=== PATIENT | male | born 1935 | race Caucasian/White ===

== ENCOUNTER → 2016-10-24 | Outpatient (CLI) | payer MEDICARE ==
--- NOTE | 2016-10-26 07:49 | REP ---
Supine abdomen two views: The bowel gas pattern is normal. There are multiple tiny abdominal wall mesh retainers superimposed over the pelvis. There are no calcifications. The skeletal structures and soft tissues are otherwise unremarkable. Impression: Normal bowel gas pattern. Peroneal wall mesh retainers. Signed by Elijah Chowdary MD 10/26/2016 07:41 A
== END ==
LOC: M ADAMS 15:22
PROVIDERS: ATTEND Physician Assistant Medical
DX: R19.5 Other fecal abnormalities (principal)
CPT/HCPCS: 74000; G0463

== ENCOUNTER → 2017-07-15 | Outpatient (CLI) | payer MEDICARE | LOC: M ADAMS 11:34 | DX: R07.89 Other chest pain (principal); I51.7 Cardiomegaly; J98.4 Other disorders of lung; Z23 Encounter for immunization | CPT/HCPCS: 71046 ==

== ENCOUNTER 2017-08-22 09:31 | Emergency (ER) | payer MEDICARE ==
[2017-08-22 10:15] LABS: VENOUS BASE EXCESS -1.6 (-2.0-2.0); VENOUS HCO3 25.3 MEQ/L (23.0-27.0); VENOUS O2 SATURATION 57.1 % (60.0-80.0); VENOUS PARTIAL PRESSURE CO2 50.3 mmHg (38.0-50.0); VENOUS PARTIAL PRESSURE O2 30.9 mmHg (30.0-50.0); VENOUS TOTAL CO2 26.9 MEQ/L (24.0-28.0)
[2017-08-22 10:21] LABS: BASO % 0.1 % (0.0-1.0); EOS % 0.1 % (0.0-3.0); HEMATOCRIT 48.2 % (42.0-52.0); HEMOGLOBIN 16.6 g/dl (14.0-18.0); IMMATURE GRANULOCYTE % 0.4 % (0-3.0); LYMPH # 0.8 10^3/uL (1.5-4.5); MEAN CORPUSCULAR HEMOGLOBIN 32.5 pg (27.0-33.0); MEAN CORPUSCULAR HGB CONC 34.4 g/dl (32.0-36.5); MEAN CORPUSCULAR VOLUME 94.5 fl (80.0-96.0); MONO # 1.2 10^3/uL (0.0-0.8); MONO % 7.1 % (0.0-5.0); NEUTROPHILS # 14.5 10^3/uL (1.8-7.7); NEUTROPHILS % 87.3 % (36.0-66.0); PLATELET COUNT, AUTOMATED 213 10^3/uL (150-450); RED CELL DISTRIBUTION WIDTH 12.8 % (11.5-14.5); WHITE BLOOD COUNT 16.7 10^3/uL (4.0-10.0)
[2017-08-22 10:33] LABS: AMMONIA < 10 uMOL/L (<32)
[2017-08-22 10:35] LABS: OSMOLALITY SERUM 302 MOSM/KG (280-301)
[2017-08-22 10:37] LABS: BEDSIDE GLUCOSE 140 MG/DL (83-110)
[2017-08-22 10:40] LABS: LACTIC ACID SEPSIS PROTOCOL 4.7 MMOL/L (0.4-2.0)
[2017-08-22 10:41] LABS: ALBUMIN 3.4 GM/DL (3.2-5.2); ALBUMIN/GLOBULIN RATIO 0.87 (1.00-1.93); ALKALINE PHOSPHATASE 114 U/L (45-117); ALT/SGPT 16 U/L (12-78); ANION GAP 10 MEQ/L (8-16); AST/SGOT 14 U/L (7-37); BILIRUBIN,DIRECT 0.2 MG/DL (0.0-0.2); BILIRUBIN,TOTAL 0.7 MG/DL (0.2-1.0); BLOOD UREA NITROGEN 20 MG/DL (7-18); CALCIUM LEVEL 8.6 MG/DL (8.8-10.2); CARBON DIOXIDE LEVEL 29 MEQ/L (21-32); CHLORIDE LEVEL 103 MEQ/L (98-107); CPK CREATINE PHOSPHOKINASE 140 U/L (39-308); CREATININE FOR GFR 1.61 MG/DL (0.70-1.30); GLOMERULAR FILTRATION RATE 44.1 (>35); GLUCOSE, FASTING 158 MG/DL (70-100); POTASSIUM SERUM 4.1 MEQ/L (3.5-5.1); SALICYLATE LEVEL < 1.7 MG/DL (5.0-30.0); SODIUM LEVEL 142 MEQ/L (136-145); TOTAL PROTEIN 7.3 GM/DL (6.4-8.2); TROPONIN I < 0.02 NG/ML (< 0.10)
[2017-08-22 10:47] LABS: CK-MB VALUE MASS 1.1 NG/ML (0.0-3.6); MB/CK RELATIVE INDEX 0.78 (< OR =4)
[2017-08-22 10:50] LABS: ACETAMINOPHEN LEVEL < 2.0 UG/ML (10.0-30.0); ETHYL ALCOHOL (ETHANOL) < 0.003 % (0.000-0.010)
[2017-08-22 11:01] LABS: KETONE, URINE AUTO RFX TRACE mg/dL (NEGATIVE); LEUKOCYTE ESTERASE UR AUTO RFX NEGATIVE (NEGATIVE); MUCUS, URINE RFX SMALL (NEGATIVE); NITRITE, URINE AUTO RFX NEGATIVE (NEGATIVE); RBC, URINE AUTO RFX 2 /HPF (0-3); SPECIFIC GRAVITY UR AUTO RFX 1.014 (1.002-1.035); SQUAM EPITHELIAL CELL UR AURFX 0 /HPF (0-6); WBC, URINE AUTO RFX 0 /HPF (0-3)
[2017-08-22 11:23] LABS: AMPHETAMINES LEVEL URINE NEGATIVE (NEGATIVE); BARBITURATES URINE NEGATIVE (NEGATIVE); BENZODIAZEPINES URINE NEGATIVE (NEGATIVE); CANNABINOIDS URINE NEGATIVE (NEGATIVE); COCAINE METABOLITE URINE NEGATIVE (NEGATIVE); METHADONE URINE NEGATIVE (NEGATIVE); OPIATES URINE NEGATIVE (NEGATIVE); PHENCYCLIDINE URINE NEGATIVE (NEGATIVE)
[2017-08-22] MEDS: CEFTRIAXONE SOD 2 GM in APPROPRIATE DILUENT 1 EA IV (12:00)
[2017-08-22] MEDS: NS 1,000 ML IV ×2 (12:00→12:53)
[2017-08-22 12:03] LABS: INR 0.94; PROTHROMBIN TIME 12.7 SECONDS (12.4-14.5)
[2017-08-22 12:04] LABS: ABG BASE EXCESS -1.4 (-2.0-2.0); ABG HCO3 22.9 MEQ/L (22.0-26.0); ABG O2 SATURATION 90.3 % (95.0-99.0); ABG PARTIAL PRESSURE CO2 37.6 mmHg (35.0-45.0); ABG PARTIAL PRESSURE O2 55.1 mmHg (75.0-100.0); ABG STANDARD HCO3 23.1 MEQ/L (22.0-26.0); ABG pH (ARTERIAL) 7.402 UNITS (7.350-7.450)
[2017-08-22] MEDS: NS 500 ML IV (13:53)
== END 2017-08-22 14:17 | disposition short-term general hospital (02) ==
LOC: M ED 09:31
DX: S06.5X0A Traumatic subdural hemorrhage without loss of consciousness, initial encounter (principal); R41.82 Altered mental status, unspecified; G20 Parkinson's disease; F02.80 Dementia in other diseases classified elsewhere, unspecified severity, without behavioral disturbance, psychotic disturbance, mood disturbance, and anxiety; W19.XXXA Unspecified fall, initial encounter; Y92.9 Unspecified place or not applicable; Y93.9 Activity, unspecified; I44.60 Unspecified fascicular block; Z79.899 Other long term (current) drug therapy
CPT/HCPCS: 71045

== ENCOUNTER → 2017-09-09 | Outpatient (REF) ==
[2017-09-09 13:23] LABS: BASO # 0.1 10^3/uL (0.0-0.2); BASO % 0.7 % (0.0-1.0); EOS # 0.1 10^3/uL (0.0-0.50); EOS % 0.7 % (0.0-3.0); HEMATOCRIT 41.3 % (42.0-52.0); HEMOGLOBIN 14.1 g/dl (14.0-18.0); LYMPH # 1.7 10^3/uL (1.5-4.5); LYMPH % 16.2 % (24.0-44.0); MEAN CORPUSCULAR HEMOGLOBIN 32.3 pg (27.0-33.0); MEAN CORPUSCULAR HGB CONC 34.1 g/dl (32.0-36.5); MEAN CORPUSCULAR VOLUME 94.7 fl (80.0-96.0); MONO # 1.3 10^3/uL (0.0-0.8); MONO % 12.5 % (0.0-5.0); NEUTROPHILS # 7.4 10^3/uL (1.8-7.7); NEUTROPHILS % 68.9 % (36.0-66.0); PLATELET COUNT, AUTOMATED 399 10^3/uL (150-450); RED BLOOD COUNT 4.36 10^6/uL (4.30-6.10); RED CELL DISTRIBUTION WIDTH 12.7 % (11.5-14.5); WHITE BLOOD COUNT 10.7 10^3/uL (4.0-10.0)
[2017-09-09 13:42] LABS: ANION GAP 10 MEQ/L (8-16); BLOOD UREA NITROGEN 24 MG/DL (7-18); CALCIUM LEVEL 8.6 MG/DL (8.8-10.2); CARBON DIOXIDE LEVEL 27 MEQ/L (21-32); CHLORIDE LEVEL 96 MEQ/L (98-107); CREATININE FOR GFR 1.09 MG/DL (0.70-1.30); GLOMERULAR FILTRATION RATE > 60.0 (>35); GLUCOSE, FASTING 76 MG/DL (70-100); SODIUM LEVEL 133 MEQ/L (136-145)
== END ==
DX: I10 Essential (primary) hypertension (principal)

== ENCOUNTER → 2017-09-12 | Outpatient (REF) ==
[2017-09-05 17:47] LABS: ANION GAP 8 MEQ/L (8-16); BLOOD UREA NITROGEN 44 MG/DL (7-18); CARBON DIOXIDE LEVEL 28 MEQ/L (21-32); CHLORIDE LEVEL 102 MEQ/L (98-107); CREATININE FOR GFR 1.23 MG/DL (0.70-1.30); GLOMERULAR FILTRATION RATE > 60.0 (>35); GLUCOSE, FASTING 126 MG/DL (70-100); POTASSIUM SERUM 4.7 MEQ/L (3.5-5.1); SODIUM LEVEL 138 MEQ/L (136-145)
== END ==
DX: I10 Essential (primary) hypertension (principal)

== ENCOUNTER → 2017-09-12 | Outpatient (REF) ==
[2017-09-12 13:42] LABS: ANION GAP 9 MEQ/L (8-16); BLOOD UREA NITROGEN 23 MG/DL (7-18); CALCIUM LEVEL 8.8 MG/DL (8.8-10.2); CARBON DIOXIDE LEVEL 28 MEQ/L (21-32); CHLORIDE LEVEL 99 MEQ/L (98-107); CREATININE FOR GFR 1.19 MG/DL (0.70-1.30); GLOMERULAR FILTRATION RATE > 60.0 (>35); GLUCOSE, FASTING 83 MG/DL (70-100); SODIUM LEVEL 136 MEQ/L (136-145)
[2017-09-12 13:57] LABS: POTASSIUM SERUM 5.4 MEQ/L (3.5-5.1)
== END ==
DX: I10 Essential (primary) hypertension (principal)

== ENCOUNTER → 2017-09-16 | Outpatient (REF) ==
[2017-09-16 12:04] LABS: BASO # 0.1 10^3/uL (0.0-0.2); BASO % 0.7 % (0.0-1.0); EOS # 0.1 10^3/uL (0.0-0.50); EOS % 1.2 % (0.0-3.0); HEMATOCRIT 42.4 % (42.0-52.0); HEMOGLOBIN 14.4 g/dl (14.0-18.0); IMMATURE GRANULOCYTE % 0.8 % (0-3.0); LYMPH % 22.4 % (24.0-44.0); MEAN CORPUSCULAR HEMOGLOBIN 32.2 pg (27.0-33.0); MEAN CORPUSCULAR VOLUME 94.9 fl (80.0-96.0); MONO % 10.8 % (0.0-5.0); NEUTROPHILS # 5.8 10^3/uL (1.8-7.7); NEUTROPHILS % 64.1 % (36.0-66.0); PLATELET COUNT, AUTOMATED 328 10^3/uL (150-450); RED BLOOD COUNT 4.47 10^6/uL (4.30-6.10); RED CELL DISTRIBUTION WIDTH 12.7 % (11.5-14.5); WHITE BLOOD COUNT 9.1 10^3/uL (4.0-10.0)
[2017-09-16 12:42] LABS: ANION GAP 9 MEQ/L (8-16); BLOOD UREA NITROGEN 28 MG/DL (7-18); CALCIUM LEVEL 8.4 MG/DL (8.8-10.2); CARBON DIOXIDE LEVEL 27 MEQ/L (21-32); CHLORIDE LEVEL 100 MEQ/L (98-107); CREATININE FOR GFR 1.36 MG/DL (0.70-1.30); GLOMERULAR FILTRATION RATE 53.5 (>35); GLUCOSE, FASTING 94 MG/DL (70-100); POTASSIUM SERUM 4.7 MEQ/L (3.5-5.1); SODIUM LEVEL 136 MEQ/L (136-145)
== END ==
DX: I10 Essential (primary) hypertension (principal)

== ENCOUNTER → 2017-09-19 | Outpatient (REF) ==
[2017-09-19 13:50] LABS: ANION GAP 8 MEQ/L (8-16); BLOOD UREA NITROGEN 25 MG/DL (7-18); CALCIUM LEVEL 8.3 MG/DL (8.8-10.2); CARBON DIOXIDE LEVEL 26 MEQ/L (21-32); CHLORIDE LEVEL 101 MEQ/L (98-107); CREATININE FOR GFR 1.14 MG/DL (0.70-1.30); GLOMERULAR FILTRATION RATE > 60.0 (>35); GLUCOSE, FASTING 115 MG/DL (70-100); POTASSIUM SERUM 4.8 MEQ/L (3.5-5.1); SODIUM LEVEL 135 MEQ/L (136-145)
== END ==
DX: I10 Essential (primary) hypertension (principal)

== ENCOUNTER → 2017-09-23 | Outpatient (REF) ==
[2017-09-23 18:49] LABS: ANION GAP 10 MEQ/L (8-16); BLOOD UREA NITROGEN 38 MG/DL (7-18); CALCIUM LEVEL 7.8 MG/DL (8.8-10.2); CARBON DIOXIDE LEVEL 25 MEQ/L (21-32); CHLORIDE LEVEL 103 MEQ/L (98-107); GLOMERULAR FILTRATION RATE 51.8 (>35); GLUCOSE, FASTING 120 MG/DL (70-100); NT-PRO BNP 96 PG/ML (<450); POTASSIUM SERUM 4.4 MEQ/L (3.5-5.1); SODIUM LEVEL 138 MEQ/L (136-145)
== END ==
DX: I10 Essential (primary) hypertension (principal)

== ENCOUNTER → 2017-09-26 | Outpatient (REF) ==
[2017-09-26 12:47] LABS: ANION GAP 6 MEQ/L (8-16); BLOOD UREA NITROGEN 19 MG/DL (7-18); CALCIUM LEVEL 8.4 MG/DL (8.8-10.2); CARBON DIOXIDE LEVEL 29 MEQ/L (21-32); CHLORIDE LEVEL 102 MEQ/L (98-107); CREATININE FOR GFR 1.16 MG/DL (0.70-1.30); GLOMERULAR FILTRATION RATE > 60.0 (>35); GLUCOSE, FASTING 89 MG/DL (70-100); POTASSIUM SERUM 4.5 MEQ/L (3.5-5.1); SODIUM LEVEL 137 MEQ/L (136-145)
== END ==
DX: I10 Essential (primary) hypertension (principal)

== ENCOUNTER → 2017-09-26 | Outpatient (CLI) | payer MEDICARE | LOC: M RAD 10:59 | DX: Z86.73 Personal history of transient ischemic attack (TIA), and cerebral infarction without residual deficits (principal); I67.82 Cerebral ischemia; I62.02 Nontraumatic subacute subdural hemorrhage | CPT/HCPCS: 70450 ==

== ENCOUNTER → 2017-09-30 | Outpatient (REF) ==
[2017-09-30 12:59] LABS: BASO # 0.1 10^3/uL (0.0-0.2); BASO % 0.6 % (0.0-1.0); EOS # 0.1 10^3/uL (0.0-0.50); EOS % 1.6 % (0.0-3.0); HEMATOCRIT 36.2 % (42.0-52.0); HEMOGLOBIN 12.1 g/dl (14.0-18.0); IMMATURE GRANULOCYTE % 0.4 % (0-3.0); LYMPH # 1.9 10^3/uL (1.5-4.5); MEAN CORPUSCULAR HEMOGLOBIN 32.1 pg (27.0-33.0); MEAN CORPUSCULAR HGB CONC 33.4 g/dl (32.0-36.5); MONO # 0.9 10^3/uL (0.0-0.8); MONO % 11.2 % (0.0-5.0); NEUTROPHILS % 62.2 % (36.0-66.0); PLATELET COUNT, AUTOMATED 224 10^3/uL (150-450); RED BLOOD COUNT 3.77 10^6/uL (4.30-6.10); WHITE BLOOD COUNT 8.1 10^3/uL (4.0-10.0)
[2017-09-30 13:33] LABS: ANION GAP 6 MEQ/L (8-16); BLOOD UREA NITROGEN 19 MG/DL (7-18); CALCIUM LEVEL 7.9 MG/DL (8.8-10.2); CARBON DIOXIDE LEVEL 30 MEQ/L (21-32); CHLORIDE LEVEL 104 MEQ/L (98-107); CREATININE FOR GFR 1.14 MG/DL (0.70-1.30); GLOMERULAR FILTRATION RATE > 60.0 (>35); GLUCOSE, FASTING 86 MG/DL (70-100); POTASSIUM SERUM 4.5 MEQ/L (3.5-5.1); SODIUM LEVEL 140 MEQ/L (136-145)
== END ==
DX: I10 Essential (primary) hypertension (principal)

== ENCOUNTER → 2017-10-03 | Outpatient (REF) ==
[2017-10-03 12:51] LABS: ANION GAP 8 MEQ/L (8-16); BLOOD UREA NITROGEN 17 MG/DL (7-18); CALCIUM LEVEL 8.4 MG/DL (8.8-10.2); CARBON DIOXIDE LEVEL 27 MEQ/L (21-32); CHLORIDE LEVEL 105 MEQ/L (98-107); CREATININE FOR GFR 1.29 MG/DL (0.70-1.30); GLOMERULAR FILTRATION RATE 56.9 (>35); GLUCOSE, FASTING 137 MG/DL (70-100); POTASSIUM SERUM 4.3 MEQ/L (3.5-5.1); SODIUM LEVEL 140 MEQ/L (136-145)
== END ==
DX: E03.9 Hypothyroidism, unspecified (principal)

== ENCOUNTER → 2017-10-07 | Outpatient (REF) | payer MEDICARE ==
[2017-10-07 12:28] LABS: BASO % 0.6 % (0.0-1.0); EOS # 0.1 10^3/uL (0.0-0.50); EOS % 1.7 % (0.0-3.0); HEMATOCRIT 36.6 % (42.0-52.0); HEMOGLOBIN 12.2 g/dl (13.5-17.5); IMMATURE GRANULOCYTE % 0.4 % (0-3.0); LYMPH # 1.9 10^3/uL (1.5-4.5); LYMPH % 26.7 % (24.0-44.0); MEAN CORPUSCULAR HEMOGLOBIN 32.3 pg (27.0-33.0); MEAN CORPUSCULAR HGB CONC 33.3 g/dl (32.0-36.5); MEAN CORPUSCULAR VOLUME 96.8 fl (80.0-96.0); MONO # 0.8 10^3/uL (0.0-0.8); MONO % 11.3 % (0.0-5.0); NEUTROPHILS # 4.3 10^3/uL (1.8-7.7); NEUTROPHILS % 59.3 % (36.0-66.0); PLATELET COUNT, AUTOMATED 261 10^3/uL (150-450); RED BLOOD COUNT 3.78 10^6/uL (4.30-6.10); RED CELL DISTRIBUTION WIDTH 13.7 % (11.5-14.5); WHITE BLOOD COUNT 7.2 10^3/uL (4.0-10.0)
[2017-10-07 13:05] LABS: ANION GAP 9 MEQ/L (8-16); BLOOD UREA NITROGEN 16 MG/DL (7-18); CALCIUM LEVEL 8.1 MG/DL (8.8-10.2); CARBON DIOXIDE LEVEL 25 MEQ/L (21-32); CHLORIDE LEVEL 106 MEQ/L (98-107); CREATININE FOR GFR 1.19 MG/DL (0.70-1.30); GLOMERULAR FILTRATION RATE > 60.0 (>35); GLUCOSE, FASTING 152 MG/DL (70-100); POTASSIUM SERUM 4.1 MEQ/L (3.5-5.1); SODIUM LEVEL 140 MEQ/L (136-145)
== END ==
DX: E03.9 Hypothyroidism, unspecified (principal)
CPT/HCPCS: 80048

== ENCOUNTER → 2017-10-17 | Outpatient (REF) | payer MEDICARE ==
[2017-10-17 10:18] LABS: BASO # 0.1 10^3/uL (0.0-0.2); BASO % 0.6 % (0.0-1.0); EOS # 0.2 10^3/uL (0.0-0.50); EOS % 1.9 % (0.0-3.0); HEMATOCRIT 37.2 % (42.0-52.0); HEMOGLOBIN 12.7 g/dl (13.5-17.5); IMMATURE GRANULOCYTE % 0.4 % (0-3.0); LYMPH # 2.2 10^3/uL (1.5-4.5); LYMPH % 25.2 % (24.0-44.0); MEAN CORPUSCULAR HEMOGLOBIN 33.2 pg (27.0-33.0); MEAN CORPUSCULAR HGB CONC 34.1 g/dl (32.0-36.5); MEAN CORPUSCULAR VOLUME 97.4 fl (80.0-96.0); MONO # 0.8 10^3/uL (0.0-0.8); MONO % 9.2 % (0.0-5.0); NEUTROPHILS # 5.6 10^3/uL (1.8-7.7); NEUTROPHILS % 62.7 % (36.0-66.0); PLATELET COUNT, AUTOMATED 253 10^3/uL (150-450); RED BLOOD COUNT 3.82 10^6/uL (4.30-6.10); RED CELL DISTRIBUTION WIDTH 14.5 % (11.5-14.5); WHITE BLOOD COUNT 8.9 10^3/uL (4.0-10.0)
[2017-10-17 10:42] LABS: ANION GAP 9 MEQ/L (8-16); BLOOD UREA NITROGEN 20 MG/DL (7-18); CARBON DIOXIDE LEVEL 25 MEQ/L (21-32); CHLORIDE LEVEL 109 MEQ/L (98-107); GLOMERULAR FILTRATION RATE > 60.0 (>35); GLUCOSE, FASTING 141 MG/DL (70-100); POTASSIUM SERUM 3.9 MEQ/L (3.5-5.1); SODIUM LEVEL 143 MEQ/L (136-145)
== END ==
DX: E05.90 Thyrotoxicosis, unspecified without thyrotoxic crisis or storm (principal)
CPT/HCPCS: 80048

== ENCOUNTER → 2018-02-10 | Outpatient (REF) | payer MEDICARE ==
[2018-02-10 19:55] LABS: BASO # 0.1 10^3/uL (0.0-0.2); BASO % 0.7 % (0.0-1.0); EOS # 0.1 10^3/uL (0.0-0.50); EOS % 1.6 % (0.0-3.0); HEMATOCRIT 51.3 % (42.0-52.0); HEMOGLOBIN 16.9 g/dl (13.5-17.5); IMMATURE GRANULOCYTE % 0.5 % (0-3.0); LYMPH # 3.6 10^3/uL (1.5-4.5); LYMPH % 43.2 % (24.0-44.0); MEAN CORPUSCULAR HEMOGLOBIN 32.1 pg (27.0-33.0); MEAN CORPUSCULAR HGB CONC 32.9 g/dl (32.0-36.5); MEAN CORPUSCULAR VOLUME 97.5 fl (80.0-96.0); MONO # 1.1 10^3/uL (0.0-0.8); MONO % 12.9 % (0.0-5.0); NEUTROPHILS # 3.4 10^3/uL (1.8-7.7); NEUTROPHILS % 41.1 % (36.0-66.0); PLATELET COUNT, AUTOMATED 223 10^3/uL (150-450); RED BLOOD COUNT 5.26 10^6/uL (4.30-6.10); RED CELL DISTRIBUTION WIDTH 12.7 % (11.5-14.5); WHITE BLOOD COUNT 8.2 10^3/uL (4.0-10.0)
[2018-02-10 20:05] LABS: ALBUMIN 3.1 GM/DL (3.2-5.2); ALBUMIN/GLOBULIN RATIO 0.76 (1.00-1.93); ALKALINE PHOSPHATASE 102 U/L (45-117); ALT/SGPT 21 U/L (12-78); ANION GAP 7 MEQ/L (8-16); AST/SGOT 15 U/L (7-37); BILIRUBIN,TOTAL 0.3 MG/DL (0.2-1.0); BLOOD UREA NITROGEN 23 MG/DL (7-18); CALCIUM LEVEL 8.6 MG/DL (8.8-10.2); CARBON DIOXIDE LEVEL 29 MEQ/L (21-32); CHLORIDE LEVEL 109 MEQ/L (98-107); CREATININE FOR GFR 1.42 MG/DL (0.70-1.30); GLOMERULAR FILTRATION RATE 50.9 (>35); GLUCOSE, FASTING 81 MG/DL (70-100); POTASSIUM SERUM 4.8 MEQ/L (3.5-5.1); SODIUM LEVEL 145 MEQ/L (136-145); TOTAL PROTEIN 7.2 GM/DL (6.4-8.2)
== END ==
LOC: M SFHCPLAZ 16:19
DX: R41.0 Disorientation, unspecified (principal)
CPT/HCPCS: 80053

== ENCOUNTER → 2018-02-11 | Outpatient (REF) | payer MEDICARE ==
[2018-02-11 20:33] LABS: APPEARANCE, URINE MANUAL CLOUDY (CLEAR); COLOR, URINE MANUAL YELLOW (YELLOW)
[2018-02-11 20:34] LABS: BILIRUBIN, URINE MANUAL NEGATIVE (NEGATIVE); BLOOD URINE MANUAL NEGATIVE (NEGATIVE); GLUCOSE, URINE (UA) MANUAL NEGATIVE (NEGATIVE); KETONE, URINE MANUAL NEGATIVE (NEGATIVE); LEUKOCYTE ESTERASE, URINE MAN POSITIVE (NEGATIVE); MICROSCOPIC INDICATED? MAN YES (NO); NITRITE, URINE MANUAL NEGATIVE (NEGATIVE); PROTEIN, URINE MANUAL NEGATIVE (NEGATIVE); UROBILINOGEN, URINE MANUAL NORMAL (NORMAL)
[2018-02-11 20:43] LABS: AMORPHOUS SEDIMENT, URINE LARGE AMOUNT (NEGATIVE); BACTERIA, URINE NONE SEEN; HYALINE CAST, URINE NONE SEEN /lpf (0-1); RBC, URINE NONE SEEN /hpf (0-3); SQUAMOUS EPITHELIAL CELL URINE SMALL AMOUNT /hpf (SMALL AMT); WBC, URINE 0-1 /hpf (0-3)
[2018-02-11 20:44] LABS: MICROSCOPIC EXAM PERFORMED
== END ==
LOC: M SFHCPLAZ 09:19
DX: R41.0 Disorientation, unspecified (principal)
CPT/HCPCS: 81000

== ENCOUNTER 2018-02-24 14:34 | Inpatient (IN) | payer MEDICARE ==
[2018-02-24] MEDS: NS 1,000 ML IV ×2 (14:52→16:00)
[2018-02-24 15:11] LABS: BASO # 0.1 10^3/uL (0.0-0.2); BASO % 0.3 % (0.0-1.0); EOS % 0.3 % (0.0-3.0); HEMATOCRIT 53.3 % (42.0-52.0); HEMOGLOBIN 17.9 g/dl (13.5-17.5); IMMATURE GRANULOCYTE % 0.4 % (0-3.0); LYMPH # 2.4 10^3/uL (1.5-4.5); LYMPH % 16.3 % (24.0-44.0); MEAN CORPUSCULAR HEMOGLOBIN 32.4 pg (27.0-33.0); MEAN CORPUSCULAR HGB CONC 33.6 g/dl (32.0-36.5); MEAN CORPUSCULAR VOLUME 96.4 fl (80.0-96.0); MONO # 1.1 10^3/uL (0.0-0.8); MONO % 7.4 % (0.0-5.0); NEUTROPHILS # 10.9 10^3/uL (1.8-7.7); NEUTROPHILS % 75.3 % (36.0-66.0); PLATELET COUNT, AUTOMATED 211 10^3/uL (150-450); RED BLOOD COUNT 5.53 10^6/uL (4.30-6.10); RED CELL DISTRIBUTION WIDTH 13.2 % (11.5-14.5); WHITE BLOOD COUNT 14.5 10^3/uL (4.0-10.0)
[2018-02-24 15:24] LABS: BEDSIDE GLUCOSE 143 MG/DL (83-110)
[2018-02-24 15:36] LABS: ALBUMIN 3.4 GM/DL (3.2-5.2); ALBUMIN/GLOBULIN RATIO 0.79 (1.00-1.93); ALKALINE PHOSPHATASE 102 U/L (45-117); ALT/SGPT 23 U/L (12-78); ANION GAP 13 MEQ/L (8-16); AST/SGOT 15 U/L (7-37); BILIRUBIN,DIRECT 0.2 MG/DL (0.0-0.2); BILIRUBIN,TOTAL 0.8 MG/DL (0.2-1.0); BLOOD UREA NITROGEN 28 MG/DL (7-18); CALCIUM LEVEL 8.8 MG/DL (8.8-10.2); CARBON DIOXIDE LEVEL 23 MEQ/L (21-32); CHLORIDE LEVEL 107 MEQ/L (98-107); CPK CREATINE PHOSPHOKINASE 45 U/L (39-308); CREATININE FOR GFR 1.62 MG/DL (0.70-1.30); GLOMERULAR FILTRATION RATE 43.8 (>35); GLUCOSE, FASTING 144 MG/DL (70-100); POTASSIUM SERUM 3.9 MEQ/L (3.5-5.1); SALICYLATE LEVEL < 1.7 MG/DL (5.0-30.0); SODIUM LEVEL 143 MEQ/L (136-145); TOTAL PROTEIN 7.7 GM/DL (6.4-8.2); TROPONIN I < 0.02 NG/ML (< 0.10)
[2018-02-24 15:38] LABS: ACETAMINOPHEN LEVEL < 2.0 UG/ML (10.0-30.0)
[2018-02-24 15:40] LABS: LACTIC ACID SEPSIS PROTOCOL 4.2 MMOL/L (0.4-2.0)
[2018-02-24 15:41] LABS: CK-MB VALUE MASS < 1.0 NG/ML (<3.6); MB/CK RELATIVE INDEX 2.22 (< OR =4)
[2018-02-24 16:00] LABS: KETONE, URINE AUTO RFX NEGATIVE (NEGATIVE); LEUKOCYTE ESTERASE UR AUTO RFX NEGATIVE (NEGATIVE); NITRITE, URINE AUTO RFX NEGATIVE (NEGATIVE); RBC, URINE AUTO RFX 1 /HPF (0-3); SPECIFIC GRAVITY UR AUTO RFX 1.025 (1.002-1.035); SQUAM EPITHELIAL CELL UR AURFX 0 /HPF (0-6); WBC, URINE AUTO RFX 0 /HPF (0-3)
[2018-02-24] MEDS: KCL 20MEQ in NS 1000ML 1,000 ML IV (19:06)
[2018-02-24 20:23] LABS: VITAMIN B12 LEVEL 307 PG/ML (247-911)
[2018-02-24 20:24] LABS: FOLATE 16.3 NG/ML (>5.4)
[2018-02-24] MEDS: CitaloPRAM (CeleXA) 10 MG TABLET PO (21:57)
[2018-02-24] MEDS: SIMVASTATIN 20 MG TAB PO (21:57)
[2018-02-25 00:16] LABS: LACTIC ACID SEPSIS PROTOCOL 1.1 MMOL/L (0.4-2.0)
[2018-02-25] MEDS: KCL 20MEQ in NS 1000ML 1,000 ML IV ×2 (04:46→14:53)
[2018-02-25] MEDS: LEVOTHYROXINE 88MCG TABLET (0.088 MG) PO ×2 (06:05)
[2018-02-25 06:38] LABS: HEMATOCRIT 44.3 % (42.0-52.0); MEAN CORPUSCULAR HEMOGLOBIN 32.2 pg (27.0-33.0); MEAN CORPUSCULAR HGB CONC 33.9 g/dl (32.0-36.5); MEAN CORPUSCULAR VOLUME 95.1 fl (80.0-96.0); PLATELET COUNT, AUTOMATED 182 10^3/uL (150-450); RED BLOOD COUNT 4.66 10^6/uL (4.30-6.10); RED CELL DISTRIBUTION WIDTH 13.3 % (11.5-14.5)
[2018-02-25 06:44] LABS: ANION GAP 7 MEQ/L (8-16); BLOOD UREA NITROGEN 23 MG/DL (7-18); CALCIUM LEVEL 8.1 MG/DL (8.8-10.2); CARBON DIOXIDE LEVEL 26 MEQ/L (21-32); CHLORIDE LEVEL 111 MEQ/L (98-107); CREATININE FOR GFR 1.21 MG/DL (0.70-1.30); GLOMERULAR FILTRATION RATE > 60.0 (>35); GLUCOSE, FASTING 100 MG/DL (70-100); SODIUM LEVEL 144 MEQ/L (136-145)
[2018-02-25] MEDS: ENOXAPARIN 30 MG/0.3 ML SYR (J1650) SC ×2 (08:29→08:45)
[2018-02-25] MEDS: DOCUSATE SODIUM 100 MG CAP PO (11:13)
[2018-02-25] MEDS: ACETAMINOPHEN TAB 650MG DOSE (2X325MG) PO (14:53)
[2018-02-25] MEDS: CitaloPRAM (CeleXA) 10 MG TABLET PO (21:17)
[2018-02-25] MEDS: SIMVASTATIN 20 MG TAB PO (21:17)
[2018-02-26] MEDS: KCL 20MEQ in NS 1000ML 1,000 ML IV (00:32)
[2018-02-26] MEDS: LEVOTHYROXINE 88MCG TABLET (0.088 MG) PO (05:39)
[2018-02-26 05:58] LABS: HEMATOCRIT 45.3 % (42.0-52.0); HEMOGLOBIN 15.3 g/dl (13.5-17.5); MEAN CORPUSCULAR HEMOGLOBIN 32.3 pg (27.0-33.0); MEAN CORPUSCULAR HGB CONC 33.8 g/dl (32.0-36.5); MEAN CORPUSCULAR VOLUME 95.6 fl (80.0-96.0); PLATELET COUNT, AUTOMATED 205 10^3/uL (150-450); RED BLOOD COUNT 4.74 10^6/uL (4.30-6.10); RED CELL DISTRIBUTION WIDTH 12.9 % (11.5-14.5); WHITE BLOOD COUNT 9.4 10^3/uL (4.0-10.0)
[2018-02-26 06:17] LABS: ANION GAP 9 MEQ/L (8-16); BLOOD UREA NITROGEN 18 MG/DL (7-18); CARBON DIOXIDE LEVEL 26 MEQ/L (21-32); CHLORIDE LEVEL 109 MEQ/L (98-107); CREATININE FOR GFR 1.18 MG/DL (0.70-1.30); GLOMERULAR FILTRATION RATE > 60.0 (>35); GLUCOSE, FASTING 92 MG/DL (70-100); POTASSIUM SERUM 4.5 MEQ/L (3.5-5.1); SODIUM LEVEL 144 MEQ/L (136-145)
[2018-02-26 06:25] LABS: LACTIC ACID SEPSIS PROTOCOL 2.2 MMOL/L (0.4-2.0)
[2018-02-26] MEDS: NS 1,000 ML IV ×2 (10:05→20:01)
[2018-02-26] MEDS: ENOXAPARIN 30 MG/0.3 ML SYR (J1650) SC (10:05)
[2018-02-26] MEDS: ACETAMINOPHEN TAB 650MG DOSE (2X325MG) PO (14:34)
[2018-02-26] MEDS: SIMVASTATIN 20 MG TAB PO (20:01)
[2018-02-26] MEDS: CitaloPRAM (CeleXA) 10 MG TABLET PO (20:01)
[2018-02-27] MEDS: LEVOTHYROXINE 88MCG TABLET (0.088 MG) PO (05:33)
[2018-02-27 05:59] LABS: HEMATOCRIT 44.8 % (42.0-52.0); HEMOGLOBIN 15.3 g/dl (13.5-17.5); MEAN CORPUSCULAR HEMOGLOBIN 32.2 pg (27.0-33.0); MEAN CORPUSCULAR HGB CONC 34.2 g/dl (32.0-36.5); MEAN CORPUSCULAR VOLUME 94.3 fl (80.0-96.0); PLATELET COUNT, AUTOMATED 194 10^3/uL (150-450); RED BLOOD COUNT 4.75 10^6/uL (4.30-6.10); RED CELL DISTRIBUTION WIDTH 12.8 % (11.5-14.5); WHITE BLOOD COUNT 8.1 10^3/uL (4.0-10.0)
[2018-02-27 06:18] LABS: ANION GAP 8 MEQ/L (8-16); BLOOD UREA NITROGEN 16 MG/DL (7-18); CALCIUM LEVEL 7.9 MG/DL (8.8-10.2); CARBON DIOXIDE LEVEL 25 MEQ/L (21-32); CHLORIDE LEVEL 108 MEQ/L (98-107); CREATININE FOR GFR 1.09 MG/DL (0.70-1.30); GLOMERULAR FILTRATION RATE > 60.0 (>35); GLUCOSE, FASTING 82 MG/DL (70-100); POTASSIUM SERUM 3.8 MEQ/L (3.5-5.1); SODIUM LEVEL 141 MEQ/L (136-145)
[2018-02-27] MEDS ORDERED: LISINOPRIL 10 MG TAB PO (09:00)
[2018-02-27] MEDS: ENOXAPARIN 30 MG/0.3 ML SYR (J1650) SC (10:12)
[2018-02-27] MEDS: amLODIPine 10 MG TAB PO (10:12)
[2018-02-27] MEDS: QUEtiapine FUMARATE 25 MG TAB PO (21:25)
[2018-02-27] MEDS: CitaloPRAM (CeleXA) 10 MG TABLET PO (21:26)
[2018-02-27] MEDS: SIMVASTATIN 20 MG TAB PO (21:26)
[2018-02-27] MEDS: LISINOPRIL 10 MG TAB PO (21:27)
[2018-02-28] MEDS: LEVOTHYROXINE 88MCG TABLET (0.088 MG) PO (05:42)
[2018-02-28 06:21] LABS: HEMATOCRIT 46.9 % (42.0-52.0); HEMOGLOBIN 15.9 g/dl (13.5-17.5); MEAN CORPUSCULAR HEMOGLOBIN 31.7 pg (27.0-33.0); MEAN CORPUSCULAR HGB CONC 33.9 g/dl (32.0-36.5); MEAN CORPUSCULAR VOLUME 93.6 fl (80.0-96.0); PLATELET COUNT, AUTOMATED 230 10^3/uL (150-450); RED BLOOD COUNT 5.01 10^6/uL (4.30-6.10); RED CELL DISTRIBUTION WIDTH 12.9 % (11.5-14.5); WHITE BLOOD COUNT 9.3 10^3/uL (4.0-10.0)
[2018-02-28 06:34] LABS: ANION GAP 8 MEQ/L (8-16); BLOOD UREA NITROGEN 19 MG/DL (7-18); CALCIUM LEVEL 8.5 MG/DL (8.8-10.2); CARBON DIOXIDE LEVEL 28 MEQ/L (21-32); CHLORIDE LEVEL 106 MEQ/L (98-107); CREATININE FOR GFR 1.22 MG/DL (0.70-1.30); GLOMERULAR FILTRATION RATE > 60.0 (>35); GLUCOSE, FASTING 93 MG/DL (70-100); SODIUM LEVEL 142 MEQ/L (136-145)
[2018-02-28] MEDS: ENOXAPARIN 30 MG/0.3 ML SYR (J1650) SC (09:00)
[2018-02-28] MEDS: amLODIPine 10 MG TAB PO (09:55)
[2018-02-28] MEDS: CYANOCOBALAMIN 1,000 MCG/ML VIAL (J3420) IM (15:02)
[2018-02-28] MEDS: LISINOPRIL 10 MG TAB PO (21:08)
[2018-02-28] MEDS: SIMVASTATIN 20 MG TAB PO (21:09)
[2018-02-28] MEDS: CitaloPRAM (CeleXA) 10 MG TABLET PO (21:09)
[2018-02-28] MEDS: QUEtiapine FUMARATE 25 MG TAB PO (21:09)
[2018-03-01] MEDS: LEVOTHYROXINE 88MCG TABLET (0.088 MG) PO (05:37)
[2018-03-01] MEDS: CYANOCOBALAMIN 500 MCG TAB PO (09:14)
[2018-03-01] MEDS: ENOXAPARIN 30 MG/0.3 ML SYR (J1650) SC (09:14)
[2018-03-01] MEDS: amLODIPine 10 MG TAB PO (09:16)
[2018-03-01] MEDS: QUEtiapine FUMARATE 25 MG TAB PO (20:48)
[2018-03-01] MEDS: CitaloPRAM (CeleXA) 10 MG TABLET PO (20:48)
[2018-03-01] MEDS: SIMVASTATIN 20 MG TAB PO (20:48)
[2018-03-01] MEDS: LISINOPRIL 10 MG TAB PO (20:49)
[2018-03-02] MEDS: LEVOTHYROXINE 88MCG TABLET (0.088 MG) PO (05:28)
[2018-03-02] MEDS: CYANOCOBALAMIN 500 MCG TAB PO (08:17)
[2018-03-02] MEDS: ENOXAPARIN 30 MG/0.3 ML SYR (J1650) SC (08:17)
[2018-03-02] MEDS: amLODIPine 10 MG TAB PO (08:20)
[2018-03-02] MEDS: QUEtiapine FUMARATE 25 MG TAB PO (20:46)
[2018-03-02] MEDS: SIMVASTATIN 20 MG TAB PO (20:46)
[2018-03-02] MEDS: LISINOPRIL 10 MG TAB PO (20:47)
[2018-03-02] MEDS: CitaloPRAM (CeleXA) 10 MG TABLET PO (20:47)
[2018-03-02] MEDS ORDERED: CLOTRIMAZOLE 1% TOPICAL CREAM 30GM TOP (23:45)
[2018-03-03] MEDS: TRIAMCINOLONE ACETONIDE 0.025 % 80 GM CREAM TOP ×3 (00:10→22:41)
[2018-03-03] MEDS: CLOTRIMAZOLE 1% TOPICAL CREAM 30GM TOP ×5 (00:11→22:42)
[2018-03-03] MEDS: LEVOTHYROXINE 88MCG TABLET (0.088 MG) PO (05:48)
[2018-03-03] MEDS: amLODIPine 10 MG TAB PO (09:00)
[2018-03-03] MEDS: CYANOCOBALAMIN 500 MCG TAB PO (11:00)
[2018-03-03] MEDS: ENOXAPARIN 30 MG/0.3 ML SYR (J1650) SC (11:00)
[2018-03-03] MEDS: SIMVASTATIN 20 MG TAB PO (22:40)
[2018-03-03] MEDS: LISINOPRIL 10 MG TAB PO (22:40)
[2018-03-03] MEDS: CitaloPRAM (CeleXA) 10 MG TABLET PO (22:40)
[2018-03-03] MEDS: QUEtiapine FUMARATE 25 MG TAB PO (22:40)
[2018-03-04] MEDS: LEVOTHYROXINE 88MCG TABLET (0.088 MG) PO (06:34)
[2018-03-04] MEDS: ENOXAPARIN 30 MG/0.3 ML SYR (J1650) SC (08:56)
[2018-03-04] MEDS: TRIAMCINOLONE ACETONIDE 0.025 % 80 GM CREAM TOP ×2 (08:57→20:22)
[2018-03-04] MEDS: CYANOCOBALAMIN 500 MCG TAB PO ×2 (08:57→09:00)
[2018-03-04] MEDS: amLODIPine 10 MG TAB PO ×2 (08:57→09:00)
[2018-03-04] MEDS: CLOTRIMAZOLE 1% TOPICAL CREAM 30GM TOP ×4 (08:57→20:22)
[2018-03-04] MEDS ORDERED: MOM 30ML SUSPENSION UDC PO (11:00)
[2018-03-04] MEDS: SENNA 8.6 MG TAB (SENOKOT) PO ×2 (11:00→20:21)
[2018-03-04] MEDS: HALOPERIDOL 5 MG/ML VIAL (J1630) IM (15:12)
[2018-03-04] MEDS: CitaloPRAM (CeleXA) 10 MG TABLET PO (20:20)
[2018-03-04] MEDS: LISINOPRIL 10 MG TAB PO (20:20)
[2018-03-04] MEDS: SIMVASTATIN 20 MG TAB PO (20:21)
[2018-03-04] MEDS: QUEtiapine FUMARATE 25 MG TAB PO (20:21)
[2018-03-04] MEDS: DOCUSATE SODIUM 100 MG CAP PO (20:22)
[2018-03-04] MEDS: LORazepam 0.5 MG TAB PO (20:22)
[2018-03-05] MEDS: LEVOTHYROXINE 88MCG TABLET (0.088 MG) PO ×2 (06:17)
[2018-03-05] MEDS: amLODIPine 10 MG TAB PO (09:00)
[2018-03-05 10:45] LABS: HEMATOCRIT 46.9 % (42.0-52.0); HEMOGLOBIN 15.9 g/dl (13.5-17.5); MEAN CORPUSCULAR HEMOGLOBIN 32.3 pg (27.0-33.0); MEAN CORPUSCULAR HGB CONC 33.9 g/dl (32.0-36.5); MEAN CORPUSCULAR VOLUME 95.3 fl (80.0-96.0); PLATELET COUNT, AUTOMATED 268 10^3/uL (150-450); RED BLOOD COUNT 4.92 10^6/uL (4.30-6.10); WHITE BLOOD COUNT 9.9 10^3/uL (4.0-10.0)
[2018-03-05] MEDS: SENNA 8.6 MG TAB (SENOKOT) PO ×2 (11:06→21:26)
[2018-03-05] MEDS: CYANOCOBALAMIN 500 MCG TAB PO (11:06)
[2018-03-05] MEDS: ENOXAPARIN 30 MG/0.3 ML SYR (J1650) SC ×2 (11:06→11:18)
[2018-03-05 11:10] LABS: ALBUMIN 2.8 GM/DL (3.2-5.2); ALBUMIN/GLOBULIN RATIO 0.76 (1.00-1.93); ALKALINE PHOSPHATASE 78 U/L (45-117); ALT/SGPT 15 U/L (12-78); ANION GAP 7 MEQ/L (8-16); AST/SGOT 13 U/L (7-37); BILIRUBIN,TOTAL 0.6 MG/DL (0.2-1.0); BLOOD UREA NITROGEN 32 MG/DL (7-18); CALCIUM LEVEL 8.6 MG/DL (8.8-10.2); CARBON DIOXIDE LEVEL 31 MEQ/L (21-32); CHLORIDE LEVEL 104 MEQ/L (98-107); CREATININE FOR GFR 1.56 MG/DL (0.70-1.30); GLOMERULAR FILTRATION RATE 45.7 (>35); GLUCOSE, FASTING 110 MG/DL (70-100); POTASSIUM SERUM 3.9 MEQ/L (3.5-5.1); SODIUM LEVEL 142 MEQ/L (136-145); TOTAL PROTEIN 6.5 GM/DL (6.4-8.2)
[2018-03-05] MEDS: CLOTRIMAZOLE 1% TOPICAL CREAM 30GM TOP ×4 (11:16→21:27)
[2018-03-05] MEDS: TRIAMCINOLONE ACETONIDE 0.025 % 80 GM CREAM TOP ×2 (11:16→21:27)
[2018-03-05] MEDS: CitaloPRAM (CeleXA) 10 MG TABLET PO (21:26)
[2018-03-05] MEDS: SIMVASTATIN 20 MG TAB PO (21:26)
[2018-03-05] MEDS: QUEtiapine FUMARATE 25 MG TAB PO (21:26)
[2018-03-05] MEDS: LISINOPRIL 10 MG TAB PO (21:26)
[2018-03-06] MEDS: LEVOTHYROXINE 88MCG TABLET (0.088 MG) PO (05:47)
[2018-03-06] MEDS: SENNA 8.6 MG TAB (SENOKOT) PO ×2 (09:05→20:57)
[2018-03-06] MEDS: ENOXAPARIN 30 MG/0.3 ML SYR (J1650) SC (09:05)
[2018-03-06] MEDS: amLODIPine 10 MG TAB PO (09:06)
[2018-03-06] MEDS: CLOTRIMAZOLE 1% TOPICAL CREAM 30GM TOP ×4 (09:07→20:59)
[2018-03-06] MEDS: CYANOCOBALAMIN 500 MCG TAB PO (09:07)
[2018-03-06] MEDS: TRIAMCINOLONE ACETONIDE 0.025 % 80 GM CREAM TOP ×2 (09:07→20:58)
[2018-03-06] MEDS: NS 0.45% 1,000 ML IV (12:44)
[2018-03-06] MEDS: CitaloPRAM (CeleXA) 10 MG TABLET PO (20:57)
[2018-03-06] MEDS: SIMVASTATIN 20 MG TAB PO (20:57)
[2018-03-06] MEDS: LORazepam 0.5 MG TAB PO (20:57)
[2018-03-06] MEDS: QUEtiapine FUMARATE 25 MG TAB PO (20:57)
[2018-03-07 00:06] LABS: ANTI-PARIETAL CELL ANTIBODY 14.5 Units (0.0-20.0)
[2018-03-07] MEDS: NS 0.45% 1,000 ML IV ×2 (00:06→12:27)
[2018-03-07 06:03] LABS: ANION GAP 7 MEQ/L (8-16); BLOOD UREA NITROGEN 31 MG/DL (7-18); CALCIUM LEVEL 8.2 MG/DL (8.8-10.2); CARBON DIOXIDE LEVEL 29 MEQ/L (21-32); CHLORIDE LEVEL 106 MEQ/L (98-107); CREATININE FOR GFR 1.34 MG/DL (0.70-1.30); GLOMERULAR FILTRATION RATE 54.5 (>35); GLUCOSE, FASTING 91 MG/DL (70-100); POTASSIUM SERUM 4.2 MEQ/L (3.5-5.1); SODIUM LEVEL 142 MEQ/L (136-145)
[2018-03-07] MEDS: LEVOTHYROXINE 88MCG TABLET (0.088 MG) PO (06:49)
[2018-03-07] MEDS: amLODIPine 10 MG TAB PO (09:01)
[2018-03-07] MEDS: SENNA 8.6 MG TAB (SENOKOT) PO ×2 (09:01→20:34)
[2018-03-07] MEDS: CYANOCOBALAMIN 500 MCG TAB PO (09:01)
[2018-03-07] MEDS: ENOXAPARIN 30 MG/0.3 ML SYR (J1650) SC (09:05)
[2018-03-07] MEDS: CLOTRIMAZOLE 1% TOPICAL CREAM 30GM TOP ×4 (09:06→21:42)
[2018-03-07] MEDS: TRIAMCINOLONE ACETONIDE 0.025 % 80 GM CREAM TOP ×2 (09:06→21:41)
[2018-03-07] MEDS: CitaloPRAM (CeleXA) 10 MG TABLET PO (20:34)
[2018-03-07] MEDS: SIMVASTATIN 20 MG TAB PO (20:34)
[2018-03-07] MEDS: QUEtiapine FUMARATE 25 MG TAB PO (20:35)
[2018-03-08] MEDS: NS 0.45% 1,000 ML IV ×2 (00:13→12:49)
[2018-03-08] MEDS: LEVOTHYROXINE 88MCG TABLET (0.088 MG) PO (06:36)
[2018-03-08] MEDS: amLODIPine 10 MG TAB PO (08:16)
[2018-03-08] MEDS: ENOXAPARIN 30 MG/0.3 ML SYR (J1650) SC (08:16)
[2018-03-08] MEDS: CYANOCOBALAMIN 500 MCG TAB PO (08:16)
[2018-03-08] MEDS: SENNA 8.6 MG TAB (SENOKOT) PO ×2 (08:16→22:16)
[2018-03-08] MEDS: CLOTRIMAZOLE 1% TOPICAL CREAM 30GM TOP ×4 (08:17→22:17)
[2018-03-08] MEDS: TRIAMCINOLONE ACETONIDE 0.025 % 80 GM CREAM TOP ×2 (08:17→22:17)
[2018-03-08] MEDS: QUEtiapine FUMARATE 50 MG TAB PO (22:16)
[2018-03-08] MEDS: SIMVASTATIN 20 MG TAB PO (22:16)
[2018-03-08] MEDS: CitaloPRAM (CeleXA) 10 MG TABLET PO (22:16)
[2018-03-09] MEDS: NS 0.45% 1,000 ML IV ×2 (00:14→12:16)
[2018-03-09] MEDS: LEVOTHYROXINE 88MCG TABLET (0.088 MG) PO (05:45)
[2018-03-09] MEDS: TRIAMCINOLONE ACETONIDE 0.025 % 80 GM CREAM TOP ×2 (08:08→22:17)
[2018-03-09] MEDS: CLOTRIMAZOLE 1% TOPICAL CREAM 30GM TOP ×4 (08:09→22:18)
[2018-03-09] MEDS: amLODIPine 10 MG TAB PO (08:13)
[2018-03-09] MEDS: ENOXAPARIN 30 MG/0.3 ML SYR (J1650) SC (08:13)
[2018-03-09] MEDS: CYANOCOBALAMIN 500 MCG TAB PO (08:13)
[2018-03-09] MEDS: SENNA 8.6 MG TAB (SENOKOT) PO ×2 (08:13→22:17)
[2018-03-09] MEDS: SIMVASTATIN 20 MG TAB PO (22:17)
[2018-03-09] MEDS: QUEtiapine FUMARATE 50 MG TAB PO (22:17)
[2018-03-09] MEDS: CitaloPRAM (CeleXA) 10 MG TABLET PO (22:17)
[2018-03-10] MEDS: NS 0.45% 1,000 ML IV ×2 (00:31→13:18)
[2018-03-10] MEDS: LEVOTHYROXINE 88MCG TABLET (0.088 MG) PO (06:03)
[2018-03-10] MEDS: SENNA 8.6 MG TAB (SENOKOT) PO ×2 (10:18→20:22)
[2018-03-10] MEDS: amLODIPine 10 MG TAB PO (10:18)
[2018-03-10] MEDS: CYANOCOBALAMIN 500 MCG TAB PO (10:19)
[2018-03-10] MEDS: ENOXAPARIN 30 MG/0.3 ML SYR (J1650) SC (10:19)
[2018-03-10] MEDS: CLOTRIMAZOLE 1% TOPICAL CREAM 30GM TOP ×4 (10:20→20:23)
[2018-03-10] MEDS: TRIAMCINOLONE ACETONIDE 0.025 % 80 GM CREAM TOP ×2 (10:20→20:24)
[2018-03-10] MEDS: CitaloPRAM (CeleXA) 10 MG TABLET PO (20:22)
[2018-03-10] MEDS: SIMVASTATIN 20 MG TAB PO (20:23)
[2018-03-10] MEDS: QUEtiapine FUMARATE 50 MG TAB PO (20:23)
[2018-03-11] MEDS: NS 0.45% 1,000 ML IV (02:06)
[2018-03-11] MEDS: LEVOTHYROXINE 88MCG TABLET (0.088 MG) PO (05:45)
[2018-03-11] MEDS: CYANOCOBALAMIN 500 MCG TAB PO (10:39)
[2018-03-11] MEDS: amLODIPine 10 MG TAB PO (10:40)
[2018-03-11] MEDS: SENNA 8.6 MG TAB (SENOKOT) PO ×2 (10:40→21:13)
[2018-03-11] MEDS: ENOXAPARIN 30 MG/0.3 ML SYR (J1650) SC (10:40)
[2018-03-11] MEDS: CLOTRIMAZOLE 1% TOPICAL CREAM 30GM TOP ×4 (10:41→21:13)
[2018-03-11] MEDS: TRIAMCINOLONE ACETONIDE 0.025 % 80 GM CREAM TOP ×2 (10:41→21:14)
[2018-03-11 12:42] LABS: ANION GAP 6 MEQ/L (8-16); BLOOD UREA NITROGEN 17 MG/DL (7-18); CALCIUM LEVEL 8.2 MG/DL (8.8-10.2); CARBON DIOXIDE LEVEL 30 MEQ/L (21-32); CHLORIDE LEVEL 106 MEQ/L (98-107); CREATININE FOR GFR 1.17 MG/DL (0.70-1.30); GLOMERULAR FILTRATION RATE > 60.0 (>35); GLUCOSE, FASTING 94 MG/DL (70-100); POTASSIUM SERUM 4.1 MEQ/L (3.5-5.1); SODIUM LEVEL 142 MEQ/L (136-145)
[2018-03-11] MEDS: SIMVASTATIN 20 MG TAB PO (21:13)
[2018-03-11] MEDS: QUEtiapine FUMARATE 50 MG TAB PO (21:13)
[2018-03-11] MEDS: CitaloPRAM (CeleXA) 10 MG TABLET PO (21:13)
[2018-03-12] MEDS: LEVOTHYROXINE 88MCG TABLET (0.088 MG) PO (05:50)
[2018-03-12 09:25] LABS: ALBUMIN 2.9 GM/DL (3.2-5.2); ALBUMIN/GLOBULIN RATIO 0.78 (1.00-1.93); ALKALINE PHOSPHATASE 79 U/L (45-117); ALT/SGPT 20 U/L (12-78); ANION GAP 10 MEQ/L (8-16); AST/SGOT 15 U/L (7-37); BILIRUBIN,TOTAL 0.4 MG/DL (0.2-1.0); BLOOD UREA NITROGEN 17 MG/DL (7-18); CALCIUM LEVEL 8.7 MG/DL (8.8-10.2); CARBON DIOXIDE LEVEL 26 MEQ/L (21-32); CHLORIDE LEVEL 106 MEQ/L (98-107); CREATININE FOR GFR 1.37 MG/DL (0.70-1.30); GLOMERULAR FILTRATION RATE 53.1 (>35); GLUCOSE, FASTING 150 MG/DL (70-100); POTASSIUM SERUM 4.1 MEQ/L (3.5-5.1); SODIUM LEVEL 142 MEQ/L (136-145); TOTAL PROTEIN 6.6 GM/DL (6.4-8.2)
[2018-03-12] MEDS: ENOXAPARIN 30 MG/0.3 ML SYR (J1650) SC (09:54)
[2018-03-12] MEDS: CYANOCOBALAMIN 500 MCG TAB PO (09:55)
[2018-03-12] MEDS: amLODIPine 10 MG TAB PO (09:55)
[2018-03-12] MEDS: SENNA 8.6 MG TAB (SENOKOT) PO ×2 (09:55→21:03)
[2018-03-12] MEDS: CLOTRIMAZOLE 1% TOPICAL CREAM 30GM TOP ×4 (09:56→21:04)
[2018-03-12] MEDS: TRIAMCINOLONE ACETONIDE 0.025 % 80 GM CREAM TOP ×2 (09:56→21:04)
[2018-03-12] MEDS: SIMVASTATIN 20 MG TAB PO (21:03)
[2018-03-12] MEDS: QUEtiapine FUMARATE 50 MG TAB PO (21:03)
[2018-03-12] MEDS: CitaloPRAM (CeleXA) 10 MG TABLET PO (21:03)
[2018-03-13] MEDS: LEVOTHYROXINE 88MCG TABLET (0.088 MG) PO (06:02)
[2018-03-13] MEDS: amLODIPine 10 MG TAB PO (08:58)
[2018-03-13] MEDS: SENNA 8.6 MG TAB (SENOKOT) PO (08:59)
[2018-03-13] MEDS: ENOXAPARIN 30 MG/0.3 ML SYR (J1650) SC (08:59)
[2018-03-13] MEDS: CYANOCOBALAMIN 500 MCG TAB PO (08:59)
[2018-03-13] MEDS: TRIAMCINOLONE ACETONIDE 0.025 % 80 GM CREAM TOP (09:00)
[2018-03-13] MEDS: CLOTRIMAZOLE 1% TOPICAL CREAM 30GM TOP (09:00)
== END 2018-03-13 10:42 | DRG 640 ==
LOC: M ED 14:34 → M ED INP 18:37 → M MSPAV 20:13
DX: E86.0 Dehydration (principal); G93.41 Metabolic encephalopathy; F02.81 Dementia in other diseases classified elsewhere, unspecified severity, with behavioral disturbance; E03.9 Hypothyroidism, unspecified; B37.42 Candidal balanitis; L25.9 Unspecified contact dermatitis, unspecified cause; E53.8 Deficiency of other specified B group vitamins; I65.29 Occlusion and stenosis of unspecified carotid artery; I71.4 Abdominal aortic aneurysm, without rupture; G31.83 Neurocognitive disorder with Lewy bodies; E78.5 Hyperlipidemia, unspecified; I11.9 Hypertensive heart disease without heart failure; Z87.891 Personal history of nicotine dependence; Z79.899 Other long term (current) drug therapy; Z87.820 Personal history of traumatic brain injury

== ENCOUNTER → 2018-04-17 | Outpatient (REF) ==
[2018-04-17 13:53] LABS: BASO # 0.1 10^3/uL (0.0-0.2); BASO % 0.9 % (0.0-1.0); EOS # 0.2 10^3/uL (0.0-0.50); HEMOGLOBIN 14.4 g/dl (13.5-17.5); IMMATURE GRANULOCYTE % 0.5 % (0-3.0); LYMPH # 2.8 10^3/uL (1.5-4.5); LYMPH % 30.1 % (24.0-44.0); MEAN CORPUSCULAR HEMOGLOBIN 31.7 pg (27.0-33.0); MEAN CORPUSCULAR HGB CONC 33.5 g/dl (32.0-36.5); MEAN CORPUSCULAR VOLUME 94.7 fl (80.0-96.0); MONO % 10.3 % (0.0-5.0); NEUTROPHILS # 5.2 10^3/uL (1.8-7.7); NEUTROPHILS % 56.2 % (36.0-66.0); PLATELET COUNT, AUTOMATED 192 10^3/uL (150-450); RED BLOOD COUNT 4.54 10^6/uL (4.30-6.10); RED CELL DISTRIBUTION WIDTH 13.5 % (11.5-14.5); WHITE BLOOD COUNT 9.2 10^3/uL (4.0-10.0)
[2018-04-17 14:16] LABS: ALBUMIN/GLOBULIN RATIO 0.94 (1.00-1.93); ALKALINE PHOSPHATASE 78 U/L (45-117); ALT/SGPT 19 U/L (12-78); ANION GAP 8 MEQ/L (8-16); AST/SGOT 14 U/L (7-37); BILIRUBIN,TOTAL 0.3 MG/DL (0.2-1.0); BLOOD UREA NITROGEN 23 MG/DL (7-18); CALCIUM LEVEL 8.4 MG/DL (8.8-10.2); CARBON DIOXIDE LEVEL 27 MEQ/L (21-32); CHLORIDE LEVEL 106 MEQ/L (98-107); CREATININE FOR GFR 1.46 MG/DL (0.70-1.30); GLOMERULAR FILTRATION RATE 49.3 (>35); GLUCOSE, FASTING 102 MG/DL (70-100); POTASSIUM SERUM 4.6 MEQ/L (3.5-5.1); SODIUM LEVEL 141 MEQ/L (136-145); TOTAL PROTEIN 6.2 GM/DL (6.4-8.2)
== END ==
LOC: SKLAB5 10:38
DX: D64.9 Anemia, unspecified (principal)

== ENCOUNTER 2018-05-27 18:43 | Emergency (ER) | payer MEDICARE ==
[2018-05-27] MEDS: NS 500 ML IV (19:45)
[2018-05-27 20:32] LABS: BASO # 0.1 10^3/uL (0.0-0.2); BASO % 0.7 % (0.0-1.0); EOS # 0.2 10^3/uL (0.0-0.50); EOS % 2.2 % (0.0-3.0); HEMATOCRIT 44.5 % (42.0-52.0); HEMOGLOBIN 15.1 g/dl (13.5-17.5); IMMATURE GRANULOCYTE % 0.5 % (0-3.0); LYMPH # 2.8 10^3/uL (1.5-4.5); LYMPH % 28.4 % (24.0-44.0); MEAN CORPUSCULAR HEMOGLOBIN 32.1 pg (27.0-33.0); MEAN CORPUSCULAR HGB CONC 33.9 g/dl (32.0-36.5); MEAN CORPUSCULAR VOLUME 94.7 fl (80.0-96.0); MONO # 1.2 10^3/uL (0.0-0.8); MONO % 12.4 % (0.0-5.0); NEUTROPHILS # 5.5 10^3/uL (1.8-7.7); NEUTROPHILS % 55.8 % (36.0-66.0); PLATELET COUNT, AUTOMATED 211 10^3/uL (150-450); RED CELL DISTRIBUTION WIDTH 13.4 % (11.5-14.5); WHITE BLOOD COUNT 9.9 10^3/uL (4.0-10.0)
[2018-05-27 20:42] LABS: INR 0.96; PROTHROMBIN TIME 12.9 SECONDS (12.1-14.4)
[2018-05-27 20:43] LABS: PARTIAL THROMBOPLASTIN TIME 30.1 SECONDS (25.4-37.6)
[2018-05-27 20:53] LABS: KETONE, URINE AUTO RFX NEGATIVE (NEGATIVE); LEUKOCYTE ESTERASE UR AUTO RFX NEGATIVE (NEGATIVE); MUCUS, URINE RFX SMALL (NEGATIVE); NITRITE, URINE AUTO RFX NEGATIVE (NEGATIVE); RBC, URINE AUTO RFX 1 /HPF (0-3); SPECIFIC GRAVITY UR AUTO RFX 1.019 (1.002-1.035); SQUAM EPITHELIAL CELL UR AURFX 0 /HPF (0-6); WBC, URINE AUTO RFX 0 /HPF (0-3)
[2018-05-27 21:05] LABS: ALBUMIN 2.9 GM/DL (3.2-5.2); ALBUMIN/GLOBULIN RATIO 0.78 (1.00-1.93); ALKALINE PHOSPHATASE 105 U/L (45-117); ALT/SGPT 19 U/L (12-78); ANION GAP 6 MEQ/L (8-16); AST/SGOT 17 U/L (7-37); BILIRUBIN,DIRECT < 0.1 MG/DL (0.0-0.2); BILIRUBIN,TOTAL 0.2 MG/DL (0.2-1.0); BLOOD UREA NITROGEN 35 MG/DL (7-18); CALCIUM LEVEL 7.8 MG/DL (8.8-10.2); CARBON DIOXIDE LEVEL 27 MEQ/L (21-32); CHLORIDE LEVEL 107 MEQ/L (98-107); CPK CREATINE PHOSPHOKINASE 57 U/L (39-308); CREATININE FOR GFR 1.56 MG/DL (0.70-1.30); GLOMERULAR FILTRATION RATE 45.6 (>35); GLUCOSE, FASTING 104 MG/DL (70-100); LIPASE 328 U/L (73-393); MB/CK RELATIVE INDEX 1.75 (< OR =4); POTASSIUM SERUM 5.2 MEQ/L (3.5-5.1); SODIUM LEVEL 140 MEQ/L (136-145); TOTAL PROTEIN 6.6 GM/DL (6.4-8.2); TROPONIN I < 0.02 NG/ML (< 0.10)
[2018-05-27] MEDS: NS 1,000 ML IV (21:30)
[2018-05-27 21:34] LABS: MAGNESIUM LEVEL 1.8 MG/DL (1.8-2.4)
== END 2018-05-27 23:33 | disposition home or self-care (01) ==
LOC: M ED 18:43
DX: E86.0 Dehydration (principal); N17.9 Acute kidney failure, unspecified; E83.52 Hypercalcemia; I49.3 Ventricular premature depolarization; G20 Parkinson's disease; E03.9 Hypothyroidism, unspecified; I10 Essential (primary) hypertension; E78.5 Hyperlipidemia, unspecified; F03.90 Unspecified dementia, unspecified severity, without behavioral disturbance, psychotic disturbance, mood disturbance, and anxiety; Z79.899 Other long term (current) drug therapy
CPT/HCPCS: 71045

== ENCOUNTER → 2018-05-30 | Outpatient (CLI) | payer MEDICARE ==
[2018-05-30 19:23] LABS: ANION GAP 8 MEQ/L (8-16); BLOOD UREA NITROGEN 26 MG/DL (7-18); CALCIUM LEVEL 8.1 MG/DL (8.8-10.2); CARBON DIOXIDE LEVEL 27 MEQ/L (21-32); CHLORIDE LEVEL 109 MEQ/L (98-107); CREATININE FOR GFR 1.57 MG/DL (0.70-1.30); GLOMERULAR FILTRATION RATE 45.3 (>35); GLUCOSE, FASTING 129 MG/DL (70-100); POTASSIUM SERUM 4.1 MEQ/L (3.5-5.1); SODIUM LEVEL 144 MEQ/L (136-145)
== END ==
LOC: M ADAMS 14:50
DX: N17.9 Acute kidney failure, unspecified (principal)
CPT/HCPCS: 80048

== ENCOUNTER → 2018-06-02 | Outpatient (REF) | payer MEDICARE ==
[2018-06-02 16:14] LABS: ANION GAP 7 MEQ/L (8-16); BLOOD UREA NITROGEN 30 MG/DL (7-18); CALCIUM LEVEL 8.2 MG/DL (8.8-10.2); CARBON DIOXIDE LEVEL 27 MEQ/L (21-32); CHLORIDE LEVEL 109 MEQ/L (98-107); CREATININE FOR GFR 1.47 MG/DL (0.70-1.30); GLOMERULAR FILTRATION RATE 48.8 (>35); GLUCOSE, FASTING 116 MG/DL (70-100); POTASSIUM SERUM 4.3 MEQ/L (3.5-5.1); SODIUM LEVEL 143 MEQ/L (136-145)
== END ==
LOC: M SFHCADAM 14:18
DX: N17.9 Acute kidney failure, unspecified (principal)
CPT/HCPCS: 80048

== ENCOUNTER 2018-06-24 16:29 | Inpatient (IN) | payer MEDICARE ==
[~2018-06-24] VITALS: Ht 175.3 cm; Wt 76.5 kg
[~2018-06-24 16:29] MED LIST: AMLO10TA5 PO; AMOX875T2 PO; ATIV1TAB10 PO; CELE10TA PO; CITA10TA5 PO; CLOTR1CR TOP; COLA100C5 PO; DULC10SU2 PR; ENEM1ENE4 PR; HYOS0.1248 PO; LEVO75TA4 PO; LEVO88TA24 PO; LISI-538 PO; LISI10TA4 PO; MILK120011 PO; MOM30SS PO; QUET5TAB PO; SCOP1DIS TOP; SENN18TA PO; SENN8.6T7 PO; SERO50TA PO; SIMV20TA2 PO; SYNT88TA2 PO; TRIA25CR TOP; TYLE325T5 PO; VITA10002 PO; VITA500T53 PO
[2018-06-24] MEDS ORDERED: ACETAMINOPHEN 650 MG SUPP PR ONE (17:00)
[2018-06-24] MEDS: IPRATROPIUM 0.5MG/ALBUTEROL 2.5MG INH SOL UD 3ML (DUONEB)(J7620) NEB PRN ×3 (17:01→17:24)
[2018-06-24 17:04] LABS: ABG BASE EXCESS -5.6 (-2.0-2.0); ABG HCO3 20.5 MEQ/L (22.0-26.0); ABG O2 SATURATION 93.3 % (95.0-99.0); ABG PARTIAL PRESSURE CO2 41.9 mmHg (35.0-45.0); ABG PARTIAL PRESSURE O2 69.9 mmHg (75.0-100.0); ABG STANDARD HCO3 19.9 MEQ/L (22.0-26.0); ABG TOTAL CO2 21.8 MEQ/L (23.0-31.0); ABG pH (ARTERIAL) 7.307 UNITS (7.350-7.450)
[2018-06-24] MEDS ORDERED: IBUPROFEN 600 MG TAB As Ordered ONE (17:04)
--- NOTE | 2018-06-24 17:07 | REP ---
Chest one-view HISTORY: Cough Comparison: 05/27/2018 Patchy density is present in the left lower lobe consistent with atelectasis or infiltrate. The right lung is clear. The heart is normal in size. The pulmonary vasculature is normal in appearance. Impression: Left lower lobe atelectasis or infiltrate. Electronically Signed by Jose Alejandro Choe MD 06/24/2018 04:58 P
[2018-06-24 17:08] LABS: BASO # 0.1 10^3/uL (0.0-0.2); BASO % 0.3 % (0.0-1.0); EOS # 0.1 10^3/uL (0.0-0.50); EOS % 0.4 % (0.0-3.0); HEMATOCRIT 50.2 % (42.0-52.0); HEMOGLOBIN 16.5 g/dl (13.5-17.5); LYMPH # 3.3 10^3/uL (1.5-4.5); LYMPH % 14.5 % (24.0-44.0); MEAN CORPUSCULAR HEMOGLOBIN 32.2 pg (27.0-33.0); MEAN CORPUSCULAR HGB CONC 32.9 g/dl (32.0-36.5); MONO # 1.5 10^3/uL (0.0-0.8); MONO % 6.6 % (0.0-5.0); NEUTROPHILS # 17.9 10^3/uL (1.8-7.7); NEUTROPHILS % 77.7 % (36.0-66.0); PLATELET COUNT, AUTOMATED 208 10^3/uL (150-450); RED BLOOD COUNT 5.12 10^6/uL (4.30-6.10)
[2018-06-24] MEDS ORDERED: IBUPROFEN 600 MG TAB PO ONE ×2 (17:15→18:30)
[2018-06-24] MEDS ORDERED: APAP500T10 PO (17:19)
[2018-06-24 17:44] LABS: INFLUENZA A AMPLIFICATION NEGATIVE (NEGATIVE); INFLUENZA B AMPLIFICATION NEGATIVE (NEGATIVE)
[2018-06-24] MEDS ORDERED: cefTRIAXone SOD 2 GM in D5W MINI-BAG PLUS 50 ML IV ONE (17:45)
[2018-06-24] MEDS ORDERED: NS IV ONE (17:45)
[2018-06-24] MEDS ORDERED: DILUENT IV ONE (17:45)
[2018-06-24 17:51] LABS: BLOOD UREA NITROGEN 24 MG/DL (7-18); CALCIUM LEVEL 8.1 MG/DL (8.8-10.2); CARBON DIOXIDE LEVEL 20 MEQ/L (21-32); CHLORIDE LEVEL 106 MEQ/L (98-107); CPK CREATINE PHOSPHOKINASE 63 U/L (39-308); CREATININE FOR GFR 1.64 MG/DL (0.70-1.30); GLUCOSE, FASTING 148 MG/DL (70-100); MB/CK RELATIVE INDEX 1.59 (< OR =4); NT-PRO BNP 140 PG/ML (<450); POTASSIUM SERUM 4.3 MEQ/L (3.5-5.1); SODIUM LEVEL 141 MEQ/L (136-145); TROPONIN I < 0.02 NG/ML (< 0.10)
[2018-06-24 18:08] LABS: INR 0.98; PROTHROMBIN TIME 13.1 SECONDS (12.1-14.4)
[2018-06-24 18:09] LABS: PARTIAL THROMBOPLASTIN TIME 25.6 SECONDS (25.4-37.6)
[2018-06-24 18:40] LABS: APPEARANCE, URINE HAZY (CLEAR); BACTERIA, URINE AUTO NEGATIVE (NEGATIVE); BILIRUBIN, URINE AUTO NEGATIVE (NEGATIVE); BLOOD, URINE BLOOD NEGATIVE (NEGATIVE); COLOR, URINE YELLOW (YELLOW); GLUCOSE, URINE (UA) AUTO NEGATIVE (NEGATIVE); KETONE, URINE AUTO NEGATIVE (NEGATIVE); LEUKOCYTE ESTERASE, URINE AUTO NEGATIVE (NEGATIVE); MUCUS, URINE SMALL (NEGATIVE); NITRITE, URINE AUTO NEGATIVE (NEGATIVE); PROTEIN, URINE AUTO 1+ mg/dL (NEGATIVE); RBC, URINE AUTO 0 /HPF (0-3); SQUAMOUS EPITHELIAL CELL UR AU 0 /HPF (0-6); UROBILINOGEN, URINE AUTO 0.2 mg/dL (0.0-2.0); WBC, URINE AUTO 0 /HPF (0-3)
--- NOTE | 2018-06-24 18:54 | REP ---
CT chest without contrast: History: Dyspnea. Question left lower lobe infiltrate. Comparison chest CT study: March 14, 2018. Comparison is made with today's chest x-ray. CT findings: There is some motion artifact. This is most pronounced at the bases. There is some pulmonary parenchymal opacification at the left base suggesting a focal infiltrate in the lower lobe and in the lingula. No pleural effusion is seen. The thoracic aorta is quite tortuous and diffusely ectatic. The ascending aorta root measures 4.4 cm in AP dimension. No pleural or pericardial effusion is seen. No mediastinal mass or adenopathy is observed. There is a cyst in the upper pole right kidney which measures 5.4 cm in greatest diameter. No adrenal lesion is seen. Impression: Increased markings in the left base consistent with early infiltrate. There is some respiratory motion artifact on the scan images. There are bilateral lower lobe dependent subsegmental atelectatic changes. Cardiomegaly and diffuse ectasia and tortuosity of the thoracic aorta. Electronically Signed by Mauricio Judge MD 06/24/2018 07:56 P
[2018-06-24] MEDS ORDERED: NYST1POW9 TOP (19:08)
[2018-06-24] MEDS ORDERED: IPRATROPIUM 0.5MG/ALBUTEROL 2.5MG INH SOL UD 3ML (DUONEB)(J7620) NEB ONE (19:15)
[2018-06-24 19:30] LABS: ALBUMIN 3.4 GM/DL (3.2-5.2); ALT/SGPT 19 U/L (12-78); AMYLASE 138 U/L (25-115); BILIRUBIN,DIRECT < 0.1 MG/DL (0.0-0.2); BILIRUBIN,TOTAL 0.4 MG/DL (0.2-1.0); C REACTIVE PROTEIN QUANTITATIV 0.84 MG/DL (0.00-0.30); TOTAL PROTEIN 7.3 GM/DL (6.4-8.2)
[2018-06-24] MEDS ORDERED: BISACODYL 10 MG SUPP PR PRN (19:30)
[2018-06-24] MEDS ORDERED: DOCUSATE SODIUM 100 MG CAP PO PRN (19:30)
[2018-06-24] MEDS ORDERED: ONDANSETRON 4MG/2ML VIAL (J2405) IV PRN (19:30)
[2018-06-24] MEDS ORDERED: IPRATROPIUM 0.02% SOLN 0.5MG/2.5 ML NEB INH PRN (19:30)
[2018-06-24] MEDS ORDERED: AZITHROMYCIN INJ 500 MG, VIAL MATE ADAPTER 1 EACH in D5W 250 ML IV ONE (19:30)
[2018-06-24] MEDS: LEVALBUTEROL 1.25 MG/0.5 ML CONCENTRATE NEB INH SCH (20:54)
[2018-06-24] MEDS: LISINOPRIL 20 MG TAB PO SCH (20:55)
--- NOTE | 2018-06-24 21:01 | HPEPDOC ---
[facility] Medical History & Physical Date of Admission Jun 24, 2018 Attending Physician: STEPHIE HUNTLEY MD History and Physical CHIEF COMPLAINT: Shortness of breath 2 days HISTORY OF PRESENT ILLNESS: Patient is an 83-year-old man. He has medical history is significant for hypothyroidism, hyperlipidemia, hypertension, carotid artery disease, Parkinson's disease with dementia and recent history and of for with subdural hematoma, which was managed conservatively in August 2017. Patient's is hard of hearing and with dementia, hence, not a good historian. Patient lives with his and both are all in the care of her daughter. He attends day rehabilitation at a [facility] home and was noted to have been progressively short of breath for the past 2 days. He was also said to be a lot more short of breath today, hence this visit to the hospital for evaluation of his shortness of breath. Patient was accompanied by his daughter who would also want her father transitioned to a longterm as she's no longer carpal of ensuring adequate care. There is mention of subjective fevers and chills. Occasional coughing which has been on for the past 4 days. However, no mention of chest pain, palpitations. Unclear if patient has cough productive of sputum. There is no change in his bowel or urinary habits. No complaints of lower extremity swellings or pains. No recent long distance travel. Patient was evaluated in the emergency room with severe dyspnea was started on 100% FiO2 Ventimask weekly time proved to 50% Ventimask and patient saturating 97, 98%. Hospitalist was called for further evaluation and with possibility of admission. Chest x-ray and CT chest done were consistent with a pneumonia left lower lobe infiltrate seen. PAST MEDICAL HISTORY: Per [facility] PAST SURGICAL HISTORY: None SOCIAL HISTORY: He is with dementia and he is ADL dependent. No mention of smoking. Daughter gives information that he stops smoking about 15 years ago. No mention of alcohol intake. No mention of recreational drug use. He lives with his . FAMILY HISTORY: His father from lung cancer. 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 No history of diabetes nor significant heart disease in the family. ALLERGIES: Please see below. REVIEW OF SYSTEMS: I point review of system negative other than that described in the body of HPI, review of system incomplete as patient is hard of hearing with dementia and occasionally noncooperative. HOME MEDICATIONS: Please see below. PHYSICAL EXAMINATION: VITAL SIGNS: Temperature 102.2 (rectal), pulse 93, respiratory rate 22, blood pressure 116/64, pulse oximetry 97% on 50% Venti mask. GENERAL APPEARANCE: Elderly man, lying in bed, not in mild to moderate respiratory distress. He is not pale, anicteric and afebrile HEENT: Atraumatic. Neck: Supple. LUNGS: Mild wheezing. CARDIOVASCULAR: S1 and 2 heard, no murmurs, rubs or gallops. ABDOMEN: Obese, soft, not tender, not distended. Bowel sounds normoactive. MUSCULOSKELETAL: Apparently within normal limits EXTREMITIES: No pedal edema, 2+ bilateral pedal pulses noted. NEUROLOGICAL: Awake, alert, oriented 3. PSYCHIATRIC: Normal affect LABORATORY DATA: See below. IMAGING: Chest x-ray: Left lower lobe atelectasis or infiltrate CT chest: Increased markings in the left base consistent with early infiltrate. There is some respiratory motion artifact on the scan images. There are bilateral lower lobe dependent subsegmental atelectatic changes. Cardiomegaly and diffuse ectasia and tortuosity of the thoracic aorta. MICROBIOLOGY: Please see below. ASSESSMENT: 83-year-old man comes in with some progressively worsening shortness of breath, subjective fever and chills at home. Exam is significant for a temperature of 102.2. Patient with mild to moderate respiratory distress, tolerating 50% FiO2 Ventimask. Auscultation reveals bilateral mild wheeze. Chest x-ray and CT scan consistent with pneumonia. Labs with elevated white count and lactic acid 6.0. Patient is DNR/DNI. . DIAGNOSES: 1. Sepsis. 2. Pneumonia. 3. Acute hypoxic respiratory failure. 4. MAULIK PLAN: 1. We'll admit patient to PCU under care of Dr Huntley 2. Continue with oxygen supplementation, respiratory breathing treatments with levalbuterol and ipratropium. We'll hold steroids for now. 3. Pneumonia. Continue with ceftriaxone and azithromycin. Follow blood cultures. Follow temperature trends. Follow white count. 4. MAULIK: Continue sepsis protocol with IV fluids. Anticipate response with volume expansion. However, baseline creatinine is 1.4-1.5.. 5. Sepsis. Continue IV fluids. Continue antibiotics, follow blood cultures as above. Follow temperature trends. Repeat lactate in 3-4 hours time. 6. Patient is DNR/DNI. 7. Hypothyroidism. We will continue with by mouth medications. 8. Hyperlipidemia. Continue by mouth medications. 9. Hypertension. We'll resume BP medications. However, the attention to blood pressure and hold when indicated. 10. DVT prophylaxis subcutaneous heparin. 11. GI prophylaxis not indicated at this time. 12. Further management will be per patient's clinical course. Vital Signs Vital Signs Date Time Temp Pulse Resp B/P (MAP) Pulse Ox O2 Delivery O2 Flow Rate FiO2 06/24/18 19:45 100.5 90 117/60 (79) 95 Venturi Mask 50 06/24/18 19:29 24 06/24/18 16:33 15.0 Laboratory Data Labs 24H Laboratory Tests 2 06/24/18 16:38: Blood Gas Bicarbonate Standard 19.9L, Arterial Blood pH 7.307L, Arterial Blood Partial Pressure CO2 41.9, Arterial Blood Partial Pressure O2 69.9L, Arterial Blood Total CO2 21.8L, Arterial Blood HCO3 20.5L, Arterial Blood Base Excess - 5.6L, Arterial Blood Oxygen Saturation 93.3L 06/24/18 16:48: Immature Granulocyte % (Auto) 0.5, White Blood Count 23.0H, Red Blood Count 5.12, Hemoglobin 16.5, Hematocrit 50.2, Mean Corpuscular Volume 98.0H, Mean Corpuscular Hemoglobin 32.2, Mean Corpuscular Hemoglobin Concent 32.9, Red Cell Distribution Width 13.2, Platelet Count 208, Neutrophils (%) (Auto) 77.7H, Lymphocytes (%) (Auto) 14.5L, Monocytes (%) (Auto) 6.6H, Eosinophils (%) (Auto) 0.4, Basophils (%) (Auto) 0.3, Neutrophils # (Auto) 17.9H, Lymphocytes # (Auto) 3.3, Monocytes # (Auto) 1.5H, Eosinophils # (Auto) 0.1, Basophils # (Auto) 0.1, Nucleated Red Blood Cells % (auto) 0.0, Anion Gap 15, Glomerular Filtration Rate 43.0, Lactic Acid Level 6.8*H, Calcium Level 8.1L, Aspartate Amino Transf (AST/SGOT) 15, Alanine Aminotransferase (ALT/SGPT) 19, Alkaline Phosphatase 106, Total Bilirubin 0.4, Direct Bilirubin < 0.1, Total Creatine Kinase 63, Creatine Kinase MB 1.0, Creatine Kinase MB Relative Index 1.59, Troponin I < 0.02, C- Reactive Protein, Quantitative 0.84H, IF-Pok-A-Type Natriuretic Peptide 140, Total Protein 7.3, Albumin 3.4, Albumin/Globulin Ratio 0.87L, Amylase Level 138H 06/24/18 16:55: Influenza Type A (RT-PCR) NEGATIVE, Influenza Type B (RT-PCR) NEGATIVE 06/24/18 17:44: Prothrombin Time 13.1, Prothromb Time International Ratio 0.98, Activated Partial Thromboplast Time 25.6, Urine Appearance HAZY, Urine Color YELLOW, Urine pH 5.0, Urine Specific [place] 1.000L, Urine Protein 1+H, Urine Glucose (UA) NEGATIVE, Urine Ketones NEGATIVE, Urine Urobilinogen 0.2, Urine Bilirubin NEGATIVE, Urine Leukocyte Esterase NEGATIVE, Urine Blood NEGATIVE, Urine Nitrite NEGATIVE, Urine WBC (Auto) 0, Urine RBC (Auto) 0, Urine Hyaline Casts (Auto) 4, Urine Bacteria (Auto) NEGATIVE, Urine Squamous Epithelial Cells 0, Urine Mucus (Auto) SMALL, Urine Sperm (Auto) CBC/BMP Laboratory Tests 06/24/18 16:48 Red Blood Count 5.12, Mean Corpuscular Volume 98.0 H, Mean Corpuscular Hemoglobin 32.2, Mean Corpuscular Hemoglobin Concent 32.9, Red Cell Distribution Width 13.2, Neutrophils (%) (Auto) 77.7 H, Lymphocytes (%) (Auto) 14.5 L, Monocytes (%) (Auto) 6.6 H, Eosinophils (%) (Auto) 0.4, Basophils (%) (Auto) 0.3, Neutrophils # (Auto) 17.9 H, Lymphocytes # (Auto) 3.3, Monocytes # (Auto) 1.5 H, Eosinophils # (Auto) 0.1, Basophils # (Auto) 0.1 Microbiology Microbiology 06/24/18 Blood Culture, Received Pending 06/24/18 Blood Culture, Received Pending 06/24/18 Urine Culture, Received Pending Home Medications Scheduled Amlodipine Besylate (Amlodipine Besylate) 10 Mg Tab, 10 MG PO DAILY Citalopram Hydrobromide (Celexa) 10 Mg Tab, 10 MG PO DAILY Levothyroxine Sodium (Levoxyl) 88 Mcg Tab, 88 MCG PO DAILY Lisinopril (Lisinopril) 20 Mg Tab, 20 MG PO BID Nystatin (Nystatin Powder) 100,000 Unit/Gm Pow, 1 APLCT TOP BID APPLY TO GROIN AREA Quetiapine Fumerate (Seroquel) 50 Mg Tab, 25 MG PO QHS Simvastatin (Simvastatin) 20 Mg Tab, 20 MG PO QHS Scheduled PRN (Enema) 1 Marni Marni, 1 MARNI CA DAILY PRN for CONSTIPATION Acetaminophen (APAP Extra Strength) 500 Mg Tab, 500 MG PO Q6H PRN for PAIN / FEVER Bisacodyl (Dulcolax) 10 Mg Sup, 10 MG CA DAILY PRN for CONSTIPATION Docusate Sodium (Colace) 100 Mg Cap, 100 MG PO BID PRN for CONSTIPATION Hyoscyamine Sulfate (Hyoscyamine Sulfate) 0.125 Mg Tab, 0.125 MG PO BID PRN for ITCHING Milk Of Magnesia (Milk of Magnesia Concentr) 30 Ml Conc, 30 ML PO DAILY PRN for CONSTIPATION Allergies Coded Allergies: No Known Allergies (Verified , 08/22/17) SHIRLEY HOROWITZ MD Jun 24, 2018 21:01
[2018-06-24] MEDS: QUEtiapine FUMARATE 25 MG TAB PO SCH (21:10)
[2018-06-24] MEDS: SIMVASTATIN 20 MG TAB PO SCH (21:10)
[2018-06-24] MEDS: HEPARIN SOD (PORCINE) 5000 UNITS/ML VIAL SC SCH (21:15)
[2018-06-24 21:40] VITALS: BP 137/65
[2018-06-24 23:59] VITALS: BP 107/55
[2018-06-25] VITALS (9 sets, daily range): BP systolic 102–117; BP diastolic 53–61; O2SAT 92–94
[2018-06-25] MEDS: LEVALBUTEROL 1.25 MG/0.5 ML CONCENTRATE NEB INH SCH ×7 (01:04→23:48)
[2018-06-25] MEDS: LEVOTHYROXINE 88MCG TABLET (0.088 MG) PO SCH (05:45)
[2018-06-25] MEDS: HEPARIN SOD (PORCINE) 5000 UNITS/ML VIAL SC SCH (05:45)
[2018-06-25 06:16] LABS: ALBUMIN 2.5 GM/DL (3.2-5.2); BILIRUBIN,TOTAL 0.3 MG/DL (0.2-1.0); CALCIUM LEVEL 7.7 MG/DL (8.8-10.2); CREATININE FOR GFR 1.93 MG/DL (0.70-1.30); GLOMERULAR FILTRATION RATE 35.7 (>35); POTASSIUM SERUM 4.6 MEQ/L (3.5-5.1)
[2018-06-25] MEDS: NS 1,000 ML IV SCH ×2 (07:24→17:55)
[2018-06-25 07:33] LABS: MAGNESIUM LEVEL 1.7 MG/DL (1.8-2.4)
[2018-06-25] MEDS: LISINOPRIL 20 MG TAB PO SCH ×2 (07:55→21:07)
[2018-06-25] MEDS: amLODIPine 10 MG TAB PO SCH (07:55)
[2018-06-25 08:02] LABS: BASO % 0.1 % (0.0-1.0); HEMATOCRIT 38.9 % (42.0-52.0); LYMPH # 1.3 10^3/uL (1.5-4.5); LYMPH % 4.6 % (24.0-44.0); MEAN CORPUSCULAR HEMOGLOBIN 32.4 pg (27.0-33.0); MEAN CORPUSCULAR HGB CONC 33.9 g/dl (32.0-36.5); MEAN CORPUSCULAR VOLUME 95.3 fl (80.0-96.0); MONO # 1.3 10^3/uL (0.0-0.8); MONO % 4.8 % (0.0-5.0); NEUTROPHILS % 89.9 % (36.0-66.0); PLATELET COUNT, AUTOMATED 183 10^3/uL (150-450); RED BLOOD COUNT 4.08 10^6/uL (4.30-6.10); WHITE BLOOD COUNT 27.8 10^3/uL (4.0-10.0)
[2018-06-25 08:05] LABS: HEMOGLOBIN 13.2 g/dl (13.5-17.5)
[2018-06-25] MEDS: CitaloPRAM (CeleXA) 10 MG TABLET PO SCH ×2 (09:00→09:03)
[2018-06-25] MEDS ORDERED: AZITHROMYCIN 250 MG TAB PO SCH (09:00)
[2018-06-25] MEDS ORDERED: cefTRIAXone SOD 1 GM in D5W MINI-BAG PLUS 50 ML IV SCH (10:00)
[2018-06-25] MEDS ORDERED: AZITHROMYCIN INJ 250 MG, VIAL MATE ADAPTER 1 EACH in D5W 250 ML IV SCH (10:15)
--- NOTE | 2018-06-25 10:24 | ECGEPIP ---
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
[2018-06-25 10:46] LABS: C REACTIVE PROTEIN QUANTITATIV 6.72 MG/DL (0.00-0.30)
[2018-06-25] MEDS: MEROPENEM INJ 1 GM in APPROPRIATE DILUENT 1 EA IV SCH ×2 (11:30→23:35)
--- NOTE | 2018-06-25 12:47 | IPNPDOC ---
Text Note Date of Service The patient was seen on 06/25/18. NOTE Subjective: Patient is an 83-year-old male with a PMHx of HTN, CAD, DLP, Hypothyroidism, Parkinson's with Dementia, Recent Hx of Subdural Hematoma who p resented to the ER after he was noted to be progressively SOB over last 4 days associated with productive cough. In the ER patient was found to be hypoxic and required Ventimask for supplemental oxygen. Patient was admitted to the hospitalist service for further evaluation and treatment. Patient was seen and examined at the bedside. Currently, patient is arousable, however, is unable to provide any details to his history. , Not appear to be in any distress Objective: Vitals (See below) General: Lying in bed, no acute distress, comfortable, Alert HEENT: NC, AT CVS: RRR, +S1S2 Lungs: Poor inspiratory effort bilaterally, no appreciable rhonchi, rales or wheezing Abdomen: Soft, ND, NT Extremities: - Edema, - Calf tenderness Assessment and plan: Sepsis - 2/2 CAP, possibly HCAP - Patient has been known to frequent day rehabilitation - Currently is not able to answer any questions to any degree of detail - Physical does not reveal any adventitious lung sounds - Remains hemodynamically stable and afebrile - Leukocytosis has been noted to worsen this morning - Lactic acidosis improving - CT chest 06/24: Increased markings in the left base consistent with early infiltrate. There is some respiratory motion artifact on the scan images. There are bilateral lower lobe dependent subsegmental atelectatic changes. Cardiomegaly and diffuse ectasia and tortuosity of the thoracic aorta. - Will trend CRP - Will DC Ceftriaxone / Azithromycin; Will start Meropenem / Vancomycin - IV fluids resumed this morning Acute hypoxic respiratory failure - likely 2/2 above - c/w Supplemental oxygen Lactic acidosis - Improving - c/w IV fluid hydration HTN - BP well controlled - c/w Lisinopril / Amlodipine with holding parameters CAD / DLP - c/w Simvastatin Hypothyroidism - c/w Levothyroxine Parkinson's with Dementia Depression - c/w Quetiapine Recent Hx of Subdural Hematoma - CT Head 03/24/18: Diffuse atrophy, vascular calcification and small vessel changes. Old bilateral basal ganglia lacunar infarcts. No acute intracranial abnormality. DVT prophylaxis - Will DC Heparin - Will start SCDs VS,Fishbone, I+O VS, Fishbone, I+O Laboratory Tests 06/24/18 16:48 Red Blood Count 5.12, Mean Corpuscular Volume 98.0 H, Mean Corpuscular Hemoglobin 32.2, Mean Corpuscular Hemoglobin Concent 32.9, Red Cell Distribution Width 13.2, Neutrophils (%) (Auto) 77.7 H, Lymphocytes (%) (Auto) 14.5 L, Monocytes (%) (Auto) 6.6 H, Eosinophils (%) (Auto) 0.4, Basophils (%) (Auto) 0.3, Neutrophils # (Auto) 17.9 H, Lymphocytes # (Auto) 3.3, Monocytes # (Auto) 1.5 H, Eosinophils # (Auto) 0.1, Basophils # (Auto) 0.1 06/25/18 05:38 Calcium Level 7.7 L, Aspartate Amino Transf (AST/SGOT) 14, Alanine Aminotransferase (ALT/SGPT) 13, Alkaline Phosphatase 60, Total Bilirubin 0.3, Total Protein 6.0 L, Albumin 2.5 #L 06/25/18 07:37 Red Blood Count 4.08 L, Mean Corpuscular Volume 95.3, Mean Corpuscular Hemoglobin 32.4, Mean Corpuscular Hemoglobin Concent 33.9, Red Cell Distribution Width 13.6, Neutrophils (%) (Auto) 89.9 H, Lymphocytes (%) (Auto) 4.6 L, Monocytes (%) (Auto) 4.8, Eosinophils (%) (Auto) 0.0, Basophils (%) (Auto) 0.1, Neutrophils # (Auto) 25.0 H, Lymphocytes # (Auto) 1.3 L, Monocytes # (Auto) 1.3 H, Eosinophils # (Auto) 0.0, Basophils # (Auto) 0.0 Vital Signs Date Time Temp Pulse Resp B/P (MAP) Pulse Ox O2 Delivery O2 Flow Rate FiO2 06/25/18 12:18 92 BIPAP/CPAP 30 06/25/18 12:18 16 06/25/18 08:23 6.0 06/25/18 07:45 97.7 68 117/55 (75) I&O- Last 24 Hours up to 6 AM 06/25/18 06:00 Intake Total 0 ml Output Total 175 ml Balance -175 ml STEPHIE HUNTLEY MD Jun 25, 2018 12:47
[2018-06-25] MEDS ORDERED: VANCOMYCIN HCL 750 MG, VIAL MATE ADAPTER 1 EACH in D5W 250 ML IV ONE (14:00)
[2018-06-25] MEDS: VANCOMYCIN HCL 1,000 MG, VIAL MATE ADAPTER 1 EACH in D5W 250 ML IV SCH (14:05)
--- NOTE | 2018-06-25 14:33 | PHACANCOPD ---
PHARMACY VANCOMYCIN DOSING Pt Demographics Demographics Patient Age:83 , Weight:84.300 , Gender: male Adjusted Body Weight Date: 06/25/18, Adjusted Body Weight: Kg Events Past 24 Hours Events Past 24 Hours: NO: Dialysis, Diuretic Therapy, Change in CrCl, Fever, Elevation in WBC, Pending Diagnostics, Pending Procedures, Other Vancomycin Vancomycin Target Ranges: 15-20 mcg/ml Vancomycin Load Y/N: Yes Load Dose Date Time Vancomycin Load Dose: 1750 Date: 06/25 Time: 1300 Vancomycin Dose Date: 06/25/18. Current Vancomycin Dose: Intermittent Dosing?: No Labs Labs Vital Signs Label Value Date Time Patient Temperature 97.7 degrees F 06/25/18 0745 Temperature Source Temporal 06/25/18 0745 Patient Temperature 97.7 degrees F 06/25/18 0400 Temperature Source Temporal 06/25/18 0400 Item Value Date Time White Blood Count 27.8 10^3/uL H 06/25/18 0737 White Blood Count 23.0 10^3/uL H 06/24/18 1648 Creatinine 1.93 MG/DL H 06/25/18 0538 Creatinine 1.64 MG/DL H 06/24/18 1648 Micro Microbiology 06/24/18 Blood Culture, Received Pending 06/24/18 Blood Culture, Received Pending 06/25/18 MRSA Screen, Received Pending 06/24/18 Urine Culture, Received Pending Creatinine Clearance Date:06/25/18. Creatinine Clearance: . Assessment and Plan Maintaining Current Dose?: Yes Reason for dose change: No Dose Change Pharmacist Note Pharmacist Note Date: 06/25/18. Pharmacist note: Pt. has been started on Vanco and Merrem for potential hospital acquired pneumonia. I have loaded the pt with 1750mg Vanco today at 1300 followed by 1G IV Q24H. We will continue to monitor and adjust dose as needed. ROSELINE JUAN PHARMACY Jun 25, 2018 14:33
[2018-06-25] MEDS ORDERED: AZITHROMYCIN INJ 500 MG, VIAL MATE ADAPTER 1 EACH in D5W 250 ML IV SCH (20:00)
[2018-06-25] MEDS: QUEtiapine FUMARATE 25 MG TAB PO SCH (21:07)
[2018-06-25] MEDS: SIMVASTATIN 20 MG TAB PO SCH (21:08)
[2018-06-26 04:00] VITALS: BP 113/64
[2018-06-26] MEDS: LEVALBUTEROL 1.25 MG/0.5 ML CONCENTRATE NEB INH SCH ×7 (04:00→20:23)
[2018-06-26 05:56] LABS: BASO % 0.1 % (0.0-1.0); HEMOGLOBIN 12.2 g/dl (13.5-17.5); LYMPH % 9.9 % (24.0-44.0); MEAN CORPUSCULAR HEMOGLOBIN 31.7 pg (27.0-33.0); MEAN CORPUSCULAR VOLUME 96.1 fl (80.0-96.0); MONO # 1.4 10^3/uL (0.0-0.8); NEUTROPHILS # 16.9 10^3/uL (1.8-7.7); NEUTROPHILS % 82.1 % (36.0-66.0); PLATELET COUNT, AUTOMATED 181 10^3/uL (150-450); RED BLOOD COUNT 3.85 10^6/uL (4.30-6.10); WHITE BLOOD COUNT 20.6 10^3/uL (4.0-10.0)
[2018-06-26] MEDS: NS 1,000 ML IV SCH ×2 (06:08→18:19)
[2018-06-26] MEDS: LEVOTHYROXINE 88MCG TABLET (0.088 MG) PO SCH (06:08)
[2018-06-26 06:23] LABS: ALBUMIN 2.5 GM/DL (3.2-5.2); BILIRUBIN,TOTAL 0.4 MG/DL (0.2-1.0); C REACTIVE PROTEIN QUANTITATIV 8.04 MG/DL (0.00-0.30); CALCIUM LEVEL 7.6 MG/DL (8.8-10.2); CREATININE FOR GFR 1.5 MG/DL (0.70-1.30); GLOMERULAR FILTRATION RATE 47.7 (>35); MAGNESIUM LEVEL 1.8 MG/DL (1.8-2.4); TOTAL PROTEIN 6.3 GM/DL (6.4-8.2)
[2018-06-26 08:00] VITALS: BP 119/57
[2018-06-26] MEDS: CitaloPRAM (CeleXA) 10 MG TABLET PO SCH (08:38)
[2018-06-26] MEDS: LISINOPRIL 20 MG TAB PO SCH ×2 (08:39→20:38)
[2018-06-26] MEDS: amLODIPine 10 MG TAB PO SCH (08:39)
[2018-06-26] MEDS: MEROPENEM INJ 1 GM in APPROPRIATE DILUENT 1 EA IV SCH ×2 (11:09→23:07)
[2018-06-26 12:00] VITALS: BP 116/55
[2018-06-26] MEDS: VANCOMYCIN HCL 1,000 MG, VIAL MATE ADAPTER 1 EACH in D5W 250 ML IV SCH (13:47)
[2018-06-26] MEDS ORDERED: LEVALBUTEROL 1.25 MG/0.5 ML CONCENTRATE NEB INH PRN (14:30)
[2018-06-26 16:00] VITALS: BP 139/68
[2018-06-26 20:00] VITALS: BP 153/73
[2018-06-26] MEDS: SIMVASTATIN 20 MG TAB PO SCH (20:37)
[2018-06-26] MEDS: QUEtiapine FUMARATE 25 MG TAB PO SCH (20:37)
[2018-06-27] VITALS (7 sets, daily range): BP systolic 109–162; BP diastolic 51–84
[2018-06-27] MEDS: LEVALBUTEROL 1.25 MG/0.5 ML CONCENTRATE NEB INH SCH ×5 (00:38→21:22)
[2018-06-27] MEDS ORDERED: HALOPERIDOL 2 MG TAB PO ONE (00:45)
[2018-06-27] MEDS ORDERED: HALOPERIDOL 0.5 MG TAB PO ONE (00:45)
[2018-06-27] MEDS: NS 1,000 ML IV SCH ×2 (05:38→17:47)
[2018-06-27] MEDS: LEVOTHYROXINE 88MCG TABLET (0.088 MG) PO SCH (05:46)
[2018-06-27 06:13] LABS: BASO % 0.3 % (0.0-1.0); EOS # 0.1 10^3/uL (0.0-0.50); EOS % 0.6 % (0.0-3.0); HEMATOCRIT 35.5 % (42.0-52.0); LYMPH # 2.3 10^3/uL (1.5-4.5); LYMPH % 17.4 % (24.0-44.0); MEAN CORPUSCULAR HEMOGLOBIN 32.1 pg (27.0-33.0); MEAN CORPUSCULAR HGB CONC 33.8 g/dl (32.0-36.5); MEAN CORPUSCULAR VOLUME 94.9 fl (80.0-96.0); MONO # 1.4 10^3/uL (0.0-0.8); MONO % 10.6 % (0.0-5.0); NEUTROPHILS # 9.2 10^3/uL (1.8-7.7); NEUTROPHILS % 70.7 % (36.0-66.0); PLATELET COUNT, AUTOMATED 180 10^3/uL (150-450); RED BLOOD COUNT 3.74 10^6/uL (4.30-6.10); WHITE BLOOD COUNT 13.1 10^3/uL (4.0-10.0)
[2018-06-27 06:39] LABS: ALBUMIN 2.5 GM/DL (3.2-5.2); BILIRUBIN,TOTAL 0.7 MG/DL (0.2-1.0); C REACTIVE PROTEIN QUANTITATIV 4.62 MG/DL (0.00-0.30); CALCIUM LEVEL 7.8 MG/DL (8.8-10.2); CREATININE FOR GFR 1.36 MG/DL (0.70-1.30); GLOMERULAR FILTRATION RATE 53.4 (>35); MAGNESIUM LEVEL 1.8 MG/DL (1.8-2.4); POTASSIUM SERUM 3.7 MEQ/L (3.5-5.1)
--- NOTE | 2018-06-27 07:16 | IPNPDOC ---
Subjective Date Seen The patient was seen on 06/26/18. Subjective Chief Complaint/HPI Patient was initially unarousable this AM and I had to continue doing sternal rub to get him to awaken and answer any questions. His answers were not very comprehensible or accurate either. However, I have learned he has Parkinson's Dementia. Patient did deny any pain however. ROS was otherwise unobtainable. General: Reports: ROS Unobtainable Objective Physical Examination General Exam: Positive: No Acute Distress, Other (Very drowsy and lethargic appearing) Eye Exam: Positive: Conjunctiva & lids normal; Negative: Sclera icteric ENT Exam: Positive: Atraumatic Neck Exam: Positive: Supple Chest Exam: Positive: Rhonchi (at bases bilaterally), Diminished (at bases bilaterally) Heart Exam: Positive: Rate Normal, Regular Rhythm, Normal S1, Normal S2; Negative: Murmurs Telemetry: Positive: No significant arrhythmia, Sinus Abdomen Exam: Positive: Normal bowel sounds, Soft; Negative: Tenderness Extremity Exam: Negative: Clubbing, Cyanosis, Edema Skin Exam: Positive: Nl turgor and temperature; Negative: Rash Psych Exam: Negative: Mental status NL (was able to awaken after sternal rubs only and verbal stimuli), Memory Intact, Oriented x 3 Assessment /Plan Problems (1) Sepsis Status: Resolved Response to Treatment: Stable, Improving Problem Text: 06/26: Likely secondary to CAP vs. HCAP of LLL. Patient goes frequently to day rehab. This AM, patient was not able to answer questions comprehensibly. However, later on during the afternoon, he seemed to be better and was able to answer questions more logically, which was definite improvement. Remains hemodynamically stable and afebrile. Leukocytosis and lactic acidosis is improving. And will continue IVF NS @ 80 mLs/hr. Continue empiric antibiotic therapy with vancomycin and meropenem. Patient was reported by nursing staff to be trying to pull out his hernandez and his IV line. A sitter was ordered. Blood cx and urine cx remain negative. (2) Left lower lobe pneumonia Status: Acute Response to Treatment: Improving Problem Text: 06/26: Lungs still diminished and rhonchorous at bilateral bases. Will continue IV antibiotics with vanco and meropenem. Leukocytosis improving. Afebrile. CRP however went up from 6.72 to 8.04. Will continue to trend. Blood cx show NGTD x 24 hours. (3) Lactic acidosis Status: Acute Response to Treatment: Improving Problem Text: 06/26: Improving and lactic acid level is 1.5 down from 3.5 yesterday. (4) Leukocytosis Status: Acute Problem Text: 06/26: WBC trending down and is 20.6 from 27.8 yesterday. Continue to monitor CBC. (5) Acute kidney injury Status: Resolved Problem Text: 06/26: Kidney fx improving and Cr has trended down to 1.50. (6) Acute respiratory failure with hypoxia Status: Acute Response to Treatment: Improving Problem Text: 06/26: Improving. Oxygen requirement is decreasing and patient has gone from needing 6 liters NC to 4 liters hi flow NC. Can start with PT now and will order PT to start working with patient. (7) Hypertension Status: Chronic Problem Text: 06/26: BP stable today and was WNL at 113/64. Continue lisinopril and amlodipine with hold parameters. (8) Coronary artery disease Status: Chronic Problem Text: 06/26: Continue simvastatin. (9) Dyslipidemia Status: Chronic Problem Text: 06/26: Continue simvastatin. (10) Hypothyroid Status: Chronic Problem Text: 06/26: Continue levothyroxine. (11) Parkinson's disease dementia Status: Chronic (12) Depression Status: Chronic Problem Text: 06/26: Continue citalopram and seroquel. (13) Hx of subdural hematoma Status: Chronic Problem Text: 06/26: CT Head on 03/24/18 showed diffuse atrophy, vascular ca lcification, and small vessel changes. Old bilateral basal ganglia lacunar infarcts. No acute intracranial abnormality. Plan/VTE VTE Prophylaxis Ordered?: Yes (SCDs only; probably hold off on heparin due to recent hx of subdural hematoma) Disposition Daughter who is nurse in [place] used to take care of patient but is finding it difficult to move forward to take care of patient. Patient in need of placement and Dr. Saxena suggests a alf facility in [place] so patient can be close to family (i.e. daughter). Carisa from [facility] is working on this I am told. VS, I&O, 24H, Fishbone Vital Signs/I&O Vital Signs Date Time Temp Pulse Resp B/P (MAP) Pulse Ox O2 Delivery O2 Flow Rate FiO2 06/27/18 04:00 98.1 56 18 109/51 (70) 91 High Flow Cannula 4.0 06/25/18 12:18 30 I&O- Last 24 Hours up to 6 AM 06/27/18 05:59 Intake Total 640 ml Output Total 1950 ml Balance -1310 ml Laboratory Data 24H LABS Laboratory Tests 2 06/26/18 11:59: Vancomycin Level Trough 9.3L 06/27/18 05:46: Immature Granulocyte % (Auto) 0.4, White Blood Count 13.1H, Red Blood Count 3.74L, Hemoglobin 12.0L, Hematocrit 35.5L, Mean Corpuscular Volume 94.9, Mean Corpuscular Hemoglobin 32.1, Mean Corpuscular Hemoglobin Concent 33.8, Red Cell Distribution Width 14.3, Platelet Count 180, Neutrophils (%) (Auto) 70.7H, Lymphocytes (%) (Auto) 17.4L, Monocytes (%) (Auto) 10.6H, Eosinophils (%) (Auto) 0.6, Basophils (%) (Auto) 0.3, Neutrophils # (Auto) 9.2H, Lymphocytes # (Auto) 2.3, Monocytes # (Auto) 1.4H, Eosinophils # (Auto) 0.1, Basophils # (Auto) 0.0, Nucleated Red Blood Cells % (auto) 0.0 CBC/BMP Laboratory Tests 06/27/18 05:46 Red Blood Count 3.74 L, Mean Corpuscular Volume 94.9, Mean Corpuscular Hemoglobin 32.1, Mean Corpuscular Hemoglobin Concent 33.8, Red Cell Distribution Width 14.3, Neutrophils (%) (Auto) 70.7 H, Lymphocytes (%) (Auto) 17.4 L, Monocytes (%) (Auto) 10.6 H, Eosinophils (%) (Auto) 0.6, Basophils (%) (Auto) 0.3, Neutrophils # (Auto) 9.2 H, Lymphocytes # (Auto) 2.3, Monocytes # (Auto) 1.4 H, Eosinophils # (Auto) 0.1, Basophils # (Auto) 0.0 Microbiology Microbiology 06/24/18 Blood Culture - Preliminary, Resulted No Growth after 48 hours. All Specime... 06/24/18 Blood Culture - Preliminary, Resulted No Growth after 48 hours. All Specime... 06/25/18 MRSA Screen - Final, Complete 06/24/18 Urine Culture - Final, Complete GME ATTESTATION ATTENDING NOTE Family Medicine Attending Note: I was present on site to supervise Fior Arias D.O. (OGME-3). We discussed the history and exam. I confirmed the west elements during my [id number] encounter with the patient. We conferred on the assessment and plan; I agree with the note as documented. (manager editorial) SHANT ARIAS DO Jun 27, 2018 6:29 am Phu Saxena MD Jun 29, 2018 12:06 am
[2018-06-27] MEDS: amLODIPine 10 MG TAB PO SCH (09:08)
[2018-06-27] MEDS: LISINOPRIL 20 MG TAB PO SCH ×2 (09:09→20:05)
[2018-06-27] MEDS: CitaloPRAM (CeleXA) 10 MG TABLET PO SCH (09:09)
--- NOTE | 2018-06-27 10:45 | IPNPDOC ---
Subjective Date Seen The patient was seen on 06/27/18. Subjective Chief Complaint/HPI Patient seen and examined at bedside. He is awake and alert. Answering questions more comprehensively today. Much more alert than yesterday. States he is doing good. Denies any acute complaints. However, accurate ROS unobtainable as patient has Parkinson's Dementia and is likely unable to articulate his symptoms. Sitter at bedside states patient did not complain of anything thus far. However, nurse reports that patient was reporting that patient was acting like he was in a lot of pain and c/o he had to go to the bathroom overnight and felt like he had to go even though he had hernandez catheter in. Also screaming out due to confusion. General: Reports: ROS Unobtainable Objective Physical Examination General Exam: Positive: Alert, No Acute Distress Eye Exam: Positive: Conjunctiva & lids normal; Negative: Sclera icteric ENT Exam: Positive: Atraumatic Neck Exam: Positive: Supple Chest Exam: Positive: Wheezing (End Expiratory Wheezes scattered in all lung goldstein bilaterally), Diminished (at bases bilaterally) Heart Exam: Positive: Rate Normal, Regular Rhythm, Normal S1, Normal S2; Negative: Murmurs Telemetry: Positive: Sinus, PVCs, PACs (Had Trigeminy with a lot of PVCs), Other Telemetry: (Trigeminy with a lot of PVCs and rate at 76-80s.) Abdomen Exam: Positive: Normal bowel sounds, Soft; Negative: Tenderness Extremity Exam: Negative: Clubbing, Cyanosis, Edema Skin Exam: Positive: Nl turgor and temperature; Negative: Rash Psych Exam: Negative: Mental status NL (was able to awaken after sternal rubs only and verbal stimuli), Memory Intact, Oriented x 3 Assessment /Plan Problems (1) Sepsis Status: Resolved Response to Treatment: Stable, Improving Problem Text: 06/27: Improving clinically and starting to mentate more appropriately. Continue current antibiotic regimen with vancomycin and meropenem. Leukocytosis and CRP trending down. Continue NS IVF. Blood cx and urine cx still negative. 06/26: Likely secondary to CAP vs. HCAP of LLL. Patient goes frequently to day rehab. This AM, patient was not able to answer questions comprehensibly. However, later on during the afternoon, he seemed to be better and was able to answer questions more logically, which was definite improvement. Remains hemodynamically stable and afebrile. Leukocytosis and lactic acidosis is improving. And will continue IVF NS @ 80 mLs/hr. Continue empiric antibiotic therapy with vancomycin and meropenem. Patient was reported by nursing staff to be trying to pull out his hernandez and his IV line. A sitter was ordered. Blood cx and urine cx remain negative. (2) Left lower lobe pneumonia Status: Acute Response to Treatment: Improving Problem Text: 06/27: (+)End expiratory wheezes in all lung goldstein bilaterally with diminished breath sounds at bases. Continue vancomycin and meropenem. WBC has gone down to 13.1. Blood cx show NGTD x 48 hours. Has remained afebrile. 06/26: Lungs still diminished and rhonchorous at bilateral bases. Will continue IV antibiotics with vanco and meropenem. Leukocytosis improving. Afebrile. CRP however went up from 6.72 to 8.04. Will continue to trend. Blood cx show NGTD x 24 hours. (3) Leukocytosis Status: Acute Problem Text: 06/27: WBC trending down and is 13.1 from 20.6 yesterday. 06/26: WBC trending down and is 20.6 from 27.8 yesterday. Continue to monitor CBC. (4) Acute kidney injury Status: Acute Response to Treatment: Improving Problem Text: 06/27: Kidney fx improving and Cr trending down and was 1.36 today from 1.50 yesterday. 06/26: Kidney fx improving and Cr has trended down to 1.50. (5) Acute respiratory failure with hypoxia Status: Acute Response to Treatment: Improving Problem Text: 06/27: Stable. Oxygen requirement still at 4 L hi flow nasal cannula. Have ordered PT and spoken to PT at [facility] to start therapy with patient. 06/26: Improving. Oxygen requirement is decreasing and patient has gone from needing 6 liters NC to 4 liters hi flow NC. Can start with PT now and will order PT to start working with patient. (6) Hypertension Status: Chronic Problem Text: 06/27: BP stable and was 153/84 today. Continue lisinopril and amlodipine with hold parameters. 06/26: BP stable today and was WNL at 113/64. Continue lisinopril and amlodipine with hold parameters. (7) Parkinson's disease dementia Status: Chronic Response to Treatment: Worse Problem Text: This has been a more active issue today, but it may be a sign that he is "coming out of the fog" and getting better. (8) Coronary artery disease Status: Chronic Problem Text: 06/26: Continue simvastatin. (9) Dyslipidemia Status: Chronic Problem Text: 06/26: Continue simvastatin. (10) Hypothyroid Status: Chronic Problem Text: 06/26: Continue levothyroxine. (11) Depression Status: Chronic Problem Text: 06/26: Continue citalopram and seroquel. (12) Hx of subdural hematoma Status: Chronic Problem Text: 06/26: CT Head on 03/24/18 showed diffuse atrophy, vascular calcification, and small vessel changes. Old bilateral basal ganglia lacunar infarcts. No acute intracranial abnormality. (13) Lactic acidosis Status: Resolved Response to Treatment: Improving Problem Text: 06/26: Improving and lactic acid level is 1.5 down from 3.5 yesterday. Plan/VTE VTE Prophylaxis Ordered?: Yes (SCDs only; probably hold off on heparin due to recent hx of subdural hematoma) VS, I&O, 24H, Fishbone Vital Signs/I&O Vital Signs Date Time Temp Pulse Resp B/P (MAP) Pulse Ox O2 Delivery O2 Flow Rate FiO2 06/27/18 09:09 153/84 06/27/18 08:00 98.4 61 18 93 High Flow Cannula 4.0 06/25/18 12:18 30 I&O- Last 24 Hours up to 6 AM 06/27/18 06:00 Intake Total 480 ml Output Total 1950 ml Balance -1470 ml Laboratory Data 24H LABS Laboratory Tests 2 06/26/18 11:59: Vancomycin Level Trough 9.3L 06/27/18 05:46: Immature Granulocyte % (Auto) 0.4, White Blood Count 13.1H, Red Blood Count 3.74L, Hemoglobin 12.0L, Hematocrit 35.5L, Mean Corpuscular Volume 94.9, Mean Corpuscular Hemoglobin 32.1, Mean Corpuscular Hemoglobin Concent 33.8, Red Cell Distribution Width 14.3, Platelet Count 180, Neutrophils (%) (Auto) 70.7H, Lymphocytes (%) (Auto) 17.4L, Monocytes (%) (Auto) 10.6H, Eosinophils (%) (Auto) 0.6, Basophils (%) (Auto) 0.3, Neutrophils # (Auto) 9.2H, Lymphocytes # (Auto) 2.3, Monocytes # (Auto) 1.4H, Eosinophils # (Auto) 0.1, Basophils # (Auto) 0.0, Nucleated Red Blood Cells % (auto) 0.0, Anion Gap 7L, Glomerular Filtration Rate 53.4, Blood Urea Nitrogen 27H, Creatinine 1.36H, Sodium Level 143, Potassium Level 3.7, Chloride Level 112H, Carbon Dioxide Level 24, Calcium Level 7.8L, Aspartate Amino Transf (AST/SGOT) 14, Alanine Aminotransferase (ALT/SGPT) 17, Alkaline Phosphatase 61, Total Bilirubin 0.7#, Total Protein 6.0L, Albumin 2.5L, Magnesium Level 1.8, C-Reactive Protein, Quantitative 4.62H, Albumin/Globulin Ratio 0.71L CBC/BMP Laboratory Tests 06/27/18 05:46 Red Blood Count 3.74 L, Mean Corpuscular Volume 94.9, Mean Corpuscular Hemoglobin 32.1, Mean Corpuscular Hemoglobin Concent 33.8, Red Cell Distribution Width 14.3, Neutrophils (%) (Auto) 70.7 H, Lymphocytes (%) (Auto) 17.4 L, Monocytes (%) (Auto) 10.6 H, Eosinophils (%) (Auto) 0.6, Basophils (%) (Auto) 0.3, Neutrophils # (Auto) 9.2 H, Lymphocytes # (Auto) 2.3, Monocytes # (Auto) 1.4 H, Eosinophils # (Auto) 0.1, Basophils # (Auto) 0.0, Calcium Level 7.8 L, Aspartate Amino Transf (AST/SGOT) 14, Alanine Aminotransferase (ALT/SGPT) 17, Alkaline Phosphatase 61, Total Bilirubin 0.7 #, Total Protein 6.0 L, Albumin 2.5 L Microbiology Microbiology 06/24/18 Blood Culture - Preliminary, Resulted No Growth after 48 hours. All Specime... 06/24/18 Blood Culture - Preliminary, Resulted No Growth after 48 hours. All Specime... 06/25/18 MRSA Screen - Final, Complete 06/24/18 Urine Culture - Final, Complete GME ATTESTATION ATTENDING NOTE Family Medicine Attending Note: I was present on site to supervise Fior Arias D.O. ([facility]-3). We discussed the history and exam. I confirmed the west elements during my [id number] encounter with the patient. We conferred on the assessment and plan; I agree with the note as documented. Mr. Gaona seems to be making good improvement on all fronts. Continue current regimen, monitor. (automotive lot attendant) SHANT ARIAS DO Jun 27, 2018 10:45 am Phu Saxena MD Jun 29, 2018 12:12 am
[2018-06-27] MEDS: MEROPENEM INJ 1 GM in APPROPRIATE DILUENT 1 EA IV SCH ×2 (11:16→22:15)
[2018-06-27] MEDS: VANCOMYCIN HCL 1,000 MG, VIAL MATE ADAPTER 1 EACH in D5W 250 ML IV SCH (13:07)
[2018-06-27] MEDS: QUEtiapine FUMARATE 25 MG TAB PO SCH (20:04)
[2018-06-27] MEDS: SIMVASTATIN 20 MG TAB PO SCH (20:05)
[2018-06-28] MEDS: LEVALBUTEROL 1.25 MG/0.5 ML CONCENTRATE NEB INH SCH ×7 (04:00→23:51)
[2018-06-28 04:45] VITALS: BP 129/59
[2018-06-28 05:02] LABS: BASO % 0.4 % (0.0-1.0); EOS # 0.2 10^3/uL (0.0-0.50); EOS % 2.4 % (0.0-3.0); HEMATOCRIT 37.6 % (42.0-52.0); HEMOGLOBIN 12.5 g/dl (13.5-17.5); LYMPH # 1.9 10^3/uL (1.5-4.5); LYMPH % 19.7 % (24.0-44.0); MEAN CORPUSCULAR HEMOGLOBIN 31.9 pg (27.0-33.0); MEAN CORPUSCULAR HGB CONC 33.2 g/dl (32.0-36.5); MEAN CORPUSCULAR VOLUME 95.9 fl (80.0-96.0); MONO # 1.2 10^3/uL (0.0-0.8); MONO % 11.9 % (0.0-5.0); NEUTROPHILS # 6.4 10^3/uL (1.8-7.7); NEUTROPHILS % 65.1 % (36.0-66.0); PLATELET COUNT, AUTOMATED 174 10^3/uL (150-450); RED BLOOD COUNT 3.92 10^6/uL (4.30-6.10); WHITE BLOOD COUNT 9.9 10^3/uL (4.0-10.0)
[2018-06-28 05:25] LABS: ALBUMIN 2.4 GM/DL (3.2-5.2); ALT/SGPT 16 U/L (12-78); BILIRUBIN,TOTAL 0.9 MG/DL (0.2-1.0); BLOOD UREA NITROGEN 18 MG/DL (7-18); C REACTIVE PROTEIN QUANTITATIV 5.74 MG/DL (0.00-0.30); CALCIUM LEVEL 7.7 MG/DL (8.8-10.2); CARBON DIOXIDE LEVEL 25 MEQ/L (21-32); CHLORIDE LEVEL 110 MEQ/L (98-107); CREATININE FOR GFR 1.09 MG/DL (0.70-1.30); GLOMERULAR FILTRATION RATE > 60.0 (>35); GLUCOSE, FASTING 87 MG/DL (70-100); MAGNESIUM LEVEL 1.8 MG/DL (1.8-2.4); POTASSIUM SERUM 3.9 MEQ/L (3.5-5.1); SODIUM LEVEL 143 MEQ/L (136-145); TOTAL PROTEIN 5.5 GM/DL (6.4-8.2)
[2018-06-28] MEDS: LEVOTHYROXINE 88MCG TABLET (0.088 MG) PO SCH (06:00)
[2018-06-28 07:54] VITALS: BP 174/77
[2018-06-28] MEDS: CitaloPRAM (CeleXA) 10 MG TABLET PO SCH (09:47)
[2018-06-28] MEDS: amLODIPine 10 MG TAB PO SCH (09:47)
[2018-06-28] MEDS: LISINOPRIL 20 MG TAB PO SCH ×2 (09:47→20:04)
[2018-06-28] MEDS: NS 1,000 ML IV SCH ×2 (09:49→20:04)
[2018-06-28] MEDS: MEROPENEM INJ 1 GM in APPROPRIATE DILUENT 1 EA IV SCH ×2 (11:09→22:39)
[2018-06-28 12:00] VITALS: BP 148/72
[2018-06-28] MEDS: VANCOMYCIN HCL 1,000 MG, VIAL MATE ADAPTER 1 EACH in D5W 250 ML IV SCH (12:43)
--- NOTE | 2018-06-28 15:34 | IPNPDOC ---
Subjective Date Seen The patient was seen on 06/28/18. Subjective Chief Complaint/HPI Patient seen and examined at bedside. States he feels fine today. Otherwise, ROS unobtainable due to hx of Parkinson's Dementia. Nursing reports no overnight events and state patient has been very pleasant, following commands. However, he did have a rather large loose watery foul smelling BM at ~9 AM this morning. General: Reports: ROS Unobtainable Objective Physical Examination General Exam: Positive: Alert, No Acute Distress Eye Exam: Positive: Conjunctiva & lids normal; Negative: Sclera icteric ENT Exam: Positive: Atraumatic Neck Exam: Positive: Supple Chest Exam: Positive: Wheezing (End Expiratory Wheezes scattered in all lung goldstein bilaterally) Heart Exam: Positive: Rate Normal, Regular Rhythm, Normal S1, Normal S2; Negative: Murmurs Telemetry: Positive: Sinus, PVCs, PACs, Other Telemetry: (PVCs at 18:02 last night; PVCs and PACs at 5:19 this AM; HR 50s-70s.) Abdomen Exam: Positive: Normal bowel sounds, Soft; Negative: Tenderness Extremity Exam: Negative: Clubbing, Cyanosis, Edema Skin Exam: Positive: Nl turgor and temperature; Negative: Rash Psych Exam: Negative: Mental status NL (was able to awaken after sternal rubs only and verbal stimuli), Memory Intact, Oriented x 3 Assessment /Plan Problems (1) Left lower lobe pneumonia Status: Acute Response to Treatment: Improving Problem Text: 06/28: Lungs still with end expiratory wheezes in all goldstein. Clinically seems to be improving as WBC is now down to WNL at 9.9 today. Blood cx show NGTD x72 hours. Continue vancomycin and meropenem. Has remained afebril e. 06/27: (+)End expiratory wheezes in all lung goldstein bilaterally with diminished breath sounds at bases. Continue vancomycin and meropenem. WBC has gone down to 13.1. Blood cx show NGTD x 48 hours. Has remained afebrile. 06/26: Lungs still diminished and rhonchorous at bilateral bases. Will continue IV antibiotics with vanco and meropenem. Leukocytosis improving. Afebrile. CRP however went up from 6.72 to 8.04. Will continue to trend. Blood cx show NGTD x 24 hours. (2) Leukocytosis Status: Acute Problem Text: 06/28: WBC WNL at 9.9 today. 06/27: WBC trending down and is 13.1 from 20.6 yesterday. 06/26: WBC trending down and is 20.6 from 27.8 yesterday. Continue to monitor CBC. (3) Loose bowel movement Status: Acute Problem Text: 06/28: Nurse reports a large watery foul smelling BM this AM. Concern is for C. diff from antibiotics. Have ordered C. diff PCR test. Will follow up results when available. (4) Acute kidney injury Status: Resolved Problem Text: 06/28: MAULIK resolved with normal BUN and Cr today. BUN 18 and Cr 1.09 today. Continue to monitor BMP however. 06/27: Kidney fx improving and Cr trending down and was 1.36 today from 1.50 yesterday. 06/26: Kidney fx improving and Cr has trended down to 1.50. (5) Acute respiratory failure with hypoxia Status: Acute Response to Treatment: Improving Problem Text: 06/28: Stable. Oxygen requirement is still at 4L high flow nasal cannula as O2 saturations are still running in low 90s with this. PT not able to work with patient this AM. Hopefully, they will start working with him tomorrow. 06/27: Stable. Oxygen requirement still at 4 L high flow nasal cannula. Have ordered PT and spoken to PT at [facility] to start therapy with patient. 06/26: Improving. Oxygen requirement is decreasing and patient has gone from ne eding 6 liters NC to 4 liters hi flow NC. Can start with PT now and will order PT to start working with patient. (6) Hypertension Status: Chronic Problem Text: 06/28: BP stable. A little high today, but nurse had told me that she had administered BP medications after the reading of 174/77 this AM. This will likely go down later this AM. Continue lisinopril and amlodipine as prior. Continue to monitor BPs. Adjust therapy if necessary. 06/27: BP stable and was 153/84 today. Continue lisinopril and amlodipine with hold parameters. 06/26: BP stable today and was WNL at 113/64. Continue lisinopril and amlodipine with hold parameters. (7) Parkinson's disease dementia Status: Chronic Response to Treatment: Stable Problem Text: Seems to be better controlled and perhaps at his baseline again now. (8) Coronary artery disease Status: Chronic Problem Text: 06/26: Continue simvastatin. (9) Dyslipidemia Status: Chronic Problem Text: 06/26: Continue simvastatin. (10) Hypothyroid Status: Chronic Problem Text: 06/26: Continue levothyroxine. (11) Depression Status: Chronic Problem Text: 06/26: Continue citalopram and seroquel. (12) Hx of subdural hematoma Status: Chronic Problem Text: 06/26: CT Head on 03/24/18 showed diffuse atrophy, vascular calcification, and small vessel changes. Old bilateral basal ganglia lacunar infarcts. No acute intracranial abnormality. (13) Sepsis Status: Resolved Problem Text: 06/27: Improving clinically and starting to mentate more appropriately. Continue current antibiotic regimen with vancomycin and meropenem. Leukocytosis and CRP trending down. Continue NS IVF. Blood cx and urine cx still negative. 06/26: Likely secondary to CAP vs. HCAP of LLL. Patient goes frequently to day rehab. This AM, patient was not able to answer questions comprehensibly. However, later on during the afternoon, he seemed to be better and was able to answer questions more logically, which was definite improvement. Remains hemodynamically stable and afebrile. Leukocytosis and lactic acidosis is improv ing. And will continue IVF NS @ 80 mLs/hr. Continue empiric antibiotic therapy with vancomycin and meropenem. Patient was reported by nursing staff to be trying to pull out his hernandez and his IV line. A sitter was ordered. Blood cx and urine cx remain negative. (14) Lactic acidosis Status: Resolved Response to Treatment: Improving Problem Text: 06/26: Improving and lactic acid level is 1.5 down from 3.5 yes terday. Plan/VTE VTE Prophylaxis Ordered?: Yes (SCDs only; probably hold off on heparin due to recent hx of subdural hematoma) VS, I&O, 24H, Fishbone Vital Signs/I&O Vital Signs Date Time Temp Pulse Resp B/P (MAP) Pulse Ox O2 Delivery O2 Flow Rate FiO2 06/28/18 12:00 4.0 06/28/18 12:00 99.9 60 20 148/72 (97) 93 High Flow Cannula 06/25/18 12:18 30 I&O- Last 24 Hours up to 6 AM 06/28/18 06:00 Intake Total 980 ml Output Total 1775 ml Balance -795 ml Laboratory Data 24H LABS Laboratory Tests 2 06/28/18 04:35: Immature Granulocyte % (Auto) 0.5, White Blood Count 9.9, Red Blood Count 3.92L, Hemoglobin 12.5L, Hematocrit 37.6L, Mean Corpuscular Volume 95.9, Mean Corpuscular Hemoglobin 31.9, Mean Corpuscular Hemoglobin Concent 33.2, Red Cell Distribution Width 13.8, Platelet Count 174, Neutrophils (%) (Auto) 65.1, Lymphocytes (%) (Auto) 19.7L, Monocytes (%) (Auto) 11.9H, Eosinophils (%) (Auto) 2.4, Basophils (%) (Auto) 0.4, Neutrophils # (Auto) 6.4, Lymphocytes # (Auto) 1.9, Monocytes # (Auto) 1.2H, Eosinophils # (Auto) 0.2, Basophils # (Auto) 0.0, Nucleated Red Blood Cells % (auto) 0.0, Anion Gap 8, Glomerular Filtration Rate > 60.0, Blood Urea Nitrogen 18, Creatinine 1.09, Sodium Level 143, Potassium Level 3.9, Chloride Level 110H, Carbon Dioxide Level 25, Calcium Level 7.7L, Aspartate Amino Transf (AST/SGOT) 13, Alanine Aminotransferase (ALT/SGPT) 16, Alkaline Phosphatase 65, Total Bilirubin 0.9, Total Protein 5.5L, Albumin 2.4L, Magnesium Level 1.8, C-Reactive Protein, Quantitative 5.74H, Albumin/Globulin Ratio 0.77L 06/28/18 11:50: Vancomycin Level Trough 8.3L CBC/BMP Laboratory Tests 06/28/18 04:35 Red Blood Count 3.92 L, Mean Corpuscular Volume 95.9, Mean Corpuscular Hemoglobin 31.9, Mean Corpuscular Hemoglobin Concent 33.2, Red Cell Distribution Width 13.8, Neutrophils (%) (Auto) 65.1, Lymphocytes (%) (Auto) 19.7 L, Monocytes (%) (Auto) 11.9 H, Eosinophils (%) (Auto) 2.4, Basophils (%) (Auto) 0.4, Neutrophils # (Auto) 6.4, Lymphocytes # (Auto) 1.9, Monocytes # (Auto) 1.2 H, Eosinophils # (Auto) 0.2, Basophils # (Auto) 0.0, Calcium Level 7.7 L, Aspartate Amino Transf (AST/SGOT) 13, Alanine Aminotransferase (ALT/SGPT) 16, Alkaline Phosphatase 65, Total Bilirubin 0.9, Total Protein 5.5 L, Albumin 2.4 L Microbiology Microbiology 06/24/18 Blood Culture - Preliminary, Resulted No Growth after 72 hours. All specime... 06/24/18 Blood Culture - Preliminary, Resulted No Growth after 72 hours. All specime... 06/25/18 MRSA Screen - Final, Complete 06/24/18 Urine Culture - Final, Complete GME ATTESTATION ATTENDING NOTE Family Medicine Attending Note: I was present on site to supervise Fior Arias D.O. ([facility]-3). We discussed the history and exam. I confirmed the west elements during my [id number] encounter with the patient. We conferred on the assessment and plan; I agree with the note as documented. Mr. Gaona is making good progress with his respiratory status. He did have a large loose bowel movement, but I doubt that it C. difficile because he is only had one today. It may be antibiotic associated diarrhea and we have started a probiotic. (religious education coordinator) SHANT ARIAS DO Jun 28, 2018 3:33 pm Phu Saxena MD Jun 29, 2018 12:15 am
[2018-06-28 18:35] VITALS: BP 162/80
[2018-06-28] MEDS: LACTOBACILLUS ACIDOPHILUS CAP (BACID) PO SCH ×2 (18:46→20:03)
[2018-06-28] MEDS: QUEtiapine FUMARATE 25 MG TAB PO SCH (20:02)
[2018-06-28] MEDS: SIMVASTATIN 20 MG TAB PO SCH (20:03)
[2018-06-28] MEDS: ACETAMINOPHEN 500 MG TAB PO PRN (20:03)
[2018-06-28 22:00] VITALS: BP 136/67
[2018-06-29] MEDS ORDERED: VANCOMYCIN HCL 1,000 MG, VIAL MATE ADAPTER 1 EACH in D5W 250 ML IV SCH ×3
[2018-06-29] MEDS: LEVALBUTEROL 1.25 MG/0.5 ML CONCENTRATE NEB INH SCH ×6 (04:00→23:41)
[2018-06-29 06:00] VITALS: BP 153/72
[2018-06-29] MEDS: LEVOTHYROXINE 88MCG TABLET (0.088 MG) PO SCH (06:04)
[2018-06-29] MEDS: NS 1,000 ML IV SCH (06:21)
[2018-06-29 07:15] LABS: BASO # 0.1 10^3/uL (0.0-0.2); BASO % 0.5 % (0.0-1.0); EOS # 0.4 10^3/uL (0.0-0.50); EOS % 3.9 % (0.0-3.0); HEMATOCRIT 38.6 % (42.0-52.0); HEMOGLOBIN 12.9 g/dl (13.5-17.5); LYMPH # 1.9 10^3/uL (1.5-4.5); LYMPH % 21.1 % (24.0-44.0); MEAN CORPUSCULAR HEMOGLOBIN 31.8 pg (27.0-33.0); MEAN CORPUSCULAR HGB CONC 33.4 g/dl (32.0-36.5); MEAN CORPUSCULAR VOLUME 95.1 fl (80.0-96.0); MONO # 1.2 10^3/uL (0.0-0.8); MONO % 13.6 % (0.0-5.0); NEUTROPHILS # 5.5 10^3/uL (1.8-7.7); NEUTROPHILS % 60.4 % (36.0-66.0); PLATELET COUNT, AUTOMATED 187 10^3/uL (150-450); RED BLOOD COUNT 4.06 10^6/uL (4.30-6.10); WHITE BLOOD COUNT 9.1 10^3/uL (4.0-10.0)
[2018-06-29 07:40] LABS: ALBUMIN 2.3 GM/DL (3.2-5.2); ALT/SGPT 15 U/L (12-78); BILIRUBIN,TOTAL 0.7 MG/DL (0.2-1.0); BLOOD UREA NITROGEN 15 MG/DL (7-18); C REACTIVE PROTEIN QUANTITATIV 5.81 MG/DL (0.00-0.30); CALCIUM LEVEL 7.9 MG/DL (8.8-10.2); CARBON DIOXIDE LEVEL 24 MEQ/L (21-32); CHLORIDE LEVEL 108 MEQ/L (98-107); CREATININE FOR GFR 1.07 MG/DL (0.70-1.30); GLOMERULAR FILTRATION RATE > 60.0 (>35); GLUCOSE, FASTING 85 MG/DL (70-100); MAGNESIUM LEVEL 1.6 MG/DL (1.8-2.4); SODIUM LEVEL 139 MEQ/L (136-145); TOTAL PROTEIN 5.9 GM/DL (6.4-8.2)
[2018-06-29] MEDS: CitaloPRAM (CeleXA) 10 MG TABLET PO SCH (08:19)
[2018-06-29] MEDS: LACTOBACILLUS ACIDOPHILUS CAP (BACID) PO SCH ×3 (08:19→20:16)
[2018-06-29] MEDS: amLODIPine 10 MG TAB PO SCH (08:19)
[2018-06-29] MEDS: LISINOPRIL 20 MG TAB PO SCH ×2 (08:19→20:17)
[2018-06-29] MEDS: MEROPENEM INJ 1 GM in APPROPRIATE DILUENT 1 EA IV SCH ×2 (10:56→22:37)
[2018-06-29] MEDS ORDERED: HALOPERIDOL 2 MG TAB PO PRN (13:00)
--- NOTE | 2018-06-29 13:51 | IPNPDOC ---
Subjective Date Seen The patient was seen on 06/29/18. Subjective Chief Complaint/HPI Mr. Gaona was giving the nurses a hard time today, but I think this is more baseline from his Parkinson's dementia. They were working to reorient and deescalate him, but eventually I had to order a lower dose of haloperidol to help get him calmed down. His diarrhea hasn't been a major issue today. General: Reports: ROS Unobtainable Objective Physical Examination General Exam: Positive: Alert, No Acute Distress (He was resting in bed when I saw him. Easily arousable, but drifted off back to sleep as soon as I was not stimulating him (this was post the Haldol)); Negative: Cooperative Eye Exam: Positive: Conjunctiva & lids normal; Negative: Sclera icteric ENT Exam: Positive: Atraumatic Neck Exam: Positive: Supple; Negative: Lymphadenopathy Chest Exam: Positive: Wheezing (there remain a few end expiratory wheezes ), Diminished Heart Exam: Positive: Rate Normal, Regular Rhythm, Normal S1, Normal S2; Negative: Murmurs Abdomen Exam: Positive: Normal bowel sounds, Soft; Negative: Tenderness Extremity Exam: Negative: Edema Skin Exam: Positive: Nl turgor and temperature Neuro Exam: Negative: Normal Speech Psych Exam: Negative: Mental status NL, Memory Intact, Oriented x 3 Assessment /Plan Problems (1) Left lower lobe pneumonia Status: Acute Response to Treatment: Improving Problem Text: 06/29: Expiratory wheezes still present, mostly on the L. BCx are finalized negative. His MRSA screen was negative and he is making reasonable (but slow) clinical improvement, so his vancomycin was stopped today. Continue on meropenem D #5. 06/28: Lungs still with end expiratory wheezes in all goldstein. Clinically seems to be improving as WBC is now down to WNL at 9.9 today. Blood cx show NGTD x72 hours. Continue vancomycin and meropenem. Has remained afebrile. 06/27: (+)End expiratory wheezes in all lung goldstein bilaterally with diminished breath sounds at bases. Continue vancomycin and meropenem. WBC has gone down to 13.1. Blood cx show NGTD x 48 hours. Has remained afebrile. 06/26: Lungs still diminished and rhonchorous at bilateral bases. Will continue IV antibiotics with vanco and meropenem. Leukocytosis improving. Afebrile. CRP however went up from 6.72 to 8.04. Will continue to trend. Blood cx show NGTD x 24 hours. (2) Acute respiratory failure with hypoxia Status: Acute Response to Treatment: Improving Problem Text: 06/29: I asked nursing to work hard to titrate him down. Sats >90% are ok. Will monitor. 06/28: Stable. Oxygen requirement is still at 4L high flow nasal cannula as O2 saturations are still running in low 90s with this. PT not able to work with patient this AM. Hopefully, they will start working with him tomorrow. 06/27: Stable. Oxygen requirement still at 4 L high flow nasal cannula. Have ordered PT and spoken to PT at [facility] to start therapy with patient. 06/26: Improving. Oxygen requirement is decreasing and patient has gone from needing 6 liters NC to 4 liters hi flow NC. Can start with PT now and will order PT to start working with patient. (3) Parkinson's disease dementia Status: Chronic Response to Treatment: Worse Problem Text: He had a bad day today. I had to add the prn Haldol back to the mix. I believe that it is days like this that are tiring his family out and why placement is being looked into for after this admission. (4) Hypertension Status: Chronic Problem Text: 06/29: Again BPs are running a little over goal, but he has been agitated by most things today including having his vital taken. I don't feel that these reflect true resting BPs and therefore will not change his regimen at this time. 06/28: BP stable. A little high today, but nurse had told me that she had administered BP medications after the reading of 174/77 this AM. This will likely go down later this AM. Continue lisinopril and amlodipine as prior. Continue to monitor BPs. Adjust therapy if necessary. 06/27: BP stable and was 153/84 today. Continue lisinopril and amlodipine with hold parameters. 06/26: BP stable today and was WNL at 113/64. Continue lisinopril and amlodipine with hold parameters. (5) Loose bowel movement Status: Acute Response to Treatment: Controlled Problem Text: 06/29: This doesn't seem to be a continue issue of significance. 06/28: Nurse reports a large watery foul smelling BM this AM. Concern is for C. diff from antibiotics. Have ordered C. diff PCR test. Will follow up results when available. (6) Coronary artery disease Status: Chronic Problem Text: 06/26: Continue simvastatin. (7) Dyslipidemia Status: Chronic Problem Text: 06/26: Continue simvastatin. (8) Hypothyroid Status: Chronic Problem Text: 06/26: Continue levothyroxine. (9) Depression Status: Chronic Problem Text: 06/26: Continue citalopram and seroquel. (10) Hx of subdural hematoma Status: Chronic Problem Text: 06/26: CT Head on 03/24/18 showed diffuse atrophy, vascular calcification, and small vessel changes. Old bilateral basal ganglia lacunar infarcts. No acute intracranial abnormality. (11) Sepsis Status: Resolved Problem Text: 06/27: Improving clinically and starting to mentate more appropriately. Continue current antibiotic regimen with vancomycin and meropenem. Leukocytosis and CRP trending down. Continue NS IVF. Blood cx and urine cx still negative. 06/26: Likely secondary to CAP vs. HCAP of LLL. Patient goes frequently to day rehab. This AM, patient was not able to answer questions comprehensibly. However, later on during the afternoon, he seemed to be better and was able to answer questions more logically, which was definite improvement. Remains hemodynamically stable and afebrile. Leukocytosis and lactic acidosis is improving. And will continue IVF NS @ 80 mLs/hr. Continue empiric antibiotic therapy with vancomycin and meropenem. Patient was reported by nursing staff to be trying to pull out his hernandez and his IV line. A sitter was ordered. Blood cx and urine cx remain negative. (12) Lactic acidosis Status: Resolved Response to Treatment: Improving Problem Text: 06/26: Improving and lactic acid level is 1.5 down from 3.5 yesterday. (13) Leukocytosis Status: Resolved Problem Text: 06/28: WBC WNL at 9.9 today. 06/27: WBC trending down and is 13.1 from 20.6 yesterday. 06/26: WBC trending down and is 20.6 from 27.8 yesterday. Continue to monitor CBC. (14) Acute kidney injury Status: Resolved Problem Text: 06/28: MAULIK resolved with normal BUN and Cr today. BUN 18 and Cr 1.09 today. Continue to monitor BMP however. 06/27: Kidney fx improving and Cr trending down and was 1.36 today from 1.50 yesterday. 06/26: Kidney fx improving and Cr has trended down to 1.50. Plan/VTE VTE Prophylaxis Ordered?: Yes (SCDs only; probably hold off on heparin due to recent hx of subdural hematoma) Plan Anticipated Discharge: Intermediate VS, I&O, 24H, Fishbone Vital Signs/I&O Vital Signs Date Time Temp Pulse Resp B/P (MAP) Pulse Ox O2 Delivery O2 Flow Rate FiO2 06/29/18 09:07 4.0 06/29/18 08:19 91 158/66 06/29/18 06:00 98.3 20 95 High Flow Cannula 06/25/18 12:18 30 I&O- Last 24 Hours up to 6 AM 06/29/18 06:00 Intake Total 1180 ml Output Total 1850 ml Balance -670 ml Laboratory Data 24H LABS Laboratory Tests 2 06/29/18 06:17: Anion Gap 7L, Glomerular Filtration Rate > 60.0, Blood Urea Nitrogen 15, Creatinine 1.07, Sodium Level 139, Potassium Level 4.0, Chloride Level 108H, Carbon Dioxide Level 24, Calcium Level 7.9L, Aspartate Amino Transf (AST/SGOT) 20, Alanine Aminotransferase (ALT/SGPT) 15, Alkaline Phosphatase 58, Total Bilirubin 0.7, Total Protein 5.9L, Albumin 2.3L, Magnesium Level 1.6L, C- Reactive Protein, Quantitative 5.81H, Albumin/Globulin Ratio 0.64L 06/29/18 06:25: Immature Granulocyte % (Auto) 0.5, White Blood Count 9.1, Red Blood Count 4.06L, Hemoglobin 12.9L, Hematocrit 38.6L, Mean Corpuscular Volume 95.1, Mean Corpuscular Hemoglobin 31.8, Mean Corpuscular Hemoglobin Concent 33.4, Red Cell Distribution Width 13.2, Platelet Count 187, Neutrophils (%) (Auto) 60.4, Lymphocytes (%) (Auto) 21.1L, Monocytes (%) (Auto) 13.6H, Eosinophils (%) (Auto) 3.9H, Basophils (%) (Auto) 0.5, Neutrophils # (Auto) 5.5, Lymphocytes # (Auto) 1.9, Monocytes # (Auto) 1.2H, Eosinophils # (Auto) 0.4, Basophils # (Auto) 0.1, Nucleated Red Blood Cells % (auto) 0.0 CBC/BMP Laboratory Tests 06/29/18 06:17 Calcium Level 7.9 L, Aspartate Amino Transf (AST/SGOT) 20, Alanine Aminotransferase (ALT/SGPT) 15, Alkaline Phosphatase 58, Total Bilirubin 0.7, Total Protein 5.9 L, Albumin 2.3 L 06/29/18 06:25 Red Blood Count 4.06 L, Mean Corpuscular Volume 95.1, Mean Corpuscular Hemoglobin 31.8, Mean Corpuscular Hemoglobin Concent 33.4, Red Cell Distribution Width 13.2, Neutrophils (%) (Auto) 60.4, Lymphocytes (%) (Auto) 21.1 L, Monocytes (%) (Auto) 13.6 H, Eosinophils (%) (Auto) 3.9 H, Basophils (%) (Auto) 0.5, Neutrophils # (Auto) 5.5, Lymphocytes # (Auto) 1.9, Monocytes # (Auto) 1.2 H, Eosinophils # (Auto) 0.4, Basophils # (Auto) 0.1 Microbiology Microbiology 06/24/18 Blood Culture - Preliminary, Resulted No Growth after 72 hours. All specime... 06/24/18 Blood Culture - Preliminary, Resulted No Growth after 72 hours. All specime... 06/25/18 MRSA Screen - Final, Complete 06/24/18 Urine Culture - Final, Complete Phu Saxena MD Jun 29, 2018 13:51
[2018-06-29] MEDS: MAGNESIUM OXIDE 400 MG TAB (MAG-OX) PO SCH ×2 (14:57→20:17)
[2018-06-29] MEDS: QUEtiapine FUMARATE 25 MG TAB PO SCH (20:17)
[2018-06-29] MEDS: SIMVASTATIN 20 MG TAB PO SCH (20:17)
[2018-06-29 22:00] VITALS: BP 162/71
[2018-06-30] MEDS: ACETAMINOPHEN 500 MG TAB PO PRN ×2 (00:50→21:24)
[2018-06-30] MEDS: LEVALBUTEROL 1.25 MG/0.5 ML CONCENTRATE NEB INH SCH ×5 (03:33→20:00)
[2018-06-30] MEDS: NS 1,000 ML IV SCH ×2 (04:15→08:17)
[2018-06-30] MEDS: LEVOTHYROXINE 88MCG TABLET (0.088 MG) PO SCH (05:48)
[2018-06-30 06:00] VITALS: BP 137/63
[2018-06-30 06:34] LABS: VENOUS BASE EXCESS -4.1 (-2.0-2.0); VENOUS HCO3 20.7 MEQ/L (23.0-27.0); VENOUS PARTIAL PRESSURE CO2 37.3 mmHg (38.0-50.0); VENOUS PARTIAL PRESSURE O2 92.2 mmHg (30.0-50.0); VENOUS PH 7.363 UNITS (7.330-7.430); VENOUS STANDARD HCO3 21.1 MEQ/L; VENOUS TOTAL CO2 21.9 MEQ/L (24.0-28.0)
[2018-06-30 06:41] LABS: BASO # 0.1 10^3/uL (0.0-0.2); BASO % 0.5 % (0.0-1.0); EOS # 0.4 10^3/uL (0.0-0.50); EOS % 3.7 % (0.0-3.0); HEMATOCRIT 38.9 % (42.0-52.0); HEMOGLOBIN 13.2 g/dl (13.5-17.5); LYMPH # 1.9 10^3/uL (1.5-4.5); LYMPH % 20.1 % (24.0-44.0); MEAN CORPUSCULAR HGB CONC 33.9 g/dl (32.0-36.5); MEAN CORPUSCULAR VOLUME 94.4 fl (80.0-96.0); MONO # 1.3 10^3/uL (0.0-0.8); MONO % 13.3 % (0.0-5.0); NEUTROPHILS # 5.8 10^3/uL (1.8-7.7); NEUTROPHILS % 61.7 % (36.0-66.0); PLATELET COUNT, AUTOMATED 193 10^3/uL (150-450); RED BLOOD COUNT 4.12 10^6/uL (4.30-6.10); WHITE BLOOD COUNT 9.4 10^3/uL (4.0-10.0)
[2018-06-30 06:54] LABS: ALBUMIN 2.4 GM/DL (3.2-5.2); BLOOD UREA NITROGEN 15 MG/DL (7-18); C REACTIVE PROTEIN QUANTITATIV 7.57 MG/DL (0.00-0.30); CALCIUM LEVEL 7.6 MG/DL (8.8-10.2); CARBON DIOXIDE LEVEL 26 MEQ/L (21-32); CHLORIDE LEVEL 106 MEQ/L (98-107); CREATININE FOR GFR 1.01 MG/DL (0.70-1.30); GLOMERULAR FILTRATION RATE > 60.0 (>35); GLUCOSE, FASTING 75 MG/DL (70-100); MAGNESIUM LEVEL 1.8 MG/DL (1.8-2.4); POTASSIUM SERUM 3.9 MEQ/L (3.5-5.1); SODIUM LEVEL 140 MEQ/L (136-145)
[2018-06-30] MEDS: LISINOPRIL 20 MG TAB PO SCH ×2 (08:31→21:00)
[2018-06-30] MEDS: LACTOBACILLUS ACIDOPHILUS CAP (BACID) PO SCH ×3 (08:31→21:00)
[2018-06-30] MEDS: MAGNESIUM OXIDE 400 MG TAB (MAG-OX) PO SCH ×2 (08:31→21:00)
[2018-06-30] MEDS: CitaloPRAM (CeleXA) 10 MG TABLET PO SCH (08:32)
[2018-06-30] MEDS: amLODIPine 10 MG TAB PO SCH (08:32)
--- NOTE | 2018-06-30 10:28 | IPNPDOC ---
Subjective Date Seen The patient was seen on 06/30/18. Subjective Chief Complaint/HPI Pt without new concerns. Nursing reports no new concerns. Attempting to wean O2. ROS limited d/t dementia General: Denies: Fatigue Pulmonary: Denies: Dyspnea, Cough Cardiovascular: Denies: Chest Pain, Palpitations Objective Physical Examination General Exam: Positive: Alert, No Acute Distress (awake, alert, ); Negative: Cooperative Eye Exam: Negative: Sclera icteric ENT Exam: Positive: Atraumatic Neck Exam: Positive: Supple; Negative: Lymphadenopathy Chest Exam: Positive: Diminished; Negative: Normal air movement, Rales, Rhonchi, Wheezing Heart Exam: Positive: Rate Normal, Regular Rhythm, Normal S1, Normal S2; Negative: Murmurs Abdomen Exam: Positive: Normal bowel sounds, Soft; Negative: Tenderness Extremity Exam: Negative: Edema Skin Exam: Positive: Nl turgor and temperature Neuro Exam: Negative: Normal Speech Psych Exam: Negative: Mental status NL, Memory Intact, Oriented x 3 Assessment /Plan Problems (1) Left lower lobe pneumonia Status: Acute Response to Treatment: Improving Problem Text: 06/30 Meropenem D6, Vanco stoppped 06/29. CRP steadily rising x 4d, low grade temp overnight, monitor, if he remains stable, plan for SNF in AM. 06/29: Expiratory wheezes still present, mostly on the L. BCx are finalized negative. His MRSA screen was negative and he is making reasonable (but slow) clinical improvement, so his vancomycin was stopped today. Continue on meropenem D #5. 06/28: Lungs still with end expiratory wheezes in all goldstein. Clinically seems to be improving as WBC is now down to WNL at 9.9 today. Blood cx show NGTD x72 hours. Continue vancomycin and meropenem. Has remained afebrile. 06/27: (+)End expiratory wheezes in all lung goldstein bilaterally with diminished breath sounds at bases. Continue vancomycin and meropenem. WBC has gone down to 13.1. Blood cx show NGTD x 48 hours. Has remained afebrile. 06/26: Lungs still diminished and rhonchorous at bilateral bases. Will continue IV antibiotics with vanco and meropenem. Leukocytosis improving. Afebrile. CRP however went up from 6.72 to 8.04. Will continue to trend. Blood cx show NGTD x 24 hours. (2) Acute respiratory failure with hypoxia Status: Acute Response to Treatment: Improving Problem Text: 06/29: I asked nursing to work hard to titrate him down. Sats >90% are ok. Will monitor. 06/28: Stable. Oxygen requirement is still at 4L high flow nasal cannula as O2 saturations are still running in low 90s with this. PT not able to work with patient this AM. Hopefully, they will start working with him tomorrow. 06/27: Stable. Oxygen requirement still at 4 L high flow nasal cannula. Have ordered PT and spoken to PT at [facility] to start therapy with patient. 06/26: Improving. Oxygen requirement is decreasing and patient has gone from needing 6 liters NC to 4 liters hi flow NC. Can start with PT now and will order PT to start working with patient. (3) Parkinson's disease dementia Status: Chronic Response to Treatment: Worse Problem Text: He had a bad day today. I had to add the prn Haldol back to the mix. I believe that it is days like this that are tiring his family out and why placement is being looked into for after this admission. (4) Hypertension Status: Chronic Problem Text: 06/29: Again BPs are running a little over goal, but he has been agitated by most things today including having his vital taken. I don't feel that these reflect true resting BPs and therefore will not change his regimen at this time. 06/28: BP stable. A little high today, but nurse had told me that she had administered BP medications after the reading of 174/77 this AM. This will likely go down later this AM. Continue lisinopril and amlodipine as prior. Continue to monitor BPs. Adjust therapy if necessary. 06/27: BP stable and was 153/84 today. Continue lisinopril and amlodipine with hold parameters. 06/26: BP stable today and was WNL at 113/64. Continue lisinopril and amlodipine with hold parameters. (5) Loose bowel movement Status: Acute Response to Treatment: Controlled Problem Text: 06/29: This doesn't seem to be a continue issue of significance. 06/28: Nurse reports a large watery foul smelling BM this AM. Concern is for C. diff from antibiotics. Have ordered C. diff PCR test. Will follow up results when available. (6) Coronary artery disease Status: Chronic Problem Text: 06/26: Continue simvastatin. (7) Dyslipidemia Status: Chronic Problem Text: 06/26: Continue simvastatin. (8) Hypothyroid Status: Chronic Problem Text: 06/26: Continue levothyroxine. (9) Depression Status: Chronic Problem Text: 06/26: Continue citalopram and seroquel. (10) Hx of subdural hematoma Status: Chronic Problem Text: 06/26: CT Head on 03/24/18 showed diffuse atrophy, vascular calcification, and small vessel changes. Old bilateral basal ganglia lacunar infarcts. No acute intracranial abnormality. (11) Sepsis Status: Resolved Problem Text: 06/27: Improving clinically and starting to mentate more appropriately. Continue current antibiotic regimen with vancomycin and meropenem. Leukocytosis and CRP trending down. Continue NS IVF. Blood cx and urine cx still negative. 06/26: Likely secondary to CAP vs. HCAP of LLL. Patient goes frequently to day rehab. This AM, patient was not able to answer questions comprehensibly. However, later on during the afternoon, he seemed to be better and was able to answer questions more logically, which was definite improvement. Remains hemodynamically stable and afebrile. Leukocytosis and lactic acidosis is improving. And will continue IVF NS @ 80 mLs/hr. Continue empiric antibiotic therapy with vancomycin and meropenem. Patient was reported by nursing staff to be trying to pull out his hernandez and his IV line. A sitter was ordered. Blood cx and urine cx remain negative. (12) Lactic acidosis Status: Resolved Response to Treatment: Improving Problem Text: 06/26: Improving and lactic acid level is 1.5 down from 3.5 yesterday. (13) Leukocytosis Status: Resolved Problem Text: 06/28: WBC WNL at 9.9 today. 06/27: WBC trending down and is 13.1 from 20.6 yesterday. 06/26: WBC trending down and is 20.6 from 27.8 yesterday. Continue to monitor CBC. (14) Acute kidney injury Status: Resolved Problem Text: 06/28: MAULIK resolved with normal BUN and Cr today. BUN 18 and Cr 1.09 today. Continue to monitor BMP however. 06/27: Kidney fx improving and Cr trending down and was 1.36 today from 1.50 yesterday. 06/26: Kidney fx improving and Cr has trended down to 1.50. Plan/VTE VTE Prophylaxis Ordered?: Yes (SCDs only; probably hold off on heparin due to recent hx of subdural hematoma) Plan Anticipated Discharge: Assisted VS, I&O, 24H, Fishbone Vital Signs/I&O Vital Signs Date Time Temp Pulse Resp B/P (MAP) Pulse Ox O2 Delivery O2 Flow Rate FiO2 06/30/18 08:31 137/63 06/30/18 08:00 2.0 06/30/18 06:00 99.1 53 20 91 High Flow Cannula 06/25/18 12:18 30 I&O- Last 24 Hours up to 6 AM 06/30/18 06:00 Intake Total 1340 ml Output Total 1925 ml Balance -585 ml Laboratory Data 24H LABS Laboratory Tests 2 06/30/18 06:15: Immature Granulocyte % (Auto) 0.7, White Blood Count 9.4, Red Blood Count 4.12L, Hemoglobin 13.2L, Hematocrit 38.9L, Mean Corpuscular Volume 94.4, Mean Corpuscular Hemoglobin 32.0, Mean Corpuscular Hemoglobin Concent 33.9, Red Cell Distribution Width 12.9, Platelet Count 193, Neutrophils (%) (Auto) 61.7, Lymphocytes (%) (Auto) 20.1L, Monocytes (%) (Auto) 13.3H, Eosinophils (%) (Auto) 3.7H, Basophils (%) (Auto) 0.5, Neutrophils # (Auto) 5.8, Lymphocytes # (Auto) 1.9, Monocytes # (Auto) 1.3H, Eosinophils # (Auto) 0.4, Basophils # (Auto) 0.1, Nucleated Red Blood Cells % (auto) 0.0, Blood Gas Bicarbonate Standard 21.1, Venous Blood pH 7.363, Venous Blood Partial Pressure CO2 37.3L, Venous Blood Partial Pressure O2 92.2H, Venous Blood Total Carbon Dioxide 21.9L, Venous Blood HCO3 20.7L, Venous Blood Oxygen Saturation 97.0H, Venous Blood Base Excess - 4.1L, Blood Urea Nitrogen 15, Creatinine 1.01, Sodium Level 140, Potassium Level 3.9, Chloride Level 106, Carbon Dioxide Level 26, Anion Gap 8, Glomerular Filtration Rate > 60.0, Calcium Level 7.6L, Phosphorus Level 3.0, Magnesium Level 1.8, C-Reactive Protein, Quantitative 7.57H, Albumin 2.4L CBC/BMP Laboratory Tests 06/30/18 06:15 Red Blood Count 4.12 L, Mean Corpuscular Volume 94.4, Mean Corpuscular Hemoglobin 32.0, Mean Corpuscular Hemoglobin Concent 33.9, Red Cell Distribution Width 12.9, Neutrophils (%) (Auto) 61.7, Lymphocytes (%) (Auto) 20.1 L, Monocytes (%) (Auto) 13.3 H, Eosinophils (%) (Auto) 3.7 H, Basophils (%) (Auto) 0.5, Neutrophils # (Auto) 5.8, Lymphocytes # (Auto) 1.9, Monocytes # (Auto) 1.3 H, Eosinophils # (Auto) 0.4, Basophils # (Auto) 0.1, Anion Gap 8 Microbiology Microbiology 06/24/18 Blood Culture - Final, Complete NO GROWTH AFTER 5 DAYS 06/24/18 Blood Culture - Final, Complete NO GROWTH AFTER 5 DAYS 06/25/18 MRSA Screen - Final, Complete 06/24/18 Urine Culture - Final, Complete LUZ LOMBARDI PA-C Jun 30, 2018 10:28
[2018-06-30] MEDS: MEROPENEM INJ 1 GM in APPROPRIATE DILUENT 1 EA IV SCH ×2 (10:51→22:13)
[2018-06-30 11:17] LABS: BLOOD UREA NITROGEN 18 MG/DL (7-18); CALCIUM LEVEL 7.8 MG/DL (8.8-10.2); CARBON DIOXIDE LEVEL 25 MEQ/L (21-32); CHLORIDE LEVEL 106 MEQ/L (98-107); CREATININE FOR GFR 1.13 MG/DL (0.70-1.30); GLOMERULAR FILTRATION RATE > 60.0 (>35); GLUCOSE, FASTING 142 MG/DL (70-100); POTASSIUM SERUM 3.7 MEQ/L (3.5-5.1); SODIUM LEVEL 140 MEQ/L (136-145)
[2018-06-30 14:00] VITALS: BP 130/87
[2018-06-30] MEDS: QUEtiapine FUMARATE 25 MG TAB PO SCH (21:00)
[2018-06-30] MEDS: SIMVASTATIN 20 MG TAB PO SCH (21:00)
[2018-06-30 22:00] VITALS: BP 134/75
[2018-07-01] MEDS: LEVALBUTEROL 1.25 MG/0.5 ML CONCENTRATE NEB INH SCH ×4 (04:00→11:53)
[2018-07-01] MEDS: LEVOTHYROXINE 88MCG TABLET (0.088 MG) PO SCH (05:28)
[2018-07-01 05:48] LABS: BASO % 0.4 % (0.0-1.0); EOS # 0.3 10^3/uL (0.0-0.50); EOS % 3.4 % (0.0-3.0); HEMATOCRIT 37.4 % (42.0-52.0); HEMOGLOBIN 12.9 g/dl (13.5-17.5); LYMPH # 2.2 10^3/uL (1.5-4.5); LYMPH % 22.4 % (24.0-44.0); MEAN CORPUSCULAR HEMOGLOBIN 31.9 pg (27.0-33.0); MEAN CORPUSCULAR HGB CONC 34.5 g/dl (32.0-36.5); MEAN CORPUSCULAR VOLUME 92.3 fl (80.0-96.0); MONO # 1.3 10^3/uL (0.0-0.8); MONO % 13.3 % (0.0-5.0); NEUTROPHILS # 5.8 10^3/uL (1.8-7.7); NEUTROPHILS % 59.8 % (36.0-66.0); PLATELET COUNT, AUTOMATED 226 10^3/uL (150-450); RED BLOOD COUNT 4.05 10^6/uL (4.30-6.10); WHITE BLOOD COUNT 9.6 10^3/uL (4.0-10.0)
[2018-07-01 06:00] VITALS: BP 155/79
[2018-07-01] MEDS: MEROPENEM INJ 1 GM in APPROPRIATE DILUENT 1 EA IV SCH (10:16)
[2018-07-01] MEDS: LISINOPRIL 20 MG TAB PO SCH ×2 (10:17→20:39)
[2018-07-01] MEDS: MAGNESIUM OXIDE 400 MG TAB (MAG-OX) PO SCH ×2 (10:17→20:38)
[2018-07-01] MEDS: CitaloPRAM (CeleXA) 10 MG TABLET PO SCH (10:17)
[2018-07-01] MEDS: amLODIPine 10 MG TAB PO SCH (10:17)
[2018-07-01] MEDS: LACTOBACILLUS ACIDOPHILUS CAP (BACID) PO SCH ×3 (10:17→20:38)
[2018-07-01 14:00] VITALS: BP 132/74
[2018-07-01 15:21] LABS: HEMATOCRIT 40.6 % (42.0-52.0); HEMOGLOBIN 13.8 g/dl (13.5-17.5); MEAN CORPUSCULAR HEMOGLOBIN 31.8 pg (27.0-33.0); MEAN CORPUSCULAR VOLUME 93.5 fl (80.0-96.0); PLATELET COUNT, AUTOMATED 226 10^3/uL (150-450); RED BLOOD COUNT 4.34 10^6/uL (4.30-6.10); WHITE BLOOD COUNT 11.2 10^3/uL (4.0-10.0)
[2018-07-01 15:51] LABS: ALBUMIN 2.4 GM/DL (3.2-5.2); ALT/SGPT 14 U/L (12-78); BILIRUBIN,TOTAL 0.4 MG/DL (0.2-1.0); BLOOD UREA NITROGEN 20 MG/DL (7-18); C REACTIVE PROTEIN QUANTITATIV 7.91 MG/DL (0.00-0.30); CALCIUM LEVEL 7.9 MG/DL (8.8-10.2); CARBON DIOXIDE LEVEL 29 MEQ/L (21-32); CHLORIDE LEVEL 106 MEQ/L (98-107); CREATININE FOR GFR 1.22 MG/DL (0.70-1.30); GLOMERULAR FILTRATION RATE > 60.0 (>35); GLUCOSE, FASTING 127 MG/DL (70-100); POTASSIUM SERUM 3.8 MEQ/L (3.5-5.1); SODIUM LEVEL 139 MEQ/L (136-145); TOTAL PROTEIN 6.4 GM/DL (6.4-8.2)
[2018-07-01] MEDS: AUGMENTIN 875 MG TAB PO SCH (20:38)
[2018-07-01] MEDS: SIMVASTATIN 20 MG TAB PO SCH (20:38)
[2018-07-01] MEDS: QUEtiapine FUMARATE 25 MG TAB PO SCH (20:38)
[2018-07-01] MEDS: ACETAMINOPHEN 500 MG TAB PO PRN (20:39)
[2018-07-01 22:00] VITALS: BP 118/56
[2018-07-02] MEDS: LEVOTHYROXINE 88MCG TABLET (0.088 MG) PO SCH (05:19)
[2018-07-02 05:44] LABS: BASO # 0.1 10^3/uL (0.0-0.2); BASO % 0.8 % (0.0-1.0); EOS # 0.4 10^3/uL (0.0-0.50); EOS % 3.8 % (0.0-3.0); HEMOGLOBIN 13.3 g/dl (13.5-17.5); MEAN CORPUSCULAR HGB CONC 34.1 g/dl (32.0-36.5); MONO # 1.3 10^3/uL (0.0-0.8); MONO % 13.8 % (0.0-5.0); NEUTROPHILS # 5.4 10^3/uL (1.8-7.7); NEUTROPHILS % 58.8 % (36.0-66.0); PLATELET COUNT, AUTOMATED 227 10^3/uL (150-450); RED BLOOD COUNT 4.15 10^6/uL (4.30-6.10); WHITE BLOOD COUNT 9.2 10^3/uL (4.0-10.0)
[2018-07-02 06:00] VITALS: BP 147/70
--- NOTE | 2018-07-02 07:05 | IPNPDOC ---
Subjective Date Seen The patient was seen on 07/01/18. Subjective Chief Complaint/HPI No new issues or concerns per nursing staff Constitutional: Denies: Chills, Fever Pulmonary: Denies: Dyspnea, Cough Gastrointestinal: Denies: Nausea, Vomiting, Abdominal Pain, Diarrhea, Constipation Objective Physical Examination General Exam: Positive: Alert, No Acute Distress (awake, alert, ); Negative: Cooperative Eye Exam: Negative: Sclera icteric ENT Exam: Positive: Atraumatic Neck Exam: Positive: Supple; Negative: Lymphadenopathy Chest Exam: Positive: Clear to auscultation; Negative: Rales, Rhonchi, Wheezing Heart Exam: Positive: Rate Normal, Regular Rhythm, Normal S1, Normal S2; Negative: Murmurs Abdomen Exam: Positive: Normal bowel sounds, Soft; Negative: Tenderness Extremity Exam: Negative: Edema Skin Exam: Positive: Nl turgor and temperature Neuro Exam: Negative: Normal Speech Psych Exam: Negative: Mental status NL, Memory Intact, Oriented x 3 Assessment /Plan Problems (1) Left lower lobe pneumonia Status: Acute Response to Treatment: Improving Problem Text: 07/01 - Change to Augmentin - repeat CRP in am 06/30 Meropenem D6, Vanco stoppped 06/29. CRP steadily rising x 4d, low grade temp overnight, monitor, if he remains stable, plan for SNF in AM. 06/29: Expiratory wheezes still present, mostly on the L. BCx are finalized negative. His MRSA screen was negative and he is making reasonable (but slow) clinical improvement, so his vancomycin was stopped today. Continue on meropenem D #5. 06/28: Lungs still with end expiratory wheezes in all goldstein. Clinically seems to be improving as WBC is now down to WNL at 9.9 today. Blood cx show NGTD x72 hours. Continue vancomycin and meropenem. Has remained afebrile. 06/27: (+)End expiratory wheezes in all lung goldstein bilaterally with diminished breath sounds at bases. Continue vancomycin and meropenem. WBC has gone down to 13.1. Blood cx show NGTD x 48 hours. Has remained afebrile. 06/26: Lungs still diminished and rhonchorous at bilateral bases. Will continue IV antibiotics with vanco and meropenem. Leukocytosis improving. Afebrile. CRP however went up from 6.72 to 8.04. Will continue to trend. Blood cx show NGTD x 24 hours. (2) Acute respiratory failure with hypoxia Status: Acute Response to Treatment: Improving Problem Text: 07/01 - Continue to wean oxygen 06/29: I asked nursing to work hard to titrate him down. Sats >90% are ok. Will monitor. 06/28: Stable. Oxygen requirement is still at 4L high flow nasal cannula as O2 saturations are still running in low 90s with this. PT not able to work with patient this AM. Hopefully, they will start working with him tomorrow. 06/27: Stable. Oxygen requirement still at 4 L high flow nasal cannula. Have ordered PT and spoken to PT at [facility] to start therapy with patient. 06/26: Improving. Oxygen requirement is decreasing and patient has gone from needing 6 liters NC to 4 liters hi flow NC. Can start with PT now and will order PT to start working with patient. (3) Parkinson's disease dementia Status: Chronic Response to Treatment: Worse Problem Text: He had a bad day today. I had to add the prn Haldol back to the mix. I believe that it is days like this that are tiring his family out and why placement is being looked into for after this admission. (4) Hypertension Status: Chronic Problem Text: 06/29: Again BPs are running a little over goal, but he has been agitated by most things today including having his vital taken. I don't feel that these reflect true resting BPs and therefore will not change his regimen at this time. 06/28: BP stable. A little high today, but nurse had told me that she had administered BP medications after the reading of 174/77 this AM. This will likely go down later this AM. Continue lisinopril and amlodipine as prior. Continue to monitor BPs. Adjust therapy if necessary. 06/27: BP stable and was 153/84 today. Continue lisinopril and amlodipine with hold parameters. 06/26: BP stable today and was WNL at 113/64. Continue lisinopril and amlodipine with hold parameters. (5) Loose bowel movement Status: Acute Response to Treatment: Controlled Problem Text: 07/01 - per nursing the BMs reported were only smears. No overt diarrhea to suggest C. Diff 06/29: This doesn't seem to be a continue issue of significance. 06/28: Nurse reports a large watery foul smelling BM this AM. Concern is for C. diff from antibiotics. Have ordered C. diff PCR test. Will follow up results when available. (6) Coronary artery disease Status: Chronic Problem Text: 06/26: Continue simvastatin. (7) Dyslipidemia Status: Chronic Problem Text: 06/26: Continue simvastatin. (8) Hypothyroid Status: Chronic Problem Text: 06/26: Continue levothyroxine. (9) Depression Status: Chronic Problem Text: 06/26: Continue citalopram and seroquel. (10) Hx of subdural hematoma Status: Chronic Problem Text: 06/26: CT Head on 03/24/18 showed diffuse atrophy, vascular calcification, and small vessel changes. Old bilateral basal ganglia lacunar infarcts. No acute intracranial abnormality. (11) Sepsis Status: Resolved Problem Text: 06/27: Improving clinically and starting to mentate more appropriately. Continue current antibiotic regimen with vancomycin and macy openem. Leukocytosis and CRP trending down. Continue NS IVF. Blood cx and urine cx still negative. 06/26: Likely secondary to CAP vs. HCAP of LLL. Patient goes frequently to day rehab. This AM, patient was not able to answer questions comprehensibly. However, later on during the afternoon, he seemed to be better and was able to answer questions more logically, which was definite improvement. Remains hemodynamically stable and afebrile. Leukocytosis and lactic acidosis is improving. And will continue IVF NS @ 80 mLs/hr. Continue empiric antibiotic therapy with vancomycin and meropenem. Patient was reported by nursing staff to be trying to pull out his hernandez and his IV line. A sitter was ordered. Blood cx and urine cx remain negative. (12) Lactic acidosis Status: Resolved Response to Treatment: Improving Problem Text: 06/26: Improving and lactic acid level is 1.5 down from 3.5 yesterday. (13) Leukocytosis Status: Resolved Problem Text: 06/28: WBC WNL at 9.9 today. 06/27: WBC trending down and is 13.1 from 20.6 yesterday. 06/26: WBC trending down and is 20.6 from 27.8 yesterday. Continue to monitor CBC. (14) Acute kidney injury Status: Resolved Problem Text: 06/28: MAULIK resolved with normal BUN and Cr today. BUN 18 and Cr 1.09 today. Continue to monitor BMP however. 06/27: Kidney fx improving and Cr trending down and was 1.36 today from 1.50 yes terday. 06/26: Kidney fx improving and Cr has trended down to 1.50. Plan/VTE VTE Prophylaxis Ordered?: Yes (SCDs only; probably hold off on heparin due to recent hx of subdural hematoma) Plan Anticipated Discharge: Intermediate Disposition SNF in am if remains stable with switch to po abx VS, I&O, 24H, Fishbone Vital Signs/I&O Vital Signs Date Time Temp Pulse Resp B/P (MAP) Pulse Ox O2 Delivery O2 Flow Rate FiO2 07/02/18 06:00 98.1 60 16 147/70 (95) 90 Room Air 07/01/18 22:00 1.0 I&O- Last 24 Hours up to 6 AM 07/02/18 05:59 Intake Total 850 ml Output Total 0 ml Balance 850 ml Laboratory Data 24H LABS Laboratory Tests 2 07/01/18 15:12: Nucleated Red Blood Cells % (auto) 0.0, Anion Gap 4L, Glomerular Filtration Rate > 60.0, Blood Urea Nitrogen 20H, Creatinine 1.22, Sodium Level 139, Potassium Level 3.8, Chloride Level 106, Carbon Dioxide Level 29, Calcium Level 7.9L, Aspartate Amino Transf (AST/SGOT) 16, Alanine Aminotransferase (ALT/SGPT) 14, Alkaline Phosphatase 65, Total Bilirubin 0.4, Total Protein 6.4, Albumin 2.4L, C-Reactive Protein, Quantitative 7.91H, Albumin/Globulin Ratio 0.60L 07/02/18 05:29: Nucleated Red Blood Cells % (auto) 0.0, Immature Granulocyte % (Auto) 0.8, White Blood Count 9.2, Red Blood Count 4.15L, Hemoglobin 13.3L, Hematocrit 39.0L, Mean Corpuscular Volume 94.0, Mean Corpuscular Hemoglobin 32.0, Mean Corpuscular Hemoglobin Concent 34.1, Red Cell Distribution Width 12.9, Platelet Count 227, Neutrophils (%) (Auto) 58.8, Lymphocytes (%) (Auto) 22.0L, Monocytes (%) (Auto) 13.8H, Eosinophils (%) (Auto) 3.8H, Basophils (%) (Auto) 0.8, Neutrophils # (Auto) 5.4, Lymphocytes # (Auto) 2.0, Monocytes # (Auto) 1.3H, Eosinophils # (Auto) 0.4, Basophils # (Auto) 0.1 CBC/BMP Laboratory Tests 07/01/18 15:12 Red Blood Count 4.34, Mean Corpuscular Volume 93.5, Mean Corpuscular Hemoglobin 31.8, Mean Corpuscular Hemoglobin Concent 34.0, Red Cell Distribution Width 12.9, Calcium Level 7.9 L, Aspartate Amino Transf (AST/SGOT) 16, Alanine Ami notransferase (ALT/SGPT) 14, Alkaline Phosphatase 65, Total Bilirubin 0.4, Total Protein 6.4, Albumin 2.4 L 07/02/18 05:29 Red Blood Count 4.15 L, Mean Corpuscular Volume 94.0, Mean Corpuscular Hemoglobin 32.0, Mean Corpuscular Hemoglobin Concent 34.1, Red Cell Distribution Width 12.9, Neutrophils (%) (Auto) 58.8, Lymphocytes (%) (Auto) 22.0 L, Monocytes (%) (Auto) 13.8 H, Eosinophils (%) (Auto) 3.8 H, Basophils (%) (Auto) 0.8, Neutrophils # (Auto) 5.4, Lymphocytes # (Auto) 2.0, Monocytes # (Auto) 1.3 H, Eosinophils # (Auto) 0.4, Basophils # (Auto) 0.1 Microbiology Microbiology 06/24/18 Blood Culture - Final, Complete NO GROWTH AFTER 5 DAYS 06/24/18 Blood Culture - Final, Complete NO GROWTH AFTER 5 DAYS 06/25/18 MRSA Screen - Final, Complete 06/24/18 Urine Culture - Final, Complete AARON LIANG PA-C Jul 02, 2018 07:05
[2018-07-02 07:23] LABS: BLOOD UREA NITROGEN 25 MG/DL (7-18); C REACTIVE PROTEIN QUANTITATIV 7.49 MG/DL (0.00-0.30); CALCIUM LEVEL 7.9 MG/DL (8.8-10.2); CARBON DIOXIDE LEVEL 29 MEQ/L (21-32); CHLORIDE LEVEL 108 MEQ/L (98-107); CREATININE FOR GFR 1.13 MG/DL (0.70-1.30); GLOMERULAR FILTRATION RATE > 60.0 (>35); GLUCOSE, FASTING 96 MG/DL (70-100); POTASSIUM SERUM 3.9 MEQ/L (3.5-5.1); SODIUM LEVEL 142 MEQ/L (136-145)
[2018-07-02] MEDS: LACTOBACILLUS ACIDOPHILUS CAP (BACID) PO SCH ×3 (08:16→20:35)
[2018-07-02] MEDS: MAGNESIUM OXIDE 400 MG TAB (MAG-OX) PO SCH ×2 (08:16→20:35)
[2018-07-02] MEDS: AUGMENTIN 875 MG TAB PO SCH ×2 (08:16→20:35)
[2018-07-02] MEDS: amLODIPine 10 MG TAB PO SCH (08:17)
[2018-07-02] MEDS: CitaloPRAM (CeleXA) 10 MG TABLET PO SCH (08:17)
[2018-07-02] MEDS: LISINOPRIL 20 MG TAB PO SCH ×2 (08:17→20:35)
[2018-07-02 14:00] VITALS: BP 147/66
[2018-07-02] MEDS: SIMVASTATIN 20 MG TAB PO SCH (20:35)
[2018-07-02] MEDS: QUEtiapine FUMARATE 25 MG TAB PO SCH (20:36)
[2018-07-02 22:00] VITALS: BP 132/63
[2018-07-03] MEDS: LEVOTHYROXINE 88MCG TABLET (0.088 MG) PO SCH (05:29)
[2018-07-03 06:00] VITALS: BP 135/66
[2018-07-03] MEDS: LACTOBACILLUS ACIDOPHILUS CAP (BACID) PO SCH ×3 (09:43→22:02)
[2018-07-03] MEDS: CitaloPRAM (CeleXA) 10 MG TABLET PO SCH (09:43)
[2018-07-03] MEDS: amLODIPine 10 MG TAB PO SCH (09:43)
[2018-07-03] MEDS: MAGNESIUM OXIDE 400 MG TAB (MAG-OX) PO SCH ×2 (09:43→22:02)
[2018-07-03] MEDS: AUGMENTIN 875 MG TAB PO SCH ×2 (09:43→22:02)
[2018-07-03] MEDS: LISINOPRIL 20 MG TAB PO SCH ×2 (09:43→22:01)
--- NOTE | 2018-07-03 21:58 | DSES ---
DATE OF ADMISSION: 06/24/2018 DATE OF DISCHARGE: BRIEF HISTORY AND PHYSICAL: Patient is an 83-year-old man with a history of Parkinson's disease and dementia, recent history of subdural hematoma which was managed conservatively in August. Lives with his . They are both in the care of their daughter. He attends day rehabilitation. He has been noted to have more progressive shortness of breath over the past couple of days. Mention of objective fevers and chills, occasional cough. PAST MEDICAL HISTORY: Is significant for: 1. Hypothyroidism. 2. Hyperlipidemia. 3. Hypertension and carotid artery disease. 4. Parkinson's disease with dementia. 5. Recent subdural hematoma. 6. [id number]. PERTINENT LABS ON ADMISSION: White count 23, hemoglobin 16.5, platelets 206,000. Sodium 141, potassium 4.3, BUN 24, creatinine 1.6, glucose 148. Chest x-ray showed left lower lobe atelectasis or infiltrate. CT of the chest showed increased markings left base consistent with early infiltrate. There is some respiratory motion artifact bilateral lower lobe, dependent segmental atelectasis, cardiomegaly and diffuse ectasia and tortuosity of the thoracic aorta. HOSPITAL COURSE: The patient was admitted for sepsis secondary to left lower lobe pneumonia and acute respiratory failure with hypoxemia. He was maintained on high-flow nasal cannula initially and treated with intravenous (IV) meropenem and vancomycin. White count normalized. Respiratory status improved. He has been weaned to room air, maintaining his saturations in the low 90s. Antibiotics have been switched to Augmentin. His C-reactive protein (CRP), which was fairly high, is trending down to some extent today, is clinically stable for nursing home facility (SNF) status and his status will be changed today. 1. Parkinson's disease with dementia. He will require placement as he is requiring more care and the family is not able to manage him at home. 2. Hypertension. Blood pressures are fairly well controlled on his usual regimen. 3. History of coronary disease. This remains stable. 4. Hypothyroidism, stable on levothyroxine. 5. History of subdural hematoma. CT of the head on 03/24/2018 showed diffuse atrophy, vascular calcification and small vessel changes, old bilateral basal ganglia, lacunar infarctions. No intracranial abnormality. 6. Acute kidney injury. His BUN and creatinine was elevated on admission and trended down with IV fluids and have remained stable. DISPOSITION He is stable for SNF. His medications will be dictated at the time of his transfer to the detention. DISCHARGE DIAGNOSES: 1. Sepsis secondary to left lower lobe pneumonia. 2. Acute respiratory failure with hypoxemia. 3. Acute kidney injury. 4. Parkinson's disease with dementia. 5. Hypertension. 6. Coronary artery disease. 7. Hypothyroidism. 8. History of subdural hematoma.
[2018-07-03] MEDS: QUEtiapine FUMARATE 25 MG TAB PO SCH (22:02)
[2018-07-03] MEDS: SIMVASTATIN 20 MG TAB PO SCH (22:02)
[2018-07-04 06:00] VITALS: BP 129/68
[2018-07-04] MEDS: LEVOTHYROXINE 88MCG TABLET (0.088 MG) PO SCH (06:17)
[2018-07-04] MEDS: AUGMENTIN 875 MG TAB PO SCH ×2 (09:10→21:19)
[2018-07-04] MEDS: CitaloPRAM (CeleXA) 10 MG TABLET PO SCH (09:10)
[2018-07-04] MEDS: LACTOBACILLUS ACIDOPHILUS CAP (BACID) PO SCH ×3 (09:10→21:19)
[2018-07-04] MEDS: LISINOPRIL 20 MG TAB PO SCH ×2 (09:10→21:20)
[2018-07-04] MEDS: amLODIPine 10 MG TAB PO SCH (09:10)
[2018-07-04] MEDS: MAGNESIUM OXIDE 400 MG TAB (MAG-OX) PO SCH ×2 (09:10→21:19)
[2018-07-04] MEDS: QUEtiapine FUMARATE 25 MG TAB PO SCH (21:19)
[2018-07-04] MEDS: SIMVASTATIN 20 MG TAB PO SCH (21:19)
[2018-07-05] MEDS: LEVOTHYROXINE 88MCG TABLET (0.088 MG) PO SCH (05:50)
[2018-07-05 06:00] VITALS: BP 119/61
[2018-07-05] MEDS: LACTOBACILLUS ACIDOPHILUS CAP (BACID) PO SCH ×3 (08:49→20:39)
[2018-07-05] MEDS: MAGNESIUM OXIDE 400 MG TAB (MAG-OX) PO SCH ×2 (08:49→20:39)
[2018-07-05] MEDS: LISINOPRIL 20 MG TAB PO SCH ×2 (08:49→20:39)
[2018-07-05] MEDS: amLODIPine 10 MG TAB PO SCH (08:49)
[2018-07-05] MEDS: AUGMENTIN 875 MG TAB PO SCH ×2 (08:49→20:38)
[2018-07-05] MEDS: CitaloPRAM (CeleXA) 10 MG TABLET PO SCH (08:49)
[2018-07-05] MEDS: SIMVASTATIN 20 MG TAB PO SCH (20:38)
[2018-07-05] MEDS: QUEtiapine FUMARATE 25 MG TAB PO SCH (20:38)
[2018-07-06] MEDS: LEVOTHYROXINE 88MCG TABLET (0.088 MG) PO SCH (05:30)
[2018-07-06 06:00] VITALS: BP 120/62
[2018-07-06] MEDS: LACTOBACILLUS ACIDOPHILUS CAP (BACID) PO SCH ×3 (08:34→20:18)
[2018-07-06] MEDS: amLODIPine 10 MG TAB PO SCH (08:35)
[2018-07-06] MEDS: MAGNESIUM OXIDE 400 MG TAB (MAG-OX) PO SCH ×2 (08:35→20:17)
[2018-07-06] MEDS: CitaloPRAM (CeleXA) 10 MG TABLET PO SCH (08:35)
[2018-07-06] MEDS: LISINOPRIL 20 MG TAB PO SCH ×2 (08:35→20:18)
[2018-07-06] MEDS: AUGMENTIN 875 MG TAB PO SCH ×2 (08:35→20:18)
[2018-07-06] MEDS: QUEtiapine FUMARATE 25 MG TAB PO SCH (20:17)
[2018-07-06] MEDS: SIMVASTATIN 20 MG TAB PO SCH (20:17)
[2018-07-07] MEDS: LEVOTHYROXINE 88MCG TABLET (0.088 MG) PO SCH (05:32)
[2018-07-07 06:00] VITALS: BP 109/55
[2018-07-07] MEDS: CitaloPRAM (CeleXA) 10 MG TABLET PO SCH (08:51)
[2018-07-07] MEDS: AUGMENTIN 875 MG TAB PO SCH ×2 (08:51→22:05)
[2018-07-07] MEDS: LACTOBACILLUS ACIDOPHILUS CAP (BACID) PO SCH ×3 (08:51→22:05)
[2018-07-07] MEDS: MAGNESIUM OXIDE 400 MG TAB (MAG-OX) PO SCH ×2 (08:51→22:05)
[2018-07-07] MEDS: amLODIPine 10 MG TAB PO SCH (09:05)
[2018-07-07] MEDS: LISINOPRIL 20 MG TAB PO SCH ×2 (09:05→22:06)
[2018-07-07] MEDS: SIMVASTATIN 20 MG TAB PO SCH (22:05)
[2018-07-07] MEDS: QUEtiapine FUMARATE 25 MG TAB PO SCH (22:05)
[2018-07-08] MEDS: LEVOTHYROXINE 88MCG TABLET (0.088 MG) PO SCH (05:52)
[2018-07-08 06:00] VITALS: BP 101/59
[2018-07-08] MEDS: CitaloPRAM (CeleXA) 10 MG TABLET PO SCH (08:51)
[2018-07-08] MEDS: MAGNESIUM OXIDE 400 MG TAB (MAG-OX) PO SCH ×2 (08:51→20:52)
[2018-07-08] MEDS: LISINOPRIL 20 MG TAB PO SCH ×2 (08:51→20:51)
[2018-07-08] MEDS: LACTOBACILLUS ACIDOPHILUS CAP (BACID) PO SCH ×3 (08:51→20:52)
[2018-07-08] MEDS: amLODIPine 10 MG TAB PO SCH (08:52)
[2018-07-08] MEDS: AUGMENTIN 875 MG TAB PO SCH (08:52)
--- NOTE | 2018-07-08 13:18 | IPNPDOC ---
Subjective Date Seen The patient was seen on 07/08/18. Subjective Chief Complaint/HPI Patient seen and examined sitting up in chair. Is very hard of hearing. I was unable to ask him questions that he was appropriately responding to. When I asked him how he was feeling, he said: "fine." Nursing staff reports no acute events overnight. Nurse stated that patient is able to do everything if he can hear including getting up and out of bed, going to the bathroom, eating by himself, etc. Day sitter also states there were no concerns in report when switching with the night sitter. Patient was eating breakfast with utensils appropriately right in front of me. General: Reports: ROS Unobtainable Objective Physical Examination General Exam: Positive: Alert, No Acute Distress (awake, alert, ); Negative: Cooperative Eye Exam: Positive: Conjunctiva & lids normal ENT Exam: Positive: Atraumatic, Other ENT (grossly decreased hearing bilaterally) Neck Exam: Positive: Supple Chest Exam: Positive: Clear to auscultation; Negative: Rales, Rhonchi, Wheezing Heart Exam: Positive: Rate Normal, Regular Rhythm, Normal S1, Normal S2; Negative: Murmurs Abdomen Exam: Positive: Normal bowel sounds, Soft; Negative: Tenderness Extremity Exam: Negative: Clubbing, Cyanosis, Edema Skin Exam: Positive: Nl turgor and temperature Neuro Exam: Negative: Normal Speech Psych Exam: Negative: Mental status NL, Memory Intact, Oriented x 3 Assessment /Plan Problems (1) Left lower lobe pneumonia Status: Acute Response to Treatment: Improving Problem Text: 07/08/18: Has been on augmentin since 07/01 and has completed 7 days of this antibiotic. Lungs sound clear. I am optimistic patient has likely cleared his pneumonia by now. Will speak to attending physician regarding discontinuing the augmentin later today. 07/01 - Change to Augmentin - repeat CRP in am 06/30 Meropenem D6, Vanco stoppped 06/29. CRP steadily rising x 4d, low grade temp overnight, monitor, if he remains stable, plan for SNF in AM. 06/29: Expiratory wheezes still present, mostly on the L. BCx are finalized negative. His MRSA screen was negative and he is making reasonable (but slow) clinical improvement, so his vancomycin was stopped today. Continue on meropenem D #5. 06/28: Lungs still with end expiratory wheezes in all goldstein. Clinically seems to be improving as WBC is now down to WNL at 9.9 today. Blood cx show NGTD x72 hours. Continue vancomycin and meropenem. Has remained afebrile. 06/27: (+)End expiratory wheezes in all lung goldstein bilaterally with diminished breath sounds at bases. Continue vancomycin and meropenem. WBC has gone down to 13.1. Blood cx show NGTD x 48 hours. Has remained afebrile. 06/26: Lungs still diminished and rhonchorous at bilateral bases. Will continue IV antibiotics with vanco and meropenem. Leukocytosis improving. Afebrile. CRP however went up from 6.72 to 8.04. Will continue to trend. Blood cx show NGTD x 24 hours. (2) Hypertension Status: Chronic Problem Text: 07/08/18: Patient's BPs have been running very soft. Yesterday, BP was 97/53 and Brii Greene had held patient's amlodipine and lisinopril. In addition, BP today was still soft at 111/53. Patient is even becoming bradycardic. Thus, amlodipine has been discontinued. A TSH and Free T4 have been ordered for evaluation of bradycardia. 06/29: Again BPs are running a little over goal, but he has been agitated by most things today including having his vital taken. I don't feel that these reflect true resting BPs and therefore will not change his regimen at this time. 06/28: BP stable. A little high today, but nurse had told me that she had administered BP medications after the reading of 174/77 this AM. This will likely go down later this AM. Continue lisinopril and amlodipine as prior. Continue to monitor BPs. Adjust therapy if necessary. 06/27: BP stable and was 153/84 today. Continue lisinopril and amlodipine with hold parameters. 06/26: BP stable today and was WNL at 113/64. Continue lisinopril and amlodipine with hold parameters. (3) Bradycardia Status: Acute Problem Text: 07/08/18: Heart rate running in the 50s. A TSH and Free T4 have been ordered for evaluation of bradycardia. Amlodipine discontinued. (4) Acute respiratory failure with hypoxia Status: Resolved Response to Treatment: Improving Problem Text: 07/08/18: Is satting in the 90s on room air now. 07/01 - Continue to wean oxygen 06/29: I asked nursing to work hard to titrate him down. Sats >90% are ok. Will monitor. 06/28: Stable. Oxygen requirement is still at 4L high flow nasal cannula as O2 saturations are still running in low 90s with this. PT not able to work with patient this AM. Hopefully, they will start working with him tomorrow. 06/27: Stable. Oxygen requirement still at 4 L high flow nasal cannula. Have ordered PT and spoken to PT at [facility] to start therapy with patient. 06/26: Improving. Oxygen requirement is decreasing and patient has gone from needing 6 liters NC to 4 liters hi flow NC. Can start with PT now and will order PT to start working with patient. (5) Parkinson's disease dementia Status: Chronic Response to Treatment: Worse Problem Text: 07/08/18: This is chronic. He had a bad day today. I had to add the prn Haldol back to the mix. I believe that it is days like this that are tiring his family out and why placement is being looked into for after this admission. (6) Loose bowel movement Status: Resolved Response to Treatment: Controlled Problem Text: 07/01 - per nursing the BMs reported were only smears. No overt diarrhea to suggest C. Diff 06/29: This doesn't seem to be a continue issue of significance. 06/28: Nurse reports a large watery foul smelling BM this AM. Concern is for C. diff from antibiotics. Have ordered C. diff PCR test. Will follow up results when available. (7) Coronary artery disease Status: Chronic Problem Text: 06/26: Continue simvastatin. (8) Dyslipidemia Status: Chronic Problem Text: 06/26: Continue simvastatin. (9) Hypothyroid Status: Chronic Problem Text: 06/26: Continue levothyroxine. (10) Depression Status: Chronic Problem Text: 06/26: Continue citalopram and seroquel. (11) Hx of subdural hematoma Status: Chronic Problem Text: 06/26: CT Head on 03/24/18 showed diffuse atrophy, vascular calcification, and small vessel changes. Old bilateral basal ganglia lacunar in farcts. No acute intracranial abnormality. (12) Sepsis Status: Resolved Problem Text: 06/27: Improving clinically and starting to mentate more appropriately. Continue current antibiotic regimen with vancomycin and meropenem. Leukocytosis and CRP trending down. Continue NS IVF. Blood cx and urine cx still negative. 06/26: Likely secondary to CAP vs. HCAP of LLL. Patient goes frequently to day rehab. This AM, patient was not able to answer questions comprehensibly. However, later on during the afternoon, he seemed to be better and was able to answer questions more logically, which was definite improvement. Remains hemodynamically stable and afebrile. Leukocytosis and lactic acidosis is impr oving. And will continue IVF NS @ 80 mLs/hr. Continue empiric antibiotic therapy with vancomycin and meropenem. Patient was reported by nursing staff to be trying to pull out his hernandez and his IV line. A sitter was ordered. Blood cx and urine cx remain negative. (13) Lactic acidosis Status: Resolved Response to Treatment: Improving Problem Text: 06/26: Improving and lactic acid level is 1.5 down from 3.5 yesterday. (14) Leukocytosis Status: Resolved Problem Text: 06/28: WBC WNL at 9.9 today. 06/27: WBC trending down and is 13.1 from 20.6 yesterday. 06/26: WBC trending down and is 20.6 from 27.8 yesterday. Continue to monitor CBC. (15) Acute kidney injury Status: Resolved Problem Text: 06/28: MAULIK resolved with normal BUN and Cr today. BUN 18 and Cr 1.09 today. Continue to monitor BMP however. 06/27: Kidney fx improving and Cr trending down and was 1.36 today from 1.50 yesterday. 06/26: Kidney fx improving and Cr has trended down to 1.50. Plan/VTE VTE Prophylaxis Ordered?: Yes (SCDs only; probably hold off on heparin due to recent hx of subdural hematoma) Plan Anticipated Discharge: [facility] VS, I&O, 24H, Fishbone Vital Signs/I&O Vital Signs Date Time Temp Pulse Resp B/P (MAP) Pulse Ox O2 Delivery O2 Flow Rate FiO2 07/08/18 08:52 57 07/08/18 08:51 173/96 07/08/18 06:00 97.8 16 94 Room Air I&O- Last 24 Hours up to 6 AM 07/08/18 06:00 Intake Total 1230 ml Output Total 150 ml Balance 1080 ml GME ATTESTATION GME ATTESTATION My faculty preceptor for this patient encounter was Dr. Lakshmi Jones, and was physically present during the encounter and was fully available. All aspects of the patient interview, examination, medical decision making process, and medical care plan development were reviewed and approved by the faculty preceptor. The faculty preceptor is aware and concurs with the plan as stated in the body of this note and will attest to such by his/her cosignature. SHANT MCLAIN DO Jul 08, 2018 13:18
[2018-07-08] MEDS: SIMVASTATIN 20 MG TAB PO SCH (20:52)
[2018-07-08] MEDS: QUEtiapine FUMARATE 25 MG TAB PO SCH (20:52)
[2018-07-09 06:00] VITALS: BP 111/57
[2018-07-09] MEDS: LEVOTHYROXINE 88MCG TABLET (0.088 MG) PO SCH (06:03)
[2018-07-09 06:30] LABS: FREE T4 1.07 NG/DL (0.76-1.46); THYROID STIMULATING HORMONE 2.66 uIU/ML (0.358-3.740)
[2018-07-09] MEDS: LISINOPRIL 20 MG TAB PO SCH ×2 (08:53→21:12)
[2018-07-09] MEDS: CitaloPRAM (CeleXA) 10 MG TABLET PO SCH (08:53)
[2018-07-09] MEDS: MAGNESIUM OXIDE 400 MG TAB (MAG-OX) PO SCH ×2 (08:53→21:12)
[2018-07-09] MEDS: LACTOBACILLUS ACIDOPHILUS CAP (BACID) PO SCH ×3 (08:53→21:12)
[2018-07-09] MEDS: SIMVASTATIN 20 MG TAB PO SCH (21:12)
[2018-07-09] MEDS: QUEtiapine FUMARATE 25 MG TAB PO SCH (21:12)
[2018-07-09 22:00] VITALS: BP 112/55
[2018-07-10] MEDS: LEVOTHYROXINE 88MCG TABLET (0.088 MG) PO SCH (05:49)
[2018-07-10 06:00] VITALS: BP 113/62
[2018-07-10] MEDS: CitaloPRAM (CeleXA) 10 MG TABLET PO SCH (10:25)
[2018-07-10] MEDS: MAGNESIUM OXIDE 400 MG TAB (MAG-OX) PO SCH ×2 (10:25→20:20)
[2018-07-10] MEDS: LACTOBACILLUS ACIDOPHILUS CAP (BACID) PO SCH ×3 (10:25→20:20)
[2018-07-10] MEDS: LISINOPRIL 20 MG TAB PO SCH ×2 (10:26→20:25)
[2018-07-10] MEDS: QUEtiapine FUMARATE 25 MG TAB PO SCH (20:20)
[2018-07-10] MEDS: SIMVASTATIN 20 MG TAB PO SCH (20:20)
[2018-07-10 21:00] VITALS: BP 118/57
[2018-07-11] MEDS: LEVOTHYROXINE 88MCG TABLET (0.088 MG) PO SCH (05:15)
[2018-07-11 06:00] VITALS: BP 134/67
[2018-07-11] MEDS: MAGNESIUM OXIDE 400 MG TAB (MAG-OX) PO SCH ×2 (08:25→20:44)
[2018-07-11] MEDS: LISINOPRIL 20 MG TAB PO SCH ×2 (08:25→20:44)
[2018-07-11] MEDS: LACTOBACILLUS ACIDOPHILUS CAP (BACID) PO SCH ×3 (08:25→20:44)
[2018-07-11] MEDS: CitaloPRAM (CeleXA) 10 MG TABLET PO SCH (08:25)
[2018-07-11] MEDS: SIMVASTATIN 20 MG TAB PO SCH (20:44)
[2018-07-11] MEDS: QUEtiapine FUMARATE 25 MG TAB PO SCH (20:44)
[2018-07-11 22:00] VITALS: BP 126/60
[2018-07-12 06:00] VITALS: BP 120/60
[2018-07-12] MEDS: LEVOTHYROXINE 88MCG TABLET (0.088 MG) PO SCH (06:24)
[2018-07-12] MEDS: MAGNESIUM OXIDE 400 MG TAB (MAG-OX) PO SCH ×2 (09:41→21:32)
[2018-07-12] MEDS: LACTOBACILLUS ACIDOPHILUS CAP (BACID) PO SCH ×3 (09:41→21:32)
[2018-07-12] MEDS: LISINOPRIL 20 MG TAB PO SCH ×2 (09:41→21:42)
[2018-07-12] MEDS: CitaloPRAM (CeleXA) 10 MG TABLET PO SCH (09:41)
[2018-07-12] MEDS: QUEtiapine FUMARATE 25 MG TAB PO SCH (21:32)
[2018-07-12] MEDS: SIMVASTATIN 20 MG TAB PO SCH (21:42)
[2018-07-12] MEDS: ACETAMINOPHEN 500 MG TAB PO PRN (21:43)
[2018-07-12 22:00] VITALS: BP 135/73
[2018-07-13] MEDS: LEVOTHYROXINE 88MCG TABLET (0.088 MG) PO SCH (05:50)
[2018-07-13 06:00] VITALS: BP 157/60
[2018-07-13] MEDS: CitaloPRAM (CeleXA) 10 MG TABLET PO SCH (08:32)
[2018-07-13] MEDS: MAGNESIUM OXIDE 400 MG TAB (MAG-OX) PO SCH ×2 (08:32→20:23)
[2018-07-13] MEDS: LACTOBACILLUS ACIDOPHILUS CAP (BACID) PO SCH ×3 (08:32→20:24)
[2018-07-13] MEDS: LISINOPRIL 20 MG TAB PO SCH ×2 (08:32→20:24)
[2018-07-13] MEDS: QUEtiapine FUMARATE 25 MG TAB PO SCH (20:23)
[2018-07-13] MEDS: SIMVASTATIN 20 MG TAB PO SCH (20:23)
[2018-07-13] MEDS: ACETAMINOPHEN 500 MG TAB PO PRN (20:23)
[2018-07-14 06:00] VITALS: BP 92/53
[2018-07-14] MEDS: LEVOTHYROXINE 88MCG TABLET (0.088 MG) PO SCH (06:28)
[2018-07-14] MEDS: LACTOBACILLUS ACIDOPHILUS CAP (BACID) PO SCH ×3 (08:04→20:12)
[2018-07-14] MEDS: MAGNESIUM OXIDE 400 MG TAB (MAG-OX) PO SCH ×2 (08:04→20:12)
[2018-07-14] MEDS: CitaloPRAM (CeleXA) 10 MG TABLET PO SCH (08:04)
[2018-07-14] MEDS: LISINOPRIL 20 MG TAB PO SCH ×2 (08:06→20:14)
[2018-07-14] MEDS: SIMVASTATIN 20 MG TAB PO SCH (20:12)
[2018-07-14] MEDS: QUEtiapine FUMARATE 25 MG TAB PO SCH (20:12)
[2018-07-14 21:30] VITALS: BP 126/70
[2018-07-15 06:00] VITALS: BP 129/81
[2018-07-15] MEDS: LEVOTHYROXINE 88MCG TABLET (0.088 MG) PO SCH (06:10)
[2018-07-15 08:47] VITALS: BP 129/81
[2018-07-15] MEDS: LACTOBACILLUS ACIDOPHILUS CAP (BACID) PO SCH (08:47)
[2018-07-15] MEDS: LISINOPRIL 20 MG TAB PO SCH (08:47)
[2018-07-15] MEDS: CitaloPRAM (CeleXA) 10 MG TABLET PO SCH (08:47)
[2018-07-15] MEDS: MAGNESIUM OXIDE 400 MG TAB (MAG-OX) PO SCH (08:47)
[2018-07-15] MEDS ORDERED: MAG400TA PO (09:32)
--- NOTE | 2018-07-15 09:42 | DSES ---
DATE OF ADMISSION: 06/24/2018 DATE OF DISCHARGE: He is being discharged to [facility], where care will be assumed by Dr. Azul. His history and physical, past medical history remains unchanged, as well as his hospital course. His discharge diagnoses also remain unchanged. His discharge medications are as follows: - magnesium oxide 400 mg by mouth twice a day - acetaminophen 500 mg every 6 hours as needed for pain or fever - amlodipine 10 mg daily - Dulcolax 10 mg daily as needed for constipation - Citalopram 10 mg daily - Colace 100 mg by mouth twice a day as needed for constipation - enema daily as needed for constipation - hyoscyamine sulfate 0.125 mg twice a day as needed for itching - Levoxyl 88 mcg by mouth daily - Lisinopril 20 mg by mouth twice a day - milk of magnesia 30 mL by mouth daily as needed for constipation - nystatin powder topically twice a day as needed for erythema to skin folds - Seroquel 25 mg before bed - simvastatin 20 mg by mouth at night Discharge plan will be to followup with Dr. Azul. His activities should be as tolerated. His diet is regular.
== END 2018-07-15 11:35 | DRG 871 ==
LOC: M ED 16:29 → EDBD 16:29 → M ED INP 19:55 → M PCU 21:28 → M MSPAV 06-28 18:34
PROVIDERS: ADMIT Hospitalist; ATTEND Family Medicine
DX: A41.9 Sepsis, unspecified organism (principal); J18.9 Pneumonia, unspecified organism; J96.01 Acute respiratory failure with hypoxia; N17.9 Acute kidney failure, unspecified; E87.2 Acidosis; G20 Parkinson's disease; F02.80 Dementia in other diseases classified elsewhere, unspecified severity, without behavioral disturbance, psychotic disturbance, mood disturbance, and anxiety; Z86.79 Personal history of other diseases of the circulatory system; E03.9 Hypothyroidism, unspecified; E78.5 Hyperlipidemia, unspecified; Z86.73 Personal history of transient ischemic attack (TIA), and cerebral infarction without residual deficits; I10 Essential (primary) hypertension; I25.10 Atherosclerotic heart disease of native coronary artery without angina pectoris; Z79.899 Other long term (current) drug therapy; F32.9 Major depressive disorder, single episode, unspecified; R19.7 Diarrhea, unspecified

== ENCOUNTER → 2018-07-29 | Outpatient (REF) ==
[~2018-07-29] MED LIST changes: +APAP500T10 PO; +MAG400TA PO; +NYST1POW9 TOP
[2018-07-29 07:55] LABS: BILIRUBIN,TOTAL 0.3 MG/DL (0.2-1.0); CALCIUM LEVEL 8.2 MG/DL (8.8-10.2); CREATININE FOR GFR 1.58 MG/DL (0.70-1.30); GLOMERULAR FILTRATION RATE 44.9 (>35); MAGNESIUM LEVEL 2.1 MG/DL (1.8-2.4); POTASSIUM SERUM 5.1 MEQ/L (3.5-5.1); TOTAL PROTEIN 6.7 GM/DL (6.4-8.2)
== END ==
LOC: SKLAB5 07:27
PROVIDERS: ATTEND Family Medicine
DX: E83.42 Hypomagnesemia (principal); I10 Essential (primary) hypertension

== ENCOUNTER → 2018-08-01 | Outpatient (REF) | payer MEDICARE, MEDICAID ==
[2018-08-01 17:09] LABS: INFLUENZA A AMPLIFICATION NEGATIVE (NEGATIVE); INFLUENZA B AMPLIFICATION NEGATIVE (NEGATIVE)
[2018-08-01 17:48] LABS: BASO # 0.1 10^3/uL (0.0-0.2); BASO % 0.7 % (0.0-1.0); EOS # 0.3 10^3/uL (0.0-0.50); EOS % 3.2 % (0.0-3.0); HEMATOCRIT 41.3 % (42.0-52.0); HEMOGLOBIN 13.9 g/dl (13.5-17.5); LYMPH # 2.3 10^3/uL (1.5-4.5); MEAN CORPUSCULAR HEMOGLOBIN 31.7 pg (27.0-33.0); MEAN CORPUSCULAR HGB CONC 33.7 g/dl (32.0-36.5); MEAN CORPUSCULAR VOLUME 94.1 fl (80.0-96.0); MONO # 1.9 10^3/uL (0.0-0.8); MONO % 18.2 % (0.0-5.0); NEUTROPHILS # 5.7 10^3/uL (1.8-7.7); NEUTROPHILS % 55.6 % (36.0-66.0); PLATELET COUNT, AUTOMATED 201 10^3/uL (150-450); RED BLOOD COUNT 4.39 10^6/uL (4.30-6.10); WHITE BLOOD COUNT 10.3 10^3/uL (4.0-10.0)
== END ==
LOC: SKLAB5 16:22
PROVIDERS: ATTEND Family Medicine
DX: I10 Essential (primary) hypertension (principal)

== ENCOUNTER → 2018-08-11 | Outpatient (REF) ==
[2018-08-11 09:14] LABS: CHOLESTEROL RISK RATIO 4.294 (<5); THYROID STIMULATING HORMONE 1.92 uIU/ML (0.358-3.740)
== END ==
LOC: SKLAB5 08:06
PROVIDERS: ATTEND Family Medicine
DX: E03.9 Hypothyroidism, unspecified (principal); E78.5 Hyperlipidemia, unspecified

== ENCOUNTER → 2018-08-26 | Outpatient (REF) | payer MEDICAID, MEDICARE ==
[~2018-08-26] MED LIST changes: +CLOT1CRE27 TOP; -CLOTR1CR TOP; +SENN1TAB41 PO; -SENN8.6T7 PO; +VITA500T17 PO; -VITA500T53 PO
[2018-08-26 08:07] LABS: ALBUMIN 2.7 GM/DL (3.2-5.2); BILIRUBIN,TOTAL 0.3 MG/DL (0.2-1.0); CALCIUM LEVEL 8.1 MG/DL (8.8-10.2); CREATININE FOR GFR 1.54 MG/DL (0.70-1.30); GLOMERULAR FILTRATION RATE 46.3 (>35); MAGNESIUM LEVEL 2.1 MG/DL (1.8-2.4); POTASSIUM SERUM 4.5 MEQ/L (3.5-5.1); TOTAL PROTEIN 6.2 GM/DL (6.4-8.2)
== END ==
LOC: SKLAB5 07:39
PROVIDERS: ATTEND Family Medicine
DX: F03.90 Unspecified dementia, unspecified severity, without behavioral disturbance, psychotic disturbance, mood disturbance, and anxiety (principal); G20 Parkinson's disease; I25.10 Atherosclerotic heart disease of native coronary artery without angina pectoris

== ENCOUNTER → 2018-09-24 | Outpatient (REF) | payer MEDICARE, MEDICAID ==
[~2018-09-24] MED LIST changes: -CLOT1CRE27 TOP; +CLOTR1CR TOP; -SENN1TAB41 PO; +SENN8.6T7 PO; -VITA500T17 PO; +VITA500T53 PO
--- NOTE | 2018-09-25 08:59 | REP ---
CHEST, SINGLE VIEW: Single view of the chest was performed and compared to prior studies 06/24/2018 and 05/27/2018. There is mild cardiomegaly. There is calcified ectatic and torturous aorta. Mediastinal silhouette is unchanged. No new infiltrates are seen. IMPRESSION: Mild cardiomegaly with no evidence of acute infiltrate. Electronically Signed by Elijah Fu MD 09/25/2018 03:54 P
== END ==
LOC: SKLAB5 13:35
PROVIDERS: ATTEND Family Medicine
DX: R05 Cough (principal); I51.7 Cardiomegaly

== ENCOUNTER → 2018-09-27 | Outpatient (REF) | payer MEDICARE, MEDICAID ==
[2018-09-27 13:05] LABS: HEMATOCRIT 41.4 % (42.0-52.0); MEAN CORPUSCULAR HEMOGLOBIN 31.6 pg (27.0-33.0); MEAN CORPUSCULAR HGB CONC 33.8 g/dl (32.0-36.5); MEAN CORPUSCULAR VOLUME 93.5 fl (80.0-96.0); PLATELET COUNT, AUTOMATED 183 10^3/uL (150-450); RED BLOOD COUNT 4.43 10^6/uL (4.30-6.10); WHITE BLOOD COUNT 11.5 10^3/uL (4.0-10.0)
[2018-09-27 13:42] LABS: CALCIUM LEVEL 8.1 MG/DL (8.8-10.2); CREATININE FOR GFR 2.02 MG/DL (0.70-1.30); GLOMERULAR FILTRATION RATE 33.8 (>35)
[2018-09-27 14:59] LABS: APPEARANCE, URINE CLEAR (CLEAR); BACTERIA, URINE AUTO NEGATIVE (NEGATIVE); BILIRUBIN, URINE AUTO NEGATIVE (NEGATIVE); BLOOD, URINE BLOOD NEGATIVE (NEGATIVE); COLOR, URINE YELLOW (YELLOW); GLUCOSE, URINE (UA) AUTO NEGATIVE (NEGATIVE); KETONE, URINE AUTO NEGATIVE (NEGATIVE); LEUKOCYTE ESTERASE, URINE AUTO NEGATIVE (NEGATIVE); MUCUS, URINE SMALL (NEGATIVE); NITRITE, URINE AUTO NEGATIVE (NEGATIVE); PROTEIN, URINE AUTO NEGATIVE (NEGATIVE); RBC, URINE AUTO 2 /HPF (0-3); SPECIFIC GRAVITY URINE AUTO 1.019 (1.002-1.035); SQUAMOUS EPITHELIAL CELL UR AU 0 /HPF (0-6); UROBILINOGEN, URINE AUTO 0.2 mg/dL (0.0-2.0); WBC, URINE AUTO 1 /HPF (0-3)
== END ==
LOC: SKLAB5 11:50
PROVIDERS: ATTEND Family Medicine
DX: R41.82 Altered mental status, unspecified (principal); R29.6 Repeated falls; Z79.899 Other long term (current) drug therapy

== ENCOUNTER → 2018-09-29 | Outpatient (REF) | payer MEDICARE, MEDICAID ==
[2018-09-29 07:38] LABS: HEMATOCRIT 48.2 % (42.0-52.0); HEMOGLOBIN 15.9 g/dl (13.5-17.5); MEAN CORPUSCULAR HEMOGLOBIN 31.1 pg (27.0-33.0); MEAN CORPUSCULAR VOLUME 94.1 fl (80.0-96.0); PLATELET COUNT, AUTOMATED 206 10^3/uL (150-450); RED BLOOD COUNT 5.12 10^6/uL (4.30-6.10); WHITE BLOOD COUNT 9.2 10^3/uL (4.0-10.0)
[2018-09-29 08:06] LABS: CALCIUM LEVEL 8.5 MG/DL (8.8-10.2); CREATININE FOR GFR 1.69 MG/DL (0.70-1.30); GLOMERULAR FILTRATION RATE 41.6 (>35); POTASSIUM SERUM 4.8 MEQ/L (3.5-5.1)
== END ==
LOC: SKLAB5 07:08
PROVIDERS: ATTEND Family Medicine
DX: R41.0 Disorientation, unspecified (principal)

== ENCOUNTER → 2018-11-01 | Outpatient (REF) | payer MEDICARE, MEDICAID ==
[~2018-11-01] MED LIST changes: +CLOT1CRE27 TOP; -CLOTR1CR TOP; +SENN1TAB41 PO; -SENN8.6T7 PO; +VITA500T17 PO; -VITA500T53 PO
--- NOTE | 2018-11-01 15:07 | REP ---
Chest one-view HISTORY: Wheezing Comparison: 09/24/2018 The lungs are clear. The cardiac silhouette is enlarged. The pulmonary vasculature is normal in appearance. Impression: Cardiomegaly. Electronically Signed by Jose Alejandro Choe MD 11/01/2018 02:58 P
== END ==
LOC: M RAD 12:36
PROVIDERS: ATTEND Family Medicine
DX: R06.09 Other forms of dyspnea (principal)

== ENCOUNTER → 2018-11-06 | Outpatient (REF) | payer MEDICARE, MEDICAID ==
[2018-11-06 08:13] LABS: ALBUMIN 3.2 GM/DL (3.2-5.2); BILIRUBIN,TOTAL 0.6 MG/DL (0.2-1.0); CALCIUM LEVEL 8.6 MG/DL (8.8-10.2); CREATININE FOR GFR 1.49 MG/DL (0.70-1.30); GLOMERULAR FILTRATION RATE 48.1 (>35); MAGNESIUM LEVEL 2.2 MG/DL (1.8-2.4); POTASSIUM SERUM 4.8 MEQ/L (3.5-5.1); TOTAL PROTEIN 7.3 GM/DL (6.4-8.2)
== END ==
LOC: SKLAB5 08:18
PROVIDERS: ATTEND Family Medicine
DX: N17.9 Acute kidney failure, unspecified (principal)

== ENCOUNTER → 2018-12-04 | Outpatient (CLI) | payer MEDICARE, MEDICAID ==
[~2018-12-04] MED LIST changes: +ACET-907 PO; +ACET650S3 PR; +ALBU83IN INH; +CELE20TA PO; +ENEMENE PR; +LEVS0.123 PO; +MAGN400T2 PO; +QUET1TAB7 PO; +SCOP1DIS TD; +VITMTA PO
--- NOTE | 2018-12-04 15:08 | REP ---
Examination Requested: Cookie Swallow Reason For Exam: Dysphasia The procedure was performed by KATELYN Negrete, under the direct supervision of Dr. Fu. The procedure was performed with Sagrario Dumas from speech pathology present. 5 ml aliquots of thin, pudding, honey, soft food, and hard food consistency barium was administered. Flash penetration was noted with both nectar and thin barium consistencies. The detailed report of this examination will be provided by speech pathology. 3.3 minutes of fluoroscopy time was utilized for this procedure. Reviewed by KATELYN Barrientos 12/04/2018 12:38 P Electronically Signed by Elijah Fu MD 12/04/2018 03:00 P
--- NOTE | 2018-12-04 15:49 | NUR ---
Pt seen for MBSS d/t inconsistent tolerance of diet consistency as reported by staff at [facility]. Pt trialed with honey, nectar and thin liquids. All consistencies in all modalities presented with flash/trace penetration. Oral prep and oral phase slow and required some verbal cues to initiate swallow. Solids of puree, soft and crunchy cookie presented adequate with premature spillage into the valleculae of saliva/barium from the cookie. Recommend: Continue current diet of puree solid and nectar thick liquid. Meds crushed in puree assist. Staff training to assist in size of bolus and rate of intake prior to upgrade. Provide cues throughout meal. Addendum: 12/04/18 at 1550 by SELAM RDZ [facility] SP Amended: Links added.
== END ==
LOC: M ST 10:28
PROVIDERS: ATTEND Family Medicine
DX: R13.12 Dysphagia, oropharyngeal phase (principal)

== ENCOUNTER 2018-12-09 03:49 | Inpatient (IN) | payer MEDICARE, MEDICAID ==
[~2018-12-09] VITALS: Ht 170.2 cm; Wt 74.0 kg
[~2018-12-09 03:49] MED LIST changes: -ACET-907 PO; -ACET650S3 PR; -ALBU83IN INH; -CELE20TA PO; -ENEMENE PR; -LEVS0.123 PO; -MAGN400T2 PO; -QUET1TAB7 PO; -SCOP1DIS TD; -VITMTA PO
[2018-12-09 04:30] LABS: BASO % 0.1 % (0.0-1.0); HEMATOCRIT 47.5 % (42.0-52.0); LYMPH # 0.8 10^3/uL (1.5-4.5); MEAN CORPUSCULAR HEMOGLOBIN 31.7 pg (27.0-33.0); MEAN CORPUSCULAR HGB CONC 33.7 g/dl (32.0-36.5); MEAN CORPUSCULAR VOLUME 94.2 fl (80.0-96.0); MONO # 0.7 10^3/uL (0.0-0.8); MONO % 3.3 % (0.0-5.0); NEUTROPHILS # 17.9 10^3/uL (1.8-7.7); NEUTROPHILS % 92.1 % (36.0-66.0); PLATELET COUNT, AUTOMATED 218 10^3/uL (150-450); RED BLOOD COUNT 5.04 10^6/uL (4.30-6.10); WHITE BLOOD COUNT 19.5 10^3/uL (4.0-10.0)
[2018-12-09 04:37] LABS: BLOOD UREA NITROGEN 42 MG/DL (7-18); CALCIUM LEVEL 8.6 MG/DL (8.8-10.2); CARBON DIOXIDE LEVEL 30 MEQ/L (21-32); CHLORIDE LEVEL 106 MEQ/L (98-107); GLOMERULAR FILTRATION RATE 34.2 (>35); GLUCOSE, FASTING 160 MG/DL (70-100); POTASSIUM SERUM 4.6 MEQ/L (3.5-5.1); SODIUM LEVEL 144 MEQ/L (136-145)
[2018-12-09 04:49] LABS: ABG BASE EXCESS -0.9 (-2.0-2.0); ABG HCO3 22.6 MEQ/L (22.0-26.0); ABG O2 SATURATION 95.3 % (95.0-99.0); ABG PARTIAL PRESSURE CO2 34.2 mmHg (35.0-45.0); ABG PARTIAL PRESSURE O2 71.8 mmHg (75.0-100.0); ABG STANDARD HCO3 23.7 MEQ/L (22.0-26.0); ABG TOTAL CO2 23.6 MEQ/L (23.0-31.0); ABG pH (ARTERIAL) 7.437 UNITS (7.350-7.450)
[2018-12-09] MEDS: IPRATROPIUM 0.5MG/ALBUTEROL 2.5MG INH SOL UD 3ML (DUONEB)(J7620) NEB SCH ×3 (04:50→05:23)
[2018-12-09] MEDS ORDERED: PIPERACILLIN/TAZOBACTAM SOD 3.375 GM in D5W MINI-BAG PLUS 50 ML IV ONE (05:00)
[2018-12-09] MEDS ORDERED: MAGN400T2 PO (05:30)
[2018-12-09] MEDS ORDERED: SCOP1DIS TD (05:30)
[2018-12-09] MEDS ORDERED: VITMTA PO (05:30)
[2018-12-09] MEDS ORDERED: LEVS0.123 PO (05:30)
[2018-12-09] MEDS ORDERED: ACET-907 PO ×2 (05:30)
[2018-12-09] MEDS ORDERED: MOM30SS PO (05:30)
[2018-12-09] MEDS ORDERED: ACET650S3 PR (05:30)
[2018-12-09] MEDS ORDERED: ENEMENE PR (05:30)
[2018-12-09] MEDS ORDERED: CELE20TA PO (05:30)
[2018-12-09] MEDS ORDERED: ALBU83IN INH ×2 (05:30)
[2018-12-09] MEDS ORDERED: QUET1TAB7 PO (05:30)
[2018-12-09 06:11] LABS: CPK CREATINE PHOSPHOKINASE 42 U/L (39-308); MB/CK RELATIVE INDEX 2.86 (< OR =4); NT-PRO BNP 156 PG/ML (<450); TROPONIN I < 0.02 NG/ML (< 0.10)
[2018-12-09] MEDS: D5W/0.9% SODIUM CHLORIDE 1,000 ML IV SCH ×2 (06:11→22:01)
--- NOTE | 2018-12-09 06:17 | HPEPDOC ---
General Date of Admission Date of Service: Dec 09, 2018 Chief Complaint The patient is a 83-year-old male admitted with a reason for visit of SOB. Source: RN/, Old records Associated Symptoms: Unobtainable History of Present Illness Mr. Gaona is an 83 years old non-verbal, dementia patient who [facility] He was reportedly coughing last night, and developed respiratory distress and hypoxia of 80% in RA. He was brought to ER where he had to be placed on NRM. WBC 19.5K. CXR shows bilateral multiple foci of infiltrates. Pt was treated with Nebs and IV Zosyn. By the time, I went down to see pt in the ER, he had improved significantly. He was breathing on 35% Venti mask with O2 sat 90-92%. He was breathing comfortably with no distress. Vitals were good; afebrile. Pt has hx/o dysphagia and aspirations. He is DNR. Home Medications Scheduled Acetaminophen (Tylenol) 325 Mg Tablet, 650 MG PO DAILY, (Reported) Albuterol Sulf (Albuterol Sulfate) 2.5 Mg/3 Ml Vial.neb, 2.5 MG INH TID, (Reported) 0600, 1100, 2000 Amlodipine Besylate (Amlodipine Besylate) 10 Mg Tab, 10 MG PO DAILY, (Reported) Citalopram Hydrobromide (Celexa) 20 Mg Tablet, 20 MG PO DAILY, (Reported) Docusate Sodium (Colace) 100 Mg Cap, 100 MG PO BID, (Reported) Levothyroxine Sodium (Levoxyl) 88 Mcg Tab, 88 MCG PO DAILY, (Reported) Lisinopril (Lisinopril) 20 Mg Tab, 20 MG PO BID, (Reported) Magnesium Oxide (Magnesium Oxide) 400 Mg Tablet, 400 MG PO BID, (Reported) Multivitamins (Thera M Plus Tablet) 1 Each Tablet, 1 TAB PO DAILY, (Reported) Nystatin (Nystatin Powder) 100,000 Unit/Gm Pow, 1 DOSE TOP BID, (Reported) APPLY TO GROIN AREA Quetiapine Fumarate (Quetiapine Fumarate) 25 Mg Tablet, 12.5 MG PO QHS, (Reported) FOR 14 DAYS: LAST DOSE TO BE GIVEN ON 12/16/18 Scopolamine (Scopolamine) 1 Mg/3 Days Patch.td.3, 1 MG TD Q3RD, (Reported) PATCH PLACED BEHIND OTHER EAR EVERY 3 DAYS Simvastatin (Simvastatin) 20 Mg Tab, 20 MG PO QHS, (Reported) Scheduled PRN Acetaminophen (Tylenol) 325 Mg Tablet, 650 MG PO Q4H PRN for PAIN / FEVER, (Reported) Acetaminophen (Acetaminophen) 650 Mg Supp.rect, 650 MG SC Q4H PRN for DISCOMFORT/FEVER, (Reported) Albuterol Sulf (Albuterol Sulfate) 2.5 Mg/3 Ml Vial.neb, 2.5 MG INH Q4H PRN for COUGH/CONGESTION, (Reported) Bisacodyl (Dulcolax) 10 Mg Sup, 10 MG SC DAILY PRN for CONSTIPATION, (Reported) Hyoscyamine Sulfate (Levsin) 0.125 Mg Tablet, 0.125 MG PO BID PRN for EXCESSIVE SECRETIONS, (Reported) Milk Of Magnesia (Milk of Magnesia) 2,400 Mg/10 Ml Oral.susp, 10 ML PO DAILY PRN for CONSTIPATION, (Reported) Sodium Phosphate,[place]-Dibasic (Enema) 133 Ml Enema, 1 MARNI SC DAILY PRN for CONSTIPATION, (Reported) Allergies Coded Allergies: No Known Allergies (Verified , 12/09/18) Past Medical History Medical History Dementia, Non-verbal subdural hematoma, hypothyroidism, hyperlipidemia, hypertension, carotid artery disease, parkinsonism, dysphagia, Recurrent aspirations Surgical History none reported Family History Significant Family History: Other (unable to obtain) Social History * Smoker: other (unable to obtain) A-FIB/CHADSVASC A-FIB History Current/History of A-Fib/PAF?: No Review of Systems Other systems Unable to complete review of system due to dementia Physical Examination General Exam: Positive: Alert, Cooperative, No Acute Distress Eye Exam: Positive: PERRLA ENT Exam: Positive: Atraumatic Neck Exam: Positive: Supple; Negative: JVD Chest Exam: Positive: Clear to auscultation, Normal air movement; Negative: Rales, Rhonchi, Wheezing Heart Exam: Positive: Rate Normal, Regular Rhythm Abdomen Exam: Positive: Normal bowel sounds, Soft, Tenderness Extremity Exam: Positive: Normal pulses; Negative: Edema Skin Exam: Positive: Nl turgor and temperature; Negative: Rash Neuro Exam: Positive: Normal Tone Psych Exam: Positive: Mood NL; Negative: Anxiety Vital Signs Vital Signs Date Time Temp Pulse Resp B/P (MAP) Pulse Ox O2 Delivery O2 Flow Rate FiO2 12/09/18 05:46 80 22 134/69 (90) 92 Venturi Mask 12.0 35 12/09/18 04:00 97.0 Laboratory Data Labs 24H Laboratory Tests 2 12/09/18 04:15: Immature Granulocyte % (Auto) 0.5, White Blood Count 19.5H, Red Blood Count 5.04, Hemoglobin 16.0, Hematocrit 47.5, Mean Corpuscular Volume 94.2, Mean Corpuscular Hemoglobin 31.7, Mean Corpuscular Hemoglobin Concent 33.7, Red Cell Distribution Width 13.4, Platelet Count 218, Neutrophils (%) (Auto) 92.1H, Lymphocytes (%) (Auto) 4.0L, Monocytes (%) (Auto) 3.3, Eosinophils (%) (Auto) 0.0, Basophils (%) (Auto) 0.1, Neutrophils # (Auto) 17.9H, Lymphocytes # (Auto) 0.8L, Monocytes # (Auto) 0.7, Eosinophils # (Auto) 0.0, Basophils # (Auto) 0.0, Nucleated Red Blood Cells % (auto) 0.0, Anion Gap 8, Glomerular Filtration Rate 34.2L, Lactic Acid Level 2.3*H, Blood Urea Nitrogen 42H, Creatinine 2.00H, Sodium Level 144, Potassium Level 4.6, Chloride Level 106, Carbon Dioxide Level 30, Calcium Level 8.6L 12/09/18 04:37: Blood Gas Bicarbonate Standard 23.7, Arterial Blood pH 7.437, Arterial Blood Partial Pressure CO2 34.2L, Arterial Blood Partial Pressure O2 71.8L, Arterial Blood Total CO2 23.6, Arterial Blood HCO3 22.6, Arterial Blood Base Excess -0.9, Arterial Blood Oxygen Saturation 95.3 CBC/BMP Laboratory Tests 12/09/18 04:15 Red Blood Count 5.04, Mean Corpuscular Volume 94.2, Mean Corpuscular Hemoglobin 31.7, Mean Corpuscular Hemoglobin Concent 33.7, Red Cell Distribution Width 13.4, Neutrophils (%) (Auto) 92.1 H, Lymphocytes (%) (Auto) 4.0 L, Monocytes (%) (Auto) 3.3, Eosinophils (%) (Auto) 0.0, Basophils (%) (Auto) 0.1, Neutrophils # (Auto) 17.9 H, Lymphocytes # (Auto) 0.8 L, Monocytes # (Auto) 0.7, Eosinophils # (Auto) 0.0, Basophils # (Auto) 0.0, Calcium Level 8.6 L Microbiology Microbiology 12/09/18 Blood Culture, Received Pending 12/09/18 Blood Culture, Received Pending Assessment/Plan Acute Hypoxic Respiratory Failure, Recurrent Aspiration Pneumonia, hx/o Dys phagia and Advanced Dementia - Admit to inpatient - IV Zosyn, O2 supplement as needed - f/u on c/s - NPO until swallow eval - IV fluid Continue home meds for other chronic illness. Plan / VTE VTE Prophylaxis Ordered?: Yes GARRY WAGGONER MD Dec 09, 2018 06:17
[2018-12-09] MEDS: CitaloPRAM (CeleXA) 20 MG TAB PO SCH (07:24)
[2018-12-09] MEDS: LEVOTHYROXINE 88MCG TABLET (0.088 MG) PO SCH (07:24)
[2018-12-09] MEDS: LISINOPRIL 20 MG TAB PO SCH ×2 (07:25→21:00)
[2018-12-09] MEDS: DOCUSATE SODIUM 100 MG CAP PO SCH ×2 (07:25→21:00)
[2018-12-09] MEDS: amLODIPine 10 MG TAB PO SCH (07:25)
[2018-12-09] MEDS: MAGNESIUM OXIDE 400 MG TAB (MAG-OX) PO SCH ×2 (07:25→21:00)
[2018-12-09 08:00] VITALS: BP 126/63
--- NOTE | 2018-12-09 08:41 | REP ---
Chest one-view HISTORY: Cough Comparison: 11/01/2018 The lungs are clear. The cardiac silhouette is enlarged. The pulmonary vasculature is normal in appearance. Impression: Cardiomegaly. Electronically Signed by Jose Alejandro Choe MD 12/09/2018 08:33 A
[2018-12-09] MEDS: HEPARIN SOD (PORCINE) 5000 UNITS/ML VIAL SC SCH ×2 (09:23→22:01)
[2018-12-09] MEDS: SCOPOLAMINE 1MG TRANSDERMAL PATCH TD SCH (10:19)
[2018-12-09] MEDS: PIPERACILLIN/TAZOBACTAM SOD 2.25 GM in D5W MINI-BAG PLUS 50 ML IV SCH ×3 (10:19→22:01)
--- NOTE | 2018-12-09 12:11 | IPNPDOC ---
Subjective Date Seen The patient was seen on 12/09/18. Subjective Chief Complaint/HPI Daughter at bedside. Patient resides at [facility]. Per daughter patient with a hx of aspiration pneumonia General: Reports: ROS Unobtainable Objective Physical Examination General Exam: Positive: Alert, Cooperative, No Acute Distress Eye Exam: Positive: PERRLA ENT Exam: Positive: Atraumatic Neck Exam: Positive: Supple; Negative: JVD Chest Exam: Positive: Clear to auscultation, Normal air movement; Negative: Rales, Rhonchi, Wheezing Heart Exam: Positive: Rate Normal, Regular Rhythm Abdomen Exam: Positive: Normal bowel sounds, Soft, Tenderness Extremity Exam: Positive: Normal pulses; Negative: Edema Skin Exam: Positive: Nl turgor and temperature; Negative: Rash Neuro Exam: Positive: Normal Tone Psych Exam: Positive: Mood NL; Negative: Anxiety Assessment /Plan Problems (1) Aspiration pneumonia Status: Acute Response to Treatment: Stable Problem Text: 12/09/18: IVF Dextrose with NS at 75 ml/hr. Currently on Zoysn IV. WBC 19.5. Patient is afebrile. BC pending. Lactic Acid 3.6 Chest x-ray: The lungs are clear. The cardiac silhouette is enlarged. The pulmonary vasculature is normal in appearance. Impression: Cardiomegaly. (2) Parkinson's disease dementia Status: Chronic Response to Treatment: Stable Problem Text: 12/09/18: Patient unable to follow commands. Per daughter he is at his baseline mentation (3) Hypertension Status: Chronic Response to Treatment: Stable Problem Text: 12/09/18: Pressures are stable. He was continued on his Lisinopril 20mg i po bid Plan/VTE VTE Prophylaxis Ordered?: Yes (Heparin ) Plan Family Medicine Attending Note: I saw and examined Mr. Gaona, discussed with Mj Nick DNP. Agree with her note as documented. He has been in several times in the last year for aspiration pneumonia or pneumonitis. It appears that this is likely the case again, although he is not very clinically ill or symptomatic. We'll continue to treat with antibiotics for now, but if he improves rapidly we may consider stopping the antibiotics. 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) VS, I&O, 24H, Fishbone Vital Signs/I&O Vital Signs Date Time Temp Pulse Resp B/P (MAP) Pulse Ox O2 Delivery O2 Flow Rate FiO2 12/09/18 10:00 92 4.0 12/09/18 08:00 98.4 71 18 126/63 (84) 35 12/09/18 06:30 Venturi Mask I&O- Last 24 Hours up to 6 AM 12/09/18 06:00 Intake Total 50 ml Balance 50 ml Laboratory Data 24H LABS Laboratory Tests 2 12/09/18 04:15: Immature Granulocyte % (Auto) 0.5, White Blood Count 19.5H, Red Blood Count 5.04, Hemoglobin 16.0, Hematocrit 47.5, Mean Corpuscular Volume 94.2, Mean Corpuscular Hemoglobin 31.7, Mean Corpuscular Hemoglobin Concent 33.7, Red Cell Distribution Width 13.4, Platelet Count 218, Neutrophils (%) (Auto) 92.1H, Lymphocytes (%) (Auto) 4.0L, Monocytes (%) (Auto) 3.3, Eosinophils (%) (Auto) 0.0, Basophils (%) (Auto) 0.1, Neutrophils # (Auto) 17.9H, Lymphocytes # (Auto) 0.8L, Monocytes # (Auto) 0.7, Eosinophils # (Auto) 0.0, Basophils # (Auto) 0.0, Nucleated Red Blood Cells % (auto) 0.0, Anion Gap 8, Glomerular Filtration Rate 34.2L, Lactic Acid Level 2.3*H, Blood Urea Nitrogen 42H, Creatinine 2.00H, Sodium Level 144, Potassium Level 4.6, Chloride Level 106, Carbon Dioxide Level 30, Calcium Level 8.6L, Total Creatine Kinase 42, Creatine Kinase MB 1.0, Creatine Kinase MB Relative Index 2.86, Troponin I < 0.02, VV-Qwr-R-Type Natriuretic Peptide 156 12/09/18 04:37: Blood Gas Bicarbonate Standard 23.7, Arterial Blood pH 7.437, Arterial Blood Partial Pressure CO2 34.2L, Arterial Blood Partial Pressure O2 71.8L, Arterial Blood Total CO2 23.6, Arterial Blood HCO3 22.6, Arterial Blood Base Excess -0.9, Arterial Blood Oxygen Saturation 95.3 12/09/18 04:39: POC Glucose (Misc Panel) 163H, POC Sodium (Misc Panel) 142, POC Potassium (Misc Panel) 4.4, POC Chloride (Misc Panel) 103, POC Total CO2 (Misc Panel) 26.0, POC Blood Urea Nitrogen (Misc Panel 39H, POC Ionized Calcium (Misc Panel) 4.3L, POC Creatinine (Misc Panel) 1.9H, POC Hematocrit (Misc Panel) 49.0 12/09/18 08:52: Lactic Acid Followup at 4 Hours 3.6*H CBC/BMP Laboratory Tests 12/09/18 04:15 Red Blood Count 5.04, Mean Corpuscular Volume 94.2, Mean Corpuscular Hemoglobin 31.7, Mean Corpuscular Hemoglobin Concent 33.7, Red Cell Distribution Width 13.4, Neutrophils (%) (Auto) 92.1 H, Lymphocytes (%) (Auto) 4.0 L, Monocytes (%) (Auto) 3.3, Eosinophils (%) (Auto) 0.0, Basophils (%) (Auto) 0.1, Neutrophils # (Auto) 17.9 H, Lymphocytes # (Auto) 0.8 L, Monocytes # (Auto) 0.7, Eosinophils # (Auto) 0.0, Basophils # (Auto) 0.0, Calcium Level 8.6 L, Total Creatine Kinase 42 Microbiology Microbiology 12/09/18 Blood Culture, Received Pending 12/09/18 Blood Culture, Received Pending MJ NICK Dec 09, 2018 12:11 Phu Saxena MD Dec 10, 2018 21:07
[2018-12-09 12:50] VITALS: BP 109/55
[2018-12-09] MEDS: IPRATROPIUM 0.5MG/ALBUTEROL 2.5MG INH SOL UD 3ML (DUONEB)(J7620) NEB PRN (13:20)
[2018-12-09 14:00] VITALS: BP 108/52
[2018-12-09] MEDS ORDERED: HALOPERIDOL 5 MG/ML VIAL (J1630) IV PRN (21:00)
[2018-12-09] MEDS: SIMVASTATIN 20 MG TAB PO SCH (21:00)
[2018-12-09] MEDS: QUEtiapine FUMARATE 12.5 MG HALF-TAB PO SCH (21:00)
[2018-12-09 22:00] VITALS: BP 125/67
[2018-12-10] MEDS: LEVOTHYROXINE 88MCG TABLET (0.088 MG) PO SCH (05:11)
[2018-12-10] MEDS: PIPERACILLIN/TAZOBACTAM SOD 2.25 GM in D5W MINI-BAG PLUS 50 ML IV SCH ×4 (05:20→22:33)
[2018-12-10 06:00] VITALS: BP 110/60
[2018-12-10 06:12] LABS: HEMATOCRIT 39.9 % (42.0-52.0); HEMOGLOBIN 13.3 g/dl (13.5-17.5); MEAN CORPUSCULAR HEMOGLOBIN 32.1 pg (27.0-33.0); MEAN CORPUSCULAR HGB CONC 33.3 g/dl (32.0-36.5); MEAN CORPUSCULAR VOLUME 96.4 fl (80.0-96.0); PLATELET COUNT, AUTOMATED 164 10^3/uL (150-450); RED BLOOD COUNT 4.14 10^6/uL (4.30-6.10); WHITE BLOOD COUNT 13.5 10^3/uL (4.0-10.0)
[2018-12-10 06:29] LABS: CALCIUM LEVEL 8.2 MG/DL (8.8-10.2); CREATININE FOR GFR 1.75 MG/DL (0.70-1.30); GLOMERULAR FILTRATION RATE 39.9 (>35); POTASSIUM SERUM 3.9 MEQ/L (3.5-5.1)
--- NOTE | 2018-12-10 07:41 | ECGEPIP ---
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
[2018-12-10] MEDS: CitaloPRAM (CeleXA) 20 MG TAB PO SCH (09:00)
[2018-12-10] MEDS: LISINOPRIL 20 MG TAB PO SCH ×2 (09:00→21:00)
[2018-12-10] MEDS: DOCUSATE SODIUM 100 MG CAP PO SCH ×2 (09:00→21:44)
[2018-12-10] MEDS: amLODIPine 10 MG TAB PO SCH (09:00)
[2018-12-10] MEDS: MAGNESIUM OXIDE 400 MG TAB (MAG-OX) PO SCH ×2 (09:00→21:44)
[2018-12-10] MEDS: HEPARIN SOD (PORCINE) 5000 UNITS/ML VIAL SC SCH ×2 (09:41→21:44)
[2018-12-10] MEDS: D5W/0.9% SODIUM CHLORIDE 1,000 ML IV SCH ×2 (09:41→21:45)
--- NOTE | 2018-12-10 10:25 | IPNPDOC ---
Subjective Date Seen The patient was seen on 12/10/18. Subjective Chief Complaint/HPI Mr. Gaona seems to be in his usual state of health. He is asking the nurses for a couple of water. Unfortunately he can't have this right now because he is nothing by mouth until he seen by speech pathology. He does have IV fluids running. General: Reports: ROS Unobtainable Objective Physical Examination General Exam: Positive: Alert, Cooperative, No Acute Distress Eye Exam: Positive: PERRLA ENT Exam: Negative: Mucous membr. moist/pink (mucous membranes are moderately dry and his tongue is starting to wrinkle) Neck Exam: Negative: JVD, Lymphadenopathy Chest Exam: Positive: Clear to auscultation, Normal air movement Heart Exam: Positive: Rate Normal, Regular Rhythm Abdomen Exam: Positive: Normal bowel sounds, Soft, Tenderness Extremity Exam: Negative: Edema Psych Exam: Negative: Anxiety, Memory Intact Assessment /Plan Problems (1) Aspiration pneumonia Status: Acute Response to Treatment: Stable Problem Text: He looks like he is rapidly improving or at his baseline. He currently has IVF Dextrose with NS at 75 ml/hr. Interestingly his renal function has improved a little even though he is nothing by mouth. This makes me doubt that he is getting much at all while at the skilled nursing. We're waiting for a speech pathology evaluation to see whether her diet is appropriate for him. Currently on Zoysn IV. WBC 13.5. Patient is afebrile. BC pending. Lactic acid was repeated and now is 1.0. We'll check a procalcitonin with tomorrow's labs. 12/09: Chest x-ray: The lungs are clear. The cardiac silhouette is enlarged. The pulmonary vasculature is normal in appearance. Impression: Cardiomegaly. (2) Parkinson's disease dementia Status: Chronic Response to Treatment: Stable Problem Text: 12/09/18: Patient unable to follow commands. Per daughter he is at his baseline mentation (3) Hypertension Status: Chronic Response to Treatment: Stable Problem Text: 12/09/18: Pressures are stable; if anything they're little soft. He was continued on his Lisinopril 20mg i po bid, however if he is not able to take by mouth I will hold his antihypertensives. Plan/VTE VTE Prophylaxis Ordered?: Yes (Heparin ) VS, I&O, 24H, Fishbone Vital Signs/I&O Vital Signs Date Time Temp Pulse Resp B/P (MAP) Pulse Ox O2 Delivery O2 Flow Rate FiO2 12/10/18 06:00 97.7 52 16 110/60 (77) 93 4.0 12/09/18 08:00 35 12/09/18 06:30 Venturi Mask I&O- Last 24 Hours up to 6 AM 12/10/18 06:00 Intake Total 950 ml Output Total 0 ml Balance 950 ml Laboratory Data 24H LABS Laboratory Tests 2 12/09/18 12:12: Bedside Glucose (Misc Panel) 173H 12/09/18 17:44: Bedside Glucose (Misc Panel) 136H 12/10/18 05:45: Nucleated Red Blood Cells % (auto) 0.0, Anion Gap 5L, Glomerular Filtration Rate 39.9, Blood Urea Nitrogen 39H, Creatinine 1.75H, Sodium Level 146H, Potassium Level 3.9, Chloride Level 111H, Carbon Dioxide Level 30, Calcium Level 8.2L CBC/BMP Laboratory Tests 12/10/18 05:45 Red Blood Count 4.14 L, Mean Corpuscular Volume 96.4 H, Mean Corpuscular Hemoglobin 32.1, Mean Corpuscular Hemoglobin Concent 33.3, Red Cell Distribution Width 13.8, Calcium Level 8.2 L Microbiology Microbiology 12/09/18 Blood Culture - Preliminary, Resulted No growth after 24 hours . All specim... 12/09/18 Blood Culture - Preliminary, Resulted No growth after 24 hours . All specim... Phu Saxena MD Dec 10, 2018 10:25
[2018-12-10 14:00] VITALS: BP 108/62
--- NOTE | 2018-12-10 16:07 | NUR ---
Recommend pureed solids, nectar thick liquids, medications crushed in puree, staff assist for PO intake, upright position & OOB as tolerated all meals, elevate HOB >30 degrees at all times, oral care 3x/day and after meals w/ staff assistance. Addendum: 12/10/[address] [facility] Amended: Links added.
[2018-12-10] MEDS: QUEtiapine FUMARATE 12.5 MG HALF-TAB PO SCH (21:44)
[2018-12-10] MEDS: SIMVASTATIN 20 MG TAB PO SCH (21:44)
[2018-12-10 22:00] VITALS: BP 105/53
[2018-12-11] MEDS: PIPERACILLIN/TAZOBACTAM SOD 2.25 GM in D5W MINI-BAG PLUS 50 ML IV SCH ×4 (05:00→22:49)
[2018-12-11] MEDS: LEVOTHYROXINE 88MCG TABLET (0.088 MG) PO SCH (05:25)
[2018-12-11 06:00] VITALS: BP 123/58
[2018-12-11 06:30] LABS: HEMATOCRIT 38.6 % (42.0-52.0); HEMOGLOBIN 12.5 g/dl (13.5-17.5); MEAN CORPUSCULAR HEMOGLOBIN 31.3 pg (27.0-33.0); MEAN CORPUSCULAR HGB CONC 32.4 g/dl (32.0-36.5); MEAN CORPUSCULAR VOLUME 96.5 fl (80.0-96.0); PLATELET COUNT, AUTOMATED 167 10^3/uL (150-450); WHITE BLOOD COUNT 10.2 10^3/uL (4.0-10.0)
[2018-12-11 06:52] LABS: ALBUMIN 2.5 GM/DL (3.2-5.2); CALCIUM LEVEL 8.1 MG/DL (8.8-10.2); CREATININE FOR GFR 1.41 MG/DL (0.70-1.30); GLOMERULAR FILTRATION RATE 51.2 (>35); PHOSPHORUS LEVEL 2.1 MG/DL (2.5-4.9)
[2018-12-11] MEDS: LISINOPRIL 20 MG TAB PO SCH ×2 (08:31→20:27)
[2018-12-11] MEDS: DOCUSATE SODIUM 100 MG CAP PO SCH ×2 (08:31→20:26)
[2018-12-11] MEDS: CitaloPRAM (CeleXA) 20 MG TAB PO SCH (08:31)
[2018-12-11] MEDS: MAGNESIUM OXIDE 400 MG TAB (MAG-OX) PO SCH ×2 (08:31→20:27)
[2018-12-11] MEDS: HEPARIN SOD (PORCINE) 5000 UNITS/ML VIAL SC SCH ×2 (08:32→20:27)
[2018-12-11] MEDS: amLODIPine 10 MG TAB PO SCH (08:32)
--- NOTE | 2018-12-11 08:40 | REP ---
PORTABLE CHEST: AP portable view of the chest is performed and compared with prior study of 12/09/2018. There is mild cardiomegaly. There is tortuosity of the thoracic aorta. The mediastinal silhouette is unchanged. There is pulmonary venous hypertension. No acute infiltrate is seen. Electronically Signed by Elijah Fu MD 12/15/2018 01:40 P
--- NOTE | 2018-12-11 09:26 | NUR ---
Pt discharged from dysphagia tx this date w/ the following recommendations: continue pureed solids, continue nectar thick liquids, medications crushed in puree, oral care 3x/day & after meals, HOB elevated >30 degrees recommend pt continue w/ course of dysphagia tx upon return to [facility] for safe feeding strategies w/ staff training. Addendum: 12/11/[address] [facility] Amended: Links added.
--- NOTE | 2018-12-11 11:46 | IPNPDOC ---
Subjective Date Seen The patient was seen on 12/11/18. Subjective Chief Complaint/HPI No concerns expressed by nursing General: Reports: ROS Unobtainable Objective Physical Examination General Exam: Positive: Alert, No Acute Distress Eye Exam: Positive: PERRLA ENT Exam: Negative: Mucous membr. moist/pink (mucous membranes are moderately dry but improved from yesterday) Neck Exam: Negative: JVD, Lymphadenopathy Chest Exam: Positive: Clear to auscultation, Normal air movement; Negative: Rhonchi, Wheezing Heart Exam: Positive: Rate Normal, Regular Rhythm Abdomen Exam: Positive: Normal bowel sounds, Soft, Tenderness Extremity Exam: Negative: Edema Psych Exam: Negative: Anxiety, Memory Intact Assessment /Plan Problems (1) Aspiration pneumonia Status: Acute Response to Treatment: Stable Problem Text: 12/11/18: WBC trending down, 10.2. Procalcitonin pending. Speech cleared him for a pureed diet He looks like he is rapidly improving or at his baseline. He currently has IVF Dextrose with NS at 75 ml/hr. Interestingly his renal function has improved a little even though he is nothing by mouth. This makes me doubt that he is getting much at all while at the snf. We're waiting for a speech pathology evaluation to see whether her diet is appropriate for him. Currently on Zoysn IV. WBC 13.5. Patient is afebrile. BC pending. Lactic acid was repeated and now is 1.0. We'll check a procalcitonin with tomorrow's labs. 12/09: Chest x-ray: The lungs are clear. The cardiac silhouette is enlarged. The pulmonary vasculature is normal in appearance. Impression: Cardiomegaly. (2) Parkinson's disease dementia Status: Chronic Response to Treatment: Stable Problem Text: 12/09/18: Patient unable to follow commands. Per daughter he is at his baseline mentation (3) Hypertension Status: Chronic Response to Treatment: Stable Problem Text: 12/11/18: Stable 12/09/18: Pressures are stable; if anything they're little soft. He was continued on his Lisinopril 20mg i po bid, however if he is not able to take by mouth I will hold his antihypertensives. Plan/VTE VTE Prophylaxis Ordered?: Yes (Heparin ) Plan Family Medicine Attending Note: I saw and examined Mr. Gaona, discussed with Mj Nick DNP. Agree with her note as documented. He seems to have done well back on his previous diet. No aspiration signs or symptoms have been noted by the nursing staff. I do note that his sodium is a little bit higher, and I think this is reflective of poor fluid intake overall. This is not something we are going to be able to fix in the hospital but will require careful management by whatever nursing staff is taking care of him to prompt him to get adequate oral intake of fluids. I anticipate we will be able to transfer him back to [facility] tomorrow. 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 Back to [facility], plan for tomorrow VS, I&O, 24H, Fishbone Vital Signs/I&O Vital Signs Date Time Temp Pulse Resp B/P (MAP) Pulse Ox O2 Delivery O2 Flow Rate FiO2 12/11/18 08:32 60 122/50 12/11/18 06:00 97.7 16 94 3.0 12/09/18 08:00 35 12/09/18 06:30 Venturi Mask I&O- Last 24 Hours up to 6 AM 12/11/18 06:00 Intake Total 1420 ml Output Total 0 ml Balance 1420 ml Laboratory Data 24H LABS Laboratory Tests 2 12/10/18 10:48: Lactic Acid Level 1.0 12/10/18 11:41: Bedside Glucose (Misc Panel) 107 12/10/18 16:30: Bedside Glucose (Misc Panel) 131H 12/11/18 01:24: Bedside Glucose (Misc Panel) 108 12/11/18 05:31: Bedside Glucose (Misc Panel) 106 12/11/18 05:46: Nucleated Red Blood Cells % (auto) 0.0, Blood Urea Nitrogen 33H, Creatinine 1.41H, Sodium Level 146H, Potassium Level 4.0, Chloride Level 113H, Carbon Dioxide Level 29, Anion Gap 4L, Glomerular Filtration Rate 51.2, Calcium Level 8.1L, Phosphorus Level 2.1L, Albumin 2.5L CBC/BMP Laboratory Tests 12/11/18 05:46 Red Blood Count 4.00 L, Mean Corpuscular Volume 96.5 H, Mean Corpuscular Hemoglobin 31.3, Mean Corpuscular Hemoglobin Concent 32.4, Red Cell Distribution Width 13.8, Anion Gap 4 L Microbiology Microbiology 12/09/18 Blood Culture - Preliminary, Resulted No Growth after 48 hours. All Specime... 12/09/18 Blood Culture - Preliminary, Resulted No Growth after 48 hours. All Specime... MJ NICK Dec 11, 2018 10:04 am Phu Saxena MD Dec 11, 2018 10:37 pm
[2018-12-11] MEDS: D5W/0.9% SODIUM CHLORIDE 1,000 ML IV SCH (12:08)
[2018-12-11 14:00] VITALS: BP 131/59
[2018-12-11] MEDS: QUEtiapine FUMARATE 12.5 MG HALF-TAB PO SCH (20:26)
[2018-12-11] MEDS: SIMVASTATIN 20 MG TAB PO SCH (20:27)
[2018-12-11 22:00] VITALS: BP 132/62
[2018-12-11] MEDS ORDERED: SENOKOT S TAB PO PRN (22:45)
[2018-12-12] MEDS: D5W/0.9% SODIUM CHLORIDE 1,000 ML IV SCH ×2 (00:05→10:06)
[2018-12-12] MEDS: IPRATROPIUM 0.5MG/ALBUTEROL 2.5MG INH SOL UD 3ML (DUONEB)(J7620) NEB PRN (02:38)
[2018-12-12] MEDS: PIPERACILLIN/TAZOBACTAM SOD 2.25 GM in D5W MINI-BAG PLUS 50 ML IV SCH ×2 (04:16→10:53)
[2018-12-12] MEDS: LEVOTHYROXINE 88MCG TABLET (0.088 MG) PO SCH (05:03)
[2018-12-12 06:00] VITALS: BP 112/60
[2018-12-12 06:20] LABS: BASO % 0.4 % (0.0-1.0); EOS # 0.1 10^3/uL (0.0-0.50); EOS % 1.2 % (0.0-3.0); HEMATOCRIT 39.4 % (42.0-52.0); HEMOGLOBIN 12.8 g/dl (13.5-17.5); LYMPH # 1.8 10^3/uL (1.5-4.5); LYMPH % 18.4 % (24.0-44.0); MEAN CORPUSCULAR HEMOGLOBIN 31.8 pg (27.0-33.0); MEAN CORPUSCULAR HGB CONC 32.5 g/dl (32.0-36.5); MEAN CORPUSCULAR VOLUME 97.8 fl (80.0-96.0); MONO # 1.1 10^3/uL (0.0-0.8); MONO % 11.2 % (0.0-5.0); NEUTROPHILS # 6.6 10^3/uL (1.8-7.7); NEUTROPHILS % 68.3 % (36.0-66.0); PLATELET COUNT, AUTOMATED 174 10^3/uL (150-450); RED BLOOD COUNT 4.03 10^6/uL (4.30-6.10); WHITE BLOOD COUNT 9.7 10^3/uL (4.0-10.0)
[2018-12-12 06:42] LABS: ALBUMIN 2.5 GM/DL (3.2-5.2); CALCIUM LEVEL 7.9 MG/DL (8.8-10.2); CREATININE FOR GFR 1.38 MG/DL (0.70-1.30); GLOMERULAR FILTRATION RATE 52.5 (>35); PHOSPHORUS LEVEL 1.8 MG/DL (2.5-4.9); POTASSIUM SERUM 4.2 MEQ/L (3.5-5.1)
--- NOTE | 2018-12-12 07:57 | DS.PDOC ---
Discharge Summary General Date of Admission Dec 09, 2018 at 05:56 Date of Discharge 12/12/18 Primary Care Physician: Ramon Azul M.D. Attending Physician: Phu Saxena MD Discharge Summary PROCEDURES PERFORMED DURING STAY: None ADMITTING DIAGNOSES: 1. Aspiration Pneumonia COMPLICATIONS/CHIEF COMPLAINT: Aspiration Pneumonia. HISTORY OF PRESENT ILLNESS: Mr. Gaona is an 83 years old non-verbal, dementia patient who resides at [facility]. He was reportedly coughing throughout the night, and developed respiratory distress and hypoxia of 80% in RA. He was brought to ER where he had to be placed on NRM. WBC 19.5K. CXR shows bilateral multiple foci of infiltrates. Pt was treated with Nebs and IV Zosyn. By the time, attending went down to see pt in the ER, he had improved significantly. He was breathing on 35% Venti mask with O2 sat 90-92%. He was breathing comfortably with no distress. Patient was admitted for further observation and treatment. HOSPITAL COURSE: (1) Aspiration pneumonia: Patient improved quickly to his baseline. He was treated with Zoysn and nebs. WBC trended down and patient remained afebrile. Procalcitonin 0.06. Patient was not discharged home on abx. Patient had a repeat swallow eval. He was placed back on his pureed diet. Chest x-ray 12/09/18: The lungs are clear. The cardiac silhouette is enlarged. The pulmonary vasculature is normal in appearance. Cardiomegaly. Chest X-ray 12/10/18: Demonstrated mild cardiomegaly. Tortuosity of the thoracic aorta. Mediastinal silhouette is unchanged. There is pulmonary venous hyp ertension. No acute infiltrate is seen. (2) Parkinson's disease dementia: Patient unable to follow commands. He remained at his baseline mentation. He remained on his home regimen (3) Hypertension: B/P remained stable on his home regimen DISCHARGE MEDICATIONS: Please see below. ALLERGIES: Please see below. PHYSICAL EXAMINATION ON DISCHARGE: VITAL SIGNS: Please see below. GENERAL: Alert, pleasant, NAD HEENT: unremarkable NECK: soft supple CARDIOVASCULAR EXAMINATION: RRR RESPIRATORY EXAMINATION: CTA, good air movement ABDOMINAL EXAMINATION: soft, non-tender, non-distended EXTREMITIES: no edema SKIN: warm and dry LABORATORY DATA: Please see below. IMAGING: Chest x-rays x 2 PROGNOSIS: Good ACTIVITY: As tolerated DIET: Pureed DISCHARGE PLAN: To [facility] DISCHARGE INSTRUCTIONS: 1. F/U with Dr. Azul 2. Nursing to monitor hydration DISCHARGE CONDITION: Stable Vital Signs/I&Os Vital Signs Date Time Temp Pulse Resp B/P (MAP) Pulse Ox O2 Delivery O2 Flow Rate FiO2 12/12/18 06:00 98.6 60 20 112/60 (77) 92 1.0 12/09/18 08:00 35 12/09/18 06:30 Venturi Mask I&O- Last 24 Hours up to 6 AM 12/12/18 06:00 Intake Total 2920 ml Output Total 800 ml Balance 2120 ml Laboratory Data Labs 24H Laboratory Tests 2 12/11/18 12:07: Bedside Glucose (Misc Panel) 108 12/11/18 18:05: Bedside Glucose (Misc Panel) 125H 12/11/18 23:40: Bedside Glucose (Misc Panel) 107 12/12/18 05:47: Immature Granulocyte % (Auto) 0.5, White Blood Count 9.7, Red Blood Count 4.03L, Hemoglobin 12.8L, Hematocrit 39.4L, Mean Corpuscular Volume 97.8H, Mean Corpuscular Hemoglobin 31.8, Mean Corpuscular Hemoglobin Concent 32.5, Red Cell Distribution Width 13.4, Platelet Count 174, Neutrophils (%) (Auto) 68.3H, Lymphocytes (%) (Auto) 18.4L, Monocytes (%) (Auto) 11.2H, Eosinophils (%) (Auto) 1.2, Basophils (%) (Auto) 0.4, Neutrophils # (Auto) 6.6, Lymphocytes # (Auto) 1.8, Monocytes # (Auto) 1.1H, Eosinophils # (Auto) 0.1, Basophils # (Auto) 0.0, Nucleated Red Blood Cells % (auto) 0.0, Blood Urea Nitrogen 28H, Creatinine 1.38H, Sodium Level 146H, Potassium Level 4.2, Chloride Level 113H, Carbon Dioxide Level 27, Anion Gap 6L, Glomerular Filtration Rate 52.5, Calcium Level 7.9L, Phosphorus Level 1.8L, Albumin 2.5L 12/12/18 06:08: Bedside Glucose (Misc Panel) 115H CBC/BMP Laboratory Tests 12/12/18 05:47 Red Blood Count 4.03 L, Mean Corpuscular Volume 97.8 H, Mean Corpuscular Hemoglobin 31.8, Mean Corpuscular Hemoglobin Concent 32.5, Red Cell Distribution Width 13.4, Neutrophils (%) (Auto) 68.3 H, Lymphocytes (%) (Auto) 18.4 L, Monocytes (%) (Auto) 11.2 H, Eosinophils (%) (Auto) 1.2, Basophils (%) (Auto) 0.4, Neutrophils # (Auto) 6.6, Lymphocytes # (Auto) 1.8, Monocytes # (Auto) 1.1 H, Eosinophils # (Auto) 0.1, Basophils # (Auto) 0.0, Anion Gap 6 L FSBS Laboratory Tests Test 12/11/18 12:07 12/11/18 18:05 12/11/18 23:40 12/12/18 06:08 Range/Units Bedside Glucose (Misc Panel) 108 125 107 115 83-110 MG/DL Microbiology Microbiology 12/09/18 Blood Culture - Preliminary, Resulted No Growth after 72 hours. All specime... 12/09/18 Blood Culture - Preliminary, Resulted No Growth after 72 hours. All specime... Discharge Medications Scheduled Acetaminophen (Tylenol) 325 Mg Tablet, 650 MG PO DAILY, (Reported) Albuterol Sulf (Albuterol Sulfate) 2.5 Mg/3 Ml Vial.neb, 2.5 MG INH TID, (Reported) 0600, 1100, 2000 Amlodipine Besylate (Amlodipine Besylate) 10 Mg Tab, 10 MG PO DAILY, (Reported) Citalopram Hydrobromide (Celexa) 20 Mg Tablet, 20 MG PO DAILY, (Reported) Docusate Sodium (Colace) 100 Mg Cap, 100 MG PO BID, (Reported) Levothyroxine Sodium (Levoxyl) 88 Mcg Tab, 88 MCG PO DAILY, (Reported) Lisinopril (Lisinopril) 20 Mg Tab, 20 MG PO BID, (Reported) Magnesium Oxide (Magnesium Oxide) 400 Mg Tablet, 400 MG PO BID, (Reported) Multivitamins (Thera M Plus Tablet) 1 Each Tablet, 1 TAB PO DAILY, (Reported) Nystatin (Nystatin Powder) 100,000 Unit/Gm Pow, 1 DOSE TOP BID, (Reported) APPLY TO GROIN AREA Quetiapine Fumarate (Quetiapine Fumarate) 25 Mg Tablet, 12.5 MG PO QHS, (Reported) FOR 14 DAYS: LAST DOSE TO BE GIVEN ON 12/16/18 Scopolamine (Scopolamine) 1 Mg/3 Days Patch.td.3, 1 MG TD Q3RD, (Reported) PATCH PLACED BEHIND OTHER EAR EVERY 3 DAYS Simvastatin (Simvastatin) 20 Mg Tab, 20 MG PO QHS, (Reported) Scheduled PRN Acetaminophen (Tylenol) 325 Mg Tablet, 650 MG PO Q4H PRN for PAIN / FEVER, (Reported) Acetaminophen (Acetaminophen) 650 Mg Supp.rect, 650 MG OK Q4H PRN for DISCOMFORT/FEVER, (Reported) Albuterol Sulf (Albuterol Sulfate) 2.5 Mg/3 Ml Vial.neb, 2.5 MG INH Q4H PRN for COUGH/CONGESTION, (Reported) Bisacodyl (Dulcolax) 10 Mg Sup, 10 MG OK DAILY PRN for CONSTIPATION, (Reported) Hyoscyamine Sulfate (Levsin) 0.125 Mg Tablet, 0.125 MG PO BID PRN for EXCESSIVE SECRETIONS, (Reported) Milk Of Magnesia (Milk of Magnesia) 2,400 Mg/10 Ml Oral.susp, 10 ML PO DAILY PRN for CONSTIPATION, (Reported) Sodium Phosphate,[place]-Dibasic (Enema) 133 Ml Enema, 1 MARNI OK DAILY PRN for CONSTIPATION, (Reported) Allergies Coded Allergies: No Known Allergies (Verified , 12/09/18) MJ NICK Dec 12, 2018 07:57
[2018-12-12] MEDS: HEPARIN SOD (PORCINE) 5000 UNITS/ML VIAL SC SCH (08:51)
[2018-12-12] MEDS: SCOPOLAMINE 1MG TRANSDERMAL PATCH TD SCH (08:51)
[2018-12-12 08:52] VITALS: BP 125/69
[2018-12-12] MEDS: CitaloPRAM (CeleXA) 20 MG TAB PO SCH (08:52)
[2018-12-12] MEDS: amLODIPine 10 MG TAB PO SCH (08:52)
[2018-12-12] MEDS: LISINOPRIL 20 MG TAB PO SCH (08:52)
[2018-12-12] MEDS: MAGNESIUM OXIDE 400 MG TAB (MAG-OX) PO SCH (08:52)
[2018-12-12] MEDS: DOCUSATE SODIUM 100 MG CAP PO SCH (08:52)
== END 2018-12-12 12:00 | DRG 189 ==
LOC: M ED 03:49 → M ED INP 05:56 → M MSPAV 13:04
PROVIDERS: ADMIT Internal Medicine; ATTEND Family Medicine
DX: J96.01 Acute respiratory failure with hypoxia (principal); J69.0 Pneumonitis due to inhalation of food and vomit; F02.80 Dementia in other diseases classified elsewhere, unspecified severity, without behavioral disturbance, psychotic disturbance, mood disturbance, and anxiety; G20 Parkinson's disease; I10 Essential (primary) hypertension; Z79.899 Other long term (current) drug therapy; E03.9 Hypothyroidism, unspecified; E78.5 Hyperlipidemia, unspecified

== ENCOUNTER → 2018-12-22 | Outpatient (REF) | payer MEDICARE, MEDICAID ==
[~2018-12-22] MED LIST changes: +ACET-907 PO; +ACET650S3 PR; +ALBU83IN INH; +CELE20TA PO; +ENEMENE PR; +LEVS0.123 PO; +MAGN400T2 PO; +QUET1TAB7 PO; +SCOP1DIS TD; +VITMTA PO
[2018-12-22 14:50] LABS: HEMATOCRIT 44.9 % (42.0-52.0); MEAN CORPUSCULAR HEMOGLOBIN 31.2 pg (27.0-33.0); MEAN CORPUSCULAR HGB CONC 33.4 g/dl (32.0-36.5); MEAN CORPUSCULAR VOLUME 93.3 fl (80.0-96.0); PLATELET COUNT, AUTOMATED 325 10^3/uL (150-450); RED BLOOD COUNT 4.81 10^6/uL (4.30-6.10); WHITE BLOOD COUNT 7.9 10^3/uL (4.0-10.0)
[2018-12-22 15:09] LABS: CALCIUM LEVEL 9.2 MG/DL (8.8-10.2); CREATININE FOR GFR 1.57 MG/DL (0.70-1.30); GLOMERULAR FILTRATION RATE 45.3 (>35); POTASSIUM SERUM 4.4 MEQ/L (3.5-5.1)
== END ==
LOC: SKLAB5 13:53
PROVIDERS: ATTEND Family Medicine
DX: R11.2 Nausea with vomiting, unspecified (principal)

== ENCOUNTER → 2019-02-05 | Outpatient (REF) | payer MEDICARE, MEDICAID ==
[~2019-02-05] MED LIST changes: +CYAN100049 PO; -VITA10002 PO
[2019-02-05 07:47] LABS: HEMATOCRIT 48.2 % (42.0-52.0); HEMOGLOBIN 16.1 g/dl (13.5-17.5); MEAN CORPUSCULAR HEMOGLOBIN 31.4 pg (27.0-33.0); MEAN CORPUSCULAR HGB CONC 33.4 g/dl (32.0-36.5); PLATELET COUNT, AUTOMATED 212 10^3/uL (150-450); RED BLOOD COUNT 5.13 10^6/uL (4.30-6.10); WHITE BLOOD COUNT 10.2 10^3/uL (4.0-10.0)
[2019-02-05 08:18] LABS: ALBUMIN 3.4 GM/DL (3.2-5.2); BILIRUBIN,TOTAL 0.4 MG/DL (0.2-1.0); CALCIUM LEVEL 8.9 MG/DL (8.8-10.2); CHOLESTEROL RISK RATIO 3.428 (<5); CREATININE FOR GFR 1.5 MG/DL (0.70-1.30); GLOMERULAR FILTRATION RATE 47.7 (>35); MAGNESIUM LEVEL 2.4 MG/DL (1.8-2.4); POTASSIUM SERUM 4.2 MEQ/L (3.5-5.1); THYROID STIMULATING HORMONE 1.07 uIU/ML (0.358-3.740); TOTAL PROTEIN 7.4 GM/DL (6.4-8.2)
== END ==
LOC: SKLAB5 07:39
PROVIDERS: ATTEND Family Medicine
DX: N19 Unspecified kidney failure (principal); E03.9 Hypothyroidism, unspecified; E78.5 Hyperlipidemia, unspecified

== ENCOUNTER → 2019-03-20 | Outpatient (CLI) | payer MEDICARE, MEDICAID ==
[~2019-03-20] MED LIST changes: +ARTIDRO2 OU; +CLEO300C2 PO; +ENSU1LIQ36 PO; +MIRT1TAB15 PO; +ONDA4TAB6 PO; +SCOP1PAT2 TOP
--- NOTE | 2019-03-20 16:16 | REP ---
CT of the head without contrast Indication: Recent fall, increased confusion. Comparison: Head CT of 03/14/2018. Technique: Axial CT of the head was performed without contrast. Findings: There is no visible soft tissue swelling or calvarial fracture. There is no evidence of acute intracranial hemorrhage or extra-axial fluid collection. There is prominence of the ventricles and sulci compatible with cerebral volume loss, similar to prior. There are similar hypodensities within the periventricular subcortical white matter which are nonspecific but suggestive of microvascular ischemic disease. There is similar appearance of lacunar infarcts within the basal ganglia. Note is made of intracranial vascular calcification. There is no mass effect or midline shift. The basal cisterns are patent. There is partial opacification of the ethmoid air cells. The mastoid air cells are clear. There is a soft tissue density within the external auditory canals, presumably representing cerumen. Impression: No acute intracranial abnormality. Similar appearance of white matter changes. Chronic basal ganglia lacunar infarcts. Electronically Signed by Rigoberto Garcia MD 03/20/2019 04:07 P
--- NOTE | 2019-03-20 16:37 | REP ---
Chest x-ray: Two views. History: Recent fall. Increased confusion. Comparison study: December 10, 2018. Findings: There are surgical clips in the soft tissues to the right of midline in the lower neck unchanged. The lungs are symmetrically aerated and no infiltrate is seen. Interstitial markings are slightly prominent. Mild cardiomegaly is observed unchanged. The thoracic aorta is tortuous. Impression: Mild cardiomegaly as before. No acute disease. Electronically Signed by Mauricio Judge MD 03/20/2019 04:42 P
== END ==
LOC: M RAD 15:27
PROVIDERS: ATTEND Nurse Practitioner Family
DX: I51.7 Cardiomegaly (principal); R06.02 Shortness of breath; R41.82 Altered mental status, unspecified

== ENCOUNTER → 2019-03-20 | Outpatient (REF) | payer MEDICARE, MEDICAID ==
[~2019-03-20] MED LIST changes: +CLIN300C5 PO; -SIMV20TA2 PO; +SIMV20TA22 PO
[2019-03-20 15:45] LABS: HEMOGLOBIN 15.2 g/dl (13.5-17.5); MEAN CORPUSCULAR HEMOGLOBIN 32.6 pg (27.0-33.0); MEAN CORPUSCULAR HGB CONC 33.8 g/dl (32.0-36.5); MEAN CORPUSCULAR VOLUME 96.6 fl (80.0-96.0); PLATELET COUNT, AUTOMATED 240 10^3/uL (150-450); RED BLOOD COUNT 4.66 10^6/uL (4.30-6.10); WHITE BLOOD COUNT 16.3 10^3/uL (4.0-10.0)
[2019-03-20 15:48] LABS: APPEARANCE, URINE CLEAR (CLEAR); BACTERIA, URINE AUTO NEGATIVE (NEGATIVE); BILIRUBIN, URINE AUTO NEGATIVE (NEGATIVE); BLOOD, URINE BLOOD NEGATIVE (NEGATIVE); COLOR, URINE YELLOW (YELLOW); GLUCOSE, URINE (UA) AUTO NEGATIVE (NEGATIVE); KETONE, URINE AUTO NEGATIVE (NEGATIVE); LEUKOCYTE ESTERASE, URINE AUTO NEGATIVE (NEGATIVE); NITRITE, URINE AUTO NEGATIVE (NEGATIVE); PROTEIN, URINE AUTO NEGATIVE (NEGATIVE); RBC, URINE AUTO 1 /HPF (0-3); SPECIFIC GRAVITY URINE AUTO 1.016 (1.002-1.035); SQUAMOUS EPITHELIAL CELL UR AU 0 /HPF (0-6); UROBILINOGEN, URINE AUTO 0.2 mg/dL (0.0-2.0); WBC, URINE AUTO 1 /HPF (0-3)
[2019-03-20 16:10] LABS: CALCIUM LEVEL 8.6 MG/DL (8.8-10.2); CREATININE FOR GFR 1.44 MG/DL (0.70-1.30)
== END ==
LOC: SKLAB5 14:47
PROVIDERS: ATTEND Family Medicine
DX: R06.02 Shortness of breath (principal); R41.82 Altered mental status, unspecified

== ENCOUNTER 2019-03-21 16:17 | Observation (INO) | payer MEDICARE, MEDICAID ==
[~2019-03-21] VITALS: Ht 175.3 cm; Wt 73.6 kg
[~2019-03-21 16:17] MED LIST changes: -ARTIDRO2 OU; -CLEO300C2 PO; -CLIN300C5 PO; -ENSU1LIQ36 PO; -MIRT1TAB15 PO; -ONDA4TAB6 PO; -SCOP1PAT2 TOP
[2019-03-21] MEDS ORDERED: CELE10TA PO (16:51)
[2019-03-21] MEDS ORDERED: ENSU1LIQ36 PO (16:51)
[2019-03-21] MEDS ORDERED: MIRT1TAB15 PO (16:51)
[2019-03-21] MEDS ORDERED: ARTIDRO2 OU ×2 (16:51)
[2019-03-21] MEDS ORDERED: SCOP1PAT2 TOP (16:51)
[2019-03-21] MEDS ORDERED: ONDA4TAB6 PO (16:51)
[2019-03-21 17:07] LABS: BASO # 0.1 10^3/uL (0.0-0.2); BASO % 0.8 % (0.0-1.0); EOS # 0.3 10^3/uL (0.0-0.5); EOS % 3.1 % (0.0-3.0); HEMATOCRIT 41.1 % (42.0-52.0); HEMOGLOBIN 13.8 g/dl (13.5-17.5); LYMPH # 2.8 10^3/uL (1.5-5.0); LYMPH % 31.1 % (24.0-44.0); MEAN CORPUSCULAR HEMOGLOBIN 32.4 pg (27.0-33.0); MEAN CORPUSCULAR HGB CONC 33.6 g/dl (32.0-36.5); MEAN CORPUSCULAR VOLUME 96.5 fl (80.0-96.0); MONO # 1.2 10^3/uL (0.0-0.8); MONO % 13.8 % (0.0-5.0); NEUTROPHILS # 4.5 10^3/uL (1.5-8.5); NEUTROPHILS % 50.6 % (36.0-66.0); PLATELET COUNT, AUTOMATED 201 10^3/uL (150-450); RED BLOOD COUNT 4.26 10^6/uL (4.30-6.10); WHITE BLOOD COUNT 8.9 10^3/uL (4.0-10.0)
[2019-03-21 17:29] LABS: ALBUMIN 2.6 GM/DL (3.2-5.2); BILIRUBIN,DIRECT 0.1 MG/DL (0.0-0.2); BILIRUBIN,TOTAL 0.3 MG/DL (0.2-1.0); CALCIUM LEVEL 7.8 MG/DL (8.8-10.2); CREATININE FOR GFR 1.62 MG/DL (0.70-1.30); GLOMERULAR FILTRATION RATE 43.6 (>35); POTASSIUM SERUM 4.1 MEQ/L (3.5-5.1); TOTAL PROTEIN 5.8 GM/DL (6.4-8.2)
--- NOTE | 2019-03-21 17:55 | REPVR ---
EXAM: CT Chest Without Contrast EXAM DATE/TIME: 03/21/2019 5:23 PM CLINICAL HISTORY: 83 years old, male; Abnormal findings; Abnormal radiologic exam of lung or chest; Additional info: Lll infiltrate, HX aspiration TECHNIQUE: Imaging protocol: Computed tomography of the chest without contrast. 3D rendering: MIP reconstructed images were created and reviewed. Radiation optimization: All CT scans at this facility use at least one of these dose optimization techniques: automated exposure control; mA and/or kV adjustment per patient size (includes targeted exams where dose is matched to clinical indication); or iterative reconstruction. COMPARISON: Chest x-ray 03/21/2019 at 4:48 PM and; CT Chest without contrast 06/24/2018 5:48 PM FINDINGS: Limitations: This examination is limited given the lack of IV contrast. Lungs: Mild dependent changes within both lungs, likely atelectasis. Minimal groundglass opacities within the posterior left lower lobe may be secondary to small pneumonitis, nonspecific. No vishnu pulmonary consolidation. Pleural space: Unremarkable. No pneumothorax. No pleural effusion. Heart: Moderate coronary atherosclerosis. No cardiomegaly or pericardial effusion. Aorta: Mild atherosclerosis of the thoracic aorta with mild dilatation and tortuosity is unchanged compared to the prior examination. The mid ascending thoracic aorta has an AP diameter of 4.3 cm the distal portion of the aortic arch has a transverse diameter of 4.5 cm, both unchanged. Lymph nodes: No pathologically enlarged lymph nodes identified. Small lymph nodes within the mediastinum and both axilla. Bones/joints: Mild degenerative spondylosis of the thoracic spine. There is a mild anterior wedge fracture deformity of the L1 vertebral body. This is new compared to the prior CT scan, but is of uncertain age (likely old). Soft tissues: Unremarkable. Kidneys and ureters: Right renal cysts are incompletely visualized, but unchanged. Parenchymal calcification within the right kidney upper pole is unchanged. IMPRESSION: 1. Mild dependent changes within both lungs, likely atelectasis. Minimal groundglass opacities within the posterior left lower lobe may be secondary to small pneumonitis, nonspecific. No vishnu pulmonary consolidation. 2. Atherosclerosis. 3. 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 Electronically signed by: Jagdeep Rossi On 03/21/2019 17:54:20 PM
[2019-03-21] MEDS ORDERED: VANCOMYCIN HCL 750 MG, VIAL MATE ADAPTER 1 EACH in D5W 250 ML IV ONE (18:45)
--- NOTE | 2019-03-21 20:34 | HPEPDOC ---
General Date of Admission Mar 21, 2019 at 18:31 Date of Service: Mar 21, 2019 Primary Care Physician: Jr Henderson Collins Attending Physician: OZZIE BARRAGAN DO Chief Complaint The patient is a 83-year-old male admitted with a reason for visit of Aspiration Pneumonia/Parkinson's Dis/Positive Bloo. Source: residential records, Old records Exam Limitations: Clinical conditions, Dementia (cannot obtain any history details from the patient due to dementia) History of Present Illness Mr. Gaona is an 83 years old non-verbal, dementia patient who resides at [facility] with leukocytosis of 16.3 and gram- positive cocci in blood culture on 03/20/19. Patient was transferred from sn[facility] to the hospital after he was found to have positive blood culture and leukocytosis. On arrival repeated CBC showed normal white blood count, patient afebrile, does not complain of any pain. Chest CT was done in the emergency and did not show any lungs consolidation. Blood culture was repeated. According to nurses patient did not have any vomiting, diarrhea or dysuria. He has a good alma etite, he doesn't have any shortness of breath, any cough, or shocked when he swallowing. Most of the history was obtained from previous records. I await report from snf. Home Medications Scheduled Acetaminophen (Tylenol) 325 Mg Tablet, 650 MG PO DAILY, (Reported) Amlodipine Besylate (Amlodipine Besylate) 10 Mg Tab, 10 MG PO DAILY, (Reported) Citalopram Hydrobromide (Celexa) 10 Mg Tablet, 10 MG PO DAILY, (Reported) Clindamycin Hcl (Cleocin HCl) 300 Mg Capsule, 300 MG PO QID Docusate Sodium (Colace) 100 Mg Cap, 100 MG PO BID, (Reported) Lactose-Reduced Food (Ensure Enlive) 237 Ml Liquid, 120 ML PO BID, (Reported) Levothyroxine Sodium (Levoxyl) 88 Mcg Tab, 88 MCG PO QAM, (Reported) Lisinopril (Lisinopril) 20 Mg Tab, 20 MG PO BID, (Reported) Mirtazapine (Mirtazapine) 15 Mg Tab.rapdis, 15 MG PO DAILY, (Reported) Multivitamins (Thera M Plus Tablet) 1 Each Tablet, 1 TAB PO DAILY, (Reported) Polyvinyl Alcohol (Artificial Tears) 15 Ml Drops, 2 DROP OU BID, (Reported) Scopolamine (Transderm-Scop) 1 Each Patch.td.3, 1.5 MG TOP Q72H, (Reported) Scheduled PRN Acetaminophen (Tylenol) 325 Mg Tablet, 650 MG PO Q4H PRN for PAIN / FEVER, (Reported) Albuterol Sulf (Albuterol Sulfate) 2.5 Mg/3 Ml Vial.neb, 2.5 MG INH Q4H PRN for SOB/WHEEZING, (Reported) Bisacodyl (Dulcolax) 10 Mg Sup, 10 MG AR DAILY PRN for CONSTIPATION, (Reported) Hyoscyamine Sulfate (Levsin) 0.125 Mg Tablet, 0.125 MG PO BID PRN for EXCESSIVE SECRETIONS, (Reported) Milk Of Magnesia (Milk of Magnesia) 2,400 Mg/10 Ml Oral.susp, 10 ML PO DAILY PRN for CONSTIPATION, (Reported) Ondansetron (Ondansetron Odt) 4 Mg Tab.rapdis, 4 MG PO Q8H PRN for NAUSEA OR VOMITING, (Reported) Polyvinyl Alcohol (Artificial Tears) 15 Ml Drops, 2 DROP OU Q4H PRN for DRY EYES, (Reported) Sodium Phosphate,[place]-Dibasic (Enema) 133 Ml Enema, 1 MARNI AR DAILY PRN for CONSTIPATION, (Reported) Allergies Coded Allergies: No Known Allergies (Verified , 12/09/18) Past Medical History Medical History History of subdural hematoma. Hypothyroidism. Hypotension. Chronic lung fibrosis. Parkinson diseases History of aspiration pneumonia and oropharyngeal dysphagia Surgical History Unable to obtain due to dementia Family History Unable to obtain due to dementia Social History * Smoker: former Smoker Alcohol: other (unable to obtain) A-FIB/CHADSVASC A-FIB History Current/History of A-Fib/PAF?: No Current PO Anticoag Therapy: No Review of Systems Constitutional: Reports: Other (unable to obtain from the patient due to severe dementia) Physical Examination General Exam: Positive: Other (patient has severe limitation in cognitive function) Eye Exam: Positive: PERRLA, EOMI ENT Exam: Positive: Atraumatic Neck Exam: Positive: Supple; Negative: JVD Chest Exam: Positive: Clear to auscultation Heart Exam: Positive: Rate Normal Abdomen Exam: Positive: Normal bowel sounds Extremity Exam: Negative: Clubbing, Cyanosis Skin Exam: Positive: Nl turgor and temperature Neuro Exam: Positive: Strength at 5/5 X4 ext, Cranial Nerves 3-12 NL Psych Exam: Positive: Other (severe limited due to dementia) Vital Signs Vital Signs Date Time Temp Pulse Resp B/P (MAP) Pulse Ox O2 Delivery O2 Flow Rate FiO2 03/21/19 20:00 52 18 122/63 (82) 92 Room Air 03/21/19 16:44 97.8 Laboratory Data Labs 24H Laboratory Tests 2 03/21/19 16:39: Immature Granulocyte % (Auto) 0.6, White Blood Count 8.9, Red Blood Count 4.26L, Hemoglobin 13.8, Hematocrit 41.1L, Mean Corpuscular Volume 96.5H, Mean Corpuscular Hemoglobin 32.4, Mean Corpuscular Hemoglobin Concent 33.6, Red Cell Distribution Width 14.6H, Platelet Count 201, Neutrophils (%) (Auto) 50.6, Lymphocytes (%) (Auto) 31.1, Monocytes (%) (Auto) 13.8H, Eosinophils (%) (Auto) 3.1H, Basophils (%) (Auto) 0.8, Neutrophils # (Auto) 4.5, Lymphocytes # (Auto) 2.8, Monocytes # (Auto) 1.2H, Eosinophils # (Auto) 0.3, Basophils # (Auto) 0.1, Nucleated Red Blood Cells % (auto) 0.0, Anion Gap 6L, Glomerular Filtration Rate 43.6, Calcium Level 7.8L, Aspartate Amino Transf (AST/SGOT) 17, Alanine Aminotransferase (ALT/SGPT) 21, Alkaline Phosphatase 88, Total Bilirubin 0.3, Direct Bilirubin 0.1, Total Protein 5.8L, Albumin 2.6L, Albumin/Globulin Ratio 0.81L, Lipase 316 03/21/19 16:41: Lactic Acid Level 1.3 CBC/BMP Laboratory Tests 03/21/19 16:39 Red Blood Count 4.26 L, Mean Corpuscular Volume 96.5 H, Mean Corpuscular Hemoglobin 32.4, Mean Corpuscular Hemoglobin Concent 33.6, Red Cell Distribution Width 14.6 H, Neutrophils (%) (Auto) 50.6, Lymphocytes (%) (Auto) 31.1, M onocytes (%) (Auto) 13.8 H, Eosinophils (%) (Auto) 3.1 H, Basophils (%) (Auto) 0.8, Neutrophils # (Auto) 4.5, Lymphocytes # (Auto) 2.8, Monocytes # (Auto) 1.2 H, Eosinophils # (Auto) 0.3, Basophils # (Auto) 0.1 Microbiology Microbiology 03/21/19 Blood Culture, Received Pending 03/21/19 Blood Culture, Received Pending 03/21/19 Respiratory Virus Panel (PCR) (RUBY) - Final, Complete Assessment/Plan Mr. Gaona is an 83 years old non-verbal, dementia patient who resides at [facility] with leukocytosis of 16.3 and gram- positive cocci in blood culture. Patient was transferred from sn[facility] to the hospital after he was found to have positive blood culture and leukocytosis. Problems (1) Bacteremia Problem Text: The first blood cultures was done on 03/20/19 and it was positive for gram-positive cocci I called the snf to obtain more details about patient's history. Await phone call from snf There is possibility for contamination. Patient is afebrile, does not have diarrhea, physical exam benign, second CBC did not show leukocytosis Second blood culture pending, urine analysis Vancomycin IV started empirically MRSA screen (2) Leukocytosis Problem Text: Continue to monitor Second CBC did not show leukocytosis, lactic acid with in normal limit (3) Dementia Status: Acute Problem Text: Continue home medications Plan / VTE VTE Prophylaxis Ordered?: Yes OZZIE BARRAGAN DO Mar 21, 2019 20:34
[2019-03-21] MEDS ORDERED: ACETAMINOPHEN 325 MG TAB PO PRN (20:45)
[2019-03-21] MEDS ORDERED: ALBUTEROL SULFATE 2.5 MG/0.5 ML INH NEB SOLN INH PRN (20:45)
[2019-03-21] MEDS ORDERED: BISACODYL 10 MG SUPP PR PRN (20:45)
[2019-03-21] MEDS ORDERED: POLYVINYL ALCOHOL OPHTH SOLN 15 ML(LIQUITEARS) OU PRN (20:45)
[2019-03-21] MEDS ORDERED: HYOSCYAMINE SULFATE 0.125 MG SUBL TABLET PO PRN (20:45)
[2019-03-21] MEDS ORDERED: MOM 30ML SUSPENSION UDC PO PRN (20:45)
[2019-03-21] MEDS ORDERED: ONDANSETRON 4 MG ORAL DISINTEGRATING TAB (Q0162 PER 1MG) PO PRN (20:45)
[2019-03-21 22:30] VITALS: BP 125/74
[2019-03-21] MEDS: POLYVINYL ALCOHOL OPHTH SOLN 15 ML(LIQUITEARS) OU SCH (23:35)
[2019-03-21] MEDS: DOCUSATE SODIUM 100 MG CAP PO SCH (23:35)
[2019-03-21] MEDS: lisinopriL 20 MG TAB PO SCH (23:35)
[2019-03-21] MEDS: HEPARIN SOD (PORCINE) 5000 UNITS/ML VIAL SC SCH (23:35)
[2019-03-22] MEDS: VANCOMYCIN HCL 1,000 MG, VIAL MATE ADAPTER 1 EACH in D5W 250 ML IV SCH (05:51)
[2019-03-22] MEDS: LEVOTHYROXINE 88MCG TABLET (0.088 MG) PO SCH (05:51)
[2019-03-22 06:00] VITALS: BP 127/60
[2019-03-22 06:31] LABS: HEMATOCRIT 40.7 % (42.0-52.0); HEMOGLOBIN 13.7 g/dl (13.5-17.5); MEAN CORPUSCULAR HEMOGLOBIN 32.1 pg (27.0-33.0); MEAN CORPUSCULAR HGB CONC 33.7 g/dl (32.0-36.5); MEAN CORPUSCULAR VOLUME 95.3 fl (80.0-96.0); PLATELET COUNT, AUTOMATED 220 10^3/uL (150-450); RED BLOOD COUNT 4.27 10^6/uL (4.30-6.10); WHITE BLOOD COUNT 9.1 10^3/uL (4.0-10.0)
[2019-03-22 06:56] LABS: CALCIUM LEVEL 8.2 MG/DL (8.8-10.2); CREATININE FOR GFR 1.47 MG/DL (0.70-1.30); GLOMERULAR FILTRATION RATE 48.8 (>35); POTASSIUM SERUM 4.1 MEQ/L (3.5-5.1)
--- NOTE | 2019-03-22 08:41 | REP ---
REASON: Cough and fever. History of aspiration. COMPARISON: Multiple, the latest 03/20/2019. There is a new patchy opacity in the left lower lobe. The technique utilized in obtaining the radiograph has magnified the cardiac silhouette and accentuated the interstitial markings. There is no other change from the prior exam. IMPRESSION: Left lower lobe pneumonia. Electronically Signed by Ramiro Sparks DO 03/22/2019 09:17 A
[2019-03-22] MEDS: CitaloPRAM (CeleXA) 10 MG TABLET PO SCH (08:54)
[2019-03-22] MEDS: MULTIVITAMINS/MINERALS THERAP 1 TAB PO SCH (08:54)
[2019-03-22] MEDS: POLYVINYL ALCOHOL OPHTH SOLN 15 ML(LIQUITEARS) OU SCH ×2 (08:55→22:49)
[2019-03-22] MEDS: DOCUSATE SODIUM 100 MG CAP PO SCH ×2 (08:55→22:48)
[2019-03-22] MEDS: HEPARIN SOD (PORCINE) 5000 UNITS/ML VIAL SC SCH ×2 (08:55→22:49)
[2019-03-22] MEDS: MIRTAZAPINE 15 MG TAB PO SCH (08:55)
[2019-03-22] MEDS: amLODIPine 10 MG TAB PO SCH (08:57)
[2019-03-22] MEDS: lisinopriL 20 MG TAB PO SCH ×2 (08:57→22:50)
--- NOTE | 2019-03-22 09:08 | IPNPDOC ---
Subjective Date Seen The patient was seen on 03/22/19. Subjective Chief Complaint/HPI Does not offer any complains. asks what it wrong with him, i explained , nodded his head and seemed to understand, very difficult to understand his speech has what seems like dysarthria. He was following all commands. he also asked about the time , then said was hungry which was appropriate as it was late for breakfast. No fever or chills, no chest pain or sob. Most communication was with headed nodding or shaking as i could not understand his speech so told him to nod his head for yes and shake for no. Objective Physical Examination General Exam: Positive: Alert, Cooperative, No Acute Distress, Other Eye Exam: Positive: PERRLA, EOMI ENT Exam: Positive: Atraumatic Neck Exam: Positive: Supple; Negative: JVD, thyromegaly Chest Exam: Positive: Clear to auscultation, Normal air movement Heart Exam: Positive: Rate Normal, Regular Rhythm, Normal S1, Normal S2; Negative: Murmurs, Rubs Abdomen Exam: Positive: Normal bowel sounds, Soft; Negative: Tenderness, Hepatospenomegaly Extremity Exam: Negative: Clubbing, Cyanosis, Edema Skin Exam: Positive: Nl turgor and temperature; Negative: Rash, Breakdown Neuro Exam: Positive: Strength at 5/5 X4 ext, Normal Tone, Reflexes 2+ Psych Exam: Positive: Mood NL Assessment /Plan Assessment Bacterimia gram positive coci in clusters. this could be contaminant as afebrile , no leucocytosis on admission, no symptoms. CT Chest shows possible left lower lobe pneumonitis. this could be due to intermittent episodes of aspiration. will continue with vanco till cultures are back. Possible Aspiration Pneumonitis has past h/o aspirations. patient on modified diet at [facility] but may still be having silent aspirations. This could cause leucocytosis and bacterimia. 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 CKD stage 3 stable. H/O subdural hematoma with aphasia/ dysarthria. patient follows commands and understands when spoken to but very difficult to understand his speech. I was able to understand few words He seemed to be talking about appropriate things. He said was hungry, asked what time it was, asked what was wrong Hypothyroidism, continue synthroid hyperlipidemia, continue statin hypertension lisinopril and amlodipine carotid artery disease, parkinsonism.. Plan/VTE VTE Prophylaxis Ordered?: Yes VS, I&O, 24H, Bhavesh Vital Signs/I&O Vital Signs Date Time Temp Pulse Resp B/P (MAP) Pulse Ox O2 Delivery O2 Flow Rate FiO2 03/22/19 06:00 98.3 55 18 127/60 (82) 98 03/21/19 21:45 Room Air I&O- Last 24 Hours up to 6 AM 03/22/19 06:00 Intake Total 275 ml Output Total 1150 ml Balance -875 ml Laboratory Data 24H LABS Laboratory Tests 2 03/21/19 16:39: Immature Granulocyte % (Auto) 0.6, White Blood Count 8.9, Red Blood Count 4.26L, Hemoglobin 13.8, Hematocrit 41.1L, Mean Corpuscular Volume 96.5H, Mean Corpuscular Hemoglobin 32.4, Mean Corpuscular Hemoglobin Concent 33.6, Red Cell Distribution Width 14.6H, Platelet Count 201, Neutrophils (%) (Auto) 50.6, Lymphocytes (%) (Auto) 31.1, Monocytes (%) (Auto) 13.8H, Eosinophils (%) (Auto) 3.1H, Basophils (%) (Auto) 0.8, Neutrophils # (Auto) 4.5, Lymphocytes # (Auto) 2.8, Monocytes # (Auto) 1.2H, Eosinophils # (Auto) 0.3, Basophils # (Auto) 0.1, Nucleated Red Blood Cells % (auto) 0.0, Anion Gap 6L, Glomerular Filtration Rate 43.6, Calcium Level 7.8L, Aspartate Amino Transf (AST/SGOT) 17, Alanine Aminotransferase (ALT/SGPT) 21, Alkaline Phosphatase 88, Total Bilirubin 0.3, Direct Bilirubin 0.1, Total Protein 5.8L, Albumin 2.6L, Albumin/Globulin Ratio 0.81L, Lipase 316 03/21/19 16:41: Lactic Acid Level 1.3 03/22/19 01:38: Urine Color STRAW, Urine Appearance CLEAR, Urine pH 6.0, Urine Specific [place] 1.008, Urine Protein NEGATIVE, Urine Glucose (UA) NEGATIVE, Urine Ketones NEGATIVE, Urine Blood NEGATIVE, Urine Nitrite NEGATIVE, Urine Bilirubin NEGATIVE, Urine Urobilinogen 0.2, Urine Leukocyte Esterase NEGATIVE, Urine WBC (Auto) 0, Urine RBC (Auto) 0, Urine Hyaline Casts (Auto) 0, Urine Bacteria (Auto) NEGATIVE, Urine Squamous Epithelial Cells 0, Urine Sperm (Auto) 03/22/19 05:20: Nucleated Red Blood Cells % (auto) 0.0, Anion Gap 6L, Glomerular Filtration Rate 48.8, Calcium Level 8.2L, Blood Urea Nitrogen 27H, Creatinine 1.47H, Sodium Level 140, Potassium Level 4.1, Chloride Level 106, Carbon Dioxide Level 28 CBC/BMP Laboratory Tests 03/21/19 16:39 Red Blood Count 4.26 L, Mean Corpuscular Volume 96.5 H, Mean Corpuscular Hemoglobin 32.4, Mean Corpuscular Hemoglobin Concent 33.6, Red Cell Distribution Width 14.6 H, Neutrophils (%) (Auto) 50.6, Lymphocytes (%) (Auto) 31.1, Monocytes (%) (Auto) 13.8 H, Eosinophils (%) (Auto) 3.1 H, Basophils (%) (Auto) 0.8, Neutrophils # (Auto) 4.5, Lymphocytes # (Auto) 2.8, Monocytes # (Auto) 1.2 H, Eosinophils # (Auto) 0.3, Basophils # (Auto) 0.1 03/22/19 05:20 Red Blood Count 4.27 L, Mean Corpuscular Volume 95.3, Mean Corpuscular Hemoglobin 32.1, Mean Corpuscular Hemoglobin Concent 33.7, Red Cell Distribution Width 14.5, Calcium Level 8.2 L Microbiology Microbiology 03/21/19 Blood Culture, Received Pending 03/21/19 Blood Culture, Received Pending 03/21/19 Respiratory Virus Panel (PCR) (RUBY) - Final, Complete MEGAN COLLINS MD Mar 22, 2019 09:08
--- NOTE | 2019-03-22 09:19 | PHACANCOPD ---
PHARMACY VANCOMYCIN DOSING Pt Demographics Demographics Patient Age:83 , Weight:73.600 , Gender: male Adjusted Body Weight Date: 03/22/19, Adjusted Body Weight: Kg Events Past 24 Hours Events Past 24 Hours: NO: Dialysis, Diuretic Therapy, Change in CrCl, Fever, Elevation in WBC, Pending Diagnostics, Pending Procedures, Other Vancomycin Vancomycin indication: staph bacteremia Vancomycin Target Ranges: 15-20 mcg/ml Vancomycin Load Y/N: Yes Load Dose Date Time Vancomycin Load Dose: 750mg Date: 03/21 Time: ~1930 Vancomycin Dose Date: 03/22/19. Current Vancomycin Dose: [1g IV q24h @06] Intermittent Dosing?: No Labs Labs Item Value Date Time White Blood Count 8.9 10^3/uL 03/21/19 1639 White Blood Count 9.1 10^3/uL 03/22/19 0520 Creatinine 1.62 MG/DL H 03/21/19 1639 Creatinine 1.47 MG/DL H 03/22/19 0520 Micro Microbiology 03/21/19 Blood Culture, Received Pending 03/21/19 Blood Culture, Received Pending 03/21/19 Respiratory Virus Panel (PCR) ([facility]) - Final, Complete Creatinine Clearance Date:03/22/19. Creatinine Clearance: [~38 ml/min]. Pending Labs Vanco trough scheduled 03/23 @05:00 Assessment and Plan Maintaining Current Dose?: Yes Reason for dose change: No Dose Change Pharmacist Note Pharmacist Note Date: 03/22/19. Pharmacist note: pt has been started on Vancomycin for bacteremi a. Blood culture drawn on 03/21 is preliminary positive for G+ cocci in clusters. He has not been on vancomycin here in the past. SCr is about at baseline. He received vancomycin 750mg IV last evening, followed by 1g IV q24h which started this morning ~11 hours later. I have a trough scheduled for tomorrow morning. We will continue to monitor and make adjustments as necessary. Dayton Chiang Pharm.D. Mar 22, 2019 09:19
[2019-03-22 14:00] VITALS: BP 125/71
[2019-03-22 22:00] VITALS: BP 114/56
[2019-03-23 06:00] VITALS: BP 125/62
[2019-03-23 06:09] LABS: VANCOMYCIN LEVEL TROUGH 10.1 UG/ML (10.0-20.0)
[2019-03-23] MEDS: VANCOMYCIN HCL 1,000 MG, VIAL MATE ADAPTER 1 EACH in D5W 250 ML IV SCH (06:31)
[2019-03-23] MEDS: LEVOTHYROXINE 88MCG TABLET (0.088 MG) PO SCH (06:31)
--- NOTE | 2019-03-23 06:31 | PHACANCOPD ---
PHARMACY VANCOMYCIN DOSING Pt Demographics Demographics Patient Age:83 , Weight:73.600 , Gender: male Adjusted Body Weight Date: 03/22/19, Adjusted Body Weight: Kg Events Past 24 Hours Events Past 24 Hours: NO: Dialysis, Diuretic Therapy, Change in CrCl, Fever, Elevation in WBC, Pending Diagnostics, Pending Procedures, Other Vancomycin Vancomycin indication: staph bacteremia Vancomycin Target Ranges: 15-20 mcg/ml Vancomycin Load Y/N: Yes Load Dose Date Time Vancomycin Load Dose: 750mg Date: 03/21 Time: ~1930 Vancomycin Dose Date: 03/23/19. Current Vancomycin Dose: [1g IV q18h] Intermittent Dosing?: No Labs Labs Item Value Date Time White Blood Count 9.1 10^3/uL 03/22/19 0520 Glomerular Filtration Rate 48.8 03/22/19 0520 Creatinine 1.47 MG/DL H 03/22/19 05 Blood Urea Nitrogen 27 MG/DL H 03/22/19 0520 Vancomycin Level Trough 10.1 UG/ML 03/23/19 0531 Vital Signs Label Value Date Time Patient Temperature 99.0 degrees F 03/22/19 2200 Temperature Source Temporal 03/22/19 2200 Micro Microbiology 03/21/19 Blood Culture - Preliminary, Resulted No growth after 24 hours . All specim... 03/21/19 Blood Culture - Preliminary, Resulted No growth after 24 hours . All specim... 03/21/19 Respiratory Virus Panel (PCR) ([facility]) - Final, Complete Creatinine Clearance Date:03/22/19. Creatinine Clearance: [~38 ml/min]. Pending Labs Vanco trough scheduled 03/23 @23:00 Assessment and Plan Maintaining Current Dose?: No Reason for dose change: Trough too low Pharmacist Note Pharmacist Note Date: 03/22/19. Pharmacist note:Trough of 10.1 is below target range. Dosing increased to 1000mg q18h. Will continue to monitor and make adjustments as needed. SCOTTIE CRESPO PHARMACY Mar 23, 2019 06:31
[2019-03-23 08:52] LABS: BASO # 0.1 10^3/uL (0.0-0.2); BASO % 0.6 % (0.0-1.0); EOS # 0.3 10^3/uL (0.0-0.5); EOS % 3.2 % (0.0-3.0); HEMATOCRIT 43.7 % (42.0-52.0); HEMOGLOBIN 14.7 g/dl (13.5-17.5); LYMPH # 2.9 10^3/uL (1.5-5.0); LYMPH % 30.5 % (24.0-44.0); MEAN CORPUSCULAR HEMOGLOBIN 32.8 pg (27.0-33.0); MEAN CORPUSCULAR HGB CONC 33.6 g/dl (32.0-36.5); MEAN CORPUSCULAR VOLUME 97.5 fl (80.0-96.0); MONO # 1.3 10^3/uL (0.0-0.8); MONO % 13.3 % (0.0-5.0); NEUTROPHILS # 4.9 10^3/uL (1.5-8.5); NEUTROPHILS % 51.9 % (36.0-66.0); PLATELET COUNT, AUTOMATED 243 10^3/uL (150-450); RED BLOOD COUNT 4.48 10^6/uL (4.30-6.10); WHITE BLOOD COUNT 9.4 10^3/uL (4.0-10.0)
[2019-03-23 10:10] VITALS: BP 122/62
[2019-03-23] MEDS: HEPARIN SOD (PORCINE) 5000 UNITS/ML VIAL SC SCH (10:10)
[2019-03-23] MEDS: lisinopriL 20 MG TAB PO SCH (10:10)
[2019-03-23] MEDS: CitaloPRAM (CeleXA) 10 MG TABLET PO SCH (10:10)
[2019-03-23] MEDS: MIRTAZAPINE 15 MG TAB PO SCH (10:10)
[2019-03-23] MEDS: DOCUSATE SODIUM 100 MG CAP PO SCH (10:10)
[2019-03-23] MEDS: amLODIPine 10 MG TAB PO SCH (10:11)
[2019-03-23] MEDS: MULTIVITAMINS/MINERALS THERAP 1 TAB PO SCH (10:11)
[2019-03-23] MEDS: POLYVINYL ALCOHOL OPHTH SOLN 15 ML(LIQUITEARS) OU SCH (10:11)
[2019-03-23 10:41] LABS: CALCIUM LEVEL 8.2 MG/DL (8.8-10.2); CREATININE FOR GFR 1.4 MG/DL (0.70-1.30); GLOMERULAR FILTRATION RATE 51.7 (>35); POTASSIUM SERUM 4.4 MEQ/L (3.5-5.1)
[2019-03-23] MEDS ORDERED: CLEO300C2 PO (11:26)
--- NOTE | 2019-03-23 16:08 | DS.PDOC ---
Discharge Summary General Date of Admission Mar 21, 2019 at 18:31 Date of Discharge 03/23/19 Discharge Summary PROCEDURES PERFORMED DURING STAY: [None]. DISCHARGE DIAGNOSES: Aspiration pneumonitis Dementia CkD stage 3 Parkinson disease hypertension carotid artery disease H/O subdural hematoma with aphasia/ dysarthria. hyperlipidemia COMPLICATIONS/CHIEF COMPLAINT: Aspiration Pneumonia/Parkinson's Dis/Positive Bloo. HISTORY OF PRESENT ILLNESS: See history and physical HOSPITAL COURSE: Mr. Gaona is an 83 years old non-verbal, dementia patient who resides at [facility] hospital with leukocytosis of 16.3 and gram-positive cocci in blood culture on 03/20/19. [facility] after he was found to have positive blood culture and leukocytosis. On arrival repeated CBC showed normal white blood count, patient afebrile, Blood culture was repeated. CT chest showed . Mild dependent changes within both lungs, likely atelectasis. Minimal groundglass opacities within the posterior left lower lobe may be secondary to small pneumonitis, nonspecific. No vishnu pulmonary consolidation. Pateint was admitted for evaluation of bacterimia [place] and leucocytosis at the [place]. Bacterimia gram positive coci in clusters Staph Hominis, repeat blood cultures [address] Chest shows possible left lower lobe pneumonitis. this could be due to intermittent episodes of aspiration. clindamycin Aspiration Pneumonitis has past h/o aspirations. patient on modified diet [facility] but may still be having silent aspirations. This could cause leucocytosis and bacterimia. 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 CKD stage 3 stable. H/O subdural hematoma with aphasia/ dysarthria. patient follows commands and understands when spoken to but very difficult to understand his speech. I was able to understand few words He seemed to be talking about appropriate things. He said was hungry, asked what time it was, asked what was wrong Hypothyroidism, continue synthroid hyperlipidemia, continue statin hypertension lisinopril and amlodipine carotid artery disease, parkinsonism.. DISCHARGE MEDICATIONS: Please see below. ALLERGIES: Please see below. PHYSICAL EXAMINATION ON DISCHARGE: VITAL SIGNS: Please see below. General Exam: Positive: Alert, Cooperative, No Acute Distress, Other Eye Exam: Positive: PERRLA, EOMI ENT Exam: Positive: Atraumatic Neck Exam: Positive: Supple; Negative: JVD, thyromegaly Chest Exam: Positive: Clear to auscultation, Normal air movement Heart Exam: Positive: Rate Normal, Regular Rhythm, Normal S1, Normal S2; Negative: Murmurs, Rubs Abdomen Exam: Positive: Normal bowel sounds, Soft; Negative: Tenderness, Hepatosplenomegaly Extremity Exam: Negative: Clubbing, Cyanosis, Edema Skin Exam: Positive: Nl turgor and temperature; Negative: Rash, Breakdown Neuro Exam: Positive: Strength at 5/5 X4 ext, Normal Tone, Reflexes 2+ Psych Exam: Positive: Mood NL LABORATORY DATA: Please see below. ACTIVITY: [As tolerated]. DIET: Pureed, with necter thick liquids. DISPOSITION: [facility]. DISCHARGE INSTRUCTIONS: Follow up with MD in [place] DISCHARGE CONDITION: [Stable]. TIME SPENT ON DISCHARGE: 35 minutes. Vital Signs/I&Os Vital Signs Date Time Temp Pulse Resp B/P (MAP) Pulse Ox O2 Delivery O2 Flow Rate FiO2 03/23/19 10:11 60 03/23/19 10:10 122/62 03/23/19 06:00 98.6 18 93 03/21/19 21:45 Room Air I&O- Last 24 Hours up to 6 AM 03/23/19 06:00 Intake Total 870 ml Output Total 0 ml Balance 870 ml Laboratory Data Labs 24H Laboratory Tests 2 03/23/19 05:31: Anion Gap 7L, Glomerular Filtration Rate 51.7, Blood Urea Nitrogen 22H, Creatinine 1.40H, Sodium Level 141, Potassium Level 4.4, Chloride Level 107, Carbon Dioxide Level 27, Calcium Level 8.2L, Vancomycin Level Trough 10.1 03/23/19 06:38: Immature Granulocyte % (Auto) 0.5, White Blood Count 9.4, Red Blood Count 4.48, Hemoglobin 14.7, Hematocrit 43.7, Mean Corpuscular Volume 97.5H, Mean Corpuscular Hemoglobin 32.8, Mean Corpuscular Hemoglobin Concent 33.6, Red Cell Distribution Width 14.5, Platelet Count 243, Neutrophils (%) (Auto) 51.9, Lymphocytes (%) (Auto) 30.5, Monocytes (%) (Auto) 13.3H, Eosinophils (%) (Auto) 3.2H, Basophils (%) (Auto) 0.6, Neutrophils # (Auto) 4.9, Lymphocytes # (Auto) 2.9, Monocytes # (Auto) 1.3H, Eosinophils # (Auto) 0.3, Basophils # (Auto) 0.1, Nucleated Red Blood Cells % (auto) 0.0 CBC/BMP Laboratory Tests 03/23/19 05:31 Calcium Level 8.2 L 03/23/19 06:38 Red Blood Count 4.48, Mean Corpuscular Volume 97.5 H, Mean Corpuscular Hemog lobin 32.8, Mean Corpuscular Hemoglobin Concent 33.6, Red Cell Distribution Width 14.5, Neutrophils (%) (Auto) 51.9, Lymphocytes (%) (Auto) 30.5, Monocytes (%) (Auto) 13.3 H, Eosinophils (%) (Auto) 3.2 H, Basophils (%) (Auto) 0.6, Neutrophils # (Auto) 4.9, Lymphocytes # (Auto) 2.9, Monocytes # (Auto) 1.3 H, Eosinophils # (Auto) 0.3, Basophils # (Auto) 0.1 Microbiology Microbiology 03/21/19 Blood Culture - Preliminary, Resulted No growth after 24 hours . All specim... 03/21/19 Blood Culture - Preliminary, Resulted No growth after 24 hours . All specim... 03/21/19 Respiratory Virus Panel (PCR) ([facility]) - Final, Complete Discharge Medications Scheduled Citalopram Hydrobromide (Celexa) 10 Mg Tablet, 10 MG PO DAILY, (Reported) Docusate Sodium (Colace) 100 Mg Cap, 100 MG PO BID, (Reported) Lactose-Reduced Food (Ensure Enlive) 237 Ml Liquid, 120 ML PO BID, (Reported) Levothyroxine Sodium (Levoxyl) 88 Mcg Tab, 88 MCG PO QAM, (Reported) Lisinopril (Lisinopril) 20 Mg Tab, 20 MG PO BID, (Reported) Mirtazapine (Mirtazapine) 15 Mg Tab.rapdis, 15 MG PO DAILY, (Reported) Multivitamins (Thera M Plus Tablet) 1 Each Tablet, 1 TAB PO DAILY, (Reported) Polyvinyl Alcohol (Artificial Tears) 15 Ml Drops, 2 DROP OU BID, (Reported) Scheduled PRN Acetaminophen (Tylenol) 325 Mg Tablet, 650 MG PO Q4H PRN for PAIN / FEVER, (Re ported) Albuterol Sulf (Albuterol Sulfate) 2.5 Mg/3 Ml Vial.neb, 2.5 MG INH Q4H PRN for SOB/WHEEZING, (Reported) Bisacodyl (Dulcolax) 10 Mg Sup, 10 MG [place] DAILY PRN for CONSTIPATION, (Reported) Hyoscyamine Sulfate (Levsin) 0.125 Mg Tablet, 0.125 MG PO BID PRN for EXCESSIVE SECRETIONS, (Reported) Milk Of Magnesia (Milk of Magnesia) 2,400 Mg/10 Ml Oral.susp, 10 ML PO DAILY PRN for CONSTIPATION, (Reported) Ondansetron (Ondansetron Odt) 4 Mg Tab.rapdis, 4 MG PO Q8H PRN for NAUSEA OR VOMITING, (Reported) Polyvinyl Alcohol (Artificial Tears) 15 Ml Drops, 2 DROP OU Q4H PRN for DRY EYES, (Reported) Sodium Phosphate,[place]-Dibasic (Enema) 133 Ml Enema, 1 MARNI [place] DAILY PRN for CONSTIPATION, (Reported) Allergies Coded Allergies: No Known Allergies (Verified , 12/09/18) MEGAN COLLINS MD Mar 23, 2019 16:08
[2019-03-24] MEDS ORDERED: VANCOMYCIN HCL 1,000 MG, VIAL MATE ADAPTER 1 EACH in D5W 250 ML IV SCH ×3
== END 2019-03-23 13:10 ==
LOC: EDBD 16:17 → M ED 16:17 → INTOOBSV 18:31 → M ED INP 18:31 → M MSPAV 22:27
PROVIDERS: ADMIT Internal Medicine; ATTEND Internal Medicine Nephrology
DX: J69.0 Pneumonitis due to inhalation of food and vomit (principal); F03.90 Unspecified dementia, unspecified severity, without behavioral disturbance, psychotic disturbance, mood disturbance, and anxiety; N18.3 Chronic kidney disease, stage 3 (moderate); G20 Parkinson's disease; I12.9 Hypertensive chronic kidney disease with stage 1 through stage 4 chronic kidney disease, or unspecified chronic kidney disease; I25.10 Atherosclerotic heart disease of native coronary artery without angina pectoris; E78.49 Other hyperlipidemia; I69.320 Aphasia following cerebral infarction; R47.1 Dysarthria and anarthria; R78.81 Bacteremia; D72.829 Elevated white blood cell count, unspecified; E03.9 Hypothyroidism, unspecified; Z79.899 Other long term (current) drug therapy
CPT/HCPCS: 36415; 71046; 71250; 80048; 80076; 80202; 81001; 83605; 83690; 85025; 85027; 87040; 87486; 87581; 87633; 87798; 96365; 96366; 96372; 99285; G0378; J3370

== ENCOUNTER 2019-03-28 15:24 | Observation (INO) | payer MEDICARE, MEDICAID ==
[~2019-03-28] VITALS: Ht 167.6 cm; Wt 76.8 kg
[~2019-03-28 15:24] MED LIST changes: +ARTIDRO2 OU; +CLEO300C2 PO; +ENSU1LIQ36 PO; +MIRT1TAB15 PO; +ONDA4TAB6 PO; +SCOP1PAT2 TOP; +SIMV20TA2 PO; -SIMV20TA22 PO
[2019-03-28] MEDS ORDERED: NS 1,000 ML IV SCH (15:34)
--- NOTE | 2019-03-28 15:52 | ECGEPIP ---
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
[2019-03-28 16:17] LABS: BASO # 0.1 10^3/uL (0.0-0.2); BASO % 0.5 % (0.0-1.0); EOS # 0.2 10^3/uL (0.0-0.5); EOS % 1.6 % (0.0-3.0); HEMOGLOBIN 14.6 g/dl (13.5-17.5); LYMPH # 2.6 10^3/uL (1.5-5.0); LYMPH % 19.4 % (24.0-44.0); MEAN CORPUSCULAR VOLUME 97.1 fl (80.0-96.0); MONO # 1.6 10^3/uL (0.0-0.8); MONO % 11.6 % (0.0-5.0); NEUTROPHILS # 8.8 10^3/uL (1.5-8.5); NEUTROPHILS % 65.9 % (36.0-66.0); PLATELET COUNT, AUTOMATED 260 10^3/uL (150-450); RED BLOOD COUNT 4.43 10^6/uL (4.30-6.10); VENOUS HCO3 26.4 MEQ/L (23.0-27.0); VENOUS O2 SATURATION 85.3 % (60.0-80.0); VENOUS PARTIAL PRESSURE CO2 49.1 mmHg (38.0-50.0); VENOUS PARTIAL PRESSURE O2 51.8 mmHg (30.0-50.0); VENOUS PH 7.348 UNITS (7.330-7.430); VENOUS STANDARD HCO3 24.2 MEQ/L; VENOUS TOTAL CO2 27.9 MEQ/L (24.0-28.0); WHITE BLOOD COUNT 13.4 10^3/uL (4.0-10.0)
--- NOTE | 2019-03-28 16:30 | REP ---
CT of the brain without IV contrast: Comparisons are 03/20/2019 and 03/14/2018. There is no subdural or epidural hematoma. There is no intraparenchymal or subarachnoid hemorrhage. There is no edema, mass effect or midline shift. There is mild diffuse cortical atrophy, unchanged. There are lucencies within the subcortical white matter compatible with chronic microvascular ischemic change, unchanged from the prior studies. There are old bilateral basal ganglia lacunar infarcts, unchanged. Impression: The there is no acute hemorrhage, mass effect or shift. No evidence of acute infarct. Chronic mild diffuse cortical atrophy, chronic microvascular ischemic changes and chronic basal ganglia lacunar infarcts are unchanged. Electronically Signed by Elijah Chowdary MD 03/28/2019 04:21 P
--- NOTE | 2019-03-28 16:36 | REP ---
CT of the cervical spine: Axial images are acquired helical scanning and are reformatted in sagittal and coronal projections. The skull base, C1-C2 are unremarkable except for osteoarthritis. Vertebral body heights and alignment are normal. There is multilevel degenerative disc disease from C4 - T1. The prevertebral soft tissues are unremarkable. The facets are normally aligned. There is facet osteoarthritis. There are no fractures in the posterior elements. Impression: There is no fracture or listhesis. There is multilevel degenerative disc disease. 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 Electronically Signed by Elijah Chowdary MD 03/28/2019 04:27 P
[2019-03-28 16:48] LABS: OSMOLALITY SERUM 298 MOSM/KG (280-301)
[2019-03-28 16:55] LABS: ALBUMIN 2.9 GM/DL (3.2-5.2); ALT/SGPT 21 U/L (12-78); BILIRUBIN,DIRECT 0.1 MG/DL (0.0-0.2); BILIRUBIN,TOTAL 0.2 MG/DL (0.2-1.0); BLOOD UREA NITROGEN 32 MG/DL (7-18); CALCIUM LEVEL 8.4 MG/DL (8.8-10.2); CARBON DIOXIDE LEVEL 27 MEQ/L (21-32); CHLORIDE LEVEL 105 MEQ/L (98-107); CK-MB VALUE MASS < 1.0 NG/ML (<3.6); CPK CREATINE PHOSPHOKINASE 47 U/L (39-308); CREATININE FOR GFR 1.66 MG/DL (0.70-1.30); GLOMERULAR FILTRATION RATE 42.4 (>35); GLUCOSE, FASTING 95 MG/DL (70-100); MB/CK RELATIVE INDEX 2.13 (< OR =4); SODIUM LEVEL 140 MEQ/L (136-145); TOTAL PROTEIN 6.7 GM/DL (6.4-8.2); TROPONIN I < 0.02 NG/ML (< 0.10)
[2019-03-28] MEDS ORDERED: CLIN300C5 PO (17:11)
--- NOTE | 2019-03-28 17:35 | REP ---
Portable chest, single AP view with the patient semi upright, 03:55 p.m.: Comparisons are the AP and lateral chest dated 03/15/2018 and the AP and lateral chest dated 03/21/2019. The lung goldstein are clear. The cardiac size is enlarged, The aortic arch is accentuated, however this is stable and unchanged. On the comparison CT. The aortic arch is tortuous and ectatic. The rico, mediastinum, skeletal structures are unchanged. There are surgical clips in the soft tissues of the neck on the right. Impression: There are no acute cardiopulmonary findings. Chronic tortuosity and ectasia of the aortic arch. Chronic cardiomegaly. Electronically Signed by Elijah Chowdary MD 03/28/2019 05:27 P
[2019-03-28] MEDS ORDERED: MAALOX 30 ML SUSP *UDC PO PRN (19:00)
[2019-03-28] MEDS ORDERED: ACETAMINOPHEN TAB 650MG DOSE (2X325MG) PO PRN (19:00)
[2019-03-28 20:47] VITALS: BP 138/72
[2019-03-28] MEDS: DOCUSATE SODIUM 100 MG CAP PO SCH (21:03)
[2019-03-28] MEDS: HEPARIN SOD (PORCINE) 5000 UNITS/ML VIAL SC SCH (21:03)
--- NOTE | 2019-03-28 22:02 | HPEPDOC ---
[facility] Medical History & Physical Date of Admission Mar 28, 2019 Date of Service: Mar 28, 2019 History and Physical CHIEF COMPLAINT: [altered mental status ] HISTORY OF PRESENT ILLNESS: [This is an 83 yo male with hx of dementia who was sent in from the [place] for altered mental status different from his baseline and fall x2 today. He had no fracture and denied pain. He seems to some hearing impairment and answers some questions inappropriately. Per his daughter he has been looking in the ceiling and other places and making weird comments, most of which she said didn't make sense. She denied any other complaints. She also noted that he has been more shaky over the past 2 weeks. ] PAST MEDICAL HISTORY: 1. [htn]. 2. [hld]. 3. [Lewy body dementia]. PAST SURGICAL HISTORY: 1. [cataract surgery]. 2. [b/l inguinal hernia repair ]. SOCIAL HISTORY: retired, lives at [place], nonsmoker, denied etoh or drug use FAMILY HISTORY: noncontributory ALLERGIES: Please see below. HOME MEDICATIONS: Please see below. LABORATORY DATA: See below. IMAGING: MICROBIOLOGY: Please see below. ROS - all 10 point review of system is negative except for whats listed in HPI Physical exam Gen: NAD, healthy appearing , HEENT: normocephalic, atraumatic, no discharge from ears or nose, no oropharyngeal erythema or exudate, neck is supple, no lymphadenopathy, trachea midline CVS: RRR, normal S1n S2, no murmur, rubs, or gallops, no edema, no jvd Resp: LCTAB, no rhonchi, wheezes or crackles Abd : soft nontender, normal bowel sounds, no rebound tenderness or guarding MSK: no swelling, full range of motion, strength 5/5 Neuro: AOAx1, intermittent confusion, no focal deficit Psych: normal mood and affect, good judgment ASSESSMENT and Plan altered mental status - all w/u wnl so far -continue to monitor for now Blood cx on 03/20 shows staph homids, sensitive to clinda, continue for now., f/u repeat blood cx dvt ppx dnr/dni Vital Signs Vital Signs Date Time Temp Pulse Resp B/P (MAP) Pulse Ox O2 Delivery O2 Flow Rate FiO2 03/28/19 20:07 98.0 57 16 160/70 (100) 90 Room Air Laboratory Data Labs 24H Laboratory Tests 2 03/28/19 15:40: Immature Granulocyte % (Auto) 1.0, White Blood Count 13.4H, Red Blood Count 4.43, Hemoglobin 14.6, Hematocrit 43.0, Mean Corpuscular Volume 97.1H, Mean Corpuscular Hemoglobin 33.0, Mean Corpuscular Hemoglobin Concent 34.0, Red Cell Distribution Width 14.4, Platelet Count 260, Neutrophils (%) (Auto) 65.9, Lymphocytes (%) (Auto) 19.4L, Monocytes (%) (Auto) 11.6H, Eosinophils (%) (Auto) 1.6, Basophils (%) (Auto) 0.5, Neutrophils # (Auto) 8.8H, Lymphocytes # (Auto) 2.6, Monocytes # (Auto) 1.6H, Eosinophils # (Auto) 0.2, Basophils # (Auto) 0.1, Nucleated Red Blood Cells % (auto) 0.0, Blood Gas Bicarbonate Standard 24.2, Venous Blood pH 7.348, Venous Blood Partial Pressure CO2 49.1, Venous Blood Partial Pressure O2 51.8H, Venous Blood Total Carbon Dioxide 27.9, Venous Blood HCO3 26.4, Venous Blood Oxygen Saturation 85.3H, Venous Blood Base Excess 0.0, Anion Gap 8, Glomerular Filtration Rate 42.4, Osmolality 298, Lactic Acid Level 1.4, Calcium Level 8.4L, Aspartate Amino Transf (AST/SGOT) 16, Alanine Aminotransferase (ALT/SGPT) 21, Alkaline Phosphatase 90, Total Bilirubin 0.2, Direct Bilirubin 0.1, Ammonia < 10, Total Creatine Kinase 47, Creatine Kinase MB < 1.0, Creatine Kinase MB Relative Index 2.13, Troponin I < 0.02, Total Protein 6.7, Albumin 2.9L, Albumin/Globulin Ratio 0.76L, Thyroid Stimulating Hormone (TSH) 1.520 03/28/19 16:53: Bedside Glucose (Misc Panel) 98 03/28/19 17:38: Urine Color YELLOW, Urine Appearance CLEAR, Urine pH 6.0, Urine Specific [place] 1.011, Urine Protein NEGATIVE, Urine Glucose (UA) NEGATIVE, Urine Ketones NEGATIVE, Urine Blood NEGATIVE, Urine Nitrite NEGATIVE, Urine Bilirubin NEGATIVE, Urine Urobilinogen 0.2, Urine Leukocyte Esterase NEGATIVE, Urine WBC (Auto) 0, Urine RBC (Auto) 0, Urine Hyaline Casts (Auto) 0, Urine Bacteria (Auto) NEGATIVE, Urine Squamous Epithelial Cells 0, Urine Sperm (Auto) CBC/BMP Laboratory Tests 03/28/19 15:40 Red Blood Count 4.43, Mean Corpuscular Volume 97.1 H, Mean Corpuscular Hemoglobin 33.0, Mean Corpuscular Hemoglobin Concent 34.0, Red Cell Distribution Width 14.4, Neutrophils (%) (Auto) 65.9, Lymphocytes (%) (Auto) 19.4 L, Monocytes (%) (Auto) 11.6 H, Eosinophils (%) (Auto) 1.6, Basophils (%) (Auto) 0.5, Neutrophils # (Auto) 8.8 H, Lymphocytes # (Auto) 2.6, Monocytes # (Auto) 1.6 H, Eosinophils # (Auto) 0.2, Basophils # (Auto) 0.1 Microbiology Microbiology 03/28/19 Blood Culture, Received Pending 03/28/19 Blood Culture, Received Pending Home Medications Scheduled Acetaminophen (Tylenol) 325 Mg Tablet, 650 MG PO DAILY Citalopram Hydrobromide (Celexa) 10 Mg Tablet, 10 MG PO DAILY Clindamycin HCl (Clindamycin HCl) 300 Mg Capsule, 300 MG PO QID STARTED 03/23/19 FOR 6 DAYS Docusate Sodium (Colace) 100 Mg Cap, 100 MG PO BID Lactose-Reduced Food (Ensure Enlive) 237 Ml Liquid, 120 ML PO BID Levothyroxine Sodium (Levoxyl) 88 Mcg Tab, 88 MCG PO QAM Lisinopril (Lisinopril) 20 Mg Tab, 20 MG PO BID Mirtazapine (Mirtazapine) 15 Mg Tab.rapdis, 15 MG PO DAILY Multivitamins (Thera M Plus Tablet) 1 Each Tablet, 1 TAB PO DAILY Polyvinyl Alcohol (Artificial Tears) 15 Ml Drops, 2 DROP OU BID Scopolamine (Transderm-Scop) 1 Each Patch.td.3, 1.5 MG TOP Q72H Scheduled PRN Acetaminophen (Tylenol) 325 Mg Tablet, 650 MG PO Q4H PRN for PAIN / FEVER Albuterol Sulf (Albuterol Sulfate) 2.5 Mg/3 Ml Vial.neb, 2.5 MG INH Q4H PRN for SOB/WHEEZING Bisacodyl (Dulcolax) 10 Mg Sup, 10 MG [place] DAILY PRN for CONSTIPATION Hyoscyamine Sulfate (Levsin) 0.125 Mg Tablet, 0.125 MG PO BID PRN for EXCESSIVE SECRETIONS Milk Of Magnesia (Milk of Magnesia) 2,400 Mg/10 Ml Oral.susp, 10 ML PO DAILY PRN for CONSTIPATION Ondansetron (Ondansetron Odt) 4 Mg Tab.rapdis, 4 MG PO Q8H PRN for NAUSEA OR VOMITING Polyvinyl Alcohol (Artificial Tears) 15 Ml Drops, 2 DROP OU Q4H PRN for DRY EYES Sodium Phosphate,[place]-Dibasic (Enema) 133 Ml Enema, 1 MARNI [place] DAILY PRN for CONSTIPATION Allergies Coded Allergies: No Known Allergies (Verified , 12/09/18) A-FIB/CHADSVASC A-FIB History Current/History of A-Fib/PAF?: No Current PO Anticoag Therapy: No Age/Risk Factor Scoring CHADSVASC: CHADSVASC Response (Comments) Value Age Risk Factor Age >/= 75 years old 2 Gender Risk Factor Male 0 Hx of CHF No 0 Hx of HTN Yes 1 Hx of Stroke/TIA/or VTE No 0 Hx of Diabetes No 0 Hx of Vascular Disease No 0 Total 3 Treatment Treatment ordered: NONE Reason Anticoagulant not given: Not indicated/[id number] DAVE CARROLL MD Mar 28, 2019 22:02
[2019-03-28] MEDS ORDERED: MOM 30ML SUSPENSION UDC PO PRN (22:15)
[2019-03-28] MEDS ORDERED: ONDANSETRON 4 MG ORAL DISINTEGRATING TAB (Q0162 PER 1MG) PO PRN (22:15)
[2019-03-28] MEDS ORDERED: ALBUTEROL SULFATE 2.5 MG/0.5 ML INH NEB SOLN INH PRN (22:15)
[2019-03-28] MEDS ORDERED: HYOSCYAMINE SULFATE 0.125 MG SUBL TABLET PO PRN (22:15)
[2019-03-28] MEDS ORDERED: BISACODYL 10 MG SUPP PR PRN (22:15)
[2019-03-28] MEDS: CLINDAMYCIN 150 MG CAP PO SCH (22:42)
[2019-03-29] MEDS: POLYVINYL ALCOHOL OPHTH SOLN 15 ML(LIQUITEARS) OU SCH ×3 (00:59→21:55)
[2019-03-29] MEDS: NS 1,000 ML IV SCH ×2 (03:05→20:10)
[2019-03-29] MEDS: LEVOTHYROXINE 88MCG TABLET (0.088 MG) PO SCH (05:34)
[2019-03-29 06:00] VITALS: BP 121/60
[2019-03-29 06:26] LABS: HEMATOCRIT 41.3 % (42.0-52.0); HEMOGLOBIN 13.8 g/dl (13.5-17.5); MEAN CORPUSCULAR HEMOGLOBIN 31.6 pg (27.0-33.0); MEAN CORPUSCULAR HGB CONC 33.4 g/dl (32.0-36.5); MEAN CORPUSCULAR VOLUME 94.5 fl (80.0-96.0); PLATELET COUNT, AUTOMATED 260 10^3/uL (150-450); RED BLOOD COUNT 4.37 10^6/uL (4.30-6.10); WHITE BLOOD COUNT 10.8 10^3/uL (4.0-10.0)
[2019-03-29 06:54] LABS: CALCIUM LEVEL 8.2 MG/DL (8.8-10.2); CREATININE FOR GFR 1.32 MG/DL (0.70-1.30); GLOMERULAR FILTRATION RATE 55.3 (>35); MAGNESIUM LEVEL 1.7 MG/DL (1.8-2.4)
[2019-03-29] MEDS: MULTIVITAMINS/MINERALS THERAP 1 TAB PO SCH (08:57)
[2019-03-29] MEDS: CitaloPRAM (CeleXA) 10 MG TABLET PO SCH (08:57)
[2019-03-29] MEDS: HEPARIN SOD (PORCINE) 5000 UNITS/ML VIAL SC SCH ×3 (08:57→21:54)
[2019-03-29] MEDS: CLINDAMYCIN 150 MG CAP PO SCH ×4 (08:57→21:54)
[2019-03-29] MEDS: DOCUSATE SODIUM 100 MG CAP PO SCH ×3 (08:58→21:54)
[2019-03-29 14:00] VITALS: BP 121/67
--- NOTE | 2019-03-29 14:18 | IPNPDOC ---
Date Seen The patient was seen on 03/29/19. Progress Note SUBJECTIVE: Patient reported feeling well without any complaints Alert to only person but answer most questions appropriately. Afebrile overnight. WBC 13->10. OBJECTIVE PHYSICAL EXAMINATION: VITAL SIGNS: Please see below. General: No acute distress, Alert, L. sided facial droop Eyes: Normal sclera, EOMI, BETZY HENT: Atraumatic, neck supple Cardiovascular: Normal rate, normal rhythm. Pulmonary: Clear to auscultation b/l, no wheezing GI: Soft, nontender, nondistended Skin: Warm and dry Neuro: R. sided facial droop. Strength appear grossly equal b/l. AAO x1. LABORATORY DATA, IMAGING STUDIES, MICROBIOLOGY: Please see below. DVT prophylaxis ordered?: HSQ ASSESSMENT AND PLAN: 1. AMS - Dehydration vs. infectious in setting of baseline dementia - Patient currently AAO x1 to person but answer all other questions appropriately. - Hx of dementia. Unsure how far from baseline he is currently. - Mild leukocytosis with blood culture on 03/20 reportedly + staph homids sensitive to clinda. - c/w antibiotics for now. f/u blood cultures to r/o infectious etiology. 2. HTN - resume home meds. 3. HLD DISPOSITION: Back to half-way. VS, I&O, 24H, Fishbone Vital Signs/I&O Vital Signs Date Time Temp Pulse Resp B/P (MAP) Pulse Ox O2 Delivery O2 Flow Rate FiO2 03/29/19 06:00 98.3 60 19 121/60 (80) 92 03/28/19 20:07 Room Air I&O- Last 24 Hours up to 6 AM 03/29/19 06:00 Intake Total 1180 ml Output Total 300 ml Balance 880 ml Laboratory Data 24H LABS Laboratory Tests 2 03/28/19 15:40: Immature Granulocyte % (Auto) 1.0, White Blood Count 13.4H, Red Blood Count 4.43, Hemoglobin 14.6, Hematocrit 43.0, Mean Corpuscular Volume 97.1H, Mean Corpuscular Hemoglobin 33.0, Mean Corpuscular Hemoglobin Concent 34.0, Red Cell Distribution Width 14.4, Platelet Count 260, Neutrophils (%) (Auto) 65.9, Lymphocytes (%) (Auto) 19.4L, Monocytes (%) (Auto) 11.6H, Eosinophils (%) (Auto) 1.6, Basophils (%) (Auto) 0.5, Neutrophils # (Auto) 8.8H, Lymphocytes # (Auto) 2.6, Monocytes # (Auto) 1.6H, Eosinophils # (Auto) 0.2, Basophils # (Auto) 0.1, Nucleated Red Blood Cells % (auto) 0.0, Blood Gas Bicarbonate Standard 24.2, Venous Blood pH 7.348, Venous Blood Partial Pressure CO2 49.1, Venous Blood Partial Pressure O2 51.8H, Venous Blood Total Carbon Dioxide 27.9, Venous Blood HCO3 26.4, Venous Blood Oxygen Saturation 85.3H, Venous Blood Base Excess 0.0, Anion Gap 8, Glomerular Filtration Rate 42.4, Osmolality 298, Lactic Acid Level 1.4, Calcium Level 8.4L, Aspartate Amino Transf (AST/SGOT) 16, Alanine Aminotransferase (ALT/SGPT) 21, Alkaline Phosphatase 90, Total Bilirubin 0.2, Direct Bilirubin 0.1, Ammonia < 10, Total Creatine Kinase 47, Creatine Kinase MB < 1.0, Creatine Kinase MB Relative Index 2.13, Troponin I < 0.02, Total Protein 6.7, Albumin 2.9L, Albumin/Globulin Ratio 0.76L, Thyroid Stimulating Hormone (TSH) 1.520 03/28/19 16:53: Bedside Glucose (Misc Panel) 98 03/28/19 17:38: Urine Color YELLOW, Urine Appearance CLEAR, Urine pH 6.0, Urine Specific [place] 1.011, Urine Protein NEGATIVE, Urine Glucose (UA) NEGATIVE, Urine Ketones NEGATIVE, Urine Blood NEGATIVE, Urine Nitrite NEGATIVE, Urine Bilirubin NEGATIVE, Urine Urobilinogen 0.2, Urine Leukocyte Esterase NEGATIVE, Urine WBC (Auto) 0, Urine RBC (Auto) 0, Urine Hyaline Casts (Auto) 0, Urine Bacteria (Auto) NEGATIVE, Urine Squamous Epithelial Cells 0, Urine Sperm (Auto) 03/29/19 05:49: Nucleated Red Blood Cells % (auto) 0.0, Anion Gap 7L, Glomerular Filtration Rate 55.3, Calcium Level 8.2L, Blood Urea Nitrogen 23H, Creatinine 1.32H, Sodium Level 140, Potassium Level 4.0, Chloride Level 108H, Carbon Dioxide Level 25, Magnesium Level 1.7L CBC/BMP Laboratory Tests 03/28/19 15:40 Red Blood Count 4.43, Mean Corpuscular Volume 97.1 H, Mean Corpuscular Hemoglobin 33.0, Mean Corpuscular Hemoglobin Concent 34.0, Red Cell Distribution Width 14.4, Neutrophils (%) (Auto) 65.9, Lymphocytes (%) (Auto) 19.4 L, Monocytes (%) (Auto) 11.6 H, Eosinophils (%) (Auto) 1.6, Basophils (%) (Auto) 0.5, Neutrophils # (Auto) 8.8 H, Lymphocytes # (Auto) 2.6, Monocytes # (Auto) 1.6 H, Eosinophils # (Auto) 0.2, Basophils # (Auto) 0.1 03/29/19 05:49 Red Blood Count 4.37, Mean Corpuscular Volume 94.5, Mean Corpuscular Hemoglobin 31.6, Mean Corpuscular Hemoglobin Concent 33.4, Red Cell Distribution Width 14.2, Calcium Level 8.2 L Microbiology Microbiology 03/28/19 Blood Culture, Received Pending 03/28/19 Blood Culture, Received Pending HEMANTH PAUL MD Mar 29, 2019 14:18
[2019-03-29 22:00] VITALS: BP 124/59
[2019-03-29] MEDS: CLINDAMYCIN 300 MG in APPROPRIATE DILUENT 1 EA IV SCH (23:49)
[2019-03-30] MEDS ORDERED: CLINDAMYCIN 300 MG in APPROPRIATE DILUENT 1 EA IV SCH (04:00)
[2019-03-30] MEDS: CLINDAMYCIN 300 MG in APPROPRIATE DILUENT 1 EA IV SCH ×4 (05:19→23:04)
[2019-03-30] MEDS: LEVOTHYROXINE 88MCG TABLET (0.088 MG) PO SCH (05:40)
[2019-03-30 06:00] VITALS: BP 122/60
[2019-03-30] MEDS: DOCUSATE SODIUM 100 MG CAP PO SCH ×2 (09:52→20:35)
[2019-03-30] MEDS: CitaloPRAM (CeleXA) 10 MG TABLET PO SCH (09:52)
[2019-03-30] MEDS: MULTIVITAMINS/MINERALS THERAP 1 TAB PO SCH (09:52)
[2019-03-30] MEDS: POLYVINYL ALCOHOL OPHTH SOLN 15 ML(LIQUITEARS) OU SCH ×2 (09:53→20:35)
[2019-03-30] MEDS: HEPARIN SOD (PORCINE) 5000 UNITS/ML VIAL SC SCH ×2 (09:53→20:35)
[2019-03-30] MEDS: D5W/0.9% SODIUM CHLORIDE 1,000 ML IV SCH ×2 (12:26→19:22)
[2019-03-30 14:00] VITALS: BP 140/78
--- NOTE | 2019-03-30 19:43 | IPNPDOC ---
Text Note Date of Service The patient was seen on 03/30/19. NOTE Subjective: No any acute event overnight, in the morning patient developed choking cough during swallowing. Objective: PHYSICAL EXAMINATION: VITAL SIGNS: Please see below. General: No acute distress, patient with advanced dementia Eyes: Normal sclera, EOMI, BETZY HENT: Atraumatic, neck supple Cardiovascular: Normal rate, normal rhythm. Pulmonary: Clear to auscultation b/l, no wheezing GI: Soft, nontender, nondistended Skin: Warm and dry Neuro: moves all 4 limbs, follows command, no nuchal rigidity Patient is 83 years old male with past medical history of advanced dementia who presented hospital with altered mental status 1. AMS Most likely secondary to metabolic encephalopathy versus infection vs natural progression of dementia. - No blood culture growth for past 48 hours, no leukocytosis, patient is afebrile. Blood culture on 03/20/19 was positive for + staph homids sensitive to clindamycin - c/w clindamycin for now 2. HTN - resume home meds. 3. HLD 4. Oropharyngeal dysfunction Patient was evaluated by speech specialist, diet was upgraded Aspiration precaution VS,Fishbone, I+O VS, Fishbone, I+O Vital Signs Date Time Temp Pulse Resp B/P (MAP) Pulse Ox O2 Delivery O2 Flow Rate FiO2 03/30/19 14:00 98.4 57 16 140/78 (98) 95 03/28/19 20:07 Room Air I&O- Last 24 Hours up to 6 AM 03/30/19 06:00 Intake Total 1810 ml Output Total 1100 ml Balance 710 ml OZZIE BARRAGAN DO Mar 30, 2019 19:43
[2019-03-30 22:00] VITALS: BP 122/67
[2019-03-31] MEDS: D5W/0.9% SODIUM CHLORIDE 1,000 ML IV SCH ×2 (03:54→12:13)
[2019-03-31] MEDS: LEVOTHYROXINE 88MCG TABLET (0.088 MG) PO SCH (05:35)
[2019-03-31] MEDS: CLINDAMYCIN 300 MG in APPROPRIATE DILUENT 1 EA IV SCH (05:35)
[2019-03-31 06:00] VITALS: BP 142/86
[2019-03-31 06:42] LABS: BASO # 0.1 10^3/uL (0.0-0.2); BASO % 0.5 % (0.0-1.0); EOS # 0.2 10^3/uL (0.0-0.5); EOS % 1.6 % (0.0-3.0); HEMATOCRIT 39.6 % (42.0-52.0); HEMOGLOBIN 13.3 g/dl (13.5-17.5); LYMPH # 2.5 10^3/uL (1.5-5.0); LYMPH % 20.1 % (24.0-44.0); MEAN CORPUSCULAR HEMOGLOBIN 32.4 pg (27.0-33.0); MEAN CORPUSCULAR HGB CONC 33.6 g/dl (32.0-36.5); MEAN CORPUSCULAR VOLUME 96.6 fl (80.0-96.0); MONO # 1.6 10^3/uL (0.0-0.8); MONO % 13.3 % (0.0-5.0); NEUTROPHILS # 7.8 10^3/uL (1.5-8.5); NEUTROPHILS % 64.1 % (36.0-66.0); PLATELET COUNT, AUTOMATED 236 10^3/uL (150-450); WHITE BLOOD COUNT 12.2 10^3/uL (4.0-10.0)
[2019-03-31 07:05] LABS: BLOOD UREA NITROGEN 13 MG/DL (7-18); CALCIUM LEVEL 7.5 MG/DL (8.8-10.2); CARBON DIOXIDE LEVEL 22 MEQ/L (21-32); CHLORIDE LEVEL 109 MEQ/L (98-107); CREATININE FOR GFR 1.13 MG/DL (0.70-1.30); GLOMERULAR FILTRATION RATE > 60.0 (>35); GLUCOSE, FASTING 102 MG/DL (70-100); POTASSIUM SERUM 3.9 MEQ/L (3.5-5.1); SODIUM LEVEL 139 MEQ/L (136-145)
[2019-03-31] MEDS ORDERED: MAGNESIUM CHLORIDE 64 MG TABCR (SLO MAG) PO SCH (09:00)
[2019-03-31] MEDS: POLYVINYL ALCOHOL OPHTH SOLN 15 ML(LIQUITEARS) OU SCH (09:27)
[2019-03-31] MEDS: DOCUSATE SODIUM 100 MG CAP PO SCH (09:29)
[2019-03-31] MEDS: HEPARIN SOD (PORCINE) 5000 UNITS/ML VIAL SC SCH (09:29)
[2019-03-31] MEDS: CitaloPRAM (CeleXA) 10 MG TABLET PO SCH (09:31)
[2019-03-31] MEDS: MULTIVITAMINS/MINERALS THERAP 1 TAB PO SCH (09:31)
--- NOTE | 2019-03-31 22:00 | DS.PDOC ---
Discharge Summary General Date of Admission Mar 28, 2019 at 15:25 Date of Discharge 03/31/19 Primary Care Physician: Ramon Azul M.D. Attending Physician: OZZIE BARRAGAN DO Discharge Summary PROCEDURES PERFORMED DURING STAY: None ADMITTING DIAGNOSES: altered mental status HTN HLD Oropharyngeal dysfunction DISCHARGE DIAGNOSES: altered mental status HTN HLD Oropharyngeal dysfunction COMPLICATIONS/CHIEF COMPLAINT: AMS. HISTORY OF PRESENT ILLNESS: This is an 83 yo male with hx of dementia who was sent in from the [place] for altered mental status different from his baseline and fall x2 today. He had no fracture and denied pain. He seems to some hearing impairment and answers some questions inappropriately. Per his daughter he has been looking in the ceiling and other places and making weird comments, most of which she said didn't make sense. She denied any other complaints. She also noted that he has been more shaky over the past 2 weeks. HOSPITAL COURSE: During hospital course following issue addressed 1. AMS Most likely secondary to metabolic encephalopathy versus infection vs natural progression of dementia. - No blood culture growth for past 48 hours, no leukocytosis, patient is afebrile. One set of blood culture on 03/20/19 was positive for + staph homids sensitive to clindamycin, most likely contamination. I discontinued clindamycin 2. HTN - resume home meds. 3. HLD 4. Oropharyngeal dysfunction Patient was evaluated by speech specialist, diet was upgraded. Thick liquid diet recommended Aspiration precaution DISCHARGE MEDICATIONS: Please see below. ALLERGIES: Please see below. PHYSICAL EXAMINATION ON DISCHARGE: VITAL SIGNS: Please see below. General: No acute distress, patient with advanced dementia Eyes: Normal sclera, EOMI, BETZY HENT: Atraumatic, neck supple Cardiovascular: Normal rate, normal rhythm. Pulmonary: Clear to auscultation b/l, no wheezing GI: Soft, nontender, nondistended Skin: Warm and dry Neuro: moves all 4 limbs, follows command, no nuchal rigidity LABORATORY DATA: Please see below. IMAGING: CT of the brain without IV contrast: Comparisons are 03/20/2019 and 03/14/2018. There is no subdural or epidural hematoma. There is no intraparenchymal or subarachnoid hemorrhage. There is no edema, mass effect or midline shift. There is mild diffuse cortical atrophy, unchanged. There are lucencies within the subcortical white matter compatible with chronic microvascular ischemic change, unchanged from the prior studies. There are old bilateral basal ganglia lacunar infarcts, unchanged. Impression: The there is no acute hemorrhage, mass effect or shift. No evidence of acute infarct. Chronic mild diffuse cortical atrophy, chronic microvascular ischemic changes and chronic basal ganglia lacunar infarcts are unchanged. Electronically Signed by Elijah Chowdary MD 03/28/2019 04:21 P PROGNOSIS: Guarded ACTIVITY: As tolerated DIET: Thick liquid diet, aspiration precaution DISCHARGE PLAN: [facility] DISPOSITION: [facility]. DISCHARGE INSTRUCTIONS: Aspiration precaution, thick liquid diet ITEMS TO FOLLOWUP ON ON OUTPATIENT: PCP in one week DISCHARGE CONDITION: Stable TIME SPENT ON DISCHARGE: Greater than 20minutes. Vital Signs/I&Os Vital Signs Date Time Temp Pulse Resp B/P (MAP) Pulse Ox O2 Delivery O2 Flow Rate FiO2 03/31/19 06:00 98.1 71 18 142/86 (104) 98 03/28/19 20:07 Room Air I&O- Last 24 Hours up to 6 AM 03/31/19 06:00 Intake Total 2155.0 ml Output Total 700 ml Balance 1455.0 ml Laboratory Data Labs 24H Laboratory Tests 2 03/31/19 06:13: Immature Granulocyte % (Auto) 0.4, White Blood Count 12.2H, Red Blood Count 4.10L, Hemoglobin 13.3L, Hematocrit 39.6L, Mean Corpuscular Volume 96.6H, Mean Corpuscular Hemoglobin 32.4, Mean Corpuscular Hemoglobin Concent 33.6, Red Cell Distribution Width 14.1, Platelet Count 236, Neutrophils (%) (Auto) 64.1, Lymphocytes (%) (Auto) 20.1L, Monocytes (%) (Auto) 13.3H, Eosinophils (%) (Auto) 1.6, Basophils (%) (Auto) 0.5, Neutrophils # (Auto) 7.8, Lymphocytes # (Auto) 2.5, Monocytes # (Auto) 1.6H, Eosinophils # (Auto) 0.2, Basophils # (Auto) 0.1, Nucleated Red Blood Cells % (auto) 0.0, Anion Gap 8, Glomerular Filtration Rate > 60.0, Blood Urea Nitrogen 13, Creatinine 1.13, Sodium Level 139, Potassium Level 3.9, Chloride Level 109H, Carbon Dioxide Level 22, Calcium Level 7.5L CBC/BMP Laboratory Tests 03/31/19 06:13 Red Blood Count 4.10 L, Mean Corpuscular Volume 96.6 H, Mean Corpuscular Hemoglobin 32.4, Mean Corpuscular Hemoglobin Concent 33.6, Red Cell Distribution Width 14.1, Neutrophils (%) (Auto) 64.1, Lymphocytes (%) (Auto) 20.1 L, Monocytes (%) (Auto) 13.3 H, Eosinophils (%) (Auto) 1.6, Basophils (%) (Auto) 0.5, Neutrophils # (Auto) 7.8, Lymphocytes # (Auto) 2.5, Monocytes # (Auto) 1.6 H, Eosinophils # (Auto) 0.2, Basophils # (Auto) 0.1, Calcium Level 7.5 L Microbiology Microbiology 03/28/19 Blood Culture - Preliminary, Resulted No Growth after 72 hours. All specime... 03/28/19 Blood Culture - Preliminary, Resulted No Growth after 72 hours. All specime... Discharge Medications Scheduled Citalopram Hydrobromide (Celexa) 10 Mg Tablet, 10 MG PO DAILY, (Reported) Docusate Sodium (Colace) 100 Mg Cap, 100 MG PO BID, (Reported) Lactose-Reduced Food (Ensure Enlive) 237 Ml Liquid, 120 ML PO BID, (Reported) Levothyroxine Sodium (Levoxyl) 88 Mcg Tab, 88 MCG PO QAM, (Reported) Lisinopril (Lisinopril) 20 Mg Tab, 20 MG PO BID, (Reported) Mirtazapine (Mirtazapine) 15 Mg Tab.rapdis, 15 MG PO DAILY, (Reported) Multivitamins (Thera M Plus Tablet) 1 Each Tablet, 1 TAB PO DAILY, (Reported) Polyvinyl Alcohol (Artificial Tears) 15 Ml Drops, 2 DROP OU BID, (Reported) Scheduled PRN Acetaminophen (Tylenol) 325 Mg Tablet, 650 MG PO Q4H PRN for PAIN / FEVER, (Reported) Albuterol Sulf (Albuterol Sulfate) 2.5 Mg/3 Ml Vial.neb, 2.5 MG INH Q4H PRN for SOB/WHEEZING, (Reported) Bisacodyl (Dulcolax) 10 Mg Sup, 10 MG [place] DAILY PRN for CONSTIPATION, (Reported) Hyoscyamine Sulfate (Levsin) 0.125 Mg Tablet, 0.125 MG PO BID PRN for EXCESSIVE SECRETIONS, (Reported) Milk Of Magnesia (Milk of Magnesia) 2,400 Mg/10 Ml Oral.susp, 10 ML PO DAILY PRN for CONSTIPATION, (Reported) Ondansetron (Ondansetron Odt) 4 Mg Tab.rapdis, 4 MG PO Q8H PRN for NAUSEA OR VOMITING, (Reported) Polyvinyl Alcohol (Artificial Tears) 15 Ml Drops, 2 DROP OU Q4H PRN for DRY EYES, (Reported) Sodium Phosphate,[place]-Dibasic (Enema) 133 Ml Enema, 1 MARNI [place] DAILY PRN for CONSTIPATION, (Reported) Allergies Coded Allergies: No Known Allergies (Verified , 12/09/18) OZZIE BARRAGAN DO Mar 31, 2019 22:00
== END 2019-03-31 13:20 ==
LOC: EDBD 15:24 → M ED 15:24 → M MSPAV 15:25 → M ED INP 18:57 → UNDOADMOB 18:57 → M MSPAV 20:41 → M ED INP 20:41
PROVIDERS: ADMIT Internal Medicine; ATTEND Internal Medicine
DX: R41.82 Altered mental status, unspecified (principal); G93.41 Metabolic encephalopathy; I10 Essential (primary) hypertension; E78.49 Other hyperlipidemia; J39.2 Other diseases of pharynx; F03.90 Unspecified dementia, unspecified severity, without behavioral disturbance, psychotic disturbance, mood disturbance, and anxiety; Z91.81 History of falling; Z79.899 Other long term (current) drug therapy
CPT/HCPCS: 36415; 70450; 71045; 72125; 80048; 80076; 81001; 82140; 82550; 82553; 82803; 83605; 83735; 83930; 84443; 84484; 85025; 85027; 87040; 92526; 92610; 93005; 93041; 97161; 99285; G0378

== ENCOUNTER → 2019-05-14 | Outpatient (REF) | payer MEDICARE, MEDICAID ==
[~2019-05-14] MED LIST changes: +CLIN300C5 PO
[2019-05-14 09:10] LABS: HEMATOCRIT 49.1 % (42.0-52.0); HEMOGLOBIN 15.8 g/dl (13.5-17.5); MEAN CORPUSCULAR HEMOGLOBIN 31.6 pg (27.0-33.0); MEAN CORPUSCULAR HGB CONC 32.2 g/dl (32.0-36.5); MEAN CORPUSCULAR VOLUME 98.2 fl (80.0-96.0); PLATELET COUNT, AUTOMATED 222 10^3/uL (150-450); WHITE BLOOD COUNT 8.1 10^3/uL (4.0-10.0)
[2019-05-14 09:29] LABS: ALBUMIN 3.1 GM/DL (3.2-5.2); BILIRUBIN,TOTAL 0.5 MG/DL (0.2-1.0); CALCIUM LEVEL 8.8 MG/DL (8.8-10.2); CREATININE FOR GFR 1.49 MG/DL (0.70-1.30); GLOMERULAR FILTRATION RATE 48.1 (>35); MAGNESIUM LEVEL 1.9 MG/DL (1.8-2.4); POTASSIUM SERUM 5.1 MEQ/L (3.5-5.1); TOTAL PROTEIN 7.4 GM/DL (6.4-8.2)
== END ==
LOC: SKLAB5 07:35
PROVIDERS: ATTEND Family Medicine
DX: F03.90 Unspecified dementia, unspecified severity, without behavioral disturbance, psychotic disturbance, mood disturbance, and anxiety (principal); I10 Essential (primary) hypertension

== ENCOUNTER → 2019-05-20 | Outpatient (REF) | payer MEDICARE, MEDICAID ==
[2019-05-20 08:13] LABS: CALCIUM LEVEL 8.5 MG/DL (8.8-10.2); CREATININE FOR GFR 1.4 MG/DL (0.70-1.30); GLOMERULAR FILTRATION RATE 51.5 (>35); POTASSIUM SERUM 4.2 MEQ/L (3.5-5.1)
== END ==
LOC: SKLAB5 07:41
PROVIDERS: ATTEND Family Medicine
DX: N18.9 Chronic kidney disease, unspecified (principal)

== ENCOUNTER → 2019-06-09 | Outpatient (REF) | payer MEDICARE, MEDICAID ==
[~2019-06-09] MED LIST changes: -SIMV20TA2 PO; +SIMV20TA22 PO
[2019-06-09 16:54] LABS: CALCIUM LEVEL 8.3 MG/DL (8.8-10.2); CREATININE FOR GFR 1.9 MG/DL (0.70-1.30); GLOMERULAR FILTRATION RATE 36.2 (>35); POTASSIUM SERUM 4.3 MEQ/L (3.5-5.1)
== END ==
LOC: SKLAB5 15:05
PROVIDERS: ATTEND Family Medicine
DX: R09.02 Hypoxemia (principal)

== ENCOUNTER → 2019-06-11 | Outpatient (REF) | payer MEDICARE, MEDICAID ==
[2019-06-11 08:53] LABS: CREATININE FOR GFR 1.52 MG/DL (0.70-1.30)
[2019-06-11 08:54] LABS: CALCIUM LEVEL 8.6 MG/DL (8.8-10.2); GLOMERULAR FILTRATION RATE 46.9 (>35); POTASSIUM SERUM 4.6 MEQ/L (3.5-5.1)
== END ==
LOC: SKLAB5 13:12
PROVIDERS: ATTEND Family Medicine
DX: I10 Essential (primary) hypertension (principal); R79.89 Other specified abnormal findings of blood chemistry

== ENCOUNTER → 2019-06-15 | Outpatient (REF) | payer MEDICARE, MEDICAID ==
--- NOTE | 2019-06-15 09:27 | REP ---
Left shoulder: Three views. History: Joint pain. Findings: The left glenohumeral and acromioclavicular joints are normally aligned. No fractures seen. There is some inferior osteoarthritic spurring at the glenoid. Periarticular soft tissues are unremarkable. Impression: Mild glenohumeral osteoarthritis. No acute bony abnormality. Electronically Signed by Mauricio Judge MD 06/15/2019 09:19 A
[2019-06-15 10:28] LABS: INR 0.99; PROTHROMBIN TIME 12.8 SECONDS (11.8-14.0)
--- NOTE | 2019-06-15 12:27 | REP ---
Left humerus: Three views. History: Joint pain. Findings: The glenohumeral and acromioclavicular joints are normally aligned. Elbow articulations are normally aligned. Mild osteoarthritic spurring is seen at the glenohumeral and elbow articulations. No erosive changes seen. No fractures noted. Impression: Osteoarthritic spurring. No acute bony abnormality. Electronically Signed by Mauricio Judge MD 06/15/2019 12:18 P
== END ==
LOC: SKLAB5 08:12
PROVIDERS: ATTEND Family Medicine
DX: M25.712 Osteophyte, left shoulder (principal); M79.81 Nontraumatic hematoma of soft tissue

== ENCOUNTER → 2019-06-15 | Outpatient (CLI) | payer MEDICARE, MEDICAID | LOC: M RAD 08:39 | PROVIDERS: ATTEND Family Medicine | DX: M25.512 Pain in left shoulder (principal) ==

== ENCOUNTER → 2019-06-18 | Outpatient (REF) | payer MEDICARE, MEDICAID ==
[2019-06-18 08:52] LABS: CALCIUM LEVEL 8.6 MG/DL (8.8-10.2); CREATININE FOR GFR 1.52 MG/DL (0.70-1.30); GLOMERULAR FILTRATION RATE 46.9 (>35); POTASSIUM SERUM 4.1 MEQ/L (3.5-5.1)
== END ==
LOC: SKLAB5 08:27
PROVIDERS: ATTEND Family Medicine
DX: N18.9 Chronic kidney disease, unspecified (principal)

== ENCOUNTER → 2019-06-25 | Outpatient (REF) | payer MEDICARE, MEDICAID ==
[2019-06-25 09:25] LABS: CALCIUM LEVEL 8.3 MG/DL (8.8-10.2); CREATININE FOR GFR 1.57 MG/DL (0.70-1.30); GLOMERULAR FILTRATION RATE 45.1 (>35); POTASSIUM SERUM 4.4 MEQ/L (3.5-5.1)
== END ==
LOC: SKLAB5 08:10
PROVIDERS: ATTEND Family Medicine
DX: N18.9 Chronic kidney disease, unspecified (principal)

== ENCOUNTER → 2019-07-02 | Outpatient (REF) | payer MEDICARE, MEDICAID ==
[2019-07-02 07:43] LABS: CALCIUM LEVEL 8.4 MG/DL (8.8-10.2); CREATININE FOR GFR 1.75 MG/DL (0.70-1.30); GLOMERULAR FILTRATION RATE 39.8 (>35); POTASSIUM SERUM 4.2 MEQ/L (3.5-5.1)
== END ==
LOC: SKLAB5 08:32
PROVIDERS: ATTEND Family Medicine
DX: N18.9 Chronic kidney disease, unspecified (principal)

== ENCOUNTER → 2019-07-09 | Outpatient (REF) | payer MEDICARE, MEDICAID ==
[2019-07-09 10:04] LABS: CALCIUM LEVEL 8.6 MG/DL (8.8-10.2); CREATININE FOR GFR 1.55 MG/DL (0.70-1.30); GLOMERULAR FILTRATION RATE 45.8 (>35); POTASSIUM SERUM 4.2 MEQ/L (3.5-5.1)
== END ==
LOC: SKLAB5 07:35
PROVIDERS: ATTEND Family Medicine
DX: N28.9 Disorder of kidney and ureter, unspecified (principal)

== ENCOUNTER → 2019-07-16 | Outpatient (REF) | payer MEDICARE, MEDICAID ==
[2019-07-16 08:39] LABS: CALCIUM LEVEL 8.4 MG/DL (8.8-10.2); CREATININE FOR GFR 1.47 MG/DL (0.70-1.30); GLOMERULAR FILTRATION RATE 48.7 (>35); POTASSIUM SERUM 4.7 MEQ/L (3.5-5.1)
== END ==
LOC: SKLAB5 08:25
PROVIDERS: ATTEND Family Medicine
DX: N18.9 Chronic kidney disease, unspecified (principal)

== ENCOUNTER → 2019-07-23 | Outpatient (REF) | payer MEDICARE, MEDICAID ==
[2019-07-23 09:30] LABS: CALCIUM LEVEL 8.6 MG/DL (8.8-10.2); CREATININE FOR GFR 1.63 MG/DL (0.70-1.30); GLOMERULAR FILTRATION RATE 43.2 (>35); POTASSIUM SERUM 4.2 MEQ/L (3.5-5.1)
== END ==
LOC: SKLAB5 07:53
PROVIDERS: ATTEND Family Medicine
DX: N18.9 Chronic kidney disease, unspecified (principal)

== ENCOUNTER → 2019-07-30 | Outpatient (REF) | payer MEDICARE, MEDICAID ==
[2019-07-30 10:29] LABS: CALCIUM LEVEL 8.4 MG/DL (8.8-10.2); CREATININE FOR GFR 1.61 MG/DL (0.70-1.30); GLOMERULAR FILTRATION RATE 43.8 (>35); POTASSIUM SERUM 4.6 MEQ/L (3.5-5.1)
--- NOTE | 2019-07-31 10:17 | IPNPDOC ---
Text Note Date of Service The patient was seen on 07/31/19. NOTE HISTORY OF PRESENT ILLNESS: Patient is an 84 year old male with past medical history of cerebral vascular disease, dementia, depression, and recurrent aspiration pneumonia who is a [facility] resident. No event was reported. Pt appears very sleepy during encounter and does not answer questions. He did indicate no when being asked if there's any concern. Patient was previously evaluated by speech therapist with frequent choking and was recommended honey thick liquid. PHYSICAL EXAMINATION: VITAL SIGNS: On 07/31/2019 Temperature 97.6F, oxygen saturation 93% on room air, heart rate 56, RR 18. His BP on 07/31/2019 was 122/80 GENERAL: Patient appears to sleepy but arousable. Does not answer questions HEENT: Head normocephalic. Multiple seborrheic keratoses noted on the forehead. Atraumatic. No scleral icterus noted bilaterally. Nasal mucosa appears to be moist. Bilateral pupils equal and round HEART: Regular rate and rhythm. No murmur. Normal S1 and S2. No murmurs, gallops, or friction rubs noted. LUNGS: Clear to auscultation bilateral. No rales, wheezing, or rhonchi. No accessory muscle use or subcostal retractions noted. ABDOMEN: Soft, nontender. No guarding, distention, or tenderness noted. Bowel sounds auscultated in all four quadrants. EXTREMITIES: Radial pulse equal bilaterally. LABS: WBC 8.1, Hg 15.8, Hct 49.1, Plt 222 on 05/14/19. BUN 33, creatinine 1.52, and GFR 46.9 on 06/11/19 BUN 28, creatinine 1.61, and GFR 43.8 on 07/30/2019 ASSESSMENT AND PLAN: 1. Recurrent aspiration pneumonia. Hospitalization in late March 2019 due to aspiration pneumonia. Patient has been re-evaluated by speech therapy and has been switched from pureed diet with nectar-thick liquids to honey thick liquids. No fever or chills were reported. No cough or dyspnea noted. Patient will continue Levsin, as it was noted that patient continues to have increased amount of secretions. 2. History of altered mental status. Patient was noted to be at baseline mental status. He remains to be alert and oriented times one. Patient is able to follow commands and answer most questions appropriately upon asking. Healthcare proxy form and lack of capacity form are on file 3. Cerebrovascular disease. Patient was noted to have a past medical history of cerebrovascular accident, however, no sequela was reported. Patient is able to move all four extremities, and he denies any loss of sensation. Patient was noted to have oropharyngeal phase dysphagia without any expressive aphasia. The dysphagia is likely a sequela from prior cerebrovascular accident. Pt is be on honey-thick diet with distant supervision as well as OOB for all snacks and meals. 4. Dementia, chronic and stable. No agitations were reported. Will continue to monitor the patient. 5. History of subdural hematoma. No new issues or neurological deficits were noted. 6. Depression. Patient will be continued on mirtazapine and Celexa. Mood appear s and reported to be stable. 7. Oropharyngeal phase dysphagia. Patient's weight had remained about stable compared to prior. Speech therapist had recommended honey thick fluids via spoon sips as needed as well as consume all meals and snacks OOB with distant supervision in the dining room. Continue mirtazapine. 8. CKD stage 3B. Pt's creatinine continues to be increased with low GFR. BMP 05/20/19 shows creatinine at 1.40 and GFR at 51.5. On 07/30/2019 his labs showed BUN 28, creatinine 1.61, and GFR 43.8 on 07/30/2019. Pt did have frequent MAULIK prior likely due to decreased oral intake from dysphagia. Encourage safe oral intake with honey thick liquids. Will continue to monitor pt's kidney function 9. Hypothyroidism. Patient will be continued on levothyroxine 88 mcg daily. TSH from 03/28/2019 remained to be within normal range. Will recheck in about 5 months. 10. Hypertension. Blood pressure remains roughly stable at 122/80. Continue lisinopril. 11. History of hyperlipidemia. Patient's lipid panel from 02/05/2019 remains roughly unremarkable, including triglycerides, total cholesterol, cholesterol, LDL, and HDL. Will follow up with a lipid panel in 10 months. 12. Hypoxemia. Likely 2/2 IVONNE. Pt has pulse ox of 86-87% on 06/09/19 compared to 90-91% last month. It was noted patient appears toe very sleepy and snores loudly. He did have a smoking hx of 1pkX 50 yrs which he quit 3 yrs ago;no weight loss was noted and pt is not in the age for lung cancer screening CT. Nocturnal pulse ox ordered. Report showed abnormal nocturnal oximetry performed on an unknown oxygen quantity with mean saturation 93.2%. The lowest reliably recorded oxygen saturation 84%. Result suggested Yemi-Stoke respiration. Consider refer to pulm for CPAP use. Patient has a Medical Orders for Life-Sustaining Treatment (MOLST) form on file noting DO NOT RESUSCITATE/DO NOT INTUBATE (DNR/DNI). Healthcare proxy form on file with healthcare proxy noted to be Sylvia Candelaria. Lack capacity form is also on file. Patient was examined by me on 07/31/2019, and was again evaluated by my attending Dr. Azul and me on . The above assessments and plans were discussed with Dr. Azul. STEPHEN HOYOS DO Jul 31, 2019 10:17
== END ==
LOC: SKLAB5 07:57
PROVIDERS: ATTEND Family Medicine
DX: N18.9 Chronic kidney disease, unspecified (principal)

== ENCOUNTER → 2019-08-06 | Outpatient (REF) | payer MEDICARE, MEDICAID ==
[2019-08-06 09:35] LABS: CALCIUM LEVEL 7.9 MG/DL (8.8-10.2); CREATININE FOR GFR 1.68 MG/DL (0.70-1.30); GLOMERULAR FILTRATION RATE 41.7 (>35); POTASSIUM SERUM 4.4 MEQ/L (3.5-5.1)
== END ==
LOC: SKLAB5 08:00
PROVIDERS: ATTEND Family Medicine
DX: N18.9 Chronic kidney disease, unspecified (principal)

== ENCOUNTER → 2019-08-13 | Outpatient (REF) | payer MEDICARE, MEDICAID ==
[2019-08-13 08:24] LABS: HEMATOCRIT 49.6 % (42.0-52.0); MEAN CORPUSCULAR HEMOGLOBIN 31.3 pg (27.0-33.0); MEAN CORPUSCULAR HGB CONC 32.3 g/dl (32.0-36.5); MEAN CORPUSCULAR VOLUME 97.1 fl (80.0-96.0); PLATELET COUNT, AUTOMATED 237 10^3/uL (150-450); RED BLOOD COUNT 5.11 10^6/uL (4.30-6.10); WHITE BLOOD COUNT 8.3 10^3/uL (4.0-10.0)
[2019-08-13 08:51] LABS: ALBUMIN 3.1 GM/DL (3.2-5.2); BILIRUBIN,TOTAL 0.4 MG/DL (0.2-1.0); CALCIUM LEVEL 8.6 MG/DL (8.8-10.2); CHOLESTEROL RISK RATIO 6.075 (<5); CREATININE FOR GFR 1.7 MG/DL (0.70-1.30); GLOMERULAR FILTRATION RATE 41.2 (>35); POTASSIUM SERUM 4.6 MEQ/L (3.5-5.1); TOTAL PROTEIN 7.1 GM/DL (6.4-8.2)
== END ==
LOC: SKLAB5 09:01
PROVIDERS: ATTEND Family Medicine
DX: F03.90 Unspecified dementia, unspecified severity, without behavioral disturbance, psychotic disturbance, mood disturbance, and anxiety (principal); I10 Essential (primary) hypertension; E78.5 Hyperlipidemia, unspecified

== ENCOUNTER → 2019-08-20 | Outpatient (REF) | payer MEDICARE, MEDICAID ==
[~2019-08-20] MED LIST changes: -ARTIDRO2 OU; +POLYOPD OU
[2019-08-20 07:53] LABS: CALCIUM LEVEL 8.4 MG/DL (8.8-10.2); CREATININE FOR GFR 1.61 MG/DL (0.70-1.30); GLOMERULAR FILTRATION RATE 43.8 (>35); POTASSIUM SERUM 4.4 MEQ/L (3.5-5.1)
== END ==
LOC: SKLAB5 07:11
PROVIDERS: ATTEND Family Medicine
DX: N18.9 Chronic kidney disease, unspecified (principal)

== ENCOUNTER → 2019-08-27 | Outpatient (REF) | payer MEDICARE, MEDICAID ==
[2019-08-27 09:20] LABS: CALCIUM LEVEL 8.6 MG/DL (8.8-10.2); CREATININE FOR GFR 1.65 MG/DL (0.70-1.30); GLOMERULAR FILTRATION RATE 42.6 (>35); POTASSIUM SERUM 4.3 MEQ/L (3.5-5.1)
== END ==
LOC: SKLAB5 07:53
PROVIDERS: ATTEND Family Medicine
DX: N18.9 Chronic kidney disease, unspecified (principal)

== ENCOUNTER → 2019-09-03 | Outpatient (REF) | payer MEDICARE, MEDICAID ==
[2019-09-03 13:57] LABS: CALCIUM LEVEL 8.8 MG/DL (8.8-10.2); CREATININE FOR GFR 1.62 MG/DL (0.70-1.30); GLOMERULAR FILTRATION RATE 43.5 (>35); POTASSIUM SERUM 4.3 MEQ/L (3.5-5.1)
== END ==
LOC: SKLAB5 08:04
PROVIDERS: ATTEND Family Medicine
DX: N18.9 Chronic kidney disease, unspecified (principal)

== ENCOUNTER → 2019-09-10 | Outpatient (REF) | payer MEDICARE, MEDICAID ==
[2019-09-10 09:29] LABS: CALCIUM LEVEL 8.8 MG/DL (8.8-10.2); CREATININE FOR GFR 1.53 MG/DL (0.70-1.30); GLOMERULAR FILTRATION RATE 46.5 (>35); POTASSIUM SERUM 4.3 MEQ/L (3.5-5.1)
== END ==
LOC: SKLAB5 07:39
PROVIDERS: ATTEND Family Medicine
DX: N18.9 Chronic kidney disease, unspecified (principal)

== ENCOUNTER → 2019-09-14 | Outpatient (REF) | payer MEDICARE, MEDICAID ==
--- NOTE | 2019-09-14 11:48 | REP ---
PA and lateral chest: Comparison is 03/21/2019. Lung goldstein are clear. Cardiac size is normal. The rico, mediastinum, skeletal structures are unremarkable. The left lower lobe infiltrate identified on the comparison study has resolved. Impression: No acute cardiopulmonary findings. Electronically Signed by Elijah Chowdary MD 09/14/2019 11:40 A
== END ==
LOC: SKLAB5 08:07
PROVIDERS: ATTEND Family Medicine
DX: R06.02 Shortness of breath (principal); I10 Essential (primary) hypertension

== ENCOUNTER → 2019-09-14 | Outpatient (REF) | payer MEDICARE, MEDICAID ==
[2019-09-14 08:04] LABS: HEMATOCRIT 52.1 % (42.0-52.0); HEMOGLOBIN 17.2 g/dl (13.5-17.5); MEAN CORPUSCULAR HEMOGLOBIN 31.3 pg (27.0-33.0); MEAN CORPUSCULAR VOLUME 94.7 fl (80.0-96.0); PLATELET COUNT, AUTOMATED 235 10^3/uL (150-450); WHITE BLOOD COUNT 8.7 10^3/uL (4.0-10.0)
== END ==
LOC: SKLAB5 01:20
PROVIDERS: ATTEND Family Medicine
DX: I10 Essential (primary) hypertension (principal)

== ENCOUNTER → 2019-09-17 | Outpatient (REF) | payer MEDICARE, MEDICAID ==
[2019-09-17 09:53] LABS: CALCIUM LEVEL 8.7 MG/DL (8.8-10.2); CREATININE FOR GFR 1.61 MG/DL (0.70-1.30); GLOMERULAR FILTRATION RATE 43.8 (>35); POTASSIUM SERUM 4.4 MEQ/L (3.5-5.1)
== END ==
LOC: SKLAB5 11:24
PROVIDERS: ATTEND Family Medicine
DX: N18.9 Chronic kidney disease, unspecified (principal)

== ENCOUNTER → 2019-09-24 | Outpatient (REF) | payer MEDICARE, MEDICAID ==
[2019-09-24 09:16] LABS: CALCIUM LEVEL 8.9 MG/DL (8.8-10.2); CREATININE FOR GFR 1.6 MG/DL (0.70-1.30); GLOMERULAR FILTRATION RATE 44.2 (>35); POTASSIUM SERUM 4.8 MEQ/L (3.5-5.1)
--- NOTE | 2019-09-24 16:39 | IPNPDOC ---
Text Note Date of Service The patient was seen on 09/24/19. NOTE HISTORY OF PRESENT ILLNESS: Patient is an 84 year old male with past medical history of cerebral vascular disease, dementia, depression, and recurrent aspiration pneumonia who is a [facility] resident. No event was reported by nursing staff or patient. Pt continues to appear to be very sleepy during encounter as last visit and does not answer majority of questions. Patient was previously evaluated by speech therapist with frequent choking and was recommended honey thick liquid. PHYSICAL EXAMINATION: VITAL SIGNS: 09/15/2019 RR 18, 09/16/2019 pulse 64, 09/17/2019 temp 97.2F, 09/20/2019 122/86, pulse ox 94% GENERAL: Patient appears to sleepy but arousable. Does not answer questions HEENT: Head normocephalic. Multiple seborrheic keratoses noted on the forehead. Atraumatic. No scleral icterus noted bilaterally. Nasal mucosa appears to be moist. Bilateral pupils not to be able to be observed as pt is sleepy HEART: Regular rate and rhythm. No murmur. Normal S1 and S2. No murmurs, gallops, or friction rubs noted. LUNGS: Clear to auscultation bilateral. No rales, wheezing, or rhonchi. No accessory muscle use or subcostal retractions noted. ABDOMEN: Soft. No guarding or distention noted. Bowel sounds auscultated in all four quadrants. EXTREMITIES: Radial pulse equal bilaterally. LABS: BUN 25, creatinine 1.6,and GFR 44.2 on 09/24/2019 WBC 8.1, Hg 15.8, Hct 49.1, Plt 222 on 05/14/19. BUN 33, creatinine 1.52, and GFR 46.9 on 06/11/19 BUN 28, creatinine 1.61, and GFR 43.8 on 07/30/2019 ASSESSMENT AND PLAN: 1. Recurrent aspiration pneumonia. Hospitalization in late March 2019 due to aspiration pneumonia. Patient has been re-evaluated by speech therapy and has been switched from pureed diet with nectar-thick liquids to honey thick li quids. No fever or chills were reported. No cough or dyspnea noted. Patient will continue Levsin, as it was noted that patient continues to have increased amount of secretions. Discussed with attending and pt will continue to be monitored. 2. History of altered mental status. Patient was noted to be at baseline mental status. He remains to be alert and oriented times one. Patient is able to follow commands and answer most questions appropriately upon asking. Healthcare proxy form and lack of capacity form are on file 3. Cerebrovascular disease. Patient was noted to have a past medical history of cerebrovascular accident, however, no sequela was reported. Patient is able to move all four extremities, and he denies any loss of sensation. Patient was noted to have oropharyngeal phase dysphagia without any expressive aphasia. The dysphagia is likely a sequela from prior cerebrovascular accident. Pt is be on honey-thick diet with distant supervision as well as OOB for all snacks and me als. 4. Dementia, chronic and stable. No agitations were reported. Will continue to monitor the patient. 5. History of subdural hematoma. No new issues or neurological deficits were noted. 6. Depression. Patient will be continued on mirtazapine and Celexa. Mood appears and reported to be stable. 7. Oropharyngeal phase dysphagia. Patient's weight had remained about stable compared to prior. Speech therapist had recommended honey thick fluids via spoon sips as needed as well as consume all meals and snacks OOB with distant supervision in the dining room. Continue Mirtazapine for appetite. Continue to monitor per attending. 8. CKD stage 3B. Pt's creatinine continues to be increased with low GFR. Most recent GFR September 24 2019 was 44.2. Pt did have frequent MAULIK prior likely due to decreased oral intake from dysphagia. Encourage safe oral intake with honey thick liquids. Recommend additional honey thick liquids with meals.Will continue to monitor pt's kidney function per attending. 9. Hypothyroidism. Patient will be continued on levothyroxine 88 mcg daily. TSH from 03/28/2019 remained to be within normal range. Will recheck in about 2 months. 10. Hypertension. Blood pressure remains roughly stable at 122/86. Continue lisinopril and continue to monitor BP. 11. History of hyperlipidemia. Patient's lipid panel from 02/05/2019 remains roughly unremarkable, including triglycerides, total cholesterol, cholesterol, LDL, and HDL. Will follow up with a lipid panel in 8 months. 12. Hypoxemia. Likely 2/2 IVONNE. Pt has pulse ox of 86-87% on 06/09/19 compared to 90-91% last month. It was noted patient appears toe very sleepy and snores loudly. He did have a smoking hx of 1pkX 50 yrs which he quit 3 yrs ago;no weight loss was noted and pt is not in the age for lung cancer screening CT. Nocturnal pulse ox ordered. Report showed abnormal nocturnal oximetry performed on an unknown oxygen quantity with mean saturation 93.2%. The lowest reliably recorded oxygen saturation 84%. Result suggested Yemi-Stoke respiration. Will continue to monitor per attending. Patient has a Medical Orders for Life-Sustaining Treatment (MOLST) form on file noting DO NOT RESUSCITATE/DO NOT INTUBATE (DNR/DNI). Healthcare proxy form on file with healthcare proxy noted to be Sylvia Gaona. Lack capacity form is also on file. Patient was examined by me on 09/26/2019, and was again evaluated by my attending Dr. Azul and me on . The above assessments and plans were discussed with precepting attending Dr. Azul. VS,Gunnarbonmiroslava, I+O VS, Fishbone, I+O Laboratory Tests 09/24/19 07:46 STEPHEN HOYOS DO Sep 24, 2019 16:39
== END ==
LOC: SKLAB5 07:46
PROVIDERS: ATTEND Family Medicine
DX: N18.9 Chronic kidney disease, unspecified (principal)

== ENCOUNTER → 2019-10-01 | Outpatient (REF) | payer MEDICARE, MEDICAID ==
[2019-10-01 08:35] LABS: CALCIUM LEVEL 8.6 MG/DL (8.8-10.2); CREATININE FOR GFR 1.52 MG/DL (0.70-1.30); GLOMERULAR FILTRATION RATE 46.9 (>35); POTASSIUM SERUM 4.3 MEQ/L (3.5-5.1)
== END ==
LOC: SKLAB5 08:02
PROVIDERS: ATTEND Family Medicine
DX: N18.9 Chronic kidney disease, unspecified (principal)

== ENCOUNTER → 2019-10-08 | Outpatient (REF) | payer MEDICARE, MEDICAID ==
[2019-10-08 08:41] LABS: CALCIUM LEVEL 8.6 MG/DL (8.8-10.2); CREATININE FOR GFR 1.54 MG/DL (0.70-1.30); GLOMERULAR FILTRATION RATE 46.2 (>35); POTASSIUM SERUM 4.7 MEQ/L (3.5-5.1)
== END ==
LOC: SKLAB5 08:09
PROVIDERS: ATTEND Family Medicine
DX: N18.9 Chronic kidney disease, unspecified (principal)

== ENCOUNTER → 2019-10-15 | Outpatient (REF) | payer MEDICARE, MEDICAID ==
[2019-10-15 09:41] LABS: CALCIUM LEVEL 8.6 MG/DL (8.8-10.2); CREATININE FOR GFR 1.65 MG/DL (0.70-1.30); GLOMERULAR FILTRATION RATE 42.6 (>35); POTASSIUM SERUM 4.6 MEQ/L (3.5-5.1)
== END ==
LOC: SKLAB5 07:59
PROVIDERS: ATTEND Family Medicine
DX: I10 Essential (primary) hypertension (principal)

== ENCOUNTER → 2019-10-22 | Outpatient (REF) | payer MEDICARE, MEDICAID ==
[2019-10-22 10:30] LABS: CALCIUM LEVEL 8.6 MG/DL (8.8-10.2); CREATININE FOR GFR 1.56 MG/DL (0.70-1.30); GLOMERULAR FILTRATION RATE 45.5 (>35); POTASSIUM SERUM 4.5 MEQ/L (3.5-5.1)
== END ==
LOC: SKLAB5 07:42
PROVIDERS: ATTEND Family Medicine
DX: I10 Essential (primary) hypertension (principal)

== ENCOUNTER → 2019-10-29 | Outpatient (REF) | payer MEDICARE, MEDICAID ==
[2019-10-29 09:23] LABS: CALCIUM LEVEL 8.3 MG/DL (8.8-10.2); CREATININE FOR GFR 1.61 MG/DL (0.70-1.30); GLOMERULAR FILTRATION RATE 43.8 (>35); POTASSIUM SERUM 4.3 MEQ/L (3.5-5.1)
== END ==
LOC: SKLAB5 07:42
PROVIDERS: ATTEND Family Medicine
DX: N18.9 Chronic kidney disease, unspecified (principal)

== ENCOUNTER → 2019-11-05 | Outpatient (REF) | payer MEDICARE, MEDICAID ==
[2019-11-05 09:20] LABS: CALCIUM LEVEL 8.3 MG/DL (8.8-10.2); CREATININE FOR GFR 1.56 MG/DL (0.70-1.30); GLOMERULAR FILTRATION RATE 45.5 (>35); POTASSIUM SERUM 3.9 MEQ/L (3.5-5.1)
== END ==
LOC: SKLAB5 07:30
PROVIDERS: ATTEND Family Medicine
DX: N18.9 Chronic kidney disease, unspecified (principal)

== ENCOUNTER → 2019-11-12 | Outpatient (REF) | payer MEDICARE, MEDICAID ==
[2019-11-12 08:27] LABS: HEMOGLOBIN 15.5 g/dl (13.5-17.5); MEAN CORPUSCULAR HEMOGLOBIN 31.5 pg (27.0-33.0); MEAN CORPUSCULAR VOLUME 95.5 fl (80.0-96.0); PLATELET COUNT, AUTOMATED 198 10^3/uL (150-450); RED BLOOD COUNT 4.92 10^6/uL (4.30-6.10); WHITE BLOOD COUNT 7.1 10^3/uL (4.0-10.0)
[2019-11-12 08:53] LABS: ALBUMIN 2.6 GM/DL (3.2-5.2); BILIRUBIN,TOTAL 0.5 MG/DL (0.2-1.0); CALCIUM LEVEL 8.4 MG/DL (8.8-10.2); CREATININE FOR GFR 1.51 MG/DL (0.70-1.30); GLOMERULAR FILTRATION RATE 47.2 (>35); MAGNESIUM LEVEL 1.8 MG/DL (1.8-2.4); POTASSIUM SERUM 4.6 MEQ/L (3.5-5.1); TOTAL PROTEIN 6.5 GM/DL (6.4-8.2)
== END ==
LOC: SKLAB5 07:33
PROVIDERS: ATTEND Family Medicine
DX: N18.9 Chronic kidney disease, unspecified (principal)

== ENCOUNTER → 2019-11-18 | Outpatient (REF) | LOC: SKLAB5 14:39 | PROVIDERS: ATTEND Internal Medicine | DX: Z03.818 Encounter for observation for suspected exposure to other biological agents ruled out (principal) ==

== ENCOUNTER → 2019-11-19 | Outpatient (REF) | payer MEDICARE, MEDICAID ==
[2019-11-19 08:31] LABS: CALCIUM LEVEL 8.2 MG/DL (8.8-10.2); CREATININE FOR GFR 1.65 MG/DL (0.70-1.30); GLOMERULAR FILTRATION RATE 42.6 (>35); POTASSIUM SERUM 4.6 MEQ/L (3.5-5.1)
== END ==
LOC: SKLAB5 07:48
PROVIDERS: ATTEND Family Medicine
DX: N18.9 Chronic kidney disease, unspecified (principal)

== ENCOUNTER → 2019-11-26 | Outpatient (REF) | payer MEDICARE, MEDICAID ==
[2019-11-26 08:49] LABS: CALCIUM LEVEL 8.6 MG/DL (8.8-10.2); CREATININE FOR GFR 1.62 MG/DL (0.70-1.30); GLOMERULAR FILTRATION RATE 43.5 (>35); POTASSIUM SERUM 4.7 MEQ/L (3.5-5.1)
--- NOTE | 2019-11-30 11:48 | SKHPN ---
[facility] Progress Note Progress Note SUBJECTIVE: OBJECTIVE: PHYSICAL EXAMINATION: VITAL SIGNS: BP 120/70 on 11/28, pulse ox 94% on 11/25, HR 72 on 11/28, Temp 97.6 on 11/28, RR 18 on 11/25 GENERAL: HEENT: CARDIOVASCULAR: LUNGS: ABDOMINAL: EXTREMITIES: NEUROLOGICAL: PSYCHOLOGICAL: LABORATORY DATA: Please see below. IMAGING: DVT prophylaxis: ASSESSMENT: PLAN: . Allergies Coded Allergies: No Known Allergies (Verified , 12/09/18) STEPHEN HOYOS DO November 30, 2019 11:48
== END ==
LOC: SKLAB5 08:03
PROVIDERS: ATTEND Family Medicine
DX: N18.9 Chronic kidney disease, unspecified (principal)

== ENCOUNTER → 2019-12-03 | Outpatient (REF) | payer MEDICARE, MEDICAID ==
[2019-12-03 10:08] LABS: CREATININE FOR GFR 1.61 MG/DL (0.70-1.30); GLOMERULAR FILTRATION RATE 43.8 (>35)
== END ==
LOC: SKLAB5 06:57
PROVIDERS: ATTEND Family Medicine
DX: N18.9 Chronic kidney disease, unspecified (principal)

== ENCOUNTER → 2019-12-10 | Outpatient (REF) | payer MEDICARE, MEDICAID ==
[2019-12-10 09:40] LABS: CALCIUM LEVEL 8.6 MG/DL (8.8-10.2); CREATININE FOR GFR 1.68 MG/DL (0.70-1.30); GLOMERULAR FILTRATION RATE 41.7 (>35); POTASSIUM SERUM 4.1 MEQ/L (3.5-5.1)
== END ==
LOC: SKLAB5 08:06
PROVIDERS: ATTEND Family Medicine
DX: N18.9 Chronic kidney disease, unspecified (principal)

== ENCOUNTER → 2019-12-17 | Outpatient (REF) | payer MEDICARE, MEDICAID ==
[2019-12-17 08:25] LABS: CALCIUM LEVEL 8.5 MG/DL (8.8-10.2); CREATININE FOR GFR 1.68 MG/DL (0.70-1.30); GLOMERULAR FILTRATION RATE 41.7 (>35); POTASSIUM SERUM 4.5 MEQ/L (3.5-5.1)
== END ==
LOC: SKLAB5 07:34
PROVIDERS: ATTEND Family Medicine
DX: N18.9 Chronic kidney disease, unspecified (principal)

== ENCOUNTER → 2019-12-24 | Outpatient (REF) | payer MEDICARE, MEDICAID ==
[2019-12-24 10:10] LABS: CALCIUM LEVEL 8.5 MG/DL (8.8-10.2); CREATININE FOR GFR 1.6 MG/DL (0.70-1.30); GLOMERULAR FILTRATION RATE 44.2 (>35)
== END ==
LOC: SKLAB5 07:44
PROVIDERS: ATTEND Family Medicine
DX: N18.9 Chronic kidney disease, unspecified (principal)

== ENCOUNTER → 2019-12-31 | Outpatient (REF) | payer MEDICARE, MEDICAID ==
[~2019-12-31] MED LIST changes: -AMLO10TA5 PO; +AMLO1TAB25 PO; -CLIN300C5 PO; +CLIN300C6 PO; -LISI-538 PO; +LISI10TA22 PO; -LISI10TA4 PO; +LISI20TA33 PO; -MAG400TA PO; +MAGN400T35 PO; -QUET1TAB7 PO; +QUET25TA3 PO; +QUET50TA3 PO; -QUET5TAB PO
[2019-12-31 09:08] LABS: CALCIUM LEVEL 8.7 MG/DL (8.8-10.2); CREATININE FOR GFR 1.78 MG/DL (0.70-1.30); GLOMERULAR FILTRATION RATE 39.1 (>35); POTASSIUM SERUM 3.8 MEQ/L (3.5-5.1)
== END ==
LOC: SKLAB5 06:44
PROVIDERS: ATTEND Family Medicine
DX: N18.9 Chronic kidney disease, unspecified (principal)

== ENCOUNTER → 2020-01-07 | Outpatient (REF) | payer MEDICARE, MEDICAID ==
[~2020-01-07] MED LIST changes: +AMLO10TA5 PO; -AMLO1TAB25 PO; +CLIN300C5 PO; -CLIN300C6 PO; +LISI-538 PO; -LISI10TA22 PO; +LISI10TA4 PO; -LISI20TA33 PO; +MAG400TA PO; -MAGN400T35 PO; +QUET1TAB7 PO; -QUET25TA3 PO; -QUET50TA3 PO; +QUET5TAB PO
[2020-01-07 08:36] LABS: CALCIUM LEVEL 8.6 MG/DL (8.8-10.2); CREATININE FOR GFR 1.58 MG/DL (0.70-1.30); GLOMERULAR FILTRATION RATE 44.8 (>35); POTASSIUM SERUM 4.5 MEQ/L (3.5-5.1)
== END ==
LOC: SKLAB5 08:07
PROVIDERS: ATTEND Family Medicine
DX: N18.9 Chronic kidney disease, unspecified (principal)

== ENCOUNTER → 2020-01-14 | Outpatient (REF) | payer MEDICARE, MEDICAID ==
[2020-01-14 10:02] LABS: CALCIUM LEVEL 8.3 MG/DL (8.8-10.2); CREATININE FOR GFR 1.52 MG/DL (0.70-1.30); GLOMERULAR FILTRATION RATE 46.9 (>35); POTASSIUM SERUM 3.9 MEQ/L (3.5-5.1)
== END ==
LOC: SKLAB5 07:13
PROVIDERS: ATTEND Family Medicine
DX: N18.9 Chronic kidney disease, unspecified (principal)

== ENCOUNTER → 2020-01-21 | Outpatient (REF) | payer MEDICARE, MEDICAID ==
--- NOTE | 2020-01-20 21:41 | IPNPDOC ---
Text Note Date of Service The patient was seen on 01/20/20, and again see with precepting attending Dr. Young on 01/21/2020 NOTE The patient was seen on 01/20/20. He was again evaluated together by my attending Dr. Young and me on 01/21/2020. HISTORY OF PRESENT ILLNESS: Patient is an 84 year old male with past medical history of cerebral vascular disease, dementia, depression, and recurrent aspiration pneumonia who is a [facility] resident. No event was reported by nursing staff or patient. It is noted that patient continues to be sleepy at day time and awake at night time. It was noted that when patient is awake at night, he is able to eat without problem. Pt is noted to continue requesting coffee at times as usual when he is awake. No family at bed side. Pt continues to appear to be very sleepy during encounter as prior visits and does not answer majority of questions. PHYSICAL EXAMINATION: Vitals: 01/20/2020 Temp 96.5F, BP 128/70, Pulse ox 92% 01/13/2020 Weight 171.3lb 01/01/2020 RR16, HR 86 GENERAL: Patient appears to sleepy but arousable. Does not answer questions on 01/20/2020, and on 01/21/2020 patient is sitting on table eating breakfast, and answers questions with short answers HEENT: Head normocephalic. Multiple seborrheic keratoses noted on the forehead. Atraumatic. No scleral icterus noted bilaterally. Nasal mucosa appears to be moist. Bilateral pupils not to be able to be observed as pt is sleepy HEART: Regular rate and rhythm. No murmur. Normal S1 and S2. No murmurs, gallops, or friction rubs noted. LUNGS: Mildly decreased lung sounds bilaterally. No rales, wheezing, or rhonchi. No accessory muscle use or subcostal retractions noted. ABDOMEN: Soft. No guarding or distention noted. Bowel sounds auscultated in all four quadrants. EXTREMITIES: No obvious edema in b/l lower extremity. LABS: BUN 23, creatinine 1.62,and GFR 43.5 on 11/28/2019 BUN 25, creatinine 1.52,and GFR 46.9 on 01/14/2020 ASSESSMENT AND PLAN: #. History of altered mental status. Patient was noted to be at baseline mental status. Pt continues to be sleepy and not answering questions upon visit in day time, but he is noted to be awake and talking during night time. No agitation reported. Healthcare proxy form and lack of capacity form are on file #. Cerebrovascular disease. Patient was noted to have a past medical history of cerebrovascular accident, however, no sequela was reported. Patient is able to move all four extremities, and he denies any loss of sensation. Patient was noted to have oropharyngeal phase dysphagia without any expressive aphasia. The dysphagia is likely a sequela from prior cerebrovascular accident. Pt is be on honey-thick diet with distant supervision as well as OOB for all snacks and meals. Patient is noted to consume majority the meals per record. 4. Dementia, chronic and stable. No agitations were reported. Will continue to monitor the patient. Patient is noted to be walking independently per records; per nursing report patient is unstable on his feet with unsteady gait and requires a walker to ambulate without personal assist. Patient needs assist with dressing per record. 5. History of subdural hematoma. No new issues or neurological deficits were noted. 6. Depression. Discontinue Mirtazapine. Cont Celexa 10mg QD. Mood appears and reported to be stable. 7. Oropharyngeal phase dysphagia. Patient's weight had remained about stable compared to prior. Speech therapist had recommended honey thick fluids via spoon sips as needed as well as consume all meals and snacks OOB with distant supervision in the dining room. D/C hyoscysamine. 8. CKD stage 3B, stable. Pt's creatinine and GFR roughly stable compared to prior. Most recent GFR January 14, 2020 was 46.9 at baseline. . Pt did have frequent MAULIK prior likely due to decreased oral intake from dysphagia. Encourage safe oral intake with honey thick liquids; cont supplementation with Ensure Enlive 100ml PO BID as patient is on modified diet honey thick liquids. Recommend additional honey thick liquids with meals.Will continue to monitor pt's kidney functio by follow up with BMP every 3 months. Continue daily multivitamin. 9. Hypothyroidism. Patient will be continued on levothyroxine 88 mcg daily. TSH from 03/28/2019 remained to be within normal range. Will follow up with TSH 1 year after last TSH. 10. Hypertension. Blood pressure remains roughly stable at 120/70. Discontinue Lisinopril. Continue to monitor patient's blood pressure. 11. History of hyperlipidemia. Patient's lipid panel from 02/05/2019 remains roughly unremarkable, including triglycerides, total cholesterol, cholesterol, LDL, and HDL. Will follow up with a lipid panel 1 year after last lipid panel. 12. Hypoxemia. Likely 2/2 IVONNE. Pt has pulse ox of 86-87% on 06/09/19. He did have a smoking hx of 1pkX 50 yrs which he quit 3 yrs ago;no weight loss(169lb in Mar 2019) was noted and pt is not in the age range for lung cancer screening CT. Nocturnal pulse ox ordered with report showed abnormal nocturnal oximetry performed on an unknown oxygen quantity with mean saturation 93.2% and the lowest reliably recorded oxygen saturation 84%; result suggested Yemi-Stoke respiration. It was noted that patient has been around 92% at night time on RA and around 93% at day time on RA per nursing report. Ordered to have 2L nightly nasal cannula oxygen and PRN at day time to keep pulse ox>94% placed 01/21/2020. CXR order placed 01/21/2020 as pt continues to have hypoxemia around 93% in day time. Cont albuterol 2.5mg/3ml Q4H PRN for cough or wheezing. 13. History of constipation. Cont Senna 8.6mg 2 tablets at night time, Ducolax 10mg suppository QD PRN, 10mg milk of Mag PRN, and enema QD PRN. He has a BM daily per nursing report;will discontinue scheduled Senna and replaced it with PRN Senna for constipation. D/C Zofran PRN. 14. Chronic intermittent urinary and bowel incontinence, noted to be stable, likely 2/2 dementia. It was reported that patient is mostly continent and is able to use bathroom without personal assist for urination and bowel movement per nursing report. Pt continues to wear a pull-up daily for intermittent urination. 15. Dry eyes. Continue artificial tears 1.4% two drops both eyes BID PRN for dry eyes. 16. History of left shoulder pain. Per nursing report patient has not requested tylenol or complained about left shoulder pain for a while, but at times patient appears to be walking with attempt to compensate the pain of left shoulder by moving the right shoulder over. D/C tylenol PRN for now. Patient has a Medical Orders for Life-Sustaining Treatment (MOLST) form on file noting DO NOT RESUSCITATE/DO NOT INTUBATE (DNR/DNI). Healthcare proxy form on file with healthcare proxy noted to be Sylvai Gaona. Lack capacity form is also on file. Patient was examined by me on 01/20/2020, and was again evaluated by my attending Dr. Young and me on 01/21/2020. The above assessments and plans were discussed with precepting attending GME ATTESTATION GME ATTESTATION My faculty preceptor for this patient encounter was physically present during the encounter and was fully available. All aspects of the patient interview, examination, medical decision making process, and medical care plan development were reviewed and approved by the faculty preceptor. The faculty preceptor is aware and concurs with the plan as stated in the body of this note and will attest to such by his/her cosignature. STEPHEN OHYOS DO Jan 20, 2020 21:41
[2020-01-21 12:26] LABS: CALCIUM LEVEL 8.2 MG/DL (8.8-10.2); CREATININE FOR GFR 1.47 MG/DL (0.70-1.30); GLOMERULAR FILTRATION RATE 48.7 (>35); POTASSIUM SERUM 4.1 MEQ/L (3.5-5.1)
== END ==
LOC: SKLAB5 07:31
DX: N18.9 Chronic kidney disease, unspecified (principal)

== ENCOUNTER → 2020-01-22 | Outpatient (REF) | payer MEDICARE, MEDICAID ==
--- NOTE | 2020-01-22 10:36 | REP ---
PORTABLE CHEST: AP portable view of the chest is performed. Patient is rotated toward the left. I see no evidence of acute infiltrate. The heart appears slightly enlarged with left ventricular prominence. There is ectasia of the thoracic aorta with mild calcification. No change is seen in the mediastinal silhouette. IMPRESSION: Mild cardiomegaly and chronic venous hypertension with no evidence of acute infiltrate or pulmonary edema. Electronically Signed by Elijah Fu MD 01/25/2020 09:18 A
== END ==
LOC: SKLAB5 09:15
DX: R06.00 Dyspnea, unspecified (principal)

== ENCOUNTER → 2020-02-04 | Outpatient (REF) | payer MEDICARE, MEDICAID ==
[~2020-02-04] MED LIST changes: -AMLO10TA5 PO; +AMLO1TAB25 PO
[2020-04-26 08:08] LABS: CALCIUM LEVEL 8.6 MG/DL (8.8-10.2); CREATININE FOR GFR 1.65 MG/DL (0.70-1.30); GLOMERULAR FILTRATION RATE 42.6 (>35); POTASSIUM SERUM 4.3 MEQ/L (3.5-5.1)
== END ==
LOC: SKLAB5 07:41
DX: N18.9 Chronic kidney disease, unspecified (principal)

== ENCOUNTER → 2020-02-11 | Outpatient (REF) | payer MEDICARE, MEDICAID ==
--- NOTE | 2020-02-25 10:03 | IPNPDOC ---
Text Note Date of Service The patient was seen on 02/20/2020 and again seen with Dr. Young on 02/25/2020 NOTE HPI: Patient is a 84 yo male with PMH of CVA, dementia, depression who is a [facility] resident. It was noted that patient has been sleeping well at night. He has been noted to consume about 75% to 100% of his meals which includes puree and honey thick diet. Patient is very sleepy upon resident visit and was not answering any question, and upon revisit he is sitting on table eating breakfast; he denies any dyspnea or cough. PE: Vitals: 02/20/20202 Temp=98.9, HR=56, BP=98/56, RR, 16, Pulse ox=91% on RA On 02/20/2020 General: Patient appears to be sleepy, opens eyes to sound but not answering questions HEENT: Head normocephalic, multiple seborrheic keratosis on forehead. Atraumatic. No scleral icterus bilaterally. Nasal mucosa moist Heart: Mildly slowed regular rhythm, regular heart rate, no murmur, normal S1 and S2 Lungs: CTA b/l, no rales, wheezing, or rhonchi. No accessory muscle use or subcostal retractions Abdomen: Soft, no guarding, no distention. Bowel sound aus in all 4 quadrants. Labs: 02/11/2020 Ye=729, K=4.2, BUN=16, Creatinine=1.54 02/11/2020 WBC=8.87, Hg=16.6, HCt=49.7, Qqe=906 Assessment and Plan: 1. History of CVA. PMH of of CVA with no sequlae reported. Patient is able to move all 4 extremities and ambulates independently. Patient was noted to have oropharyngeal phase dysphagia after speech. 2. Oropharyngeal phase dysphagia. Speech therapy evaluated patient and recommended honey thick fluid and puree diet. Continue diet. Orders to encourage oral fluid intake. 3. History of subdural hematoma. No new events were reported and no recent fall. 4. Depression. Remeron was d/c. Continue Celexa 10mg QD. 5. CKD stage 3B. Creatinine stable, mildly improved. Creatinine=1.65 on 02/04/2020 and Creatinine=1.54 on 02/11/2020. Likely d/t decreased oral intake from oropharyngeal phase dysphagia. As patient's kidney profile has been stable, will check his renal profile in 2 months, and may decrease frequency of checking renal profile is continues to be stable. 6. Hypothyroidism. Continue levothyroxine 88mcg QD Recheck TSH. If wnl, will recheck TSH yearly. 7. HTN. Hx of HTN. Blood pressure soft 98/56/ Lisinopril ordered to be d/c on 01/21/2020. 8. History of hyperlipidemia. Lipid panel 02/2019 remains roughly unremarkable. Recheck lipid panel. 9. Hypoxia. Patient's oxygen saturation is 91% on 02/20/2020. History of pulse ox 86-87% on 06/2019. Discussed with staff and will have patient on oxygen 2L NC nightly and 2L NC PRN dyspnea. BNP=43 on 09/14/2019 10. Polycythemia, likely 2/2 hypoxia. Hg =15.5 on 11/22/2019 and Hg=17.2 on 09/14/2019. Patient was ordered to start on 2L NC nightly and 2L NC PRN dyspnea. Patient has CBC Q6 month ordered, and will check an additional CBC in Apr 2020. Cont to monitor if polycythemia improves with oxygen therapy. 11. MOLST form on file, DNR/DNI, lack of capacity form on file. HCP form on file. Trial of IV fluid, trial of feeding tube, send to hospital and antibiotics if needed. STEPHEN HOYOS DO Feb 25, 2020 10:03
[2020-04-20 14:29] LABS: HEMATOCRIT 49.7 % (42.0-52.0); HEMOGLOBIN 16.6 g/dl (13.5-17.5); MEAN CORPUSCULAR HEMOGLOBIN 32.4 pg (27.0-33.0); MEAN CORPUSCULAR HGB CONC 33.4 g/dl (32.0-36.5); MEAN CORPUSCULAR VOLUME 96.9 fl (80.0-96.0); PLATELET COUNT, AUTOMATED 224 10^3/uL (150-450); RED BLOOD COUNT 5.13 10^6/uL (4.30-6.10); WHITE BLOOD COUNT 8.9 10^3/uL (4.0-10.0)
[2020-05-02 16:16] LABS: ALBUMIN 3.1 GM/DL (3.2-5.2); BILIRUBIN,TOTAL 0.7 MG/DL (0.2-1.0); CALCIUM LEVEL 8.2 MG/DL (8.8-10.2); CREATININE FOR GFR 1.54 MG/DL (0.70-1.30); GLOMERULAR FILTRATION RATE 46.2 (>35); POTASSIUM SERUM 4.2 MEQ/L (3.5-5.1); TOTAL PROTEIN 7.2 GM/DL (6.4-8.2)
== END ==
LOC: SKLAB5 07:42
DX: N18.9 Chronic kidney disease, unspecified (principal)

== ENCOUNTER → 2020-02-18 | Outpatient (REF) | payer MEDICARE, MEDICAID ==
[2020-05-14 12:09] LABS: CALCIUM LEVEL 8.6 MG/DL (8.8-10.2); CREATININE FOR GFR 1.67 MG/DL (0.70-1.30); POTASSIUM SERUM 4.6 MEQ/L (3.5-5.1)
== END ==
LOC: SKLAB5 09:53
DX: N18.9 Chronic kidney disease, unspecified (principal)

== ENCOUNTER → 2020-02-25 | Outpatient (REF) | payer MEDICARE, MEDICAID ==
[2020-01-28 08:14] LABS: CALCIUM LEVEL 8.4 MG/DL (8.8-10.2); CREATININE FOR GFR 1.54 MG/DL (0.70-1.30); GLOMERULAR FILTRATION RATE 46.2 (>35); POTASSIUM SERUM 4.8 MEQ/L (3.5-5.1)
[2020-02-25 13:36] LABS: CALCIUM LEVEL 8.5 MG/DL (8.8-10.2); CREATININE FOR GFR 1.47 MG/DL (0.70-1.30); GLOMERULAR FILTRATION RATE 48.7 (>35); POTASSIUM SERUM 4.4 MEQ/L (3.5-5.1)
== END ==
LOC: SKLAB5 07:21
PROVIDERS: ATTEND Family Medicine
DX: N18.9 Chronic kidney disease, unspecified (principal)

== ENCOUNTER → 2020-03-03 | Outpatient (REF) | payer MEDICARE, MEDICAID ==
[2020-03-03 11:01] LABS: CALCIUM LEVEL 8.2 MG/DL (8.8-10.2); CREATININE FOR GFR 1.44 MG/DL (0.70-1.30); GLOMERULAR FILTRATION RATE 49.9 (>35)
== END ==
LOC: SKLAB5 07:32
DX: N18.9 Chronic kidney disease, unspecified (principal)

== ENCOUNTER → 2020-03-10 | Outpatient (REF) | payer MEDICARE, MEDICAID ==
[2020-03-10 10:46] LABS: CALCIUM LEVEL 8.4 MG/DL (8.8-10.2); CREATININE FOR GFR 1.32 MG/DL (0.70-1.30); GLOMERULAR FILTRATION RATE 55.1 (>35); POTASSIUM SERUM 3.6 MEQ/L (3.5-5.1)
== END ==
LOC: SKLAB5 06:39
DX: N18.9 Chronic kidney disease, unspecified (principal); E03.9 Hypothyroidism, unspecified

== ENCOUNTER → 2020-03-17 | Outpatient (REF) | payer MEDICARE, MEDICAID ==
[2020-03-17 09:03] LABS: CALCIUM LEVEL 8.4 MG/DL (8.8-10.2); CREATININE FOR GFR 1.27 MG/DL (0.70-1.30); GLOMERULAR FILTRATION RATE 57.7 (>35); POTASSIUM SERUM 4.1 MEQ/L (3.5-5.1)
== END ==
LOC: SKLAB5 07:14
DX: N18.9 Chronic kidney disease, unspecified (principal)

== ENCOUNTER → 2020-03-24 | Outpatient (REF) | payer MEDICARE, MEDICAID ==
[2020-03-24 08:30] LABS: CALCIUM LEVEL 8.3 MG/DL (8.8-10.2); CREATININE FOR GFR 1.42 MG/DL (0.70-1.30); GLOMERULAR FILTRATION RATE 50.7 (>35); POTASSIUM SERUM 4.1 MEQ/L (3.5-5.1)
== END ==
LOC: SKLAB5 07:56
DX: N18.9 Chronic kidney disease, unspecified (principal)

== ENCOUNTER → 2020-03-31 | Outpatient (REF) | payer MEDICARE, MEDICAID ==
[2020-03-31 08:31] LABS: CALCIUM LEVEL 8.7 MG/DL (8.8-10.2); CREATININE FOR GFR 1.32 MG/DL (0.70-1.30); GLOMERULAR FILTRATION RATE 55.1 (>35); POTASSIUM SERUM 4.2 MEQ/L (3.5-5.1)
== END ==
LOC: SKLAB5 07:26
DX: N18.9 Chronic kidney disease, unspecified (principal)

== ENCOUNTER → 2020-04-12 | Outpatient (REF) | payer MEDICARE, MEDICAID ==
[2020-04-12 08:32] LABS: BLOOD UREA NITROGEN 16 MG/DL (7-18); CALCIUM LEVEL 7.9 MG/DL (8.8-10.2); CARBON DIOXIDE LEVEL 29 MEQ/L (21-32); CHLORIDE LEVEL 105 MEQ/L (98-107); CREATININE FOR GFR 1.21 MG/DL (0.70-1.30); GLOMERULAR FILTRATION RATE > 60.0 (>35); GLUCOSE, FASTING 99 MG/DL (70-100); POTASSIUM SERUM 4.2 MEQ/L (3.5-5.1); SODIUM LEVEL 141 MEQ/L (136-145)
== END ==
LOC: SKLAB5 07:58
DX: N17.9 Acute kidney failure, unspecified (principal)

== ENCOUNTER → 2020-04-13 | Outpatient (REF) | payer MEDICARE, MEDICAID ==
[2020-04-13 11:03] LABS: ALBUMIN 2.7 GM/DL (3.2-5.2); CALCIUM LEVEL 8.6 MG/DL (8.8-10.2); MAGNESIUM LEVEL 1.9 MG/DL (1.8-2.4); PHOSPHORUS LEVEL 2.7 MG/DL (2.5-4.9)
--- NOTE | 2020-04-27 16:10 | IPNPDOC ---
Text Note Date of Service The patient was seen on 04/26/20. NOTE ROOM 503-1 HPI: Patient is a 84 yo male with PMH of CVA, dementia, depression who is a [facility] resident. He has been noted to continue to consume about 75% to 100% of his meals which includes puree and honey thick diet majority of the time in addition to ensure in the morning and at night time. Patient was very sleepy upon resident visit and was not answering any question besides answering "no" when being asked if he has abdominal pain. Pt had Ca=7.9 on 04/12. No recent albumin can be used for Ca correction. As Ca level on 04/12 was decreased compared to prior Ca level=8.7 in 03/2020, a recheck Ca level, albumin, Mg, Phos, and VitD level were ordered. Recheck Ca level=8.6, with normal range after correction with albumin level. No events reported. No falls reported. Patient was noted to be stable without changes. PE: Vitals: Quhk=245.9F, HR=81, ZD=639/78, RR 14, Pulse ox=92% on RA On 04/26/2020 General: Patient appears to be sleepy, opens eyes to sound, only answering "no" when being asked if he has abdominal pain HEENT: Head normocephalic, multiple seborrheic keratosis on forehead. Atraumatic. No scleral icterus bilaterally. Nasal mucosa moist Heart: RRR, no murmur, normal S1 and S2 Lungs: CTA b/l, no rales, wheezing, or rhonchi. No accessory muscle use or subcostal retractions Abdomen: Soft, no guarding, no distention. Bowel sound aus in all 4 quadrants. Extremities: no lower extremity edema bilaterally Labs: 03/24/2020 BUN=18, Creatinine=1.42, GFR=50.7 03/17/2020 BUN=17, Creatinine=1.27, GFR=57.7 03/03/2020 BUN=15, Creatinine=1.44, GFR=49.9 02/11/2020 Hg=16.6 04/12/2020 BUN=16, Creat=1.21, GFR>60, Ca=7.9 04/13/2020 Ca=8.6, VitD=29, albumin=2.7 04/27/2020 Hg=15.9 Assessment and Plan: 1. History of CVA. PMH of of CVA with no sequlae reported. Patient is able to move all 4 extremities and ambulates independently. Patient was noted to have oropharyngeal phase dysphagia after speech. Previously it was noted that due to patient's life expectancy, age and quality iof life issues will not have patient on aspirin or statin at this time. It was noted that Aspirin 325mg QD and atorvastatin 40mg QD were started in 04/2020. 2. Oropharyngeal phase dysphagia. Speech therapy evaluated patient and recommended honey thick fluid and puree diet. Continue diet. Orders to encourage oral fluid intake placed about 2 months ago Patient continues to consume 75% to 100% of meal majority of time. 3. History of subdural hematoma. No new events were reported and no recent fall. 4. Depression. Remeron was d/c prior. Celexa 10mg QD d/c last month, and patient's mood continues to be stable. 5. Vitamin D insufficiency. Pt's VitD level=29 in 04/2020, in VitD insufficiency range per [facility]. Goal of VitD level geriatric populations per [place] geriatric population is greater than 30. As patient's VitD level is only minimally off, will continue current daily multivitamin supplements and recheck VitD level in 3 months. Plan VitD level for Jul 17, 2020. 6. Hypothyroidism. Continue levothyroxine 88mcg QD. Recheck TSH=2.99 on 03/10/2020. Will recheck TSH yearly with next one in 03/2021. 7. HTN. Hx of HTN. Blood pressure soft 98/56. Lisinopril ordered to be d/c on 01/21/2020. BP stable 122/78. 8. History of hyperlipidemia. Lipid panel 02/2019 remains roughly unremarkable. Recheck lipid panel ordered last month; re-ordered again this month. Atorvastatin 40mg at this time. 9. Nocturnal hypoxia ddx IVONNE vs CHF vs COPD, with secondary polycythemia. History of single pulse ox 86-87% during daytime measured by nursing in 06/2019. Nocturnal pulse ox done by Dr. Mcgowan on the night of 06/10/2019 into the morning of 06/11/2019 noted "no record of whether the study was done on or off of oxygen. Mean saturation for the study 93.2%. The lowest reliably recorded oxygen saturation was noted to be 84%. Areas of variability are identified, which strongly suggest Yemi-Alva respirations. Abnormal nocturnal oximetry performed on an unknown oxygen quantity." Patient on oxygen 2L NC nightly and 2L NC PRN dyspnea. BNP=43 on 09/14/2019. At this time it was determined not to pursue further due to patient's inability to tolerate CPAP and life expectancy. Patient had been on 2L NC nightly from 8PM to 1AM. Recheck CBC to see if O2 at night makes a difference as it has been 3 months since NC O2 was ordered. CBC not suggestive of PCV 10. Polycythemia, likely secondary to nocturnal hypoxia. Recheck CBC to see if O2 at night makes a difference as it has been 3 months since NC O2 was ordered. Mild improvement of polycythemia, Hg=15.9 in 04/2020, improved compared to 16.6 in 02/11/2020. Pt also had a Hg=17.2 in 09/2019. 11. MOLST form on file, DNR/DNI, lack of capacity form on file. HCP form on file. Trial of IV fluid, trial of feeding tube, send to hospital and antibiotics if needed. 12.Functional status: Independent: bed mobility, transfer, walk in room and in hallway, unit mobility and toileting Extensive:dressing, grooming, shower, hygiene Total: shaving and shampoo Incontinence: none STEPHEN HOYOS DO Apr 25, 2020 22:20
== END ==
LOC: SKLAB5 07:09
DX: E83.51 Hypocalcemia (principal)

== ENCOUNTER → 2020-04-27 | Outpatient (REF) | payer MEDICARE, MEDICAID ==
[2020-04-27 11:33] LABS: HEMATOCRIT 47.7 % (42.0-52.0); HEMOGLOBIN 15.9 g/dl (13.5-17.5); MEAN CORPUSCULAR HGB CONC 33.3 g/dl (32.0-36.5); PLATELET COUNT, AUTOMATED 214 10^3/uL (150-450); RED BLOOD COUNT 4.97 10^6/uL (4.30-6.10); WHITE BLOOD COUNT 7.2 10^3/uL (4.0-10.0)
[2020-04-27 12:22] LABS: CHOLESTEROL RISK RATIO 5.764 (<5)
== END ==
LOC: SKLAB5 07:40
DX: E78.5 Hyperlipidemia, unspecified (principal)

== ENCOUNTER → 2020-05-12 | Outpatient (REF) | payer MEDICARE, MEDICAID ==
[2020-05-12 09:19] LABS: HEMATOCRIT 50.6 % (42.0-52.0); HEMOGLOBIN 16.5 g/dl (13.5-17.5); MEAN CORPUSCULAR HEMOGLOBIN 31.1 pg (27.0-33.0); MEAN CORPUSCULAR HGB CONC 32.6 g/dl (32.0-36.5); MEAN CORPUSCULAR VOLUME 95.3 fl (80.0-96.0); PLATELET COUNT, AUTOMATED 208 10^3/uL (150-450); RED BLOOD COUNT 5.31 10^6/uL (4.30-6.10); WHITE BLOOD COUNT 8.3 10^3/uL (4.0-10.0)
[2020-05-12 09:48] LABS: BILIRUBIN,TOTAL 0.5 MG/DL (0.2-1.0); CALCIUM LEVEL 8.7 MG/DL (8.8-10.2); CREATININE FOR GFR 1.39 MG/DL (0.70-1.30); MAGNESIUM LEVEL 1.8 MG/DL (1.8-2.4); POTASSIUM SERUM 3.7 MEQ/L (3.5-5.1); TOTAL PROTEIN 6.9 GM/DL (6.4-8.2)
== END ==
LOC: SKLAB5 08:12
DX: N28.9 Disorder of kidney and ureter, unspecified (principal)

== ENCOUNTER → 2020-05-25 | Outpatient (REF) | payer MEDICARE, MEDICAID ==
[~2020-05-25] MED LIST changes: -CLIN300C5 PO; +CLIN300C6 PO; -LISI-538 PO; +LISI10TA22 PO; -LISI10TA4 PO; +LISI20TA33 PO; -MAG400TA PO; +MAGN400T35 PO; -QUET1TAB7 PO; +QUET25TA3 PO; +QUET50TA3 PO; -QUET5TAB PO
== END ==
LOC: SKLAB5 05-24 14:48 → EDSTATUS 06-25 14:41
DX: Z20.828 Contact with and (suspected) exposure to other viral communicable diseases (principal)

== ENCOUNTER → 2020-06-01 | Outpatient (REF) | payer MEDICARE, MEDICAID | LOC: SKLAB5 08:00 | PROVIDERS: ATTEND Internal Medicine | DX: Z20.828 Contact with and (suspected) exposure to other viral communicable diseases (principal) ==

== ENCOUNTER → 2020-06-08 | Outpatient (REF) | payer MEDICARE, MEDICAID | LOC: SKLAB5 08:00 | PROVIDERS: ATTEND Internal Medicine | DX: Z20.828 Contact with and (suspected) exposure to other viral communicable diseases (principal) ==

== ENCOUNTER → 2020-06-15 | Outpatient (REF) | payer MEDICARE, MEDICAID ==
[~2020-06-15] MED LIST changes: +LISI-538 PO; -LISI10TA22 PO; +LISI10TA4 PO; -LISI20TA33 PO; +MAG400TA PO; -MAGN400T35 PO; +QUET1TAB7 PO; -QUET25TA3 PO; -QUET50TA3 PO; +QUET5TAB PO
--- NOTE | 2020-06-16 06:36 | IPNPDOC ---
Text Note Date of Service The patient was seen by me on 06/15/20 and again seen by me and Dr. Young together on 06/16/2020. NOTE The patient was seen by me on 06/15/2020 and again seen by me and Dr. Young again on 06/16/2020. ROOM 503-1 HPI: Patient is a 85 yo male with PMH of CVA, dementia, and depression who is a [facility] resident. Patient was very sleepy and arousable upon resident visit. He indicated that he has no dyspnea, abdominal pain, and indicated that there is no complaints. No falls was noted. It is noted that the patient continues to consume 75% to 100% of meal majority of the time. PE: Vitals: 06/15/2020 Temp=98.2F, HR=60, RC=380/62, RR 18, Pulse ox=98% on RA On 06/15/2020 General: Patient appears to be sleepy but arousable, opens eyes to sound, and answers some questions with simple words HEENT: Head normocephalic, multiple seborrheic keratosis on forehead. Atraumatic. No scleral icterus bilaterally. Nasal mucosa moist Heart: RRR, no murmur, normal S1 and S2 Lungs: CTA b/l, no rales, wheezing, or rhonchi. No accessory muscle use or subcostal retractions Abdomen: Soft, no guarding, no distention. Bowel sound aus in all 4 quadrants. Extremities: no lower extremity edema bilaterally Labs: 02/11/2020 Hg=16.6 04/12/2020 BUN=16, Creat=1.21, GFR>60, Ca=7.9 04/13/2020 Ca=8.6, VitD=29, albumin=2.7 05/12/2020 BUN=18, Creat=1.39, GFR=52, Ca=8.7 05/12/2020 Hg=16.5 Assessment and Plan: 1. History of CVA. PMH of of CVA with no sequlae reported. 02/24/2018 CT head showed old bilateral basal ganglia lacunar infarctions. 08/2017 patient was noted to have a 6 mm acute subdural hematoma medial to the left parietal and occipital lobes. Patient is able to move all 4 extremities and ambulates independently. Patient was noted to have oropharyngeal phase dysphagia after speech. Previously it was noted that due to patient's life expectancy, age and quality of life issues will not have patient on aspirin or statin at this time. It was noted that Aspirin 325mg QD and atorvastatin 40mg QD were started in 04/2020. 2. Oropharyngeal phase dysphagia. Speech therapy evaluated patient and r ecommended honey thick fluid and level 1 puree diet. Continue diet. Orders to encourage oral fluid intake. Pt has been continuing to consume about 75% to 100% of diet. 3. History of subdural hematoma. 08/2017 patient was noted to have a 6 mm acute subdural hematoma medial to the left parietal and occipital lobes. No new events were reported and no recent fall. 4. Depression. Remeron was d/c prior. Celexa 10mg QD d/c last month, and patient's mood continues to be stable. 5. Vitamin D insufficiency. Pt's VitD level=29 in 04/2020, in VitD insufficiency range per [facility]. Goal of VitD level geriatric populations per [place] geriatric population is greater than 30. As patient's VitD level is only minimally off, will continue current daily multivitamin supplements and recheck VitD level in 3 months. Plan VitD level for Jul 17, 2020. 6. Hypothyroidism. Continue levothyroxine 88mcg QD. Recheck TSH=2.99 on 03/10/2020. Will recheck TSH yearly with next one in 03/2021. 7. HTN. Hx of HTN. Lisinopril ordered to be d/c on 01/21/2020 as blood pressure was soft. BP stable 124/62. 8. History of hyperlipidemia. Lipid panel 02/2019 remains roughly unremarkable. Lipid panel from 04/2020 showed cholesterol 149; VHR=640, improved from 170 from 08/2019, continue high dose Atorvastatin 40mg at this time. 9. Nocturnal hypoxia ddx IVONNE vs CHF vs COPD, with secondary polycythemia. History of single pulse ox 86-87% during daytime measured by nursing in 06/2019. Nocturnal pulse ox done by Dr. Mcgowan on the night of 06/10/2019 into the morning of 06/11/2019 noted "no record of whether the study was done on or off of oxygen. Mean saturation for the study 93.2%. The lowest reliably recorded oxygen saturation was noted to be 84%. Areas of variability are identified, which strongly suggest Yemi-Alva respirations. Abnormal nocturnal oximetry performed on an unknown oxygen quantity." Patient on oxygen 2L NC nightly and 2L NC PRN dyspnea. BNP=43 on 09/14/2019. At this time it was determined not to pursue further due to patient's inability to tolerate CPAP and life expectancy. Patient had been on 2L NC nightly from 8PM to 1AM. Recheck CBC to see if O2 at night makes a difference as it has been 3 months since NC O2 was ordered. CBC not suggestive of PCV 10. Polycythemia, likely secondary to nocturnal hypoxia. Recheck CBC to see if O2 at night makes a difference as it has been 3 months since NC O2 was ordered. Mild improvement of polycythemia, Hg=15.9 in 04/2020, improved compared to 16.6 in 02/11/2020 as well as Hg=17.2 in 09/2019. Hg in 05/2020 roughly stable Hg=16.5. 11. MOLST form on file, DNR/DNI, lack of capacity form on file. HCP form on file. Trial of IV fluid, trial of feeding tube, send to hospital and antibiotics if needed. 12.Functional status: Independent: bed mobility, transfer, walk in room and in hallway, unit mobility and toileting Extensive:dressing, grooming, shower, hygiene Total: shaving and shampoo Incontinence: none STEPHEN HOYOS DO Jun 15, 2020 17:59
== END ==
LOC: SKLAB5 06:32
PROVIDERS: ATTEND Family Medicine
DX: Z20.828 Contact with and (suspected) exposure to other viral communicable diseases (principal)

== ENCOUNTER → 2020-06-22 | Outpatient (REF) | payer MEDICARE, MEDICAID | LOC: SKLAB5 09:03 | DX: Z20.828 Contact with and (suspected) exposure to other viral communicable diseases (principal) ==

== ENCOUNTER → 2020-06-29 | Outpatient (REF) | payer MEDICARE, MEDICAID | LOC: SKLAB5 05:52 | DX: Z20.828 Contact with and (suspected) exposure to other viral communicable diseases (principal) ==

== ENCOUNTER → 2020-07-06 | Outpatient (REF) | payer MEDICARE, MEDICAID | LOC: SKLAB5 06:24 | DX: Z20.828 Contact with and (suspected) exposure to other viral communicable diseases (principal); Z53.9 Procedure and treatment not carried out, unspecified reason ==

== ENCOUNTER → 2020-07-13 | Outpatient (REF) | payer MEDICARE, MEDICAID ==
--- NOTE | 2020-07-14 06:59 | IPNPDOC ---
Text Note Date of Service The patient was seen by me on 07/13/2020 and again seen by me and Dr. Young and me again on 07/14/2020. NOTE The patient was seen by me on 07/13/2020 and again seen by me and Dr. Young and me again on 07/14/2020. ROOM [facility] HPI: Patient is a 85 yo male with PMH of CVA, dementia, and depression who is a [facility] resident. Patient was sitting on bed upon examination. He indicated that he has no dyspnea or chest pain, and indicated that there is no complaints. No falls was noted. PE: Vitals: Temp=97.4F, HR=58, LJ=474/86, RR 18, Pulse ox=96% on RA On 07/13/2020 General: Patient is alert, opens eyes to sound, and answers some questions with simple words HEENT: Head normocephalic, multiple seborrheic keratosis on forehead. Atraumatic. No scleral icterus bilaterally. Nasal mucosa moist Heart: RRR, no murmur, normal S1 and S2 Lungs: CTA b/l, no rales, wheezing, or rhonchi. No accessory muscle use or subcostal retractions Abdomen: Soft, no guarding, no distention. Bowel sound aus in all 4 quadrants. Extremities: no lower extremity edema bilaterally Labs: 02/11/2020 Hg=16.6 04/12/2020 BUN=16, Creat=1.21, GFR>60, Ca=7.9 04/13/2020 Ca=8.6, VitD=29, albumin=2.7 05/12/2020 BUN=18, Creat=1.39, GFR=52, Ca=8.7 05/12/2020 Hg=16.5 Assessment and Plan: 1. History of CVA. PMH of of CVA with no sequlae reported. 02/24/2018 CT head showed old bilateral basal ganglia lacunar infarctions. 08/2017 patient was noted to have a 6 mm acute subdural hematoma medial to the left parietal and occipital lobes. Patient is able to move all 4 extremities and ambulates independently. Patient was noted to have oropharyngeal phase dysphagia after speech. Previously it was noted that due to patient's life expectancy, age and quality of life issues will not have patient on aspirin or statin at this time. It was noted that Aspirin 325mg QD and atorvastatin 40mg QD were started in 04/2020. 2. Oropharyngeal phase dysphagia. Speech therapy evaluated patient and rec ommended honey thick fluid and level 1 puree diet. Continue diet. Orders to encourage oral fluid intake. 3. History of subdural hematoma. 08/2017 patient was noted to have a 6 mm acute subdural hematoma medial to the left parietal and occipital lobes. No new events were reported and no recent fall. 4. Depression. Remeron was d/c prior. Celexa 10mg QD d/c two months ago, and patient's mood continues to be stable. 5. Vitamin D insufficiency. Pt's VitD level=29 in 04/2020. Will continue current daily multivitamin. Per discussion with attending will start low dose vitamin D. VitD 1000IU QD ordered. 6. Hypothyroidism. Continue levothyroxine 88mcg QD. Recheck TSH=2.99 on 03/10 2020. Will recheck TSH yearly with next one in 03/2021. 7. HTN. Hx of HTN. Lisinopril ordered to be d/c on 01/21/2020 as blood pressure was soft. BP roughly stable 8. History of hyperlipidemia. Lipid panel 02/2019 remains roughly unremarkable. Lipid panel from 04/2020 showed cholesterol 149; WUF=029, improved from 170 from 08/2019, continue high dose Atorvastatin 40mg at this time. 9. Nocturnal hypoxia ddx IVONNE vs CHF vs COPD, with secondary polycythemia. History of single pulse ox 86-87% during daytime measured by nursing in 06/2019. Nocturnal pulse ox done by Dr. Mcgowan on the night of 06/10/2019 into the morning of 06/11/2019 noted "no record of whether the study was done on or off of oxygen. Mean saturation for the study 93.2%. The lowest reliably recorded oxygen saturation was noted to be 84%. Areas of variability are identified, which strongly suggest Yemi-Alva respirations. Abnormal nocturnal oximetry performed on an unknown oxygen quantity." Patient on oxygen 2L NC nightly and 2L NC PRN dyspnea. BNP=43 on 09/14/2019. At this time it was determined not to pursue further due to patient's inability to tolerate CPAP and life expectancy. Patient had been on 2L NC nightly from 8PM to 1AM. Recheck CBC to see if O2 at night makes a difference as it has been 3 months since AL O2 was ordered. CBC not suggestive of PCV 10. Polycythemia, likely secondary to nocturnal hypoxia. Recheck CBC to see if O2 at night makes a difference as it has been 3 months since AL O2 was ordered. Mild improvement of polycythemia, Hg=15.9 in 04/2020, improved compared to 16.6 in 02/11/2020 as well as Hg=17.2 in 09/2019. Hg in 05/2020 roughly stable Hg=16.5. 11. MOLST form on file, DNR/DNI, lack of capacity form on file. HCP form on file . Trial of IV fluid, trial of feeding tube, send to hospital and antibiotics if needed. 12.Functional status: Independent: bed mobility, transfer, walk in room and in hallway, unit mobility and toileting Extensive:dressing, grooming, shower, hygiene Total: shaving and shampoo Incontinence: none STEPHEN HOYOS DO Jul 13, 2020 17:44
== END ==
LOC: SKLAB5 06:55
DX: Z53.9 Procedure and treatment not carried out, unspecified reason (principal)

== ENCOUNTER → 2020-07-14 | Outpatient (REF) | payer MEDICARE, MEDICAID | LOC: SKLAB5 09:08 | DX: E55.9 Vitamin D deficiency, unspecified (principal) ==

== ENCOUNTER → 2020-07-19 | Outpatient (REF) | payer MEDICARE, MEDICAID ==
[2020-07-19 10:15] LABS: CALCIUM LEVEL 8.3 MG/DL (8.8-10.2); CREATININE FOR GFR 1.41 MG/DL (0.70-1.30); POTASSIUM SERUM 3.8 MEQ/L (3.5-5.1)
== END ==
LOC: SKLAB5 12:28
DX: N18.9 Chronic kidney disease, unspecified (principal)

== ENCOUNTER → 2020-07-20 | Outpatient (REF) | payer MEDICARE, MEDICAID | LOC: SKLAB5 06:34 | PROVIDERS: ATTEND Internal Medicine | DX: Z53.9 Procedure and treatment not carried out, unspecified reason (principal) ==

== ENCOUNTER → 2020-07-27 | Outpatient (REF) | payer MEDICARE, MEDICAID ==
[~2020-07-27] MED LIST changes: -LISI-538 PO; +LISI10TA22 PO; -LISI10TA4 PO; +LISI20TA33 PO; -MAG400TA PO; +MAGN400T35 PO; -QUET1TAB7 PO; +QUET25TA3 PO; +QUET50TA3 PO; -QUET5TAB PO
== END ==
LOC: SKLAB5 07:10
PROVIDERS: ATTEND Internal Medicine
DX: Z20.822 Contact with and (suspected) exposure to COVID-19 (principal)

== ENCOUNTER → 2020-08-03 | Outpatient (REF) | payer MEDICARE, MEDICAID | LOC: SKLAB5 07:13 | PROVIDERS: ATTEND Internal Medicine | DX: Z20.822 Contact with and (suspected) exposure to COVID-19 (principal) ==

== ENCOUNTER → 2020-08-10 | Outpatient (REF) | payer MEDICARE, MEDICAID ==
[~2020-08-10] MED LIST changes: +LISI-538 PO; -LISI10TA22 PO; +LISI10TA4 PO; -LISI20TA33 PO; +MAG400TA PO; -MAGN400T35 PO; +QUET1TAB7 PO; -QUET25TA3 PO; -QUET50TA3 PO; +QUET5TAB PO
== END ==
LOC: SKLAB5 07:17
PROVIDERS: ATTEND Internal Medicine
DX: Z53.9 Procedure and treatment not carried out, unspecified reason (principal)

== ENCOUNTER → 2020-08-11 | Outpatient (REF) | payer MEDICARE, MEDICAID ==
[~2020-08-11] MED LIST changes: -LISI-538 PO; +LISI10TA22 PO; -LISI10TA4 PO; +LISI20TA33 PO; -MAG400TA PO; +MAGN400T35 PO; -QUET1TAB7 PO; +QUET25TA3 PO; +QUET50TA3 PO; -QUET5TAB PO
[2020-08-11 11:54] LABS: HEMATOCRIT 46.7 % (42.0-52.0); HEMOGLOBIN 15.2 g/dl (13.5-17.5); MEAN CORPUSCULAR HEMOGLOBIN 31.2 pg (27.0-33.0); MEAN CORPUSCULAR HGB CONC 32.5 g/dl (32.0-36.5); MEAN CORPUSCULAR VOLUME 95.9 fl (80.0-96.0); PLATELET COUNT, AUTOMATED 207 10^3/uL (150-450); RED BLOOD COUNT 4.87 10^6/uL (4.30-6.10); WHITE BLOOD COUNT 7.5 10^3/uL (4.0-10.0)
[2020-08-11 12:47] LABS: ALBUMIN 2.7 GM/DL (3.2-5.2); BILIRUBIN,TOTAL 0.4 MG/DL (0.2-1.0); CALCIUM LEVEL 8.6 MG/DL (8.8-10.2); CREATININE FOR GFR 1.26 MG/DL (0.70-1.30); MAGNESIUM LEVEL 1.7 MG/DL (1.8-2.4); POTASSIUM SERUM 3.6 MEQ/L (3.5-5.1); THYROID STIMULATING HORMONE 2.56 uIU/ML (0.358-3.740); TOTAL PROTEIN 5.9 GM/DL (6.4-8.2)
== END ==
LOC: SKLAB5 10:23
DX: N28.9 Disorder of kidney and ureter, unspecified (principal); Z79.899 Other long term (current) drug therapy

== ENCOUNTER → 2020-08-17 | Outpatient (REF) | payer MEDICARE, MEDICAID | LOC: SKLAB5 06:18 | PROVIDERS: ATTEND Internal Medicine | DX: Z20.822 Contact with and (suspected) exposure to COVID-19 (principal) ==

== ENCOUNTER → 2020-08-24 | Outpatient (REF) | payer MEDICARE, MEDICAID | LOC: SKLAB5 06:30 | PROVIDERS: ATTEND Internal Medicine | DX: Z20.822 Contact with and (suspected) exposure to COVID-19 (principal) ==

== ENCOUNTER → 2020-08-31 | Outpatient (REF) | payer MEDICARE, MEDICAID | LOC: SKLAB5 07:09 | PROVIDERS: ATTEND Internal Medicine | DX: Z53.9 Procedure and treatment not carried out, unspecified reason (principal) ==

== ENCOUNTER → 2020-09-08 | Outpatient (REF) | payer MEDICARE, MEDICAID ==
[2020-09-08 09:18] LABS: CALCIUM LEVEL 8.4 MG/DL (8.8-10.2); CHOLESTEROL RISK RATIO 3.783 (<5); CREATININE FOR GFR 1.28 MG/DL (0.70-1.30); POTASSIUM SERUM 4.2 MEQ/L (3.5-5.1)
== END ==
LOC: SKLAB5 06:36
PROVIDERS: ATTEND Internal Medicine
DX: E78.5 Hyperlipidemia, unspecified (principal); N18.9 Chronic kidney disease, unspecified; Z20.822 Contact with and (suspected) exposure to COVID-19
CPT/HCPCS: 36415; 80048; 80061; 83735; U0003

== ENCOUNTER → 2020-09-14 | Outpatient (REF) | payer MEDICARE, MEDICAID ==
--- NOTE | 2020-09-15 07:07 | IPNPDOC ---
Text Note Date of Service The patient was seen by me on 09/14/20 and again on 09/15/2020. NOTE The patient was seen by me on 09/14/2020 and again seen by me and Dr. Young and me again on 09/15/2020. ROOM [facility] HPI: Patient is a 85 yo male with PMH of CVA, dementia and depression who is a [facility] resident. Patient was sitting on chair at the time of examination. Patient was barely answering any of the questions. ITt was noted no specific event, complains, and no falls was noted. PE: Vitals: Temp=96.7F, HR=60, EB=302/65 RR 16, Pulse ox=93% on RA, Wt 175.2 On 09/14/2020, General: Patient is alert, opens eyes to sound. HEENT: Head normocephalic, multiple seborrheic keratosis on forehead. Atraumatic. No scleral icterus bilaterally. Nasal mucosa moist Heart: RRR, no murmur, normal S1 and S2 Lungs: CTA b/l, no rales, wheezing, or rhonchi. No accessory muscle use or subcostal retractions Abdomen: Soft, no guarding, no distention. Bowel sound aus in all 4 quadrants. Extremities: no lower extremity edema bilaterally Labs: 02/11/2020 Hg=16.6 04/12/2020 BUN=16, Creat=1.21, GFR>60, Ca=7.9 04/13/2020 Ca=8.6, VitD=29, albumin=2.7 05/12/2020 BUN=18, Creat=1.39, GFR=52, Ca=8.7 05/12/2020 Hg=16.5 08/11/2020 Hg=15.2 Assessment and Plan: 1. History of CVA. PMH of of CVA with no sequlae reported. 02/24/2018 CT head showed old bilateral basal ganglia lacunar infarctions. 08/2017 patient was noted to have a 6 mm acute subdural hematoma medial to the left parietal and oc cipital lobes. Patient is able to move all 4 extremities and ambulates independently. Patient was noted to have oropharyngeal phase dysphagia after speech. Previously it was noted that due to patient's life expectancy, age and quality of life issues will not have patient on aspirin or statin at this time. It was noted that Aspirin 325mg QD and atorvastatin 40mg QD were started in 1 . 2. Oropharyngeal phase dysphagia. Speech therapy evaluated patient and recommended honey thick fluid and level 1 puree diet. Continue diet. Orders to encourage oral fluid intake. 3. History of subdural hematoma. 08/2017 patient was noted to have a 6 mm acute subdural hematoma medial to the left parietal and occipital lobes. No new events were reported and no recent fall. 4. Depression. Remeron was d/c prior. Celexa 10mg QD d/c two months ago, and patient's mood continues to be stable. 5. Vitamin D insufficiency. Pt's VitD level=29 in 04/2020. Will continue current daily multivitamin. Per discussion with attending will start low dose vitamin D. VitD 1000IU QD ordered. 6. Hypothyroidism. Continue levothyroxine 88mcg QD. Recheck TSH=2.99 on 03/10 20 20. Will recheck TSH yearly with next one in 03/2021. 7. Hypomagnesemia. It was noted that patient had a Mag level of 1.7 on . Ordered repeat Mag level for 09/08/2020. 7. HTN. Hx of HTN. Lisinopril ordered to be d/c on 01/21/2020 as blood pressure was soft. BP roughly stable 8. History of hyperlipidemia. Lipid panel 02/2019 remains roughly unremarkable. Lipid panel from 04/2020 showed cholesterol 149; ZVT=539, improved from 170 from 08/2019, continue high dose Atorvastatin 40mg at this time. 9. Nocturnal hypoxia ddx IVONNE vs CHF vs COPD, with secondary polycythemia. History of single pulse ox 86-87% during daytime measured by nursing in 06/2019. Nocturnal pulse ox done by Dr. Mcgowan on the night of 06/10/2019 into the morning of 06/11/2019 noted "no record of whether the study was done on or off of oxygen. Mean saturation for the study 93.2%. The lowest reliably recorded oxygen saturation was noted to be 84%. Areas of variability are identified, which strongly suggest Yemi-Alva respirations. Abnormal nocturnal oximetry performed on an unknown oxygen quantity." Patient on oxygen 2L NC nightly and 2L NC PRN dyspnea. BNP=43 on 09/14/2019. At this time it was determined not to pursue further due to patient's inability to tolerate CPAP and life expectancy. Patient had been on 2L NC nightly from 8PM to 1AM. CBC not suggestive of PCV 10. Polycythemia, likely secondary to nocturnal hypoxia. Recheck CBC to see if O2 at night makes a difference as it has been 3 months since NC O2 was ordered. Mild improvement of polycythemia, Hg=15.2 in 08/2020, improved compared to Hg=15.9 in 04/2020, 16.6 in 02/11/2020, and Hg=17.2 in 09/2019 11. Possible Parkinson's disease. Patient was noted to have mask-like face. Sinemet 25-100 TID was ordered to be started on 09/15/2020. 12. MOLST form on file, DNR/DNI, lack of capacity form on file. HCP form on file. Trial of IV fluid, trial of feeding tube, send to hospital and antibiotics if needed. 13.Functional status: Independent: bed mobility, transfer, walk in room and in hallway, unit mobility and toileting Extensive:dressing, grooming, shower, hygiene Total: shaving and shampoo Incontinence: none STEPHEN HOYOS DO Sep 14, 2020 17:51
== END ==
LOC: SKLAB5 06:23
PROVIDERS: ATTEND Internal Medicine
DX: Z20.822 Contact with and (suspected) exposure to COVID-19 (principal)

== ENCOUNTER → 2020-09-21 | Outpatient (REF) | payer MEDICARE, MEDICAID | LOC: SKLAB5 07:26 | PROVIDERS: ATTEND Internal Medicine | DX: Z53.8 Procedure and treatment not carried out for other reasons (principal) ==

== ENCOUNTER → 2020-10-07 | Outpatient (REF) | payer MEDICARE, MEDICAID | LOC: SKLAB5 07:07 | PROVIDERS: ATTEND Internal Medicine | DX: Z53.8 Procedure and treatment not carried out for other reasons (principal) ==

== ENCOUNTER → 2020-11-10 | Outpatient (REF) | payer MEDICARE, MEDICAID ==
[2020-11-10 09:19] LABS: HEMATOCRIT 50.6 % (42.0-52.0); HEMOGLOBIN 16.5 g/dl (13.5-17.5); MEAN CORPUSCULAR HEMOGLOBIN 31.7 pg (27.0-33.0); MEAN CORPUSCULAR HGB CONC 32.6 g/dl (32.0-36.5); MEAN CORPUSCULAR VOLUME 97.3 fl (80.0-96.0); PLATELET COUNT, AUTOMATED 202 10^3/uL (150-450); WHITE BLOOD COUNT 9.4 10^3/uL (4.0-10.0)
[2020-11-10 09:53] LABS: CREATININE FOR GFR 1.35 MG/DL (0.70-1.30); GLOMERULAR FILTRATION RATE 53.6 (>35); POTASSIUM SERUM 3.6 MEQ/L (3.5-5.1)
[2020-11-10 09:54] LABS: BILIRUBIN,TOTAL 0.7 MG/DL (0.2-1.0); CALCIUM LEVEL 8.8 MG/DL (8.8-10.2); MAGNESIUM LEVEL 1.9 MG/DL (1.8-2.4)
== END ==
LOC: SKLAB5 06:53
DX: N18.9 Chronic kidney disease, unspecified (principal)

== ENCOUNTER → 2020-11-24 | Outpatient (REF) | payer MEDICARE, MEDICAID | LOC: SKLAB5 07:22 | DX: E53.8 Deficiency of other specified B group vitamins (principal) ==

== ENCOUNTER → 2021-02-09 | Outpatient (REF) | payer MEDICARE, MEDICAID ==
[2021-02-09 10:52] LABS: HEMOGLOBIN 15.7 g/dl (13.5-17.5); MEAN CORPUSCULAR HEMOGLOBIN 31.9 pg (27.0-33.0); MEAN CORPUSCULAR HGB CONC 32.7 g/dl (32.0-36.5); MEAN CORPUSCULAR VOLUME 97.6 fl (80.0-96.0); PLATELET COUNT, AUTOMATED 197 10^3/uL (150-450); RED BLOOD COUNT 4.92 10^6/uL (4.30-6.10); WHITE BLOOD COUNT 8.7 10^3/uL (4.0-10.0)
[2021-02-09 11:13] LABS: ALBUMIN 2.9 GM/DL (3.2-5.2); BILIRUBIN,TOTAL 0.5 MG/DL (0.2-1.0); CALCIUM LEVEL 8.8 MG/DL (8.8-10.2); CREATININE FOR GFR 1.46 MG/DL (0.70-1.30); MAGNESIUM LEVEL 1.9 MG/DL (1.8-2.4); POTASSIUM SERUM 4.1 MEQ/L (3.5-5.1); THYROID STIMULATING HORMONE 4.74 uIU/ML (0.358-3.740); TOTAL PROTEIN 6.4 GM/DL (6.4-8.2)
== END ==
LOC: SKLAB5 09:18
DX: N28.9 Disorder of kidney and ureter, unspecified (principal); Z79.899 Other long term (current) drug therapy

== ENCOUNTER → 2021-03-09 | Outpatient (REF) | payer MEDICARE, MEDICAID ==
[~2021-03-09] MED LIST changes: -CITA10TA5 PO; +CITA10TA7 PO; +CLIN-250 PO; -CLIN300C6 PO; +QUET1TAB17 PO; -QUET25TA3 PO; -QUET50TA3 PO; +QUET50TA4 PO; -SCOP1PAT2 TOP; +TRAN1DIS4 TOP
[2021-03-09 13:45] LABS: CALCIUM LEVEL 8.2 MG/DL (8.8-10.2); CHOLESTEROL RISK RATIO 3.866 (<5); CREATININE FOR GFR 1.31 MG/DL (0.70-1.30); GLOMERULAR FILTRATION RATE 55.5 (>35); POTASSIUM SERUM 4.1 MEQ/L (3.5-5.1)
== END ==
LOC: SKLAB5 07:55
PROVIDERS: ATTEND Internal Medicine
DX: N28.9 Disorder of kidney and ureter, unspecified (principal); E78.5 Hyperlipidemia, unspecified

== ENCOUNTER → 2021-03-23 | Outpatient (REF) | payer MEDICARE, MEDICAID ==
[~2021-03-23] MED LIST changes: +CITA10TA5 PO; -CITA10TA7 PO; -CLIN-250 PO; +CLIN300C6 PO
== END ==
LOC: SKLAB5 08:35
PROVIDERS: ATTEND Internal Medicine
DX: E03.9 Hypothyroidism, unspecified (principal)

== ENCOUNTER → 2021-04-05 | Outpatient (REF) | payer MEDICARE, MEDICAID ==
--- NOTE | 2021-04-05 09:12 | REP ---
INDICATION: S/P INCREASED PAIN. COMPARISON: None TECHNIQUE: AP and frog-lateral views FINDINGS: There is a slight irregularity of the cortex of the inferior pubic ramus. This is seen both on AP and frog-lateral views. The hip joint space is symmetric and well maintained. There is no prominent marginal osteophytosis or buttressing. IMPRESSION: Possible right inferior pubic ramus fracture. Consider CT if clinically relevant. <Electronically signed by Ramiro Sparks > 04/05/21 [id number]
--- NOTE | 2021-04-05 12:38 | REP ---
INDICATION: RIGHT HIP AND LEG PAIN AFTER FALL. COMPARISON: Comparison right hip radiographs are from the same date. TECHNIQUE: Four views of the right femur are provided. FINDINGS: Four views of the right femur demonstrate vascular calcification and surgical clips in the thigh soft tissues. No fracture or bony erosive changes seen. There are hernia repair clips in the pelvis. Femoral head is smooth and rounded hip joint space is preserved. IMPRESSION: No acute abnormality. <Electronically signed by Gualberto Judge > 04/05/21 [id number]
== END ==
LOC: SKLAB5 08:10
PROVIDERS: ATTEND Internal Medicine
DX: M25.551 Pain in right hip (principal); Z91.81 History of falling; Z96.9 Presence of functional implant, unspecified; R93.7 Abnormal findings on diagnostic imaging of other parts of musculoskeletal system

== ENCOUNTER → 2021-04-05 | Outpatient (CLI) | payer MEDICARE, MEDICAID ==
--- NOTE | 2021-04-05 11:06 | REP ---
INDICATION: S/P FALL INJURY- WAITING IN CT AREA. COMPARISON: 05/27/2018 TECHNIQUE: 3 x 3 mm helical scanning with sagittal and coronal reconstructions FINDINGS: There is a lucency in the mid posterior acetabular the margins of which are smooth and sclerotic. There is a similar finding in the left posterior acetabulum. These are unchanged compared to the prior exam. There is bilateral acetabular marginal osteophytosis and bilateral asymmetric hip joint space narrowing. The femoral heads are spherical in shape. There is no CT evidence of a joint effusion or mass. 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 IMPRESSION: There is no evidence of an acute fracture. Chronic changes as described above. <Electronically signed by Ramiro Sparks > 04/05/21 [id number]
== END ==
LOC: M RAD 10:14
PROVIDERS: ATTEND Nurse Practitioner Family
DX: M25.551 Pain in right hip (principal); W19.XXXA Unspecified fall, initial encounter; Y92.9 Unspecified place or not applicable; Y93.9 Activity, unspecified; Y99.9 Unspecified external cause status

== ENCOUNTER → 2021-04-06 | Outpatient (REF) | payer MEDICARE, MEDICAID ==
[2021-04-06 10:08] LABS: HEMOGLOBIN 16.6 g/dl (13.5-17.5); MEAN CORPUSCULAR HEMOGLOBIN 31.7 pg (27.0-33.0); MEAN CORPUSCULAR HGB CONC 33.2 g/dl (32.0-36.5); MEAN CORPUSCULAR VOLUME 95.4 fl (80.0-96.0); PLATELET COUNT, AUTOMATED 224 10^3/uL (150-450); RED BLOOD COUNT 5.24 10^6/uL (4.30-6.10); WHITE BLOOD COUNT 9.1 10^3/uL (4.0-10.0)
== END ==
LOC: SKLAB5 08:53
PROVIDERS: ATTEND Internal Medicine
DX: R58 Hemorrhage, not elsewhere classified (principal)

== ENCOUNTER → 2021-04-20 | Outpatient (CLI) | payer MEDICARE, MEDICAID ==
[~2021-04-20] MED LIST changes: +BARIUM SULFATE 700 MG TABLET (E-Z-DISK) As Ordered ONE; +CLIN-250 PO; -CLIN300C6 PO; +E-Z-PAQUE 96% w/w SUSP 176GM BTL As Ordered ONE; +VARIBAR NECTAR 40% w/v 240ML SUSP BTL As Ordered ONE; +VARIBAR PUDDING 40% w/v 230ML TUBE As Ordered ONE
--- NOTE | 2021-04-20 17:31 | REP ---
INDICATION: DYSPHAGIA. COMPARISON: NONE TECHNIQUE: The procedure was performed under the direct supervision of . The procedure was performed with Sagrario Weber from speech pathology present. 2.7 minutes of fluoroscopy time was utilized for this procedure. FINDINGS: 5 cc aliquots of thin, nectar, pudding, mixed fruit and soft consistency barium was administered. With thin consistency barium through a straw with consecutive swallows there is aspiration. A detailed report of this examination will be provided by speech pathology. IMPRESSION: With thin consistency barium through a straw and consecutive swallows, there is aspiration. A detailed report of this examination will be provided by speech pathology. <Electronically signed by Kyler Chiang > 04/20/21 [id number] <Electronically signed by Elijah Fu > 04/20/21 [id number]
== END ==
LOC: M RAD 09:51
PROVIDERS: ATTEND Family Medicine
DX: G30.9 Alzheimer's disease, unspecified (principal); F02.80 Dementia in other diseases classified elsewhere, unspecified severity, without behavioral disturbance, psychotic disturbance, mood disturbance, and anxiety; R13.11 Dysphagia, oral phase

== ENCOUNTER → 2021-04-25 | Outpatient (REF) | payer MEDICARE, MEDICAID ==
[~2021-04-25] MED LIST changes: -BARIUM SULFATE 700 MG TABLET (E-Z-DISK) As Ordered ONE; -E-Z-PAQUE 96% w/w SUSP 176GM BTL As Ordered ONE; -VARIBAR NECTAR 40% w/v 240ML SUSP BTL As Ordered ONE; -VARIBAR PUDDING 40% w/v 230ML TUBE As Ordered ONE
== END ==
LOC: SKLAB5 11:13
PROVIDERS: ATTEND Internal Medicine
DX: Z20.822 Contact with and (suspected) exposure to COVID-19 (principal)

== ENCOUNTER → 2021-04-27 | Outpatient (REF) | payer MEDICARE, MEDICAID | LOC: SKLAB5 08:51 | PROVIDERS: ATTEND Internal Medicine | DX: Z20.822 Contact with and (suspected) exposure to COVID-19 (principal) ==

== ENCOUNTER → 2021-05-01 | Outpatient (REF) | payer MEDICARE, MEDICAID | LOC: SKLAB5 07:36 | PROVIDERS: ATTEND Internal Medicine | DX: Z20.822 Contact with and (suspected) exposure to COVID-19 (principal); Z53.8 Procedure and treatment not carried out for other reasons ==

== ENCOUNTER → 2021-06-13 | Outpatient (REF) | payer MEDICARE, MEDICAID | LOC: SKLAB5 10:51 | PROVIDERS: ATTEND Internal Medicine | DX: Z20.822 Contact with and (suspected) exposure to COVID-19 (principal) ==

== ENCOUNTER → 2021-06-21 | Outpatient (REF) | payer MEDICARE, MEDICAID | LOC: SKLAB5 13:37 | PROVIDERS: ATTEND Internal Medicine | DX: Z20.822 Contact with and (suspected) exposure to COVID-19 (principal) ==

== ENCOUNTER → 2021-06-28 | Outpatient (REF) | payer MEDICARE, MEDICAID | LOC: SKLAB5 14:23 | PROVIDERS: ATTEND Internal Medicine | DX: Z20.822 Contact with and (suspected) exposure to COVID-19 (principal) ==

== ENCOUNTER → 2021-07-05 | Outpatient (REF) | payer MEDICARE, MEDICAID | LOC: SKLAB5 11:00 | PROVIDERS: ATTEND Internal Medicine | DX: Z20.822 Contact with and (suspected) exposure to COVID-19 (principal) ==

== ENCOUNTER → 2021-07-12 | Outpatient (REF) | payer MEDICARE, MEDICAID ==
[~2021-07-12] MED LIST changes: -CITA10TA5 PO; +CITA10TA7 PO
== END ==
LOC: SKLAB5 06:26
PROVIDERS: ATTEND Internal Medicine
DX: Z20.822 Contact with and (suspected) exposure to COVID-19 (principal)

== ENCOUNTER → 2021-09-21 | Outpatient (REF) | payer MEDICARE, MEDICAID ==
[2021-09-21 12:30] LABS: CALCIUM LEVEL 8.3 MG/DL (8.8-10.2); CHOLESTEROL RISK RATIO 3.724 (<5); CREATININE FOR GFR 1.35 MG/DL (0.70-1.30); GLOMERULAR FILTRATION RATE 53.5 (>35)
== END ==
LOC: SKLAB5 07:29
PROVIDERS: ATTEND Internal Medicine
DX: N17.9 Acute kidney failure, unspecified (principal); Z79.899 Other long term (current) drug therapy

== ENCOUNTER → 2021-10-10 | Outpatient (REF) | payer MEDICARE, MEDICAID ==
[2021-10-10 13:30] LABS: HEMATOCRIT 50.7 % (42.0-52.0); HEMOGLOBIN 17.2 g/dl (13.5-17.5); MEAN CORPUSCULAR HEMOGLOBIN 32.1 pg (27.0-33.0); MEAN CORPUSCULAR HGB CONC 33.9 g/dl (32.0-36.5); MEAN CORPUSCULAR VOLUME 94.8 fl (80.0-96.0); PLATELET COUNT, AUTOMATED 195 10^3/uL (150-450); RED BLOOD COUNT 5.35 10^6/uL (4.30-6.10); WHITE BLOOD COUNT 10.9 10^3/uL (4.0-10.0)
[2021-10-10 14:01] LABS: ALBUMIN 2.8 GM/DL (3.2-5.2); BILIRUBIN,TOTAL 0.7 MG/DL (0.2-1.0); CALCIUM LEVEL 8.3 MG/DL (8.8-10.2); CREATININE FOR GFR 1.42 MG/DL (0.70-1.30); GLOMERULAR FILTRATION RATE 50.4 (>35); POTASSIUM SERUM 4.1 MEQ/L (3.5-5.1); TOTAL PROTEIN 6.3 GM/DL (6.4-8.2)
[2021-10-10 14:34] LABS: APPEARANCE, URINE CLEAR (CLEAR); BACTERIA, URINE AUTO NEGATIVE (NEGATIVE); BILIRUBIN, URINE AUTO NEGATIVE (NEGATIVE); BLOOD, URINE BLOOD NEGATIVE (NEGATIVE); COLOR, URINE YELLOW (YELLOW); GLUCOSE, URINE (UA) AUTO NEGATIVE (NEGATIVE); KETONE, URINE AUTO TRACE mg/dL (NEGATIVE); LEUKOCYTE ESTERASE, URINE AUTO NEGATIVE (NEGATIVE); MUCUS, URINE SMALL (NEGATIVE); NITRITE, URINE AUTO NEGATIVE (NEGATIVE); PROTEIN, URINE AUTO 1+ mg/dL (NEGATIVE); RBC, URINE AUTO 1 /HPF (0-3); SQUAMOUS EPITHELIAL CELL UR AU 0 /HPF (0-6); UROBILINOGEN, URINE AUTO 0.2 mg/dL (0.0-2.0); WBC, URINE AUTO 1 /HPF (0-3)
[2021-10-10 15:04] LABS: INFLUENZA A AMPLIFICATION NEGATIVE (NEGATIVE); INFLUENZA B AMPLIFICATION NEGATIVE (NEGATIVE)
== END ==
LOC: SKLAB5 10:44
PROVIDERS: ATTEND Internal Medicine
DX: I51.7 Cardiomegaly (principal); I27.20 Pulmonary hypertension, unspecified; Z79.899 Other long term (current) drug therapy

== ENCOUNTER → 2021-10-11 | Outpatient (REF) | payer MEDICARE, MEDICAID ==
[2021-10-11 12:02] LABS: HEMOGLOBIN 16.5 g/dl (13.5-17.5); MEAN CORPUSCULAR HGB CONC 33.7 g/dl (32.0-36.5); MEAN CORPUSCULAR VOLUME 95.1 fl (80.0-96.0); PLATELET COUNT, AUTOMATED 175 10^3/uL (150-450); RED BLOOD COUNT 5.15 10^6/uL (4.30-6.10); WHITE BLOOD COUNT 6.4 10^3/uL (4.0-10.0)
[2021-10-11 12:29] LABS: CALCIUM LEVEL 8.2 MG/DL (8.8-10.2); CREATININE FOR GFR 1.24 MG/DL (0.70-1.30)
== END ==
LOC: SKLAB5 09:25
PROVIDERS: ATTEND Internal Medicine
DX: R50.9 Fever, unspecified (principal)

== ENCOUNTER → 2021-11-23 | Outpatient (REF) | payer MEDICARE, MEDICAID ==
[2021-11-23 11:24] LABS: HEMATOCRIT 51.8 % (42.0-52.0); MEAN CORPUSCULAR HEMOGLOBIN 32.1 pg (27.0-33.0); MEAN CORPUSCULAR HGB CONC 33.2 g/dl (32.0-36.5); MEAN CORPUSCULAR VOLUME 96.6 fl (80.0-96.0); PLATELET COUNT, AUTOMATED 223 10^3/uL (150-450); RED BLOOD COUNT 5.36 10^6/uL (4.30-6.10); WHITE BLOOD COUNT 9.5 10^3/uL (4.0-10.0)
[2021-11-23 11:27] LABS: HEMOGLOBIN 17.2 g/dl (13.5-17.5)
[2021-11-23 12:24] LABS: ALBUMIN 2.9 GM/DL (3.2-5.2); BILIRUBIN,TOTAL 0.8 MG/DL (0.2-1.0); CALCIUM LEVEL 8.7 MG/DL (8.8-10.2); CREATININE FOR GFR 1.33 MG/DL (0.70-1.30); GLOMERULAR FILTRATION RATE 54.4 (>35); POTASSIUM SERUM 4.1 MEQ/L (3.5-5.1); TOTAL PROTEIN 6.8 GM/DL (6.4-8.2)
== END ==
LOC: SKLAB5 12:23
PROVIDERS: ATTEND Internal Medicine
DX: G20 Parkinson's disease (principal)

== ENCOUNTER → 2022-01-23 | Outpatient (REF) | payer MEDICARE, MEDICAID ==
[~2022-01-23] MED LIST changes: +ALBU2.5V10 INH; -ALBU83IN INH
[2022-01-23 08:34] LABS: HEMATOCRIT 49.4 % (42.0-52.0); HEMOGLOBIN 16.6 g/dl (13.5-17.5); MEAN CORPUSCULAR HGB CONC 33.6 g/dl (32.0-36.5); MEAN CORPUSCULAR VOLUME 95.2 fl (80.0-96.0); PLATELET COUNT, AUTOMATED 201 10^3/uL (150-450); RED BLOOD COUNT 5.19 10^6/uL (4.30-6.10); WHITE BLOOD COUNT 8.8 10^3/uL (4.0-10.0)
[2022-01-23 09:04] LABS: ALBUMIN 2.7 GM/DL (3.2-5.2); BILIRUBIN,TOTAL 0.9 MG/DL (0.2-1.0); CALCIUM LEVEL 8.1 MG/DL (8.8-10.2); CREATININE FOR GFR 1.31 MG/DL (0.70-1.30); GLOMERULAR FILTRATION RATE 55.4 (>35); MAGNESIUM LEVEL 1.6 MG/DL (1.8-2.4); POTASSIUM SERUM 3.8 MEQ/L (3.5-5.1); THYROID STIMULATING HORMONE 1.78 uIU/ML (0.358-3.740); TOTAL PROTEIN 6.2 GM/DL (6.4-8.2)
== END ==
LOC: SKLAB5 06:00
PROVIDERS: ATTEND Internal Medicine
DX: G20 Parkinson's disease (principal); D64.9 Anemia, unspecified; E03.9 Hypothyroidism, unspecified; E56.9 Vitamin deficiency, unspecified

== ENCOUNTER → 2022-02-20 | Outpatient (REF) | payer MEDICARE, MEDICAID ==
[2022-02-20 09:53] LABS: HEMATOCRIT 52.1 % (42.0-52.0); HEMOGLOBIN 17.2 g/dl (13.5-17.5); MEAN CORPUSCULAR HEMOGLOBIN 32.3 pg (27.0-33.0); MEAN CORPUSCULAR VOLUME 97.7 fl (80.0-96.0); PLATELET COUNT, AUTOMATED 209 10^3/uL (150-450); RED BLOOD COUNT 5.33 10^6/uL (4.30-6.10); WHITE BLOOD COUNT 11.4 10^3/uL (4.0-10.0)
[2022-02-20 10:39] LABS: ALBUMIN 2.9 GM/DL (3.2-5.2); BILIRUBIN,TOTAL 0.6 MG/DL (0.2-1.0); CALCIUM LEVEL 8.8 MG/DL (8.8-10.2); CREATININE FOR GFR 1.33 MG/DL (0.70-1.30); GLOMERULAR FILTRATION RATE 54.4 (>35); MAGNESIUM LEVEL 1.7 MG/DL (1.8-2.4); THYROID STIMULATING HORMONE 1.24 uIU/ML (0.358-3.740); TOTAL PROTEIN 6.6 GM/DL (6.4-8.2)
== END ==
LOC: SKLAB5 07:00
PROVIDERS: ATTEND Internal Medicine
DX: G20 Parkinson's disease (principal); D64.9 Anemia, unspecified; E03.9 Hypothyroidism, unspecified; E55.9 Vitamin D deficiency, unspecified

== ENCOUNTER → 2022-03-27 | Outpatient (REF) | payer MEDICARE, MEDICAID ==
[2022-03-27 12:14] LABS: BLOOD UREA NITROGEN 23 MG/DL (7-18); CALCIUM LEVEL 8.5 MG/DL (8.8-10.2); CARBON DIOXIDE LEVEL 31 MEQ/L (21-32); CHLORIDE LEVEL 105 MEQ/L (98-107); CHOLESTEROL LEVEL 121 MG/DL (<200); CHOLESTEROL RISK RATIO 3.457 (<5); CREATININE FOR GFR 1.19 MG/DL (0.70-1.30); GLOMERULAR FILTRATION RATE > 60.0 (>35); GLUCOSE, FASTING 123 MG/DL (70-100); HDL CHOLESTEROL 35 MG/DL (>40); LDL CHOLESTEROL 60 MG/DL (<100); NON-HDL-C 86 MG/DL; POTASSIUM SERUM 3.5 MEQ/L (3.5-5.1); SODIUM LEVEL 140 MEQ/L (136-145); TRIGLYCERIDES LEVEL 129 MG/DL (<150)
== END ==
LOC: SKLAB5 11:45
PROVIDERS: ATTEND Internal Medicine
DX: N17.9 Acute kidney failure, unspecified (principal); E78.00 Pure hypercholesterolemia, unspecified

== ENCOUNTER → 2022-04-17 | Outpatient (REF) | payer MEDICARE, MEDICAID ==
[~2022-04-17] MED LIST changes: +AMLO1TAB24 PO; +ASPI-255 PO; +ATOR40TA75 PO; +B-12100T2 PO; +CEFD300CAP PO; +GUAI5EL PO; +MAGN400O57 PO; +MED REC COMMENT; +MICOPOW31 TOP; +NIRM1TAB PO; +PRED10TA2 PO; +SYNT100T PO
== END ==
LOC: SKLAB5 14:06
PROVIDERS: ATTEND Nurse Practitioner Family
DX: Z20.822 Contact with and (suspected) exposure to COVID-19 (principal)

== ENCOUNTER 2022-04-18 01:19 | Inpatient (IN) | payer MEDICARE, MEDICAID ==
[~2022-04-18] VITALS: Ht 167.6 cm; Wt 80.5 kg
[2022-04-18] VITALS (7 sets, daily range): BP systolic 106–172; BP diastolic 51–83; O2SAT 93
[~2022-04-18 01:19] MED LIST changes: -AMLO1TAB24 PO; -ASPI-255 PO; -ATOR40TA75 PO; -B-12100T2 PO; -GUAI5EL PO; -MAGN400O57 PO; -MICOPOW31 TOP; -NIRM1TAB PO; -SYNT100T PO
[2022-04-18 01:54] LABS: ABG BASE EXCESS 0.4 (-2.0-2.0); ABG HCO3 26.2 MEQ/L (22.0-26.0); ABG O2 SATURATION 98.7 % (95.0-99.0); ABG PARTIAL PRESSURE CO2 46.3 mmHg (35.0-45.0); ABG PARTIAL PRESSURE O2 129.8 mmHg (75.0-100.0); ABG STANDARD HCO3 24.9 MEQ/L (22.0-26.0); ABG TOTAL CO2 27.6 MEQ/L (23.0-31.0); ABG pH (ARTERIAL) 7.371 UNITS (7.350-7.450)
[2022-04-18] MEDS ORDERED: dexameTHASONE 20MG/5ML VIAL (J1100 PER 1MG) IV ONE (01:55)
[2022-04-18] MEDS: COMBIVENT RESPIMAT 100-20MCG INHALER 4GM INH SCH ×4 (01:55→02:35)
[2022-04-18 02:09] LABS: BASO % 0.5 % (0.0-1.0); EOS % 0.2 % (0.0-3.0); HEMATOCRIT 23.3 % (42.0-52.0); HEMOGLOBIN 7.7 g/dl (13.5-17.5); LYMPH # 0.7 10^3/uL (1.5-5.0); LYMPH % 17.8 % (24.0-44.0); MEAN CORPUSCULAR HEMOGLOBIN 32.8 pg (27.0-33.0); MEAN CORPUSCULAR VOLUME 99.1 fl (80.0-96.0); MONO # 1.1 10^3/uL (0.0-0.8); MONO % 25.7 % (2.0-8.0); NEUTROPHILS # 2.3 10^3/uL (1.5-8.5); NEUTROPHILS % 55.3 % (36.0-66.0); RED BLOOD COUNT 2.35 10^6/uL (4.30-6.10); WHITE BLOOD COUNT 4.1 10^3/uL (4.0-10.0)
[2022-04-18 02:35] LABS: PLATELET COUNT, AUTOMATED 87 10^3/uL (150-450)
[2022-04-18 02:53] LABS: ALBUMIN 2.9 GM/DL (3.2-5.2); BILIRUBIN,DIRECT 0.2 MG/DL (0.0-0.2); BILIRUBIN,TOTAL 0.8 MG/DL (0.2-1.0); C REACTIVE PROTEIN QUANTITATIV 2.42 MG/DL (0.00-0.30); CALCIUM LEVEL 8.2 MG/DL (8.8-10.2); CREATININE FOR GFR 1.37 MG/DL (0.70-1.30); GLOMERULAR FILTRATION RATE 52.6 (>35); POTASSIUM SERUM 4.3 MEQ/L (3.5-5.1); TOTAL PROTEIN 6.2 GM/DL (6.4-8.2)
[2022-04-18 03:00] LABS: CPK CREATINE PHOSPHOKINASE 128 U/L (39-308)
[2022-04-18 03:14] LABS: BASO # 0.1 10^3/uL (0.0-0.2); BASO % 0.5 % (0.0-1.0); EOS % 0.3 % (0.0-3.0); HEMATOCRIT 49.9 % (42.0-52.0); LYMPH # 1.6 10^3/uL (1.5-5.0); LYMPH % 14.2 % (24.0-44.0); MEAN CORPUSCULAR HGB CONC 33.1 g/dl (32.0-36.5); MEAN CORPUSCULAR VOLUME 96.7 fl (80.0-96.0); NEUTROPHILS # 7.4 10^3/uL (1.5-8.5); NEUTROPHILS % 67.5 % (36.0-66.0); PLATELET COUNT, AUTOMATED 167 10^3/uL (150-450); RED BLOOD COUNT 5.16 10^6/uL (4.30-6.10); WHITE BLOOD COUNT 10.9 10^3/uL (4.0-10.0)
[2022-04-18 03:16] LABS: MONO # 1.9 10^3/uL (0.0-0.8)
[2022-04-18 03:18] LABS: HEMOGLOBIN 16.5 g/dl (13.5-17.5)
[2022-04-18] MEDS ORDERED: MOM 30ML SUSPENSION UDC PO PRN ×2 (05:15→12:00)
[2022-04-18] MEDS ORDERED: MAALOX 30 ML SUSP *UDC PO PRN (05:15)
[2022-04-18] MEDS ORDERED: HEPARIN SOD (PORCINE) 5000UNITS/ML 1ML VIAL/SYRINGE SC SCH (05:15)
[2022-04-18] MEDS ORDERED: ACETAMINOPHEN TAB 650MG DOSE (2X325MG) PO PRN (05:15)
[2022-04-18] MEDS ORDERED: ASPI-255 PO (05:29)
[2022-04-18] MEDS ORDERED: SYNT100T PO (05:29)
[2022-04-18] MEDS ORDERED: ATOR40TA75 PO (05:29)
[2022-04-18] MEDS ORDERED: B-12100T2 PO (05:29)
[2022-04-18] MEDS: NS 1,000 ML IV SCH ×2 (05:40→16:10)
[2022-04-18] MEDS ORDERED: MAGN400O57 PO (05:46)
[2022-04-18] MEDS ORDERED: NIRM1TAB PO (05:46)
[2022-04-18] MEDS ORDERED: GUAI5EL PO (05:46)
[2022-04-18] MEDS ORDERED: MICOPOW31 TOP (05:46)
[2022-04-18] MEDS ORDERED: HOME MED LIST COMPLETE! XX SCH (05:50)
[2022-04-18] MEDS ORDERED: REMDESIVIR 200 MG in NS 250 ML IV ONE (07:00)
[2022-04-18 08:24] LABS: CALCIUM LEVEL 8.2 MG/DL (8.8-10.2); CREATININE FOR GFR 1.31 MG/DL (0.70-1.30); GLOMERULAR FILTRATION RATE 55.4 (>35); PHOSPHORUS LEVEL 2.4 MG/DL (2.5-4.9); POTASSIUM SERUM 4.5 MEQ/L (3.5-5.1)
[2022-04-18] MEDS ORDERED: SODIUM CHLORIDE 0.9% INJ 10 ML SYR IV ONE (09:00)
[2022-04-18] MEDS: BARICITINIB 2MG TABLET (OLUMIANT) FOR EUA PO SCH (09:08)
[2022-04-18] MEDS: ENOXAPARIN 40MG/0.4ML SYRINGE (J1650 PER 10MG) SC SCH (09:10)
[2022-04-18] MEDS ORDERED: SENNA 8.6 MG TAB (SENOKOT) PO PRN (12:00)
[2022-04-18] MEDS ORDERED: BISACODYL 10 MG SUPP PR PRN (12:00)
[2022-04-18] MEDS ORDERED: guaiFENesin SYRUP 200MG 10ML UDC PO PRN (12:00)
[2022-04-18] MEDS ORDERED: ACETAMINOPHEN 325 MG TAB PO PRN (12:00)
[2022-04-18] MEDS ORDERED: POLYVINYL ALCOHOL OPHTH SOLN 15 ML(LIQUITEARS) OU PRN (12:00)
[2022-04-18] MEDS: ASPIRIN ENTERIC 325 MG TAB PO SCH (14:57)
[2022-04-18] MEDS: LEVOTHYROXINE 100MCG TABLET (0.1MG) PO SCH (14:57)
[2022-04-18] MEDS: ATORVASTATIN 20 MG TAB PO SCH (14:57)
[2022-04-18] MEDS: PANTOPRAZOLE 40MG TAB (PROTONIX) PO SCH (14:57)
[2022-04-18] MEDS: amLODIPine 5 MG TAB PO SCH (14:57)
[2022-04-18 17:09] LABS: BASO % 0.3 % (0.0-1.0); HEMATOCRIT 45.7 % (42.0-52.0); HEMOGLOBIN 16.6 g/dl (13.5-17.5); LYMPH # 1.1 10^3/uL (1.5-5.0); LYMPH % 16.6 % (24.0-44.0); MEAN CORPUSCULAR HEMOGLOBIN 34.1 pg (27.0-33.0); MEAN CORPUSCULAR HGB CONC 36.3 g/dl (32.0-36.5); MEAN CORPUSCULAR VOLUME 93.8 fl (80.0-96.0); MONO # 0.3 10^3/uL (0.0-0.8); MONO % 4.3 % (2.0-8.0); NEUTROPHILS # 5.3 10^3/uL (1.5-8.5); NEUTROPHILS % 78.1 % (36.0-66.0); PLATELET COUNT, AUTOMATED 197 10^3/uL (150-450); RED BLOOD COUNT 4.87 10^6/uL (4.30-6.10); WHITE BLOOD COUNT 6.7 10^3/uL (4.0-10.0)
[2022-04-18] MEDS ORDERED: dexameTHASONE 20MG/5ML VIAL (J1100 PER 1MG) IV SCH (21:00)
[2022-04-18] MEDS ORDERED: VANCOMYCIN HCL 1,000 MG, VIAL MATE ADAPTER 1 EACH in NS 250 ML IV ONE (22:50)
[2022-04-19 02:00] VITALS: BP 106/56
[2022-04-19] MEDS: LEVOTHYROXINE 100MCG TABLET (0.1MG) PO SCH (05:36)
[2022-04-19 06:00] VITALS: BP 124/76
[2022-04-19] MEDS ORDERED: REMDESIVIR 100 MG in NS 250 ML IV SCH (07:00)
[2022-04-19 07:06] LABS: BASO % 0.1 % (0.0-1.0); HEMATOCRIT 45.9 % (42.0-52.0); HEMOGLOBIN 15.5 g/dl (13.5-17.5); LYMPH # 1.4 10^3/uL (1.5-5.0); LYMPH % 19.5 % (24.0-44.0); MEAN CORPUSCULAR HEMOGLOBIN 32.5 pg (27.0-33.0); MEAN CORPUSCULAR HGB CONC 33.8 g/dl (32.0-36.5); MEAN CORPUSCULAR VOLUME 96.2 fl (80.0-96.0); MONO # 0.5 10^3/uL (0.0-0.8); MONO % 7.1 % (2.0-8.0); NEUTROPHILS % 72.9 % (36.0-66.0); PLATELET COUNT, AUTOMATED 179 10^3/uL (150-450); RED BLOOD COUNT 4.77 10^6/uL (4.30-6.10); WHITE BLOOD COUNT 6.9 10^3/uL (4.0-10.0)
[2022-04-19 07:15] LABS: INR 0.98; PROTHROMBIN TIME 13.2 SECONDS (12.5-14.5)
[2022-04-19 07:16] LABS: PARTIAL THROMBOPLASTIN TIME 21.3 SECONDS (24.8-34.2)
[2022-04-19 07:18] LABS: D-DIMER QUANT 881.24 ng/ml (<500)
[2022-04-19 07:45] LABS: ALBUMIN 2.7 GM/DL (3.2-5.2); ALT/SGPT 24 U/L (12-78); BILIRUBIN,DIRECT 0.2 MG/DL (0.0-0.2); BILIRUBIN,TOTAL 0.4 MG/DL (0.2-1.0); BLOOD UREA NITROGEN 28 MG/DL (7-18); C REACTIVE PROTEIN QUANTITATIV 4.63 MG/DL (0.00-0.30); CALCIUM LEVEL 7.6 MG/DL (8.8-10.2); CARBON DIOXIDE LEVEL 24 MEQ/L (21-32); CHLORIDE LEVEL 106 MEQ/L (98-107); CREATININE FOR GFR 1.22 MG/DL (0.70-1.30); FERRITIN 131 NG/ML (26-388); GLOMERULAR FILTRATION RATE > 60.0 (>35); GLUCOSE, FASTING 119 MG/DL (70-100); LDH LACTATE DEHYDROGENASE 237 U/L (87-241); MAGNESIUM LEVEL 1.9 MG/DL (1.8-2.4); POTASSIUM SERUM 4.4 MEQ/L (3.5-5.1); SODIUM LEVEL 141 MEQ/L (136-145); TOTAL PROTEIN 5.9 GM/DL (6.4-8.2)
[2022-04-19] MEDS ORDERED: SODIUM CHLORIDE 0.9% INJ 10 ML SYR IV SCH (08:00)
[2022-04-19] MEDS: PANTOPRAZOLE 40MG TAB (PROTONIX) PO SCH (08:41)
[2022-04-19] MEDS: ASPIRIN ENTERIC 325 MG TAB PO SCH (08:42)
[2022-04-19] MEDS: ATORVASTATIN 20 MG TAB PO SCH (08:42)
[2022-04-19] MEDS: ENOXAPARIN 40MG/0.4ML SYRINGE (J1650 PER 10MG) SC SCH (08:42)
[2022-04-19] MEDS: BARICITINIB 2MG TABLET (OLUMIANT) FOR EUA PO SCH (08:47)
[2022-04-19 08:52] VITALS: BP 152/88
[2022-04-19] MEDS: amLODIPine 5 MG TAB PO SCH (08:52)
[2022-04-19 10:00] VITALS: BP 130/67
[2022-04-19 11:00] VITALS: O2SAT 92
[2022-04-19] MEDS ORDERED: AMLO1TAB24 PO (12:25)
[2022-04-20] MEDS ORDERED: dexameTHASONE 4 MG/ML 1ML VIAL (J1100 PER 1MG) IV SCH (21:00)
== END 2022-04-19 13:55 | DRG 177 ==
LOC: M ED 01:19 → EDBD 01:19 → M ED INP 05:12 → ENRESERV 14:24 → M MSPAV 15:52
PROVIDERS: ADMIT Internal Medicine; ATTEND Internal Medicine
DX: U07.1 COVID-19 (principal); G93.41 Metabolic encephalopathy; J96.01 Acute respiratory failure with hypoxia; J12.82 Pneumonia due to coronavirus disease 2019; E03.9 Hypothyroidism, unspecified; F32.A Depression, unspecified; I12.9 Hypertensive chronic kidney disease with stage 1 through stage 4 chronic kidney disease, or unspecified chronic kidney disease; G20 Parkinson's disease; N18.9 Chronic kidney disease, unspecified; E78.5 Hyperlipidemia, unspecified; Z66 Do not resuscitate; F02.80 Dementia in other diseases classified elsewhere, unspecified severity, without behavioral disturbance, psychotic disturbance, mood disturbance, and anxiety; K59.09 Other constipation; R29.6 Repeated falls; Z86.73 Personal history of transient ischemic attack (TIA), and cerebral infarction without residual deficits; Z79.899 Other long term (current) drug therapy; Z79.82 Long term (current) use of aspirin

== ENCOUNTER → 2022-04-18 | Outpatient (REF) | payer MEDICARE, MEDICAID ==
[~2022-04-18] MED LIST changes: -CEFD300CAP PO; -MED REC COMMENT; -PRED10TA2 PO
== END ==
LOC: SKLAB5 15:59
PROVIDERS: ATTEND Nurse Practitioner Family
DX: U07.1 COVID-19 (principal); Z53.8 Procedure and treatment not carried out for other reasons

== ENCOUNTER → 2022-04-19 | Outpatient (REF) | payer MEDICARE, MEDICAID ==
[~2022-04-19] MED LIST changes: +AMLO1TAB24 PO; +ASPI-255 PO; +ATOR40TA75 PO; +B-12100T2 PO; +GUAI5EL PO; +MAGN400O57 PO; +MICOPOW31 TOP; +NIRM1TAB PO; +SYNT100T PO
== END ==
LOC: SKLAB5 15:33
PROVIDERS: ATTEND Nurse Practitioner Family
DX: U07.1 COVID-19 (principal); Z53.8 Procedure and treatment not carried out for other reasons

== ENCOUNTER → 2022-04-20 | Outpatient (REF) | payer MEDICARE, MEDICAID ==
[~2022-04-20] MED LIST changes: +MED REC COMMENT; +PRED10TA2 PO
== END ==
LOC: SKLAB5 08:58
PROVIDERS: ATTEND Nurse Practitioner Family
DX: R78.81 Bacteremia (principal); B95.7 Other staphylococcus as the cause of diseases classified elsewhere

== ENCOUNTER 2022-04-22 18:03 | Inpatient (IN) | payer MEDICARE, MEDICAID ==
[~2022-04-22] VITALS: Ht 188 cm; Wt 80.5 kg
[~2022-04-22 18:03] MED LIST changes: -MED REC COMMENT; -PRED10TA2 PO
[2022-04-22] MEDS ORDERED: ACETAMINOPHEN TAB 650MG DOSE (2X325MG) PO ONE (18:20)
[2022-04-22 19:53] LABS: VENOUS BASE EXCESS 2.3 (-2.0-2.0); VENOUS HCO3 30.6 MEQ/L (23.0-27.0); VENOUS O2 SATURATION 63.4 % (60.0-80.0); VENOUS PARTIAL PRESSURE O2 34.8 mmHg (30.0-50.0); VENOUS PH 7.318 UNITS (7.330-7.430); VENOUS STANDARD HCO3 25.4 MEQ/L; VENOUS TOTAL CO2 32.5 MEQ/L (24.0-28.0)
[2022-04-22 20:10] LABS: BASO % 0.2 % (0.0-1.0); EOS # 0.1 10^3/uL (0.0-0.5); EOS % 0.3 % (0.0-3.0); HEMATOCRIT 50.7 % (42.0-52.0); HEMOGLOBIN 16.8 g/dl (13.5-17.5); LYMPH # 1.4 10^3/uL (1.5-5.0); LYMPH % 6.6 % (24.0-44.0); MEAN CORPUSCULAR HEMOGLOBIN 31.6 pg (27.0-33.0); MEAN CORPUSCULAR HGB CONC 33.1 g/dl (32.0-36.5); MEAN CORPUSCULAR VOLUME 95.3 fl (80.0-96.0); MONO % 14.1 % (2.0-8.0); NEUTROPHILS # 16.4 10^3/uL (1.5-8.5); PLATELET COUNT, AUTOMATED 180 10^3/uL (150-450); RED BLOOD COUNT 5.32 10^6/uL (4.30-6.10)
[2022-04-22 20:12] LABS: INR 0.92; PROTHROMBIN TIME 12.6 SECONDS (12.5-14.5)
[2022-04-22 20:24] LABS: RSV AMPLIFICATION NEGATIVE (NEGATIVE)
[2022-04-22 20:27] LABS: CPK CREATINE PHOSPHOKINASE 31 U/L (39-308)
[2022-04-22 20:34] LABS: ALBUMIN 2.8 GM/DL (3.2-5.2); BILIRUBIN,DIRECT 0.3 MG/DL (0.0-0.2); BILIRUBIN,TOTAL 1.1 MG/DL (0.2-1.0); CALCIUM LEVEL 7.9 MG/DL (8.8-10.2); CREATININE FOR GFR 1.4 MG/DL (0.70-1.30); GLOMERULAR FILTRATION RATE 51.3 (>35); POTASSIUM SERUM 4.1 MEQ/L (3.5-5.1); THYROID STIMULATING HORMONE 0.934 uIU/ML (0.358-3.740); TOTAL PROTEIN 6.2 GM/DL (6.4-8.2)
[2022-04-22] MEDS ORDERED: ISOVUE-370 76% 100ML VIAL As Ordered ONE (22:07)
[2022-04-22] MEDS ORDERED: cefTRIAXone SOD 2 GM in D5W MINI-BAG PLUS 50 ML IV ONE (22:35)
[2022-04-22] MEDS ORDERED: dexameTHASONE 20MG/5ML VIAL (J1100 PER 1MG) IV ONE (23:45)
[2022-04-23] VITALS (8 sets, daily range): BP systolic 108–146; BP diastolic 52–70; O2SAT 94
[2022-04-23] MEDS ORDERED: AMLO1TAB24 PO (00:22)
[2022-04-23] MEDS ORDERED: MED REC COMMENT (00:22)
[2022-04-23] MEDS ORDERED: PRED10TA2 PO (00:22)
[2022-04-23] MEDS ORDERED: HOME MED LIST COMPLETE! XX SCH (00:25)
[2022-04-23 01:07] LABS: APPEARANCE, URINE MANUAL CLEAR (CLEAR); COLOR, URINE MANUAL YELLOW (YELLOW)
[2022-04-23 01:10] LABS: BILIRUBIN, URINE MANUAL NEGATIVE (NEGATIVE); BLOOD URINE MANUAL POSITIVE (NEGATIVE); GLUCOSE, URINE (UA) MANUAL NEGATIVE (NEGATIVE); KETONE, URINE MANUAL NEGATIVE (NEGATIVE); LEUKOCYTE ESTERASE, URINE MAN POSITIVE (NEGATIVE); NITRITE, URINE MANUAL POSITIVE (NEGATIVE); PROTEIN, URINE MANUAL TRACE mg/dL (NEGATIVE); SPECIFIC GRAVITY,URINE MANUAL 1.005 (1.002-1.035); UROBILINOGEN, URINE MANUAL NORMAL (NORMAL)
[2022-04-23 01:29] LABS: WBC, URINE 20-30 /hpf (0-3)
[2022-04-23 01:30] LABS: RBC, URINE 20-30 /hpf (0-3)
[2022-04-23 01:31] LABS: AMORPHOUS SEDIMENT, URINE MOD AMOUNT (NEGATIVE); BACTERIA, URINE SMALL AMOUNT; HYALINE CAST, URINE NONE SEEN /lpf (0-1); MUCUS, URINE SMALL AMOUNT (NEGATIVE); SQUAMOUS EPITHELIAL CELL URINE NONE SEEN /hpf (SMALL AMT)
[2022-04-23] MEDS: LEVOTHYROXINE 100MCG TABLET (0.1MG) PO SCH (05:52)
[2022-04-23 07:49] LABS: HEMATOCRIT 48.6 % (42.0-52.0); HEMOGLOBIN 16.3 g/dl (13.5-17.5); MEAN CORPUSCULAR HEMOGLOBIN 31.9 pg (27.0-33.0); MEAN CORPUSCULAR HGB CONC 33.5 g/dl (32.0-36.5); MEAN CORPUSCULAR VOLUME 95.1 fl (80.0-96.0); PLATELET COUNT, AUTOMATED 182 10^3/uL (150-450); RED BLOOD COUNT 5.11 10^6/uL (4.30-6.10); WHITE BLOOD COUNT 27.1 10^3/uL (4.0-10.0)
[2022-04-23 08:17] LABS: BLOOD UREA NITROGEN 27 MG/DL (7-18); CALCIUM LEVEL 7.9 MG/DL (8.8-10.2); CARBON DIOXIDE LEVEL 30 MEQ/L (21-32); CHLORIDE LEVEL 103 MEQ/L (98-107); CREATININE FOR GFR 1.02 MG/DL (0.70-1.30); GLOMERULAR FILTRATION RATE > 60.0 (>35); GLUCOSE, FASTING 154 MG/DL (70-100); POTASSIUM SERUM 4.3 MEQ/L (3.5-5.1); SODIUM LEVEL 136 MEQ/L (136-145)
[2022-04-23] MEDS: ATORVASTATIN 20 MG TAB PO SCH (08:59)
[2022-04-23] MEDS: ASPIRIN ENTERIC 325 MG TAB PO SCH (08:59)
[2022-04-23] MEDS ORDERED: PIPERACILLIN/TAZOBACTAM SOD 2.25 GM in D5W MINI-BAG PLUS 50 ML IV SCH (10:00)
[2022-04-23] MEDS: PIPERACILLIN/TAZOBACTAM SOD 3.375 GM in D5W MINI-BAG PLUS 50 ML IV SCH ×2 (17:05→22:06)
[2022-04-23] MEDS: LR 1,000 ML IV SCH (17:05)
[2022-04-23] MEDS ORDERED: cefTRIAXone SOD 1 GM in D5W MINI-BAG PLUS 50 ML IV SCH (21:00)
[2022-04-23] MEDS: ENOXAPARIN 40MG/0.4ML SYRINGE (J1650 PER 10MG) SC SCH (22:07)
[2022-04-24 04:00] VITALS: BP 142/67
[2022-04-24] MEDS: PIPERACILLIN/TAZOBACTAM SOD 3.375 GM in D5W MINI-BAG PLUS 50 ML IV SCH ×4 (04:37→21:36)
[2022-04-24 05:48] LABS: BLOOD UREA NITROGEN 39 MG/DL (7-18); CALCIUM LEVEL 7.8 MG/DL (8.8-10.2); CARBON DIOXIDE LEVEL 30 MEQ/L (21-32); CHLORIDE LEVEL 104 MEQ/L (98-107); CREATININE FOR GFR 1.15 MG/DL (0.70-1.30); GLOMERULAR FILTRATION RATE > 60.0 (>35); GLUCOSE, FASTING 128 MG/DL (70-100); SODIUM LEVEL 140 MEQ/L (136-145)
[2022-04-24] MEDS: LEVOTHYROXINE 100MCG TABLET (0.1MG) PO SCH (06:01)
[2022-04-24 07:34] LABS: HEMATOCRIT 46.6 % (42.0-52.0); HEMOGLOBIN 15.8 g/dl (13.5-17.5); MEAN CORPUSCULAR HEMOGLOBIN 32.1 pg (27.0-33.0); MEAN CORPUSCULAR HGB CONC 33.9 g/dl (32.0-36.5); MEAN CORPUSCULAR VOLUME 94.7 fl (80.0-96.0); PLATELET COUNT, AUTOMATED 174 10^3/uL (150-450); RED BLOOD COUNT 4.92 10^6/uL (4.30-6.10); WHITE BLOOD COUNT 20.4 10^3/uL (4.0-10.0)
[2022-04-24 08:00] VITALS: BP 153/72
[2022-04-24] MEDS: LR 1,000 ML IV SCH (08:33)
[2022-04-24] MEDS: ATORVASTATIN 20 MG TAB PO SCH (08:33)
[2022-04-24] MEDS: ASPIRIN ENTERIC 325 MG TAB PO SCH (08:34)
[2022-04-24 15:10] VITALS: BP_SYST 162
[2022-04-24 20:00] VITALS: O2SAT 94
[2022-04-24 20:09] VITALS: BP 152/79
[2022-04-24] MEDS: ENOXAPARIN 40MG/0.4ML SYRINGE (J1650 PER 10MG) SC SCH (21:37)
[2022-04-24 23:50] VITALS: BP 124/62
[2022-04-25] VITALS (7 sets, daily range): BP systolic 151–158; BP diastolic 50–69; O2SAT 90–95
[2022-04-25] MEDS: PIPERACILLIN/TAZOBACTAM SOD 3.375 GM in D5W MINI-BAG PLUS 50 ML IV SCH ×2 (04:28→09:18)
[2022-04-25] MEDS: LEVOTHYROXINE 100MCG TABLET (0.1MG) PO SCH (05:22)
[2022-04-25 06:46] LABS: BASO % 0.1 % (0.0-1.0); EOS % 0.1 % (0.0-3.0); HEMATOCRIT 48.1 % (42.0-52.0); HEMOGLOBIN 15.9 g/dl (13.5-17.5); LYMPH # 1.5 10^3/uL (1.5-5.0); LYMPH % 9.9 % (24.0-44.0); MEAN CORPUSCULAR HEMOGLOBIN 31.5 pg (27.0-33.0); MEAN CORPUSCULAR HGB CONC 33.1 g/dl (32.0-36.5); MEAN CORPUSCULAR VOLUME 95.2 fl (80.0-96.0); MONO % 6.3 % (2.0-8.0); NEUTROPHILS # 12.8 10^3/uL (1.5-8.5); NEUTROPHILS % 82.9 % (36.0-66.0); PLATELET COUNT, AUTOMATED 199 10^3/uL (150-450); RED BLOOD COUNT 5.05 10^6/uL (4.30-6.10); WHITE BLOOD COUNT 15.4 10^3/uL (4.0-10.0)
[2022-04-25 07:30] LABS: BLOOD UREA NITROGEN 40 MG/DL (7-18); CARBON DIOXIDE LEVEL 28 MEQ/L (21-32); CHLORIDE LEVEL 105 MEQ/L (98-107); CREATININE FOR GFR 1.22 MG/DL (0.70-1.30); GLOMERULAR FILTRATION RATE > 60.0 (>35); GLUCOSE, FASTING 120 MG/DL (70-100); MAGNESIUM LEVEL 1.9 MG/DL (1.8-2.4); POTASSIUM SERUM 4.1 MEQ/L (3.5-5.1); SODIUM LEVEL 139 MEQ/L (136-145)
[2022-04-25] MEDS ORDERED: CEFDINIR 300 MG CAP (OMNICEF) PO SCH (09:00)
[2022-04-25] MEDS: ASPIRIN ENTERIC 325 MG TAB PO SCH (09:18)
[2022-04-25] MEDS: ATORVASTATIN 20 MG TAB PO SCH (09:18)
[2022-04-25] MEDS ORDERED: CEFD300CAP PO (14:02)
== END 2022-04-25 14:40 | DRG 871 ==
LOC: EDBD 18:03 → M ED 18:03 → M ED INP 04-23 02:24 → M ICU 04-23 03:50 → M PCU 04-24 10:00
PROVIDERS: ADMIT Internal Medicine; ATTEND Internal Medicine
DX: A41.9 Sepsis, unspecified organism (principal); G93.41 Metabolic encephalopathy; J96.01 Acute respiratory failure with hypoxia; U07.1 COVID-19; N39.0 Urinary tract infection, site not specified; J98.11 Atelectasis; E87.20 Acidosis, unspecified; R65.20 Severe sepsis without septic shock; G20 Parkinson's disease; F02.80 Dementia in other diseases classified elsewhere, unspecified severity, without behavioral disturbance, psychotic disturbance, mood disturbance, and anxiety; I12.9 Hypertensive chronic kidney disease with stage 1 through stage 4 chronic kidney disease, or unspecified chronic kidney disease; N18.9 Chronic kidney disease, unspecified; Z86.73 Personal history of transient ischemic attack (TIA), and cerebral infarction without residual deficits; E03.9 Hypothyroidism, unspecified; F32.A Depression, unspecified; Z79.899 Other long term (current) drug therapy; Z79.82 Long term (current) use of aspirin; Z66 Do not resuscitate

== ENCOUNTER → 2022-04-23 | Outpatient (REF) | payer MEDICAID, MEDICARE ==
[~2022-04-23] MED LIST changes: +MED REC COMMENT; +PRED10TA2 PO
== END ==
LOC: SKLAB5 09:30
PROVIDERS: ATTEND Nurse Practitioner Family
DX: U07.1 COVID-19 (principal); Z53.8 Procedure and treatment not carried out for other reasons

== ENCOUNTER → 2022-04-26 | Outpatient (REF) | payer MEDICARE ==
[~2022-04-26] MED LIST changes: +CEFD300CAP PO
[2022-04-26 13:15] LABS: HEMATOCRIT 44.8 % (42.0-52.0); HEMOGLOBIN 15.3 g/dl (13.5-17.5); MEAN CORPUSCULAR HEMOGLOBIN 32.2 pg (27.0-33.0); MEAN CORPUSCULAR HGB CONC 34.2 g/dl (32.0-36.5); MEAN CORPUSCULAR VOLUME 94.3 fl (80.0-96.0); PLATELET COUNT, AUTOMATED 228 10^3/uL (150-450); RED BLOOD COUNT 4.75 10^6/uL (4.30-6.10); WHITE BLOOD COUNT 9.7 10^3/uL (4.0-10.0)
[2022-04-26 14:37] LABS: ALBUMIN 2.3 GM/DL (3.2-5.2); ALT/SGPT 21 U/L (12-78); BILIRUBIN,TOTAL 0.7 MG/DL (0.2-1.0); BLOOD UREA NITROGEN 29 MG/DL (7-18); CALCIUM LEVEL 8.2 MG/DL (8.8-10.2); CARBON DIOXIDE LEVEL 31 MEQ/L (21-32); CHLORIDE LEVEL 103 MEQ/L (98-107); CREATININE FOR GFR 1.17 MG/DL (0.70-1.30); GLOMERULAR FILTRATION RATE > 60.0 (>35); GLUCOSE, FASTING 108 MG/DL (70-100); POTASSIUM SERUM 3.7 MEQ/L (3.5-5.1); SODIUM LEVEL 139 MEQ/L (136-145); TOTAL PROTEIN 5.4 GM/DL (6.4-8.2)
== END ==
LOC: SKLAB2 13:21
PROVIDERS: ATTEND Nurse Practitioner Family
DX: U07.1 COVID-19 (principal); Z79.899 Other long term (current) drug therapy

== ENCOUNTER → 2022-04-30 | Outpatient (REF) | payer MEDICARE ==
[2022-04-30 08:29] LABS: HEMATOCRIT 51.4 % (42.0-52.0); HEMOGLOBIN 17.3 g/dl (13.5-17.5); MEAN CORPUSCULAR HEMOGLOBIN 31.9 pg (27.0-33.0); MEAN CORPUSCULAR HGB CONC 33.7 g/dl (32.0-36.5); MEAN CORPUSCULAR VOLUME 94.7 fl (80.0-96.0); PLATELET COUNT, AUTOMATED 251 10^3/uL (150-450); RED BLOOD COUNT 5.43 10^6/uL (4.30-6.10); WHITE BLOOD COUNT 12.6 10^3/uL (4.0-10.0)
[2022-04-30 09:33] LABS: ALBUMIN 2.5 GM/DL (3.2-5.2); ALT/SGPT 32 U/L (12-78); BLOOD UREA NITROGEN 21 MG/DL (7-18); CALCIUM LEVEL 8.6 MG/DL (8.8-10.2); CARBON DIOXIDE LEVEL 28 MEQ/L (21-32); CHLORIDE LEVEL 100 MEQ/L (98-107); CREATININE FOR GFR 1.17 MG/DL (0.70-1.30); GLOMERULAR FILTRATION RATE > 60.0 (>35); GLUCOSE, FASTING 82 MG/DL (70-100); POTASSIUM SERUM 4.3 MEQ/L (3.5-5.1); SODIUM LEVEL 136 MEQ/L (136-145); TOTAL PROTEIN 6.3 GM/DL (6.4-8.2)
== END ==
LOC: SKLAB5 11:54
PROVIDERS: ATTEND Nurse Practitioner Family
DX: U07.1 COVID-19 (principal)

== ENCOUNTER → 2022-04-30 | Outpatient (REF) | LOC: SKLAB5 11:55 | PROVIDERS: ATTEND Nurse Practitioner Family | DX: T17.908A Unspecified foreign body in respiratory tract, part unspecified causing other injury, initial encounter (principal) ==

== ENCOUNTER → 2022-05-03 | Outpatient (REF) ==
[2022-05-03 09:24] LABS: HEMATOCRIT 48.9 % (42.0-52.0); HEMOGLOBIN 16.4 g/dl (13.5-17.5); MEAN CORPUSCULAR HEMOGLOBIN 32.2 pg (27.0-33.0); MEAN CORPUSCULAR HGB CONC 33.5 g/dl (32.0-36.5); MEAN CORPUSCULAR VOLUME 96.1 fl (80.0-96.0); PLATELET COUNT, AUTOMATED 249 10^3/uL (150-450); RED BLOOD COUNT 5.09 10^6/uL (4.30-6.10); WHITE BLOOD COUNT 10.8 10^3/uL (4.0-10.0)
[2022-05-03 09:56] LABS: ALBUMIN 2.4 GM/DL (3.2-5.2); BILIRUBIN,TOTAL 0.7 MG/DL (0.2-1.0); CALCIUM LEVEL 8.7 MG/DL (8.8-10.2); CREATININE FOR GFR 1.31 MG/DL (0.70-1.30); GLOMERULAR FILTRATION RATE 55.4 (>35); POTASSIUM SERUM 3.9 MEQ/L (3.5-5.1); TOTAL PROTEIN 6.6 GM/DL (6.4-8.2)
== END ==
LOC: SKLAB5 08:52
PROVIDERS: ATTEND Nurse Practitioner Family
DX: U07.1 COVID-19 (principal)

== ENCOUNTER → 2022-07-03 | Outpatient (REF) | payer MEDICARE, MEDICAID | LOC: M SFHCDERM 18:01 | PROVIDERS: ATTEND Physician Assistant | DX: D49.2 Neoplasm of unspecified behavior of bone, soft tissue, and skin (principal); L82.0 Inflamed seborrheic keratosis ==

== ENCOUNTER → 2022-08-24 | Outpatient (REF) | payer MEDICARE ==
[2022-08-24 08:27] LABS: HEMATOCRIT 46.5 % (42.0-52.0); HEMOGLOBIN 15.8 g/dl (13.5-17.5); MEAN CORPUSCULAR HEMOGLOBIN 32.7 pg (27.0-33.0); MEAN CORPUSCULAR VOLUME 96.3 fl (80.0-96.0); PLATELET COUNT, AUTOMATED 191 10^3/uL (150-450); RED BLOOD COUNT 4.83 10^6/uL (4.30-6.10); WHITE BLOOD COUNT 7.9 10^3/uL (4.0-10.0)
[2022-08-24 08:39] LABS: ALBUMIN 2.7 G/DL (3.2-5.2); BILIRUBIN,TOTAL 0.4 MG/DL (0.3-1.2); CALCIUM LEVEL 8.1 MG/DL (8.3-10.6); CREATININE FOR GFR 1.27 MG/DL (0.70-1.30); GLOMERULAR FILTRATION RATE 57.2 (>35); MAGNESIUM LEVEL 1.7 MG/DL (1.8-2.4); POTASSIUM SERUM 4.2 MMOL/L (3.5-5.1); THYROID STIMULATING HORMONE 2.573 uIU/ML (0.55-4.78); TOTAL PROTEIN 5.6 G/DL (5.7-8.2)
== END ==
LOC: SKLAB5 13:57
PROVIDERS: ATTEND Internal Medicine
DX: G20 Parkinson's disease (principal); D64.9 Anemia, unspecified; E03.9 Hypothyroidism, unspecified; E55.9 Vitamin D deficiency, unspecified

== ENCOUNTER → 2022-09-21 | Outpatient (REF) | payer MEDICARE ==
[2022-09-21 09:11] LABS: CALCIUM LEVEL 8.2 MG/DL (8.3-10.6); CHOLESTEROL RISK RATIO 5.96 (<5); CREATININE FOR GFR 1.27 MG/DL (0.70-1.30); GLOMERULAR FILTRATION RATE 57.2 (>35); HDL CHOLESTEROL 28.5 MG/DL (>40); LDL CHOLESTEROL 91.3 MG/DL (<100); NON-HDL-C 141.5 MG/DL; POTASSIUM SERUM 3.9 MMOL/L (3.5-5.1)
== END ==
LOC: SKLAB5 09:35
PROVIDERS: ATTEND Nurse Practitioner Adult Health
DX: N17.9 Acute kidney failure, unspecified (principal); E78.00 Pure hypercholesterolemia, unspecified

== ENCOUNTER 2022-11-11 13:43 | Emergency (ER) | payer MEDICARE ==
[~2022-11-11 13:43] MED LIST changes: +ARTIDRO4 OU; -POLYOPD OU
[2022-11-11] MEDS ORDERED: BOOSTRIX VACCINE (TETANUS/DIPHTH/ACEL. PERTUSSIS) 0.5ML SYR IM.IMMUN ONE (14:35)
[2022-11-11] MEDS ORDERED: LIDOCAINE W/EPINEPHRINE 1% 20ML VIAL SC ONE (14:50)
[2022-11-11] MEDS ORDERED: LIDOCAINE W/EPINEPHRINE 1% 20ML VIAL As Ordered ONE (14:50)
[2022-11-11] MEDS ORDERED: ACETAMINOPHEN TAB 650MG DOSE (2X325MG) PO ONE (17:45)
[2022-11-11 18:16] VITALS: BP 130/80
== END 2022-11-11 18:26 | disposition home or self-care (01) ==
LOC: M ED 13:43
DX: S20.212A Contusion of left front wall of thorax, initial encounter (principal); S01.81XA Laceration without foreign body of other part of head, initial encounter; S09.90XA Unspecified injury of head, initial encounter; W19.XXXA Unspecified fall, initial encounter; Y92.009 Unspecified place in unspecified non-institutional (private) residence as the place of occurrence of the external cause; I11.9 Hypertensive heart disease without heart failure; I12.9 Hypertensive chronic kidney disease with stage 1 through stage 4 chronic kidney disease, or unspecified chronic kidney disease; F03.90 Unspecified dementia, unspecified severity, without behavioral disturbance, psychotic disturbance, mood disturbance, and anxiety; Z79.82 Long term (current) use of aspirin; Z79.899 Other long term (current) drug therapy

== ENCOUNTER → 2022-11-23 | Outpatient (REF) | payer MEDICARE ==
[2022-11-23 10:36] LABS: HEMATOCRIT 50.3 % (42.0-52.0); HEMOGLOBIN 16.6 g/dl (13.5-17.5); MEAN CORPUSCULAR HEMOGLOBIN 31.6 pg (27.0-33.0); MEAN CORPUSCULAR VOLUME 95.6 fl (80.0-96.0); PLATELET COUNT, AUTOMATED 256 10^3/uL (150-450); RED BLOOD COUNT 5.26 10^6/uL (4.30-6.10); WHITE BLOOD COUNT 9.3 10^3/uL (4.0-10.0)
[2022-11-23 11:03] LABS: ALBUMIN 2.7 G/DL (3.2-5.2); ALKALINE PHOSPHATASE 113 U/L (46-116); ALT/SGPT 19 U/L (7.0-40); AST/SGOT 16 U/L (<34); BILIRUBIN,TOTAL 0.6 MG/DL (0.3-1.2); BLOOD UREA NITROGEN 28 MG/DL (9-23); CALCIUM LEVEL 8.3 MG/DL (8.3-10.6); CARBON DIOXIDE LEVEL 26 MMOL/L (20-31); CHLORIDE LEVEL 108 MMOL/L (98-107); CREATININE FOR GFR 1.16 MG/DL (0.70-1.30); GLOMERULAR FILTRATION RATE > 60.0 (>35); GLUCOSE, FASTING 132 MG/DL (74-106); MAGNESIUM LEVEL 1.8 MG/DL (1.8-2.4); POTASSIUM SERUM 4.1 MMOL/L (3.5-5.1); SODIUM LEVEL 141 MMOL/L (136-145)
[2022-11-23 11:04] LABS: VITAMIN B12 LEVEL 537 PG/ML (211-911)
== END ==
LOC: SKLAB5 11:09
PROVIDERS: ATTEND Internal Medicine
DX: G20 Parkinson's disease (principal); D64.9 Anemia, unspecified; E55.9 Vitamin D deficiency, unspecified

== ENCOUNTER → 2023-02-22 | Outpatient (REF) | payer MEDICARE ==
[~2023-02-22] MED LIST changes: +SENN-111 PO; -SENN18TA PO
[2023-02-22 06:50] LABS: HEMATOCRIT 47.7 % (42.0-52.0); HEMOGLOBIN 16.1 g/dl (13.5-17.5); MEAN CORPUSCULAR HEMOGLOBIN 31.8 pg (27.0-33.0); MEAN CORPUSCULAR HGB CONC 33.8 g/dl (32.0-36.5); MEAN CORPUSCULAR VOLUME 94.3 fl (80.0-96.0); PLATELET COUNT, AUTOMATED 218 10^3/uL (150-450); RED BLOOD COUNT 5.06 10^6/uL (4.30-6.10); WHITE BLOOD COUNT 7.8 10^3/uL (4.0-10.0)
[2023-02-22 07:20] LABS: ALBUMIN 2.6 G/DL (3.2-5.2); BILIRUBIN,TOTAL 0.6 MG/DL (0.3-1.2); CALCIUM LEVEL 8.2 MG/DL (8.3-10.6); CREATININE FOR GFR 1.25 MG/DL (0.70-1.30); GLOMERULAR FILTRATION RATE 58.3 (>35); MAGNESIUM LEVEL 1.6 MG/DL (1.8-2.4); POTASSIUM SERUM 4.2 MMOL/L (3.5-5.1); TOTAL PROTEIN 5.5 G/DL (5.7-8.2)
[2023-02-22 07:21] LABS: THYROID STIMULATING HORMONE 2.298 uIU/ML (0.55-4.78)
== END ==
LOC: SKLAB5 07:00
PROVIDERS: ATTEND Internal Medicine
DX: G20 Parkinson's disease (principal); D64.9 Anemia, unspecified; E03.9 Hypothyroidism, unspecified; E55.9 Vitamin D deficiency, unspecified

== ENCOUNTER → 2023-03-22 | Outpatient (REF) | payer MEDICARE ==
[2023-03-22 09:28] LABS: CALCIUM LEVEL 8.9 MG/DL (8.3-10.6); CHOLESTEROL RISK RATIO 5.57 (<5); CREATININE FOR GFR 1.31 MG/DL (0.70-1.30); GLOMERULAR FILTRATION RATE 55.2 (>35); HDL CHOLESTEROL 34.1 MG/DL (>40); LDL CHOLESTEROL 117.1 MG/DL (<100); NON-HDL-C 155.9 MG/DL; POTASSIUM SERUM 4.2 MMOL/L (3.5-5.1)
== END ==
LOC: SKLAB5 08:45
PROVIDERS: ATTEND Internal Medicine
DX: N17.9 Acute kidney failure, unspecified (principal); E78.00 Pure hypercholesterolemia, unspecified

== ENCOUNTER → 2023-07-19 | Outpatient (REF) | payer MEDICARE, MEDICAID | LOC: SKLAB5 07:00 | PROVIDERS: ATTEND Internal Medicine | DX: R05.9 Cough, unspecified (principal) ==

== ENCOUNTER → 2023-07-19 | Outpatient (REF) | LOC: SKLAB5 23:18 | PROVIDERS: ATTEND Internal Medicine | DX: R05.9 Cough, unspecified (principal); R06.2 Wheezing; Z53.8 Procedure and treatment not carried out for other reasons ==

== ENCOUNTER → 2023-07-19 | Outpatient (REF) | payer MEDICARE, MEDICAID ==
[2023-07-20 00:39] LABS: BASO # 0.1 10^3/uL (0.0-0.2); BASO % 0.6 % (0.0-1.0); EOS # 0.1 10^3/uL (0.0-0.5); EOS % 0.6 % (0.0-3.0); HEMATOCRIT 45.6 % (42.0-52.0); HEMOGLOBIN 15.6 g/dl (13.5-17.5); LYMPH # 2.1 10^3/uL (1.5-5.0); LYMPH % 24.6 % (24.0-44.0); MEAN CORPUSCULAR HEMOGLOBIN 32.9 pg (27.0-33.0); MEAN CORPUSCULAR HGB CONC 34.2 g/dl (32.0-36.5); MEAN CORPUSCULAR VOLUME 96.2 fl (80.0-96.0); MONO % 24.2 % (2.0-8.0); NEUTROPHILS # 4.2 10^3/uL (1.5-8.5); NEUTROPHILS % 49.6 % (36.0-66.0); PLATELET COUNT, AUTOMATED 189 10^3/uL (150-450); RED BLOOD COUNT 4.74 10^6/uL (4.30-6.10); WHITE BLOOD COUNT 8.4 10^3/uL (4.0-10.0)
[2023-07-20 00:53] LABS: ALBUMIN 2.6 G/DL (3.2-5.2); BILIRUBIN,TOTAL 0.5 MG/DL (0.3-1.2); CALCIUM LEVEL 7.8 MG/DL (8.3-10.6); CREATININE FOR GFR 1.33 MG/DL (0.70-1.30); GLOMERULAR FILTRATION RATE 54.1 (>35); POTASSIUM SERUM 4.1 MMOL/L (3.5-5.1); TOTAL PROTEIN 5.6 G/DL (5.7-8.2)
== END ==
LOC: SKLAB5 07:00
PROVIDERS: ATTEND Internal Medicine
DX: R05.9 Cough, unspecified (principal); R06.2 Wheezing

== ENCOUNTER → 2023-08-01 | Outpatient (CLI) | payer MEDICARE, MEDICAID | LOC: SKLAB5 02:27 | PROVIDERS: ATTEND Nurse Practitioner Family | DX: R05.9 Cough, unspecified (principal); R09.89 Other specified symptoms and signs involving the circulatory and respiratory systems; I51.7 Cardiomegaly; J98.11 Atelectasis ==

== ENCOUNTER → 2023-08-01 | Outpatient (REF) | payer MEDICARE, MEDICAID | LOC: SKLAB5 08:04 | PROVIDERS: ATTEND Nurse Practitioner Family | DX: R09.02 Hypoxemia (principal); R05.9 Cough, unspecified; Z53.8 Procedure and treatment not carried out for other reasons ==

== ENCOUNTER → 2023-08-02 | Outpatient (REF) | payer MEDICARE, MEDICAID ==
[2023-08-02 11:47] LABS: BASO % 0.1 % (0.0-1.0); EOS % 0.3 % (0.0-3.0); HEMATOCRIT 45.9 % (42.0-52.0); HEMOGLOBIN 15.3 g/dl (13.5-17.5); LYMPH # 2.8 10^3/uL (1.5-5.0); LYMPH % 20.2 % (24.0-44.0); MEAN CORPUSCULAR HEMOGLOBIN 31.9 pg (27.0-33.0); MEAN CORPUSCULAR HGB CONC 33.3 g/dl (32.0-36.5); MEAN CORPUSCULAR VOLUME 95.8 fl (80.0-96.0); MONO # 1.6 10^3/uL (0.0-0.8); MONO % 11.2 % (2.0-8.0); NEUTROPHILS # 9.4 10^3/uL (1.5-8.5); NEUTROPHILS % 67.1 % (36.0-66.0); PLATELET COUNT, AUTOMATED 172 10^3/uL (150-450); RED BLOOD COUNT 4.79 10^6/uL (4.30-6.10)
[2023-08-02 12:19] LABS: ALBUMIN 1.8 G/DL (3.2-5.2); BILIRUBIN,TOTAL 0.8 MG/DL (0.3-1.2); CALCIUM LEVEL 7.2 MG/DL (8.3-10.6); CREATININE FOR GFR 1.29 MG/DL (0.70-1.30); GLOMERULAR FILTRATION RATE 56.1 (>35); POTASSIUM SERUM 3.7 MMOL/L (3.5-5.1); TOTAL PROTEIN 5.1 G/DL (5.7-8.2)
== END ==
LOC: SKLAB4 09:49
PROVIDERS: ATTEND Nurse Practitioner Family
DX: R50.9 Fever, unspecified (principal)

== ENCOUNTER → 2023-08-23 | Outpatient (REF) | payer MEDICARE, MEDICAID ==
[2023-08-23 11:25] LABS: HEMATOCRIT 45.8 % (42.0-52.0); HEMOGLOBIN 15.3 g/dl (13.5-17.5); MEAN CORPUSCULAR HEMOGLOBIN 31.6 pg (27.0-33.0); MEAN CORPUSCULAR HGB CONC 33.4 g/dl (32.0-36.5); MEAN CORPUSCULAR VOLUME 94.6 fl (80.0-96.0); PLATELET COUNT, AUTOMATED 216 10^3/uL (150-450); RED BLOOD COUNT 4.84 10^6/uL (4.30-6.10); WHITE BLOOD COUNT 7.1 10^3/uL (4.0-10.0)
[2023-08-23 11:58] LABS: THYROID STIMULATING HORMONE 2.409 uIU/ML (0.55-4.78)
[2023-08-23 12:00] LABS: ALBUMIN 2.2 G/DL (3.2-5.2); BILIRUBIN,TOTAL 0.3 MG/DL (0.3-1.2); CALCIUM LEVEL 8.2 MG/DL (8.3-10.6); CREATININE FOR GFR 1.3 MG/DL (0.70-1.30); GLOMERULAR FILTRATION RATE 55.6 (>35); MAGNESIUM LEVEL 1.6 MG/DL (1.8-2.4); POTASSIUM SERUM 3.8 MMOL/L (3.5-5.1); TOTAL PROTEIN 5.3 G/DL (5.7-8.2)
== END ==
LOC: SKLAB5 10:47
PROVIDERS: ATTEND Internal Medicine
DX: G20.C Parkinsonism, unspecified (principal); D64.9 Anemia, unspecified; E53.8 Deficiency of other specified B group vitamins; E03.9 Hypothyroidism, unspecified

== ENCOUNTER → 2023-09-24 | Outpatient (REF) | payer MEDICARE, MEDICAID ==
[~2023-09-24] MED LIST changes: -SENN1TAB41 PO; +SENN1TAB85 PO
== END ==
LOC: SKLAB5 11:03
PROVIDERS: ATTEND Nurse Practitioner Family
DX: E78.00 Pure hypercholesterolemia, unspecified (principal); Z53.8 Procedure and treatment not carried out for other reasons

== ENCOUNTER → 2023-10-02 | Outpatient (REF) | payer MEDICARE, MEDICAID ==
[2023-10-02 10:09] LABS: BLOOD UREA NITROGEN 26 MG/DL (9-23); CALCIUM LEVEL 8.5 MG/DL (8.3-10.6); CARBON DIOXIDE LEVEL 29 MMOL/L (20-31); CHLORIDE LEVEL 106 MMOL/L (98-107); CHOLESTEROL LEVEL 207 MG/DL (<200); CHOLESTEROL RISK RATIO 5.93 (<5); CREATININE FOR GFR 1.17 MG/DL (0.70-1.30); GLOMERULAR FILTRATION RATE > 60.0 (>35); GLUCOSE, FASTING 88 MG/DL (74-106); HDL CHOLESTEROL 34.9 MG/DL (>40); LDL CHOLESTEROL 141.1 MG/DL (<100); NON-HDL-C 172.1 MG/DL; POTASSIUM SERUM 4.5 MMOL/L (3.5-5.1); SODIUM LEVEL 142 MMOL/L (136-145); TRIGLYCERIDES LEVEL 155 MG/DL (<150)
== END ==
LOC: SKLAB5 08:29
PROVIDERS: ATTEND Nurse Practitioner Family
DX: N17.9 Acute kidney failure, unspecified (principal); E78.00 Pure hypercholesterolemia, unspecified

== ENCOUNTER → 2023-12-24 | Outpatient (REF) | payer MEDICARE, MEDICAID ==
[~2023-12-24] MED LIST changes: +ONDA-282 PO; -ONDA4TAB6 PO
[2023-12-24 10:09] LABS: HEMATOCRIT 53.3 % (42.0-52.0); HEMOGLOBIN 17.9 g/dl (13.5-17.5); MEAN CORPUSCULAR HEMOGLOBIN 31.9 pg (27.0-33.0); MEAN CORPUSCULAR HGB CONC 33.6 g/dl (32.0-36.5); PLATELET COUNT, AUTOMATED 230 10^3/uL (150-450); RED BLOOD COUNT 5.61 10^6/uL (4.30-6.10); WHITE BLOOD COUNT 8.9 10^3/uL (4.0-10.0)
[2023-12-24 10:42] LABS: BILIRUBIN,TOTAL 0.8 MG/DL (0.3-1.2); CALCIUM LEVEL 8.6 MG/DL (8.3-10.6); CREATININE FOR GFR 1.22 MG/DL (0.70-1.30); GLOMERULAR FILTRATION RATE 59.8 (>35); MAGNESIUM LEVEL 1.9 MG/DL (1.8-2.4); POTASSIUM SERUM 4.3 MMOL/L (3.5-5.1); TOTAL PROTEIN 6.3 G/DL (5.7-8.2)
== END ==
LOC: SKLAB5 07:00
PROVIDERS: ATTEND Internal Medicine
DX: G20.C Parkinsonism, unspecified (principal); D64.9 Anemia, unspecified

== ENCOUNTER → 2023-12-30 | Outpatient (REF) | payer MEDICARE, MEDICAID ==
[2023-12-30 16:39] LABS: BASO # 0.1 10^3/uL (0.0-0.2); BASO % 0.9 % (0.0-1.0); EOS # 0.3 10^3/uL (0.0-0.5); HEMATOCRIT 50.7 % (42.0-52.0); HEMOGLOBIN 17.4 g/dl (13.5-17.5); LYMPH # 2.6 10^3/uL (1.5-5.0); MEAN CORPUSCULAR HGB CONC 34.3 g/dl (32.0-36.5); MONO # 0.9 10^3/uL (0.0-0.8); MONO % 10.6 % (2.0-8.0); NEUTROPHILS # 4.8 10^3/uL (1.5-8.5); PLATELET COUNT, AUTOMATED 233 10^3/uL (150-450); RED BLOOD COUNT 5.28 10^6/uL (4.30-6.10); WHITE BLOOD COUNT 8.7 10^3/uL (4.0-10.0)
[2023-12-30 17:08] LABS: CALCIUM LEVEL 8.1 MG/DL (8.3-10.6); CREATININE FOR GFR 1.27 MG/DL (0.70-1.30); GLOMERULAR FILTRATION RATE 57.1 (>35); POTASSIUM SERUM 4.1 MMOL/L (3.5-5.1)
== END ==
LOC: SKLAB5 15:29
PROVIDERS: ATTEND Internal Medicine
DX: N48.1 Balanitis (principal)

== ENCOUNTER 2024-02-09 05:23 | Emergency (ER) | payer MEDICARE, MEDICAID ==
[~2024-02-09] VITALS: Ht 182.9 cm; Wt 79.7 kg
[2024-02-09 07:07] VITALS: TEMP 98.1
[2024-02-09 07:15] VITALS: BP 165/74; O2SAT 93
== END 2024-02-09 08:08 | disposition home or self-care (01) ==
LOC: M ED 05:23 → EDBD 05:23 → M ED 08:08
DX: S00.33XA Contusion of nose, initial encounter (principal); R04.0 Epistaxis; W19.XXXA Unspecified fall, initial encounter; I25.9 Chronic ischemic heart disease, unspecified; F03.90 Unspecified dementia, unspecified severity, without behavioral disturbance, psychotic disturbance, mood disturbance, and anxiety; I10 Essential (primary) hypertension; M25.78 Osteophyte, vertebrae; M50.322 Other cervical disc degeneration at C5-C6 level; Y92.129 Unspecified place in nursing home as the place of occurrence of the external cause; Y93.89 Activity, other specified; Y99.9 Unspecified external cause status; Z79.02 Long term (current) use of antithrombotics/antiplatelets; Z79.82 Long term (current) use of aspirin; Z79.899 Other long term (current) drug therapy

== ENCOUNTER → 2024-02-11 | Outpatient (REF) | payer MEDICARE, MEDICAID ==
[2024-02-11 20:28] LABS: HEMATOCRIT 48.5 % (42.0-52.0); HEMOGLOBIN 16.3 g/dl (13.5-17.5); MEAN CORPUSCULAR HGB CONC 33.6 g/dl (32.0-36.5); MEAN CORPUSCULAR VOLUME 95.3 fl (80.0-96.0); PLATELET COUNT, AUTOMATED 214 10^3/uL (150-450); RED BLOOD COUNT 5.09 10^6/uL (4.30-6.10); WHITE BLOOD COUNT 8.5 10^3/uL (4.0-10.0)
[2024-02-11 20:52] LABS: BLOOD UREA NITROGEN 32 MG/DL (9-23); CALCIUM LEVEL 8.2 MG/DL (8.3-10.6); CARBON DIOXIDE LEVEL 28 MMOL/L (20-31); CHLORIDE LEVEL 108 MMOL/L (98-107); CREATININE FOR GFR 1.13 MG/DL (0.70-1.30); GLOMERULAR FILTRATION RATE > 60.0 (>35); GLUCOSE, FASTING 97 MG/DL (74-106); POTASSIUM SERUM 4.2 MMOL/L (3.5-5.1); SODIUM LEVEL 143 MMOL/L (136-145)
== END ==
LOC: SKLAB5 16:17
PROVIDERS: ATTEND Internal Medicine
DX: U07.1 COVID-19 (principal); Z79.899 Other long term (current) drug therapy

== ENCOUNTER → 2024-02-12 | Outpatient (REF) | payer MEDICARE, MEDICAID | LOC: SKLAB5 14:31 | PROVIDERS: ATTEND Internal Medicine | DX: U07.1 COVID-19 (principal); R09.02 Hypoxemia; I71.20 Thoracic aortic aneurysm, without rupture, unspecified ==

== ENCOUNTER → 2024-02-25 | Outpatient (REF) | payer MEDICARE, MEDICAID ==
[2024-02-25 09:42] LABS: THYROID STIMULATING HORMONE 2.059 uIU/ML (0.55-4.78)
== END ==
LOC: SKLAB5 07:00
PROVIDERS: ATTEND Internal Medicine
DX: E03.9 Hypothyroidism, unspecified (principal); E55.9 Vitamin D deficiency, unspecified

== ENCOUNTER → 2024-03-24 | Outpatient (REF) | payer MEDICARE, MEDICAID ==
[2024-03-24 16:02] LABS: HEMATOCRIT 47.7 % (42.0-52.0); HEMOGLOBIN 16.2 g/dl (13.5-17.5); MEAN CORPUSCULAR HEMOGLOBIN 32.6 pg (27.0-33.0); PLATELET COUNT, AUTOMATED 207 10^3/uL (150-450); RED BLOOD COUNT 4.97 10^6/uL (4.30-6.10); WHITE BLOOD COUNT 7.8 10^3/uL (4.0-10.0)
[2024-03-24 16:32] LABS: ALBUMIN 2.7 G/DL (3.2-5.2); BILIRUBIN,TOTAL 0.4 MG/DL (0.3-1.2); CALCIUM LEVEL 8.6 MG/DL (8.3-10.6); CHOLESTEROL RISK RATIO 6.96 (<5); CREATININE FOR GFR 1.25 MG/DL (0.70-1.30); GLOMERULAR FILTRATION RATE 58.2 (>35); HDL CHOLESTEROL 29.3 MG/DL (>40); LDL CHOLESTEROL 127.7 MG/DL (<100); MAGNESIUM LEVEL 1.8 MG/DL (1.8-2.4); NON-HDL-C 174.7 MG/DL; POTASSIUM SERUM 4.2 MMOL/L (3.5-5.1); TOTAL PROTEIN 5.7 G/DL (5.7-8.2)
== END ==
LOC: SKLAB5 07:00
PROVIDERS: ATTEND Internal Medicine
DX: N17.9 Acute kidney failure, unspecified (principal); E78.00 Pure hypercholesterolemia, unspecified; G20.C Parkinsonism, unspecified; D64.9 Anemia, unspecified

== ENCOUNTER → 2024-04-11 | Outpatient (REF) | payer MEDICARE, MEDICAID ==
[~2024-04-11] MED LIST changes: +APAP325T4 PO; +BISA10SU PR; +CYAN1000VL INJ; +ECOT81TA5 PO; +NITR-67 PO; -SENN-111 PO; +SENN-165 PO; +SENN-186 PO
[2024-04-11 17:38] LABS: APPEARANCE, URINE CLOUDY (CLEAR); BACTERIA, URINE AUTO NEGATIVE (NEGATIVE); BILIRUBIN, URINE AUTO NEGATIVE (NEGATIVE); BLOOD, URINE BLOOD 3+ (NEGATIVE); COLOR, URINE AMBER (YELLOW); GLUCOSE, URINE (UA) AUTO NEGATIVE (NEGATIVE); KETONE, URINE AUTO NEGATIVE (NEGATIVE); LEUKOCYTE ESTERASE, URINE AUTO NEGATIVE (NEGATIVE); NITRITE, URINE AUTO NEGATIVE (NEGATIVE); PROTEIN, URINE AUTO 2+ mg/dL (NEGATIVE); RBC, URINE AUTO TNTC /HPF (0-3); SPECIFIC GRAVITY URINE AUTO 1.023 (1.002-1.035); SQUAMOUS EPITHELIAL CELL UR AU 0 /HPF (0-6); UROBILINOGEN, URINE AUTO 0.2 mg/dL (0.0-2.0); WBC, URINE AUTO 81 /HPF (0-3)
== END ==
LOC: SKLAB5 16:55
PROVIDERS: ATTEND Internal Medicine
DX: R30.0 Dysuria (principal)

== ENCOUNTER → 2024-04-11 | Outpatient (REF) | payer MEDICARE, MEDICAID | LOC: SKLAB5 17:11 | PROVIDERS: ATTEND Internal Medicine | DX: R30.0 Dysuria (principal); Z53.8 Procedure and treatment not carried out for other reasons ==

== ENCOUNTER 2024-04-12 20:03 | Inpatient (IN) | payer MEDICARE, MEDICAID ==
[~2024-04-12] VITALS: Ht 167.6 cm; Wt 81.8 kg
[~2024-04-12 20:03] MED LIST changes: -APAP325T4 PO; -BISA10SU PR; -CYAN1000VL INJ; -ECOT81TA5 PO; -SENN-186 PO
[2024-04-12 20:44] LABS: BASO # 0.1 10^3/uL (0.0-0.2); BASO % 0.3 % (0.0-1.0); EOS % 0.1 % (0.0-3.0); HEMATOCRIT 53.7 % (42.0-52.0); LYMPH % 4.3 % (24.0-44.0); MEAN CORPUSCULAR HEMOGLOBIN 32.2 pg (27.0-33.0); MEAN CORPUSCULAR HGB CONC 33.5 g/dl (32.0-36.5); MEAN CORPUSCULAR VOLUME 96.1 fl (80.0-96.0); MONO # 2.1 10^3/uL (0.0-0.8); MONO % 8.9 % (2.0-8.0); NEUTROPHILS # 19.9 10^3/uL (1.5-8.5); NEUTROPHILS % 85.7 % (36.0-66.0); PLATELET COUNT, AUTOMATED 231 10^3/uL (150-450); RED BLOOD COUNT 5.59 10^6/uL (4.30-6.10); WHITE BLOOD COUNT 23.2 10^3/uL (4.0-10.0)
[2024-04-12 20:58] LABS: ALBUMIN 3.4 G/DL (3.2-5.2); BILIRUBIN,DIRECT 0.3 MG/DL (<0.4); BILIRUBIN,TOTAL 1.1 MG/DL (0.3-1.2); CALCIUM LEVEL 9.3 MG/DL (8.3-10.6); CREATININE FOR GFR 1.25 MG/DL (0.70-1.30); GLOMERULAR FILTRATION RATE 58.2 (>35); POTASSIUM SERUM 4.5 MMOL/L (3.5-5.1); TOTAL PROTEIN 7.1 G/DL (5.7-8.2)
[2024-04-12 21:01] LABS: THYROID STIMULATING HORMONE 2.776 uIU/ML (0.55-4.78)
[2024-04-12] MEDS ORDERED: AZITHROMYCIN 250MG TABLET PO ONE (21:30)
[2024-04-12] MEDS: NS 1,000 ML IV ONE (22:03)
[2024-04-12] MEDS: cefTRIAXone SOD 1 GM in D5W MINI-BAG PLUS 50 ML IV ONE (22:03)
[2024-04-12] MEDS ORDERED: MAALOX 30 ML SUSP *UDC PO PRN (22:20)
[2024-04-12] MEDS ORDERED: MOM 30ML SUSPENSION UDC PO PRN (22:20)
[2024-04-12] MEDS: AZITHROMYCIN INJ 500 MG, VIAL MATE ADAPTER 1 EACH in NS 250 ML IV ONE (23:00)
[2024-04-12] MEDS: UNRESOLVED CLARIFICATION ENTRY XX STA (23:00)
[2024-04-12 23:28] VITALS: BP 143/74; TEMP 98.4; O2SAT 93
[2024-04-12] MEDS ORDERED: MED REC IN PROGRESS XX SCH (23:35)
[2024-04-13] MEDS: IPRATROPIUM 0.5MG/ALBUTEROL 2.5MG INH SOL UD 3ML (DUONEB) INH PRN (01:12)
[2024-04-13 01:20] VITALS: BP 128/80; TEMP 100.9; O2SAT 92
[2024-04-13] MEDS ORDERED: APAP325T4 PO (01:23)
[2024-04-13] MEDS ORDERED: SENN-186 PO (01:23)
[2024-04-13] MEDS ORDERED: CYAN1000VL INJ (01:23)
[2024-04-13] MEDS ORDERED: BISA10SU PR (01:23)
[2024-04-13] MEDS ORDERED: ECOT81TA5 PO (01:23)
[2024-04-13] MEDS ORDERED: HOME MED LIST COMPLETE! XX SCH (01:30)
[2024-04-13 01:49] LABS: ABG BASE EXCESS -2.5 (-2.0-2.0); ABG O2 SATURATION 98.7 % (95.0-99.0); ABG PARTIAL PRESSURE CO2 33.3 mmHg (35.0-45.0); ABG PARTIAL PRESSURE O2 107.3 mmHg (75.0-100.0); ABG STANDARD HCO3 22.5 MMOL/L. (22.0-26.0); ABG pH (ARTERIAL) 7.418 UNITS (7.350-7.450)
[2024-04-13] MEDS: NS 500 ML IV ONE (02:29)
[2024-04-13] MEDS: ACETAMINOPHEN *IV* 1,000 MG in IV 1 EA IV ONE (02:30)
[2024-04-13 03:37] VITALS: BP 117/57; TEMP 99.1; O2SAT 93
[2024-04-13 08:00] VITALS: BP 116/65; TEMP 98.1; O2SAT 93
[2024-04-13] MEDS: ENOXAPARIN 40MG/0.4ML SYRINGE (J1650 PER 10MG) SC SCH (08:38)
[2024-04-13] MEDS: DOCUSATE SODIUM 100MG CAPSULE PO SCH (08:38)
[2024-04-13 09:10] LABS: PROCALCITONIN 0.42 ng/ml
[2024-04-13 09:11] LABS: ALBUMIN 2.7 G/DL (3.2-5.2); ALKALINE PHOSPHATASE 91 U/L (46-116); ALT/SGPT 37 U/L (7.0-40); AST/SGOT 28 U/L (<34); BILIRUBIN,TOTAL 1.1 MG/DL (0.3-1.2); BLOOD UREA NITROGEN 25 MG/DL (9-23); CALCIUM LEVEL 8.2 MG/DL (8.3-10.6); CARBON DIOXIDE LEVEL 26 MMOL/L (20-31); CHLORIDE LEVEL 106 MMOL/L (98-107); CREATININE FOR GFR 1.17 MG/DL (0.70-1.30); GLOMERULAR FILTRATION RATE > 60.0 (>35); GLUCOSE, FASTING 119 MG/DL (74-106); POTASSIUM SERUM 4.5 MMOL/L (3.5-5.1); SODIUM LEVEL 138 MMOL/L (136-145); TOTAL PROTEIN 5.9 G/DL (5.7-8.2)
[2024-04-13 16:00] VITALS: BP 118/61; TEMP 98.2; O2SAT 93
[2024-04-13 20:21] VITALS: BP 121/48; TEMP 97.7; O2SAT 90
[2024-04-13 20:27] VITALS: BP 130/64
[2024-04-13] MEDS: AZITHROMYCIN 250MG TABLET PO SCH (20:37)
[2024-04-13] MEDS: cefTRIAXone SOD 1 GM in D5W MINI-BAG PLUS 50 ML IV SCH (21:22)
[2024-04-14 04:54] VITALS: BP 138/65; TEMP 97.7; O2SAT 93
[2024-04-14 05:04] VITALS: TEMP 99.6
[2024-04-14] MEDS: LEVOTHYROXINE 100MCG TABLET (0.1MG) PO SCH (06:00)
[2024-04-14] MEDS: ACETAMINOPHEN 325 MG TAB PO PRN (06:45)
[2024-04-14] MEDS: ASPIRIN 81MG ENTERIC TABLET PO SCH (09:00)
[2024-04-14 09:54] LABS: BASO # 0.1 10^3/uL (0.0-0.2); BASO % 0.4 % (0.0-1.0); EOS # 0.1 10^3/uL (0.0-0.5); EOS % 0.4 % (0.0-3.0); HEMATOCRIT 44.4 % (42.0-52.0); HEMOGLOBIN 14.8 g/dl (13.5-17.5); LYMPH # 1.8 10^3/uL (1.5-5.0); LYMPH % 11.6 % (24.0-44.0); MEAN CORPUSCULAR HEMOGLOBIN 32.8 pg (27.0-33.0); MEAN CORPUSCULAR HGB CONC 33.3 g/dl (32.0-36.5); MEAN CORPUSCULAR VOLUME 98.4 fl (80.0-96.0); MONO # 1.6 10^3/uL (0.0-0.8); MONO % 10.2 % (2.0-8.0); NEUTROPHILS # 12.2 10^3/uL (1.5-8.5); NEUTROPHILS % 76.8 % (36.0-66.0); PLATELET COUNT, AUTOMATED 200 10^3/uL (150-450); RED BLOOD COUNT 4.51 10^6/uL (4.30-6.10); WHITE BLOOD COUNT 15.9 10^3/uL (4.0-10.0)
[2024-04-14 10:17] LABS: BLOOD UREA NITROGEN 29 MG/DL (9-23); CALCIUM LEVEL 8.4 MG/DL (8.3-10.6); CARBON DIOXIDE LEVEL 29 MMOL/L (20-31); CHLORIDE LEVEL 108 MMOL/L (98-107); CREATININE FOR GFR 1.17 MG/DL (0.70-1.30); GLOMERULAR FILTRATION RATE > 60.0 (>35); GLUCOSE, FASTING 100 MG/DL (74-106); POTASSIUM SERUM 4.3 MMOL/L (3.5-5.1); SODIUM LEVEL 142 MMOL/L (136-145)
[2024-04-14 12:00] VITALS: BP 136/62; TEMP 97.9; O2SAT 94
[2024-04-14] MEDS ORDERED: MOM 30ML SUSPENSION UDC PO PRN (12:55)
[2024-04-14] MEDS ORDERED: BISACODYL 10MG SUPP PR PRN (12:55)
[2024-04-14] MEDS ORDERED: NYSTATIN 100,000 UNITS/GM TOPICAL PWD 15GM TOP PRN (17:35)
[2024-04-14] MEDS: SENNA 8.6 MG TAB (SENOKOT) PO SCH (20:28)
[2024-04-14 20:50] VITALS: BP 146/66; TEMP 97.9; O2SAT 96
[2024-04-15 04:02] VITALS: BP 179/79; TEMP 97.7; O2SAT 93
[2024-04-15 04:54] VITALS: BP 152/70
[2024-04-15 08:21] LABS: BASO # 0.1 10^3/uL (0.0-0.2); BASO % 0.5 % (0.0-1.0); EOS # 0.1 10^3/uL (0.0-0.5); EOS % 0.7 % (0.0-3.0); HEMATOCRIT 45.6 % (42.0-52.0); HEMOGLOBIN 15.2 g/dl (13.5-17.5); LYMPH # 1.8 10^3/uL (1.5-5.0); LYMPH % 18.5 % (24.0-44.0); MEAN CORPUSCULAR HEMOGLOBIN 32.7 pg (27.0-33.0); MEAN CORPUSCULAR HGB CONC 33.3 g/dl (32.0-36.5); MEAN CORPUSCULAR VOLUME 98.1 fl (80.0-96.0); MONO # 1.5 10^3/uL (0.0-0.8); MONO % 15.7 % (2.0-8.0); NEUTROPHILS # 6.1 10^3/uL (1.5-8.5); NEUTROPHILS % 64.2 % (36.0-66.0); PLATELET COUNT, AUTOMATED 207 10^3/uL (150-450); RED BLOOD COUNT 4.65 10^6/uL (4.30-6.10); WHITE BLOOD COUNT 9.5 10^3/uL (4.0-10.0)
[2024-04-15 08:50] LABS: BLOOD UREA NITROGEN 28 MG/DL (9-23); CARBON DIOXIDE LEVEL 28 MMOL/L (20-31); CHLORIDE LEVEL 107 MMOL/L (98-107); GLOMERULAR FILTRATION RATE > 60.0 (>35); GLUCOSE, FASTING 103 MG/DL (74-106); SODIUM LEVEL 140 MMOL/L (136-145)
[2024-04-15] MEDS: ASPIRIN 81MG CHEW TABLET PEG SCH (09:27)
[2024-04-15 12:00] VITALS: BP 154/70; TEMP 97.7; O2SAT 94
[2024-04-15 14:16] LABS: PROCALCITONIN 0.21 ng/ml
[2024-04-15 20:23] VITALS: BP 148/67; TEMP 97.9; O2SAT 93
[2024-04-15 23:13] VITALS: O2SAT 91
[2024-04-16 04:57] VITALS: BP 148/68; TEMP 97.6; O2SAT 93
[2024-04-16] MEDS ORDERED: CEFD1CAP9 PO (10:55)
== END 2024-04-16 12:27 | DRG 871 ==
LOC: M ED 20:03 → M ED INP 22:16 → M MS5PR 23:44
PROVIDERS: ADMIT Internal Medicine; ATTEND Hospitalist
DX: A41.9 Sepsis, unspecified organism (principal); J96.21 Acute and chronic respiratory failure with hypoxia; J18.9 Pneumonia, unspecified organism; G93.41 Metabolic encephalopathy; I10 Essential (primary) hypertension; E03.9 Hypothyroidism, unspecified; G20.A1 Parkinson's disease without dyskinesia, without mention of fluctuations; F02.80 Dementia in other diseases classified elsewhere, unspecified severity, without behavioral disturbance, psychotic disturbance, mood disturbance, and anxiety; Z79.899 Other long term (current) drug therapy; Z79.82 Long term (current) use of aspirin

== ENCOUNTER → 2024-04-22 | Outpatient (REF) ==
[~2024-04-22] MED LIST changes: +APAP325T4 PO; +BISA10SU PR; +CEFD1CAP9 PO; +CYAN1000VL INJ; +ECOT81TA5 PO; +SENN-186 PO
[2024-04-22 10:51] LABS: BASO # 0.1 10^3/uL (0.0-0.2); BASO % 1.2 % (0.0-1.0); EOS # 0.2 10^3/uL (0.0-0.5); EOS % 2.3 % (0.0-3.0); HEMATOCRIT 50.6 % (42.0-52.0); HEMOGLOBIN 16.9 g/dl (13.5-17.5); LYMPH # 3.1 10^3/uL (1.5-5.0); LYMPH % 35.7 % (24.0-44.0); MEAN CORPUSCULAR HEMOGLOBIN 32.7 pg (27.0-33.0); MEAN CORPUSCULAR HGB CONC 33.4 g/dl (32.0-36.5); MEAN CORPUSCULAR VOLUME 97.9 fl (80.0-96.0); MONO # 0.9 10^3/uL (0.0-0.8); MONO % 10.1 % (2.0-8.0); NEUTROPHILS # 4.2 10^3/uL (1.5-8.5); NEUTROPHILS % 49.5 % (36.0-66.0); PLATELET COUNT, AUTOMATED 284 10^3/uL (150-450); RED BLOOD COUNT 5.17 10^6/uL (4.30-6.10); WHITE BLOOD COUNT 8.5 10^3/uL (4.0-10.0)
[2024-04-22 11:14] LABS: CALCIUM LEVEL 9.2 MG/DL (8.3-10.6); CREATININE FOR GFR 1.36 MG/DL (0.70-1.30); GLOMERULAR FILTRATION RATE 52.8 (>35); POTASSIUM SERUM 4.2 MMOL/L (3.5-5.1)
== END ==
LOC: SKLAB5 08:46
PROVIDERS: ATTEND Internal Medicine
DX: J18.9 Pneumonia, unspecified organism (principal)

== ENCOUNTER → 2024-08-18 | Outpatient (REF) | payer MEDICARE, MEDICAID ==
[~2024-08-18] MED LIST changes: +NYST1POW3 TOP; -NYST1POW9 TOP
[2024-08-18 10:45] LABS: BASO # 0.1 10^3/uL (0.0-0.2); BASO % 0.5 % (0.0-1.0); EOS # 0.1 10^3/uL (0.0-0.5); EOS % 0.5 % (0.0-3.0); HEMATOCRIT 50.7 % (42.0-52.0); HEMOGLOBIN 17.1 g/dl (13.5-17.5); LYMPH # 1.6 10^3/uL (1.5-5.0); LYMPH % 14.4 % (24.0-44.0); MEAN CORPUSCULAR HEMOGLOBIN 32.7 pg (27.0-33.0); MEAN CORPUSCULAR HGB CONC 33.7 g/dl (32.0-36.5); MEAN CORPUSCULAR VOLUME 96.9 fl (80.0-96.0); MONO # 0.9 10^3/uL (0.0-0.8); MONO % 7.8 % (2.0-8.0); NEUTROPHILS # 8.5 10^3/uL (1.5-8.5); NEUTROPHILS % 76.3 % (36.0-66.0); PLATELET COUNT, AUTOMATED 191 10^3/uL (150-450); RED BLOOD COUNT 5.23 10^6/uL (4.30-6.10); WHITE BLOOD COUNT 11.1 10^3/uL (4.0-10.0)
[2024-08-18 11:27] LABS: ALBUMIN 2.8 G/DL (3.2-5.2); ALKALINE PHOSPHATASE 95 U/L (40-129); ALT/SGPT 21 U/L (7.0-40); AST/SGOT 23 U/L (<34); BILIRUBIN,TOTAL 0.8 MG/DL (0.3-1.2); BLOOD UREA NITROGEN 30 MG/DL (9-23); CALCIUM LEVEL 8.4 MG/DL (8.3-10.6); CARBON DIOXIDE LEVEL 22 MMOL/L (20-31); CHLORIDE LEVEL 108 MMOL/L (98-107); GLOMERULAR FILTRATION RATE > 60.0 (>35); GLUCOSE, FASTING 204 MG/DL (74-106); POTASSIUM SERUM 4.3 MMOL/L (3.5-5.1); SODIUM LEVEL 143 MMOL/L (136-145); TOTAL PROTEIN 6.4 G/DL (5.7-8.2)
[2024-08-18 11:29] LABS: THYROID STIMULATING HORMONE 1.346 uIU/ML (0.55-4.78)
== END ==
LOC: SKLAB5 09:40
PROVIDERS: ATTEND Internal Medicine
DX: E03.9 Hypothyroidism, unspecified (principal); R53.83 Other fatigue; R30.0 Dysuria; R00.0 Tachycardia, unspecified; R09.02 Hypoxemia; I77.89 Other specified disorders of arteries and arterioles; I44.0 Atrioventricular block, first degree; I51.7 Cardiomegaly

== ENCOUNTER → 2024-08-19 | Outpatient (REF) | payer MEDICARE, MEDICAID ==
[2024-08-19 15:05] LABS: KETONE, URINE AUTO RFX NEGATIVE (NEGATIVE); MUCUS, URINE RFX SMALL (NEGATIVE); NITRITE, URINE AUTO RFX NEGATIVE (NEGATIVE); RBC, URINE AUTO RFX 6 /HPF (0-3); SQUAM EPITHELIAL CELL UR AURFX 2 /HPF (0-6); WBC, URINE AUTO RFX 4 /HPF (0-3)
[2024-08-19 15:06] LABS: LEUKOCYTE ESTERASE UR AUTO RFX 2+ (NEGATIVE)
== END ==
LOC: SKLAB5 13:27
PROVIDERS: ATTEND Internal Medicine
DX: R30.0 Dysuria (principal)

== ENCOUNTER → 2024-08-19 | Outpatient (CLI) | payer MEDICARE, MEDICAID | LOC: M RAD 14:38 | PROVIDERS: ATTEND Nurse Practitioner Family | DX: R07.81 Pleurodynia (principal); S22.31XA Fracture of one rib, right side, initial encounter for closed fracture; W19.XXXA Unspecified fall, initial encounter; Y92.9 Unspecified place or not applicable; Y93.9 Activity, unspecified; Y99.9 Unspecified external cause status; I51.7 Cardiomegaly; J98.11 Atelectasis; S42.002A Fracture of unspecified part of left clavicle, initial encounter for closed fracture; R30.0 Dysuria ==

== ENCOUNTER → 2024-08-24 | Outpatient (REF) | payer MEDICARE ==
[2024-08-24 08:28] LABS: HEMATOCRIT 52.6 % (42.0-52.0); HEMOGLOBIN 17.2 g/dl (13.5-17.5); MEAN CORPUSCULAR HEMOGLOBIN 32.1 pg (27.0-33.0); MEAN CORPUSCULAR HGB CONC 32.7 g/dl (32.0-36.5); MEAN CORPUSCULAR VOLUME 98.3 fl (80.0-96.0); PLATELET COUNT, AUTOMATED 205 10^3/uL (150-450); RED BLOOD COUNT 5.35 10^6/uL (4.30-6.10); WHITE BLOOD COUNT 9.6 10^3/uL (4.0-10.0)
[2024-08-24 08:53] LABS: BLOOD UREA NITROGEN 27 MG/DL (9-23); CALCIUM LEVEL 8.9 MG/DL (8.3-10.6); CARBON DIOXIDE LEVEL 30 MMOL/L (20-31); CHLORIDE LEVEL 107 MMOL/L (98-107); CREATININE FOR GFR 1.09 MG/DL (0.70-1.30); GLOMERULAR FILTRATION RATE > 60.0 (>35); GLUCOSE, FASTING 95 MG/DL (74-106); POTASSIUM SERUM 4.5 MMOL/L (3.5-5.1); SODIUM LEVEL 143 MMOL/L (136-145)
[2024-08-24 08:56] LABS: TOTAL 25(OH) VITAMIN D 36.1 NG/ML (20.0-100.0)
== END ==
LOC: SKLAB2 07:00
PROVIDERS: ATTEND Internal Medicine
DX: E55.9 Vitamin D deficiency, unspecified (principal); F03.90 Unspecified dementia, unspecified severity, without behavioral disturbance, psychotic disturbance, mood disturbance, and anxiety

== ENCOUNTER → 2024-09-07 | Outpatient (REF) | payer MEDICARE | LOC: SKLAB5 09:45 | PROVIDERS: ATTEND Internal Medicine | DX: S42.022D Displaced fracture of shaft of left clavicle, subsequent encounter for fracture with routine healing (principal); Z53.9 Procedure and treatment not carried out, unspecified reason ==

== ENCOUNTER → 2024-09-07 | Outpatient (REF) | payer MEDICARE | LOC: SKLAB5 09:58 | PROVIDERS: ATTEND Internal Medicine | DX: S42.022D Displaced fracture of shaft of left clavicle, subsequent encounter for fracture with routine healing (principal) ==

== ENCOUNTER → 2024-09-10 | Outpatient (REF) | payer MEDICARE | LOC: SKLAB5 16:08 | PROVIDERS: ATTEND Internal Medicine | DX: R06.2 Wheezing (principal); I51.7 Cardiomegaly; J98.4 Other disorders of lung ==

== ENCOUNTER → 2024-09-10 | Outpatient (REF) | payer MEDICARE | LOC: SKLAB5 16:36 | PROVIDERS: ATTEND Internal Medicine | DX: R06.2 Wheezing (principal); I51.7 Cardiomegaly; J98.4 Other disorders of lung ==

== ENCOUNTER → 2024-09-19 | Outpatient (REF) | payer MEDICARE ==
[~2024-09-19] MED LIST changes: +BISA10SU27 PR; +CYAN1000VL IM; +HYOS125TA PO; +LIDO1ADH20 TOP; +MORP1SOL5 PO
[2024-09-19 20:26] LABS: HEMATOCRIT 46.4 % (42.0-52.0); HEMOGLOBIN 15.7 g/dl (13.5-17.5); MEAN CORPUSCULAR HEMOGLOBIN 32.5 pg (27.0-33.0); MEAN CORPUSCULAR HGB CONC 33.8 g/dl (32.0-36.5); MEAN CORPUSCULAR VOLUME 96.1 fl (80.0-96.0); PLATELET COUNT, AUTOMATED 190 10^3/uL (150-450); RED BLOOD COUNT 4.83 10^6/uL (4.30-6.10); WHITE BLOOD COUNT 12.9 10^3/uL (4.0-10.0)
[2024-09-19 20:45] LABS: ALBUMIN 2.4 G/DL (3.2-5.2); ALKALINE PHOSPHATASE 106 U/L (40-129); ALT/SGPT 23 U/L (7.0-40); AST/SGOT 14 U/L (<34); BILIRUBIN,TOTAL 0.8 MG/DL (0.3-1.2); BLOOD UREA NITROGEN 33 MG/DL (9-23); CALCIUM LEVEL 8.1 MG/DL (8.3-10.6); CARBON DIOXIDE LEVEL 28 MMOL/L (20-31); CHLORIDE LEVEL 106 MMOL/L (98-107); CREATININE FOR GFR 1.13 MG/DL (0.70-1.30); GLOMERULAR FILTRATION RATE > 60.0 (>35); GLUCOSE, FASTING 124 MG/DL (74-106); POTASSIUM SERUM 4.5 MMOL/L (3.5-5.1); SODIUM LEVEL 142 MMOL/L (136-145); TOTAL PROTEIN 5.8 G/DL (5.7-8.2)
== END ==
LOC: SKLAB5 07:00
PROVIDERS: ATTEND Internal Medicine
DX: R50.9 Fever, unspecified (principal); R41.82 Altered mental status, unspecified

== ENCOUNTER → 2024-09-21 | Outpatient (REF) | payer MEDICARE ==
[~2024-09-21] MED LIST changes: -BISA10SU27 PR; -CYAN1000VL IM; -HYOS125TA PO; -LIDO1ADH20 TOP; -MORP1SOL5 PO
[2024-09-21 15:13] LABS: AMORPHOUS SEDIMENT MODERATE (NEGATIVE); APPEARANCE, URINE CLOUDY (CLEAR); BACTERIA, URINE AUTO NEGATIVE (NEGATIVE); BILIRUBIN, URINE AUTO NEGATIVE (NEGATIVE); BLOOD, URINE BLOOD NEGATIVE (NEGATIVE); COLOR, URINE AMBER (YELLOW); GLUCOSE, URINE (UA) AUTO NEGATIVE (NEGATIVE); KETONE, URINE AUTO TRACE mg/dL (NEGATIVE); LEUKOCYTE ESTERASE, URINE AUTO NEGATIVE (NEGATIVE); MUCUS, URINE SMALL (NEGATIVE); NITRITE, URINE AUTO NEGATIVE (NEGATIVE); PROTEIN, URINE AUTO 1+ mg/dL (NEGATIVE); RBC, URINE AUTO 0 /HPF (0-3); SPECIFIC GRAVITY URINE AUTO 1.024 (1.002-1.035); SQUAMOUS EPITHELIAL CELL UR AU 0 /HPF (0-6); TRIPLE PHOSPHATE CRYSTALS SMALL; WBC, URINE AUTO 1 /HPF (0-3)
== END ==
LOC: SKLAB5 10:07
PROVIDERS: ATTEND Internal Medicine
DX: R13.12 Dysphagia, oropharyngeal phase (principal); J98.4 Other disorders of lung

== ENCOUNTER 2024-09-27 12:08 | Inpatient (IN) | payer MEDICARE ==
[~2024-09-27] VITALS: Ht 167.6 cm; Wt 74.0 kg
[2024-09-27] MEDS: LIDOCAINE 2% 5ML JELLY UROJET TOP ONE (13:32)
[2024-09-27 13:47] LABS: BASO % 0.3 % (0.0-1.0); EOS # 0.1 10^3/uL (0.0-0.5); EOS % 0.5 % (0.0-3.0); HEMATOCRIT 49.6 % (42.0-52.0); HEMOGLOBIN 16.6 g/dl (13.5-17.5); LYMPH # 1.8 10^3/uL (1.5-5.0); LYMPH % 12.5 % (24.0-44.0); MEAN CORPUSCULAR HEMOGLOBIN 32.5 pg (27.0-33.0); MEAN CORPUSCULAR HGB CONC 33.5 g/dl (32.0-36.5); MEAN CORPUSCULAR VOLUME 97.1 fl (80.0-96.0); MONO % 7.2 % (2.0-8.0); NEUTROPHILS # 11.2 10^3/uL (1.5-8.5); NEUTROPHILS % 78.9 % (36.0-66.0); PLATELET COUNT, AUTOMATED 318 10^3/uL (150-450); RED BLOOD COUNT 5.11 10^6/uL (4.30-6.10); WHITE BLOOD COUNT 14.1 10^3/uL (4.0-10.0)
[2024-09-27 14:04] LABS: LIPASE 51 U/L (12-53)
[2024-09-27 14:06] LABS: AMYLASE 147 U/L (30-118)
[2024-09-27 14:07] LABS: ALBUMIN 2.6 G/DL (3.2-5.2); ALKALINE PHOSPHATASE 109 U/L (40-129); ALT/SGPT 18 U/L (7.0-40); AST/SGOT 19 U/L (<34); BILIRUBIN,DIRECT 0.3 MG/DL (<0.4); BLOOD UREA NITROGEN 21 MG/DL (9-23); CALCIUM LEVEL 8.7 MG/DL (8.3-10.6); CARBON DIOXIDE LEVEL 29 MMOL/L (20-31); CHLORIDE LEVEL 102 MMOL/L (98-107); CREATININE FOR GFR 1.01 MG/DL (0.70-1.30); GLOMERULAR FILTRATION RATE > 60.0 (>35); GLUCOSE, FASTING 106 MG/DL (74-106); POTASSIUM SERUM 4.5 MMOL/L (3.5-5.1); SODIUM LEVEL 140 MMOL/L (136-145); TOTAL PROTEIN 6.7 G/DL (5.7-8.2)
[2024-09-27] MEDS: NS 500 ML IV ONE (14:30)
[2024-09-27] MEDS ORDERED: ISOVUE-370 76% 100ML VIAL As Ordered ONE (14:56)
[2024-09-27 15:09] LABS: APPEARANCE, URINE MANUAL TURBID (CLEAR)
[2024-09-27 15:10] LABS: COLOR, URINE MANUAL RED (YELLOW); GLUCOSE, URINE (UA) MANUAL OBSCURED mg/dL (NEGATIVE); KETONE, URINE MANUAL OBSCURED mg/dL (NEGATIVE); PH,URINE MAN OBSCURED UNITS (5.0 - 7.0); PROTEIN, URINE MANUAL OBSCURED mg/dL (NEGATIVE); SPECIFIC GRAVITY,URINE MANUAL 1.024 (1.002-1.035); UROBILINOGEN, URINE MANUAL OBSCURED mg/dl (NORMAL)
[2024-09-27 15:11] LABS: BILIRUBIN, URINE MANUAL OBSCURED (NEGATIVE); BLOOD URINE MANUAL OBSCURED (NEGATIVE); LEUKOCYTE ESTERASE, URINE MAN OBSCURED (NEGATIVE); NITRITE, URINE MANUAL OBSCURED (NEGATIVE)
[2024-09-27 15:21] LABS: BACTERIA, URINE MOD AMOUNT; HYALINE CAST, URINE NONE SEEN /lpf (0-1); RBC, URINE TNTC /hpf (0-3); SQUAMOUS EPITHELIAL CELL URINE SMALL AMOUNT /hpf (SMALL AMT)
[2024-09-27] MEDS: cefTRIAXone SOD 1 GM in DEXTROSE 5% (D5W) ADV/MINI-BAG 50 ML IV ONE ×2 (16:29→19:27)
[2024-09-27] MEDS: GABAPENTIN 100 MG CAP PO ONE (16:29)
[2024-09-27] MEDS: [UNRECOGNIZED DRUG - OTHER] IV ONE (16:38)
[2024-09-27] MEDS: NS 0.9% IV ONE (16:38)
[2024-09-27] MEDS ORDERED: ALBU2.5V10 INH (17:17)
[2024-09-27] MEDS ORDERED: BISA10SU27 PR (17:17)
[2024-09-27] MEDS ORDERED: LIDO1ADH20 TOP (17:17)
[2024-09-27] MEDS ORDERED: CYAN1000VL IM (17:17)
[2024-09-27] MEDS ORDERED: traMADol 50 MG TAB PO PRN (17:20)
[2024-09-27] MEDS ORDERED: OLANZapine ORAL DISINTEGRATING TAB 5MG PO PRN (17:20)
[2024-09-27] MEDS ORDERED: HOME MED LIST COMPLETE! XX SCH (17:20)
[2024-09-27] MEDS: ACETAMINOPHEN 500 MG TAB PO ONE (17:21)
[2024-09-27] MEDS: traMADol 50 MG TAB PO ONE (17:21)
[2024-09-27] MEDS: ISOSORBIDE DIN (ISORDIL) 10MG TAB PO SCH (17:30)
[2024-09-27] MEDS ORDERED: VANCOMYCIN HCL 1,000 MG in IV FLUID PLACE HOLDER 1 EA IV SCH (19:05)
[2024-09-27 19:28] LABS: C REACTIVE PROTEIN QUANTITATIV 7.92 MG/DL (<1.0)
[2024-09-27 19:33] LABS: ERYTHROCYTE SEDIMENTATION RATE 66 mm/hr (0-20)
[2024-09-27] MEDS: LR 1,000 ML IV ONE (19:34)
[2024-09-27 19:35] LABS: PROCALCITONIN 0.08 ng/ml
[2024-09-27] MEDS: VANCOMYCIN HCL 1,500 MG, VIAL MATE ADAPTER 1 EACH in NS 500 ML IV ONE (20:00)
[2024-09-27] MEDS: LR 1,000 ML IV SCH (20:15)
[2024-09-27 20:40] VITALS: BP 146/68; TEMP 97.5; O2SAT 95
[2024-09-28] MEDS: ACETAMINOPHEN 500 MG TAB PO SCH (00:48)
[2024-09-28 04:17] VITALS: BP 104/53; TEMP 97.7; O2SAT 95
[2024-09-28 09:10] LABS: BASO # 0.1 10^3/uL (0.0-0.2); BASO % 0.4 % (0.0-1.0); EOS # 0.1 10^3/uL (0.0-0.5); EOS % 0.4 % (0.0-3.0); HEMATOCRIT 41.6 % (42.0-52.0); LYMPH # 2.4 10^3/uL (1.5-5.0); LYMPH % 13.1 % (24.0-44.0); MEAN CORPUSCULAR HEMOGLOBIN 32.4 pg (27.0-33.0); MEAN CORPUSCULAR HGB CONC 33.2 g/dl (32.0-36.5); MEAN CORPUSCULAR VOLUME 97.7 fl (80.0-96.0); MONO # 1.3 10^3/uL (0.0-0.8); MONO % 7.1 % (2.0-8.0); NEUTROPHILS # 14.3 10^3/uL (1.5-8.5); NEUTROPHILS % 78.3 % (36.0-66.0); PLATELET COUNT, AUTOMATED 275 10^3/uL (150-450); RED BLOOD COUNT 4.26 10^6/uL (4.30-6.10); WHITE BLOOD COUNT 18.2 10^3/uL (4.0-10.0)
[2024-09-28 09:14] LABS: HEMOGLOBIN 13.8 g/dl (13.5-17.5)
[2024-09-28 09:19] LABS: BLOOD UREA NITROGEN 18 MG/DL (9-23); CALCIUM LEVEL 7.7 MG/DL (8.3-10.6); CARBON DIOXIDE LEVEL 28 MMOL/L (20-31); CHLORIDE LEVEL 106 MMOL/L (98-107); CREATININE FOR GFR 1.05 MG/DL (0.70-1.30); GLOMERULAR FILTRATION RATE > 60.0 (>35); GLUCOSE, FASTING 96 MG/DL (74-106); POTASSIUM SERUM 4.2 MMOL/L (3.5-5.1); SODIUM LEVEL 142 MMOL/L (136-145)
[2024-09-28] MEDS: ISOSORBIDE DIN (ISORDIL) 10MG TAB PO SCH (09:40)
[2024-09-28 10:00] VITALS: BP 136/57; TEMP 97.7; O2SAT 95
[2024-09-28] MEDS: CEFEPIME HCL 2 GM in DEXTROSE 5% (D5W) ADV/MINI-BAG 50 ML IV SCH (15:49)
[2024-09-28] MEDS ORDERED: cefTRIAXone SOD 1 GM in DEXTROSE 5% (D5W) ADV/MINI-BAG 50 ML IV SCH (16:00)
[2024-09-28] MEDS ORDERED: VANCOMYCIN HCL 1,000 MG, VIAL MATE ADAPTER 1 EACH in NS 250 ML IV SCH (20:00)
[2024-09-28 20:14] VITALS: BP 132/72; TEMP 97.3; O2SAT 96
[2024-09-29 04:00] VITALS: BP 133/52; TEMP 97.7; O2SAT 95
[2024-09-29 07:03] LABS: BASO # 0.1 10^3/uL (0.0-0.2); BASO % 0.6 % (0.0-1.0); EOS # 0.1 10^3/uL (0.0-0.5); EOS % 0.6 % (0.0-3.0); HEMATOCRIT 41.8 % (42.0-52.0); HEMOGLOBIN 13.9 g/dl (13.5-17.5); LYMPH # 1.7 10^3/uL (1.5-5.0); MEAN CORPUSCULAR HEMOGLOBIN 32.3 pg (27.0-33.0); MEAN CORPUSCULAR HGB CONC 33.3 g/dl (32.0-36.5); MEAN CORPUSCULAR VOLUME 97.2 fl (80.0-96.0); MONO % 8.6 % (2.0-8.0); NEUTROPHILS # 9.1 10^3/uL (1.5-8.5); NEUTROPHILS % 75.7 % (36.0-66.0); PLATELET COUNT, AUTOMATED 261 10^3/uL (150-450)
[2024-09-29 07:40] LABS: BLOOD UREA NITROGEN 19 MG/DL (9-23); CARBON DIOXIDE LEVEL 27 MMOL/L (20-31); CHLORIDE LEVEL 107 MMOL/L (98-107); CREATININE FOR GFR 1.01 MG/DL (0.70-1.30); GLOMERULAR FILTRATION RATE > 60.0 (>35); GLUCOSE, FASTING 91 MG/DL (74-106); POTASSIUM SERUM 4.2 MMOL/L (3.5-5.1); SODIUM LEVEL 141 MMOL/L (136-145)
[2024-09-29 11:56] LABS: PROCALCITONIN 0.15 ng/ml
[2024-09-29 12:00] VITALS: BP 127/66; TEMP 97.3; O2SAT 94
[2024-09-29 12:04] LABS: C REACTIVE PROTEIN QUANTITATIV 17.13 MG/DL (<1.0)
[2024-09-29] MEDS: ERTAPENEM SODIUM 1 GM in NS MINI-BAG PLUS 50 ML IV SCH (12:33)
[2024-09-29 16:43] LABS: ERYTHROCYTE SEDIMENTATION RATE 41 mm/hr (0-20)
[2024-09-29 20:45] VITALS: BP 126/58; TEMP 97.5; O2SAT 97
[2024-09-30 05:37] VITALS: BP 158/67; TEMP 97.3; O2SAT 93
[2024-09-30 06:32] LABS: BASO # 0.1 10^3/uL (0.0-0.2); BASO % 0.8 % (0.0-1.0); EOS # 0.1 10^3/uL (0.0-0.5); EOS % 1.2 % (0.0-3.0); HEMOGLOBIN 14.1 g/dl (13.5-17.5); LYMPH # 1.8 10^3/uL (1.5-5.0); LYMPH % 27.3 % (24.0-44.0); MEAN CORPUSCULAR HEMOGLOBIN 32.3 pg (27.0-33.0); MEAN CORPUSCULAR HGB CONC 33.6 g/dl (32.0-36.5); MEAN CORPUSCULAR VOLUME 96.1 fl (80.0-96.0); MONO # 0.7 10^3/uL (0.0-0.8); MONO % 10.4 % (2.0-8.0); NEUTROPHILS # 3.9 10^3/uL (1.5-8.5); NEUTROPHILS % 59.8 % (36.0-66.0); PLATELET COUNT, AUTOMATED 260 10^3/uL (150-450); RED BLOOD COUNT 4.37 10^6/uL (4.30-6.10); WHITE BLOOD COUNT 6.6 10^3/uL (4.0-10.0)
[2024-09-30 06:53] LABS: BLOOD UREA NITROGEN 18 MG/DL (9-23); CALCIUM LEVEL 7.9 MG/DL (8.3-10.6); CARBON DIOXIDE LEVEL 28 MMOL/L (20-31); CHLORIDE LEVEL 107 MMOL/L (98-107); CREATININE FOR GFR 1.01 MG/DL (0.70-1.30); GLOMERULAR FILTRATION RATE > 60.0 (>35); GLUCOSE, FASTING 87 MG/DL (74-106); SODIUM LEVEL 142 MMOL/L (136-145)
[2024-09-30 20:19] VITALS: BP 108/56; TEMP 97.4; O2SAT 92
[2024-10-01 05:00] VITALS: BP 150/69; TEMP 97.2; O2SAT 93
[2024-10-01 05:50] LABS: BASO # 0.1 10^3/uL (0.0-0.2); BASO % 1.4 % (0.0-1.0); EOS # 0.1 10^3/uL (0.0-0.5); EOS % 1.8 % (0.0-3.0); HEMATOCRIT 42.9 % (42.0-52.0); HEMOGLOBIN 14.2 g/dl (13.5-17.5); LYMPH # 1.8 10^3/uL (1.5-5.0); LYMPH % 33.1 % (24.0-44.0); MEAN CORPUSCULAR HEMOGLOBIN 31.8 pg (27.0-33.0); MEAN CORPUSCULAR HGB CONC 33.1 g/dl (32.0-36.5); MEAN CORPUSCULAR VOLUME 96.2 fl (80.0-96.0); MONO # 0.6 10^3/uL (0.0-0.8); MONO % 10.1 % (2.0-8.0); NEUTROPHILS # 2.9 10^3/uL (1.5-8.5); NEUTROPHILS % 53.2 % (36.0-66.0); PLATELET COUNT, AUTOMATED 258 10^3/uL (150-450); RED BLOOD COUNT 4.46 10^6/uL (4.30-6.10); WHITE BLOOD COUNT 5.5 10^3/uL (4.0-10.0)
[2024-10-01 06:15] LABS: BLOOD UREA NITROGEN 18 MG/DL (9-23); CALCIUM LEVEL 8.1 MG/DL (8.3-10.6); CARBON DIOXIDE LEVEL 25 MMOL/L (20-31); CHLORIDE LEVEL 107 MMOL/L (98-107); CREATININE FOR GFR 0.97 MG/DL (0.70-1.30); GLOMERULAR FILTRATION RATE > 60.0 (>35); GLUCOSE, FASTING 87 MG/DL (74-106); POTASSIUM SERUM 4.4 MMOL/L (3.5-5.1); SODIUM LEVEL 140 MMOL/L (136-145)
[2024-10-01 12:33] VITALS: BP 128/75; TEMP 97.2; O2SAT 91
[2024-10-01] MEDS ORDERED: PILL CUTTER 1 EACH XX ONE (12:50)
[2024-10-01] MEDS ORDERED: ATROPINE SULFATE 1% OPHTH SOLN 2ML BTL SL PRN (13:35)
[2024-10-01] MEDS ORDERED: ONDANSETRON 4MG ORAL DISINTEGRATING TAB PO PRN (13:35)
[2024-10-01] MEDS: LORazepam 1 MG TAB PO PRN (13:46)
[2024-10-01] MEDS: LORazepam 0.5 MG TAB PO SCH (17:04)
[2024-10-01] MEDS ORDERED: TRAN1DIS4 TOP (19:17)
[2024-10-01] MEDS ORDERED: MORP1SOL5 PO (19:17)
[2024-10-01] MEDS ORDERED: HYOS125TA PO (19:17)
[2024-10-01] MEDS ORDERED: ATIV1TAB10 PO (19:17)
[2024-10-01] MEDS ORDERED: ONDA-282 PO (19:18)
[2024-10-01] MEDS: MORPHINE 10MG/0.5ML ORAL CONCENTRATE SOLUTION U/D SL PRN (20:26)
[2024-10-01] MEDS: HYOSCYAMINE SULFATE 0.125 MG SUBL TABLET PO PRN (20:39)
[2024-10-02] MEDS: SCOPOLAMINE 1MG TRANSDERMAL PATCH TOP SCH (01:42)
[2024-10-02 08:00] VITALS: BP 128/75
== END 2024-10-02 13:05 | DRG 871 ==
LOC: EDBD 12:08 → M ED 12:08 → M ED INP 16:29 → EEVIPCON 16:29 → M MS5PR 20:40
PROVIDERS: ADMIT General Practice; ATTEND General Practice
DX: A41.9 Sepsis, unspecified organism (principal); G93.41 Metabolic encephalopathy; N39.0 Urinary tract infection, site not specified; F02.811 Dementia in other diseases classified elsewhere, unspecified severity, with agitation; E87.20 Acidosis, unspecified; D62 Acute posthemorrhagic anemia; E55.9 Vitamin D deficiency, unspecified; N20.0 Calculus of kidney; R33.9 Retention of urine, unspecified; G31.83 Neurocognitive disorder with Lewy bodies; R09.02 Hypoxemia; I73.9 Peripheral vascular disease, unspecified; E53.8 Deficiency of other specified B group vitamins; E88.09 Other disorders of plasma-protein metabolism, not elsewhere classified; G89.29 Other chronic pain; N32.0 Bladder-neck obstruction; I12.9 Hypertensive chronic kidney disease with stage 1 through stage 4 chronic kidney disease, or unspecified chronic kidney disease; E87.70 Fluid overload, unspecified; M54.9 Dorsalgia, unspecified; R31.0 Gross hematuria; F41.8 Other specified anxiety disorders; N47.1 Phimosis; N18.9 Chronic kidney disease, unspecified; I25.10 Atherosclerotic heart disease of native coronary artery without angina pectoris; E78.5 Hyperlipidemia, unspecified; E03.9 Hypothyroidism, unspecified; G20.A1 Parkinson's disease without dyskinesia, without mention of fluctuations; B96.20 Unspecified Escherichia coli [E. coli] as the cause of diseases classified elsewhere; I16.0 Hypertensive urgency; Z66 Do not resuscitate; Z87.891 Personal history of nicotine dependence; Z98.42 Cataract extraction status, left eye; R29.6 Repeated falls; Z79.82 Long term (current) use of aspirin; Z79.899 Other long term (current) drug therapy; Z51.5 Encounter for palliative care